=== PATIENT | female | born 1950 | race Hispanic/Latino ===

== ENCOUNTER 2018-01-22 12:58 | Observation (INO) | payer OTHER ==
--- OUTSIDE RECORDS SUMMARY | 2018-01-22 13:00 | XMS REPORT | Clinical Summary ---
:1950 Author Organization [facility] Address [address] [place] [address] Phone Care Team Providers Name Role Phone Unavailable Primary Care Provider Unavailable Allergies Active Allergy Reactions Severity Noted Date Comments Aspirin (Tartrazine Other (See Comments) 02/10/2017 Coldness- "feels like Only) an ice[place]" Hydrocodone-Acetaminop 02/10/2017 Coldness- "feels like hen an ice[place]" Acetaminophen-Codeine Other (See Comments) 02/10/2017 Coldness- "feels like an ice[place]" Current Medications Prescription Sig. Disp. Refills Start Date End Date Status allopurinol Take 300 mg by Active (ZYLOPRIM) 300 MG mouth daily. tablet ALPRAZolam (XANAX) Take 0.5 mg by Active 0.5 MG tablet mouth daily. gabapentin Take 600 mg by Active (NEURONTIN) 600 MG mouth 2 (two) tablet times daily. losartan (COZAAR) 50 Take 50 mg by Active MG tablet mouth daily. MECOBAL/LEVOMEFOLAT Take 1 capsule Active CA/B6 PHOS (METANX by mouth 2 ORAL) (two) times daily. metFORMIN Take 1,000 mg Active (GLUCOPHAGE) 500 MG by mouth 2 tablet (two) times daily with breakfast and dinner. clopidogrel (PLAVIX) Take 75 mg by Active 75 mg tablet mouth daily. budesonide-formotero Inhale 2 puffs Active l (SYMBICORT) by mouth via 160-4.5 inhaler 2 (two) mcg/actuation times daily. inhaler tiZANidine Take 4 mg by Active (ZANAFLEX) 4 MG mouth daily. tablet traMADol (ULTRAM) 50 Take 50 mg by Active mg tablet mouth 2 (two) times daily. topiramate (TROKENDI Take 1 tablet Active XR) 100 mg Cp24 by mouth daily. atorvastatin Take 1 tablet 30 tablet 1 02/12/2017 Active (LIPITOR) 80 MG (80 mg total) 8 tablet by mouth nightly. venlafaxine 150 mg Take 1 tablet 0 02/12/2017 Active TR24 by mouth daily. sulfamethoxazole-tri Take 1 tablet Discontinued methoprim (BACTRIM by mouth 2 7 DS) 800-160 mg per (two) times tabletIndications: daily. Urinary tract infection atorvastatin Take 20 mg by Discontinued (LIPITOR) 20 MG mouth daily. 7 tablet nitrofurantoin Take 100 mg by Discontinued (MACRODANTIN) 100 MG mouth daily. 7 capsule venlafaxine 150 mg Take 1 tablet Discontinued TR24 by mouth 2 7 (two) times daily. 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 ([facility]) 02/10/2017 Encounters Date Type Specialty Care Team Description 02/10/2017 - Hospital General Internal [facility], Transient cerebral 02/12/2017 Encounter Medicine MD Ricardo ischemia, unspecified Natalee, [place] type;Essential MD Nikkie hypertension;Type II Rissa Thornton diabetes mellitus, MD Morelia well controlled ([facility]);Pure hypercholesterolemia;H yperlipidemia, unspecified hyperlipidemia type after 01/21/2017 Social History Tobacco Use Types Packs/Day Years Used Date Never Smoker Sex Assigned at Date Recorded Not on file Last Filed Vital Signs Vital Sign Reading Time Taken Blood Pressure 148/65 02/12/2017 11:17 AM CDT Pulse 69 02/12/2017 11:17 AM CDT Temperature 37.2 C (98.9 F) 02/12/2017 11:17 AM CDT Respiratory Rate 18 02/12/2017 11:17 AM CDT Oxygen Saturation 97% 02/12/2017 11:17 AM CDT Inhaled Oxygen Concentration - - Weight 81 kg (178 lb 9.2 oz) 02/10/2017 5:00 PM CDT Height 165.1 cm (5' 5") 02/10/2017 5:00 PM CDT Body Mass Index 29.72 02/10/2017 5:00 PM CDT Plan of Treatment Not on file Results POC-Glucose meter (02/12/2017 7:45 AM)Only the most recent of7 resultswithin the time period is included. Component Value Ref Range POC-Glucose Meter 149 (H)Comment: TESTED AT [address] 70 - 110 mg/[place] [address] Specimen Performing Laboratory Blood [address] [address] CBC with platelet count + automated diff (02/12/2017 3:53 AM)Only the most recent of3 resultswithin the time period is included. Component Value Ref Range WBC 9.9 4.0 - 10.0 K/L RBC 3.93 (L) 4.00 - 5.00 M/L Hemoglobin 12.3 12.0 - 15.0 GM/DL Hematocrit 39.1 36.0 - 45.0 % MCV 99.6 (H) 82.0 - 99.0 fL MCH 31.3 27.0 - 33.0 pg MCHC 31.4 (L) 32.0 - 36.0 GM/DL RDW 13.4 10.3 - 14.2 % Platelets 238 150 - 430 K/CU MM MPV 8.7 6.5 - 10.5 fL nRBC 0 0 - 0 /100 WBC % Neutros 46 % % Lymphs 41 % % Monos 5 % % Eos 7 % % Baso 1 % # Neutros 4.56 1.80 - 8.00 K/L # Lymphs 4.05 1.48 - 4.50 K/L # Monos 0.48 0.00 - 1.30 K/L # Eos 0.72 (H) 0.00 - 0.50 K/L # Baso 0.08 0.00 - 0.20 K/L Specimen Performing Laboratory Blood [address] [address] Narrative 0.00 CBC with platelet count + automated diff (02/12/2017 3:53 AM)Only the most recent of3 resultswithin the time period is included. Specimen Performing Laboratory Blood Narrative The following orders were created for panel order CBC with platelet count + automated diff. Procedure Abnormality Status --------- ------ CBC with platelet count ...[[id number]]AbnormalFinal result Please view results for these tests on the individual orders. Basic Metabolic Panel (02/12/2017 3:53 AM)Only the most recent of3 resultswithin the time period is included. Component Value Ref Range Sodium 140 136 - 145 meq/L Potassium 4.6Comment: Specimen slightly hemolyzed 3.5 - 5.1 meq/L Chloride 114 (H) 98 - 107 meq/L CO2 17 (L) 22 - 29 meq/L BUN 16 7 - 21 mg/dL Creatinine 0.94Comment: Specimen slightly hemolyzed 0.57 - 1.25 mg/dL Glucose 98 70 - 105 mg/dL Calcium 9.4 8.4 - 10.2 mg/dL EGFR 59Comment: ESTIMATED GFR IS NOT ACCURATE mL/min/1.73 sq m CREATININE CLEARANCE IN PREDICTING GLOMERULAR FILTRATION RATE. ESTIMATED GFR IS NOT APPLICABLE FOR DIALYSIS PATIENTS. Specimen Performing Laboratory [place] [address] MR brain without IV contrast (02/11/2017 11:25 PM) Specimen Performing Laboratory [id number] RIS Narrative FINAL REPORT MR, BRAIN, WITHOUT CONTRAST, MR, MRA, NECK, WITHOUT IV CONTRAST, MR, MRA, BRAIN, WITHOUT CONTRAST INDICATION: Ischemic Stroke Evaluation TECHNIQUE: Multiplanar, multisequence MR images of the brain.3-D time of flight MRA of the cranial and cervical circulation. 2-D time of flight MRA of the neck. 3D MIP angiographic post-processing was performed. Stenosis evaluation utilized NASCET criteria. COMPARISON: Noncontrast brain CT of the same date FINDINGS: MRI BRAIN: No acute ischemic changes are present. Scattered foci of increased T2 signal are noted in the cerebral white matter, suggesting sequela of chronic, microvascular disease. Moderate parenchymal loss is evident. There is no intra-axial or extra parenchymal hemorrhage. Ventricular configuration is within normal limits.Incidental note of empty sella. No abnormal signal is noted in the skull base or calvarium. The included paranasal sinuses and mastoid air cells are normally aerated. Orbital contents are unremarkable. MRA NECK: There is normal, antegrade flow-related signal in the cervical portions of the vertebral and carotid systems. There is no hemodynamically significant stenosis. The vertebral arteries are codominant extracranially. MRA HEAD: Preserved flow signal is present in the major intracranial arteries. No major branch artery occlusion, flow-limiting stenosis, or saccular aneurysm is identified. No vascular malformation is evident. IMPRESSION: No acute or early subacute ischemia. Scattered chronic microvascular ischemic changes. Unremarkable noncontrast MRA of the head and neck. Signed: JR Britt Robert MD Report Verified Date/Time:02/12/2017 00:04:14 Reading Location: [facility] C013 Transitional Reading Room Procedure Note Interface, External Ris In - 02/12/2017 12:06 AM CDT FINAL REPORT MR, BRAIN, WITHOUT CONTRAST, MR, MRA, NECK, WITHOUT IV CONTRAST, MR, MRA, BRAIN, WITHOUT CONTRAST INDICATION: Ischemic Stroke Evaluation TECHNIQUE: Multiplanar, multisequence MR images of the brain. 3-D time of flight MRA of the cranial and cervical circulation. 2-D time of flight MRA of the neck. 3D MIP angiographic post-processing was performed. Stenosis evaluation utilized NASCET criteria. COMPARISON: Noncontrast brain CT of the same date FINDINGS: MRI BRAIN: No acute ischemic changes are present. Scattered foci of increased T2 signal are noted in the cerebral white matter, suggesting sequela of chronic, microvascular disease. Moderate parenchymal loss is evident. There is no intra-axial or extra parenchymal hemorrhage. Ventricular configuration is within normal limits. Incidental note of empty sella. No abnormal signal is noted in the skull base or calvarium. The included paranasal sinuses and mastoid air cells are normally aerated. Orbital contents are unremarkable. MRA NECK: There is normal, antegrade flow-related signal in the cervical portions of the vertebral and carotid systems. There is no hemodynamically significant stenosis. The vertebral arteries are codominant extracranially. MRA HEAD: Preserved flow signal is present in the major intracranial arteries. No major branch artery occlusion, flow-limiting stenosis, or saccular aneurysm is identified. No vascular malformation is evident. IMPRESSION: No acute or early subacute ischemia. Scattered chronic microvascular ischemic changes. Unremarkable noncontrast MRA of the head and neck. Signed: JR Britt Robert MD Report Verified Date/Time: 02/12/2017 00:04:14 Reading Location: [facility] Transitional Reading Room neck without IV contrast (02/11/2017 11:25 PM) Specimen Performing Laboratory RIS Narrative FINAL REPORT MR, BRAIN, WITHOUT CONTRAST, MR, MRA, NECK, WITHOUT IV CONTRAST, MR, MRA, BRAIN, WITHOUT CONTRAST INDICATION: Ischemic Stroke Evaluation TECHNIQUE: Multiplanar, multisequence MR images of the brain.3-D time of flight MRA of the cranial and cervical circulation. 2-D time of flight MRA of the neck. 3D MIP angiographic post-processing was performed. Stenosis evaluation utilized NASCET criteria. COMPARISON: Noncontrast brain CT of the same date FINDINGS: MRI BRAIN: No acute ischemic changes are present. Scattered foci of increased T2 signal are noted in the cerebral white matter, suggesting sequela of chronic, microvascular disease. Moderate parenchymal loss is evident. There is no intra-axial or extra parenchymal hemorrhage. Ventricular configuration is within normal limits.Incidental note of empty sella. No abnormal signal is noted in the skull base or calvarium. The included paranasal sinuses and mastoid air cells are normally aerated. Orbital contents are unremarkable. MRA NECK: There is normal, antegrade flow-related signal in the cervical portions of the vertebral and carotid systems. There is no hemodynamically significant stenosis. The vertebral arteries are codominant extracranially. MRA HEAD: Preserved flow signal is present in the major intracranial arteries. No major branch artery occlusion, flow-limiting stenosis, or saccular aneurysm is identified. No vascular malformation is evident. IMPRESSION: No acute or early subacute ischemia. Scattered chronic microvascular ischemic changes. Unremarkable noncontrast MRA of the head and neck. Signed: JR Britt Robert MD Report Verified Date/Time:02/12/2017 00:04:14 Reading Location: [address] Transitional Reading Room Procedure Note Interface, External Ris In - 02/12/2017 12:06 AM CDT FINAL REPORT MR, BRAIN, WITHOUT CONTRAST, MR, MRA, NECK, WITHOUT IV CONTRAST, MR, MRA, BRAIN, WITHOUT CONTRAST INDICATION: Ischemic Stroke Evaluation TECHNIQUE: Multiplanar, multisequence MR images of the brain. 3-D time of flight MRA of the cranial and cervical circulation. 2-D time of flight MRA of the neck. 3D MIP angiographic post-processing was performed. Stenosis evaluation utilized NASCET criteria. COMPARISON: Noncontrast brain CT of the same date FINDINGS: MRI BRAIN: No acute ischemic changes are present. Scattered foci of increased T2 signal are noted in the cerebral white matter, suggesting sequela of chronic, microvascular disease. Moderate parenchymal loss is evident. There is no intra-axial or extra parenchymal hemorrhage. Ventricular configuration is within normal limits. Incidental note of empty sella. No abnormal signal is noted in the skull base or calvarium. The included paranasal sinuses and mastoid air cells are normally aerated. Orbital contents are unremarkable. MRA NECK: There is normal, antegrade flow-related signal in the cervical portions of the vertebral and carotid systems. There is no hemodynamically significant stenosis. The vertebral arteries are codominant extracranially. MRA HEAD: Preserved flow signal is present in the major intracranial arteries. No major branch artery occlusion, flow-limiting stenosis, or saccular aneurysm is identified. No vascular malformation is evident. IMPRESSION: No acute or early subacute ischemia. Scattered chronic microvascular ischemic changes. Unremarkable noncontrast MRA of the head and neck. Signed: JR Balwinder, Kalie JONES Report Verified Date/Time: 02/12/2017 00:04:14 Reading Location: [address] Transitional Reading Room head without IV contrast (02/11/2017 11:25 PM) Specimen Performing Laboratory [employer] Narrative FINAL REPORT MR, BRAIN, WITHOUT CONTRAST, MR, MRA, NECK, WITHOUT IV CONTRAST, MR, MRA, BRAIN, WITHOUT CONTRAST INDICATION: Ischemic Stroke Evaluation TECHNIQUE: Multiplanar, multisequence MR images of the brain.3-D time of flight MRA of the cranial and cervical circulation. 2-D time of flight MRA of the neck. 3D MIP angiographic post-processing was performed. Stenosis evaluation utilized NASCET criteria. COMPARISON: Noncontrast brain CT of the same date FINDINGS: MRI BRAIN: No acute ischemic changes are present. Scattered foci of increased T2 signal are noted in the cerebral white matter, suggesting sequela of chronic, microvascular disease. Moderate parenchymal loss is evident. There is no intra-axial or extra parenchymal hemorrhage. Ventricular configuration is within normal limits.Incidental note of empty sella. No abnormal signal is noted in the skull base or calvarium. The included paranasal sinuses and mastoid air cells are normally aerated. Orbital contents are unremarkable. MRA NECK: There is normal, antegrade flow-related signal in the cervical portions of the vertebral and carotid systems. There is no hemodynamically significant stenosis. The vertebral arteries are codominant extracranially. MRA HEAD: Preserved flow signal is present in the major intracranial arteries. No major branch artery occlusion, flow-limiting stenosis, or saccular aneurysm is identified. No vascular malformation is evident. IMPRESSION: No acute or early subacute ischemia. Scattered chronic microvascular ischemic changes. Unremarkable noncontrast MRA of the head and neck. Signed: JR Britt Robert MD Report Verified Date/Time:02/12/2017 00:04:14 Reading Location: [address] Transitional Reading Room Procedure Note Interface, External Ris In - 02/25/2017 11:24 AM CDT FINAL REPORT MR, BRAIN, WITHOUT CONTRAST, MR, MRA, NECK, WITHOUT IV CONTRAST, MR, MRA, BRAIN, WITHOUT CONTRAST INDICATION: Ischemic Stroke Evaluation TECHNIQUE: Multiplanar, multisequence MR images of the brain. 3-D time of flight MRA of the cranial and cervical circulation. 2-D time of flight MRA of the neck. 3D MIP angiographic post-processing was performed. Stenosis evaluation utilized NASCET criteria. COMPARISON: Noncontrast brain CT of the same date FINDINGS: MRI BRAIN: No acute ischemic changes are present. Scattered foci of increased T2 signal are noted in the cerebral white matter, suggesting sequela of chronic, microvascular disease. Moderate parenchymal loss is evident. There is no intra-axial or extra parenchymal hemorrhage. Ventricular configuration is within normal limits. Incidental note of empty sella. No abnormal signal is noted in the skull base or calvarium. The included paranasal sinuses and mastoid air cells are normally aerated. Orbital contents are unremarkable. MRA NECK: There is normal, antegrade flow-related signal in the cervical portions of the vertebral and carotid systems. There is no hemodynamically significant stenosis. The vertebral arteries are codominant extracranially. MRA HEAD: Preserved flow signal is present in the major intracranial arteries. No major branch artery occlusion, flow-limiting stenosis, or saccular aneurysm is identified. No vascular malformation is evident. IMPRESSION: No acute or early subacute ischemia. Scattered chronic microvascular ischemic changes. Unremarkable noncontrast MRA of the head and neck. Signed: JR Britt Robert MD Report Verified Date/Time: 02/12/2017 00:04:14 Reading Location: [facility] C0[facility] Transitional Reading Room brain without IV contrast portable (02/11/2017 7:05 PM) Specimen Performing Laboratory [facility] Narrative FINAL REPORT CT Head without contrast CLINICAL HISTORY: 24h post-tPA TECHNIQUE: Contiguous axial images through the head without contrast on the portable CT unit. This exam was performed according to the departmental dose optimization program which includes automated exposure control, adjustment of the mA and/or kV according to the patient size, and/or use of an iterative reconstruction technique. COMPARISON: None FINDINGS: The portable head CT technique does not reveal definitive evidence of acute infarct or intracranial hemorrhage. There is no hydrocephalus, midline shift, or apparent mass effect. There are no extra-axial fluid collections. The skull is intact. The visualized paranasal sinuses are well-aerated. IMPRESSION: No definitive portable CT evidence of acute infarct or hemorrhage. Signed: Stephenie Arias MD Report Verified Date/Time:02/11/2017 19:16:08 Reading Location: [facility] Radiology Reading Room Procedure Note Interface, External Ris In - 02/11/2017 7:18 PM CDT FINAL REPORT CT Head without contrast CLINICAL HISTORY: 24h post-tPA TECHNIQUE: Contiguous axial images through the head without contrast on the portable CT unit. This exam was performed according to the departmental dose optimization program which includes automated exposure control, adjustment of the mA and/or kV according to the patient size, and/or use of an iterative reconstruction technique. COMPARISON: None FINDINGS: The portable head CT technique does not reveal definitive evidence of acute infarct or intracranial hemorrhage. There is no hydrocephalus, midline shift, or apparent mass effect. There are no extra-axial fluid collections. The skull is intact. The visualized paranasal sinuses are well-aerated. IMPRESSION: No definitive portable CT evidence of acute infarct or hemorrhage. Signed: Stephenie Arias MD Report Verified Date/Time: 02/11/2017 19:16:08 Reading Location: [facility] Radiology Reading Room 2D Echo W/Doppler(CW/PW/Color) (02/11/2017 8:18 AM) Component Value Ref Range Ejection Fraction LV EF 55.3 % (55-75) Index 29.4 %/m2 Specimen Performing [facility] [address] [place] [address] Voice:[phone] Transthoracic Echocardiogram Pat.Name:Filippo MARQUEZ.ID:[id number] .Date: 02/11/2017 Refer.MD:RICARDO HENRY Exam Time: 8:18:00 AMStudy Type:Echo Complete Height:65inWeight: 178lb BSA: 1.88 m2 DOBAge:1950,67Y Sex: FEMALEBP:111/58 HR:78 bpmSonogrphr: Porsche Pollard [facility] Pat. Stat.:Inpatient Room:[facility] Reason for Study:Suspected Cardiac Source of Emboli History / Clinical:Stroke/TIA, Diabetes, Hyperlipidemia, Hypertension Procedures:2D ECHO W/ DOPPLER (CW/PW/COLOR), Agitated saline done SUMMARY: All of the LV segments contract normally. LVEF by quantitative assessment is normal (55-60%). Grade 1 diastolic dysfunction (impaired relaxation and low-normal LA pressure). Global RV systolic function is normal. Estimated Peak systolic PA pressure is 30-35 mm Hg. The estimated RA pressure by IVC dynamics 0-5 mmHg. FINDINGS: Rhythm/BP: Sinus bradycardia during the exam. LV: All of the LV segments contract normally. Global LV systolic functionis normal. Left ventricular chamber size (by vol index)is normal (female - LVED vol -29-61 ml/m2). No evidenceof LV hypertrophy. LVEF by quantitative assessment isnormal (55-60%). The LV endocardium is adequately visualized.Grade 1 diastolic dysfunction (impaired relaxationand low-normal LA pressure). The LVEF was measuredusing Meehan's single plane method (apical 4 chamber). LA: LA size is normal (16-34 ml/m2). LA is adequately visualized. RV: RV is well visualized. RV chamber size is normal. Global RV systolicfunction is normal. RA: The RA is well visualized. RA cavity size is normal. AV: Mild aortic regurgitation. Mild AoV cusp thickening. MV: A trace of mitral regurgitation. Mild mitral annular calcification. TV: Normal TV structure and function. Mild tricuspid regurgitation.Estimated Peak systolic PA pressure is 30 -35 mmHg. PV: PV is not well visualized; function appears normal by Dopplervisualized. AO: Aortic root size (Sinus of Valsalva diameter) is normal. Pericard: No pericardial effusion is visualized. Systemic Veins: The inferior vena cava is not well visualized. The inferiorvena cava size appears normal. The estimated RA pressureby IVC dynamics 0-5 mmHg. Comparison: No prior exam available for comparison. Quality:Technically adequate exam. MEASUREMENTS: 2D LV EF SinglePlane LV Ad 28.3 cm2(9.5-22.3)* LV CO 3.01 l/min LV As 17 cm2(4-11.6)* LV CI 1.6 l/min/m2 LVEDV 92.3 ml (59-136) Index49.1 ml/m2 LV SV 51 ml LVESV 41.3 mlHR59 bpm Left Ventricle LV A% 39.9 %(36-64) LA Sng Plane LA Vol55.1 mlIndex 29.3 ml/m2 LA Area 19.2 cm2(8.8-23.4) Parasternal Long Happy Ao An 1.84 cm (1.4-2.6) LV%fs 34.4 %(25-46) Ao Rtd 3 cmLVPWd0.978 cm IVSd 0.922 cm LA Ds 4.15 cm (2.3-3.8)* LVIDd 5.07 cm (4.3-5.1) LV Wmn0.95 cm LVIDs 3.32 cm (2-4) DOPPLER AV LVOT For Flow [id number] cm/s (70-110)* LVOT CO 4.48 l/min LVOT VTI29.1 cmLVOT CI 2.38 l/min/m2 LVOTpkPG5.38 mmHgLVOT Area 2.66 cm2 LVOTmnPG2.81 imXeWO28 bpm LVOT SV 77.3 ml Aortic Valve AV DI0.858 SVi (LVOT)41.1 AV AV For Flow/ARVIND AV pkVel 140 cm/s (100-170) AV AC/ET 0.222 AV mnVel93.8 cm/sAVpkAcRt 3568 cm/s2 AV pkPG 7.85 mmHgAV DeRt 388 cm/s2 AV mnPG 4.11 mmHgArea (VTI) 2.28 cm2(3-5)* AV VTI33.9 cmArea (Farshad) 2.2 cm2(3-5)* AV ET361 msec AV AC 80 msec (83-118)* MV E/A Ratio MV pkE91.8 cm/s (60-130) MV E/A1.11 MV pkA83.1 cm/s TV PA Sys Press TI farshad 255 cm/Blue Press 5 mmHg RV-RA PG25.9 mmHgSysP TV 30.9 mmHg Signed 02/11/2017 05:24 PM Lashell Salas M.D. Procedure Note Interface, External Ris In - 02/11/2017 5:24 PM CDT Echocardiography Laboratory [address] [place] [address] Voice: [phone] Transthoracic Echocardiogram Pat.Name: BRIDGETTE MARQUEZ Pat.ID: [id number] .Date: 02/11/2017 Refer.MD: RICARDO HENRY Exam Time: 8:18:00 AM Study Type:Echo Complete Height: 65in Weight: 178lb BSA: 1.88 m2 Age: 6 1950,67Y Sex: FEMALE BP: 111/58 HR: 78 bpm Sonogrphr: Porsche Pollard [facility] Pat. Stat.:Inpatient Room: [facility] Reason for Study:Suspected Cardiac Source of Emboli History / Clinical:Stroke/TIA, Diabetes, Hyperlipidemia, Hypertension Procedures:2D ECHO W/ DOPPLER (CW/PW/COLOR), Agitated saline done SUMMARY: All of the LV segments contract normally. LVEF by quantitative assessment is normal (55-60%). Grade 1 diastolic dysfunction (impaired relaxation and low-normal LA pressure). Global RV systolic function is normal. Estimated Peak systolic PA pressure is 30-35 mm Hg. The estimated RA pressure by IVC dynamics 0-5 mmHg. FINDINGS: Rhythm/BP: Sinus bradycardia during the exam. LV: All of the LV segments contract normally. Global LV systolic function is normal. Left ventricular chamber size (by vol index) is normal (female - LVED vol - 29-61 ml/m2). No evidence of LV hypertrophy. LVEF by quantitative assessment is normal (55-60%). The LV endocardium is adequately visualized. Grade 1 diastolic dysfunction (impaired relaxation and low-normal LA pressure). The LVEF was measured using Meehan's single plane method (apical 4 chamber). LA: LA size is normal (16-34 ml/m2). LA is adequately visualized. RV: RV is well visualized. RV chamber size is normal. Global RV systolic function is normal. RA: The RA is well visualized. RA cavity size is normal. AV: Mild aortic regurgitation. Mild AoV cusp thickening. MV: A trace of mitral regurgitation. Mild mitral annular calcification. TV: Normal TV structure and function. Mild tricuspid regurgitation. Estimated Peak systolic PA pressure is 30-35 mm Hg. PV: PV is not well visualized; function appears normal by Doppler visualized. AO: Aortic root size (Sinus of Valsalva diameter) is normal. Pericard: No pericardial effusion is visualized. Systemic Veins: The inferior vena cava is not well visualized. The inferior vena cava size appears normal. The estimated RA pressure by IVC dynamics 0-5 mmHg. Comparison: No prior exam available for comparison. Quality: Technically adequate exam. MEASUREMENTS: 2D LV EF SinglePlane LV Ad 28.3 cm2 (9.5-22.3)* LV CO 3.01 l/min LV As 17 cm2 (4-11.6)* LV CI 1.6 l/min/m2 LVEDV 92.3 ml (59-136) Index 49.1 ml/m2 LV SV 51 ml LVESV 41.3 ml HR 59 bpm Left Ventricle LV A% 39.9 % (36-64) LA Sng Plane LA Vol 55.1 ml Index 29.3 ml/m2 LA Area 19.2 cm2 (8.8-23.4) Parasternal Long Happy Ao An 1.84 cm (1.4-2.6) LV%fs 34.4 % (25-46) Ao Rtd 3 cm LVPWd 0.978 cm IVSd 0.922 cm LA Ds 4.15 cm (2.3-3.8)* LVIDd 5.07 cm (4.3-5.1) LV Wmn 0.95 cm LVIDs 3.32 cm (2-4) DOPPLER AV LVOT For Flow LVOTpkVel 116 cm/s (70-110)* LVOT CO 4.48 l/min LVOT VTI 29.1 cm LVOT CI 2.38 l/min/m2 LVOTpkPG 5.38 mmHg LVOT Area 2.66 cm2 LVOTmnPG 2.81 mmHg HR 58 bpm LVOT SV 77.3 ml Aortic Valve AV DI 0.858 SVi (LVOT) 41.1 AV AV For Flow/ARVIND AV pkVel 140 cm/s (100-170) AV AC/ET 0.222 AV mnVel 93.8 cm/s AVpkAcRt 3568 cm/s2 AV pkPG 7.85 mmHg AV DeRt 388 cm/s2 AV mnPG 4.11 mmHg Area (VTI) 2.28 cm2 (3-5)* AV VTI 33.9 cm Area (Farshad) 2.2 cm2 (3-5)* AV ET 361 msec AV AC 80 msec (83-118)* MV E/A Ratio MV pkE 91.8 cm/s (60-130) MV E/A 1.11 MV pkA 83.1 cm/s TV PA Sys Press TI farshad 255 cm/s RA Press 5 mmHg RV-RA PG 25.9 mmHg SysP TV 30.9 mmHg Signed 02/11/2017 05:24 PM Lashell Salas M.D. TSH/Free T4 If Indicated (02/11/2017 3:45 AM) Component Value Ref Range TSH 2.71 0.35 - 4.94 uIU/mL Specimen Performing Laboratory Blood - Arm, [address] [address] Hemoglobin A1c (02/11/2017 3:45 AM) Component Value Ref Range Hemoglobin A1C 6.8 (H) 4.3 - 6.1 % Specimen Performing Laboratory Blood - Arm, [address] [address] Fasting lipid panel (02/11/2017 3:45 AM) Component Value Ref Range Triglycerides 113 mg/dL Cholesterol 207 mg/dL HDL 61 mg/dL LDL Calculated 123 mg/dL Specimen Performing Laboratory Blood - Arm, [address] [address] Narrative Triglyceride Reference Range: Low Risk <150 Adixklkihb767-738 High Risk 200-499 Very High Risk>=500 Cholesterol Reference Range: Low Risk <200 Qyfitypuvq419-703 High Risk>240 HDL Cholesterol Reference Range: Low Risk >=60 High Risk <40 LDL Cholesterol Reference Range: Optimal<100 Near Yqjwrbt041-258 Zwqeyanamt526-859 Nbfd873-231 Very High >=190 Fasting Urinalysis w/Microscopic (02/11/2017 12:12 AM) Component Value Ref Range Color, UA Light Yellow Clarity, UA Clear Specific [place], UA 1.004 1.001 - 1.035 pH, UA 6.5 5.0 - 8.0 Protein, UA Negative Negative Glucose, UA Negative Negative Ketones, UA Negative Negative Bilirubin, UA Negative Negative Blood, UA Negative Negative Nitrite, UA Negative Negative Leukocytes, UA Trace (A) Negative Urobilinogen, UA 0.2 0.2 - 1.0 mg/dL RBC, UA 1 /HPF WBC, UA 3 /HPF Bacteria, UA Rare Squam Epithel, UA 4 /HPF Specimen Source Urine, Voided Specimen Performing Laboratory Urine - Urine, Voided [address] [address] Urine culture (02/11/2017 12:12 AM) Component Value Ref Range Result >100,000 col/mL skin clay Specimen Performing Laboratory Urine - Urine, Voided [address] [address] Sedimentation rate (02/10/2017 7:41 PM) Component Value Ref Range Sed Rate 16 0 - 40 mm/HR Specimen Performing Laboratory Blood - Arm, Right [address] [address] RPR (02/10/2017 6:38 PM) Component Value Ref Range RPR Nonreactive Nonreactive Specimen Performing Laboratory Blood [address] [address] Vitamin B12 (02/10/2017 6:36 PM) Component Value Ref Range Vitamin B12 >2000 (H) 213 - 816 pg/mL Specimen Performing Laboratory Blood [address] [address] Hepatic function panel (02/10/2017 6:36 PM) Component Value Ref Range Protein, Total 5.7 (L)Comment: Specimen slightly hemolyzed 6.0 - 8.3 gm/dL Albumin 3.4 (L)Comment: Specimen slightly hemolyzed 3.5 - 5.0 g/dL Total Bilirubin 0.2Comment: Specimen slightly hemolyzed 0.2 - 1.2 mg/dL Bilirubin, Direct 0.1Comment: Specimen slightly hemolyzed 0.1 - 0.5 mg/dL Alkaline Phosphatase 73 40 - 150 U/L AST 22Comment: Specimen slightly hemolyzed 5 - 34 U/L ALT 12Comment: Specimen slightly hemolyzed 6 - 55 U/L Specimen Performing Laboratory Blood [facility] [address] [place] [address] after 01/21/2017
--- OUTSIDE RECORDS SUMMARY | 2018-01-22 13:00 | XMS REPORT ---
:1950 [facility] Address [address] [place] [address] [address] [place] [address] Care Team Providers Name Role Phone RICARDO HENRY Unavailable Unavailable Problems This patient has no known problems. Allergies, Adverse Reactions, Alerts This patient has no known allergies or adverse reactions. Medications This patient has no known medications. Results Test Description Test Time Test Comments Text Results Atomic Results Result Comments URINE CULTURE 2017-02-12 15:54:00 Test Item Value Reference Range Comments CULTURE (BEAKER) (test zjom=0837) >100,000 col/mL skin clay POCT-GLUCOSE [id number] 07:48:00 Test Item Value Reference Range Comments POC-GLUCOSE METER (BEAKER) 149 mg/dL 70-110 TESTED AT [facility] [address] [facility] (test ejmq=3027) [facility] [address] BASIC METABOLIC [id number] 04:52:00 Test Item Value Reference Range Comments SODIUM (BEAKER) (test 140 meq/L 136-145 rusj=400) POTASSIUM (BEAKER) (test 4.6 meq/L 3.5-5.1 Specimen slightly bpeh=832) hemolyzed CHLORIDE (BEAKER) (test 114 meq/L 98-107 qojp=100) CO2 (BEAKER) (test 17 meq/L 22-29 wvmp=457) BLOOD UREA NITROGEN 16 mg/dL 7-21 (BEAKER) (test swen=836) CREATININE (BEAKER) (test 0.94 mg/dL 0.57-1.25 Specimen slightly czip=998) hemolyzed GLUCOSE RANDOM (BEAKER) 98 mg/dL 70-105 (test lmbq=207) CALCIUM (BEAKER) (test 9.4 mg/dL 8.4-10.2 drtn=254) EGFR (BEAKER) (test 59 mL/min/1.73 sq m ESTIMATED GFR IS NOT xvuc=8240) ACCURATE CREATININE CLEARANCE IN PREDICTING GLOMERULAR FILTRATION RATE. ESTIMATED GFR IS NOT APPLICABLE FOR DIALYSIS PATIENTS. CBC W/PLT COUNT & AUTO [id number] 04:52:00 Test Item Value Reference Range Comments WHITE BLOOD CELL COUNT (BEAKER) (test wzkm=270) 9.9 K/ L 4.0-10.0 RED BLOOD CELL COUNT (BEAKER) (test duag=491) 3.93 M/ L 4.00-5.00 HEMOGLOBIN (BEAKER) (test eyua=090) 12.3 GM/DL 12.0-15.0 HEMATOCRIT (BEAKER) (test ldgh=147) 39.1 % 36.0-45.0 MEAN CORPUSCULAR VOLUME (BEAKER) (test peiv=240) 99.6 fL 82.0-99.0 MEAN CORPUSCULAR HEMOGLOBIN (BEAKER) (test 31.3 pg 27.0-33.0 avla=185) MEAN CORPUSCULAR HEMOGLOBIN CONC (BEAKER) (test 31.4 GM/DL 32.0-36.0 akmy=753) RED CELL DISTRIBUTION WIDTH (BEAKER) (test 13.4 % 10.3-14.2 ruea=066) PLATELET COUNT (BEAKER) (test pzfn=784) 238 K/CU MM 150-430 MEAN PLATELET VOLUME (BEAKER) (test lmax=112) 8.7 fL 6.5-10.5 NUCLEATED RED BLOOD CELLS (BEAKER) (test 0 /100 WBC 0-0 zyuy=254) NEUTROPHILS RELATIVE PERCENT (BEAKER) (test 46 % keht=211) LYMPHOCYTES RELATIVE PERCENT (BEAKER) (test 41 % fach=384) MONOCYTES RELATIVE PERCENT (BEAKER) (test 5 % ssby=242) EOSINOPHILS RELATIVE PERCENT (BEAKER) (test 7 % icic=052) BASOPHILS RELATIVE PERCENT (BEAKER) (test 1 % tvql=738) NEUTROPHILS ABSOLUTE COUNT (BEAKER) (test 4.56 K/ L 1.80-8.00 aitx=789) LYMPHOCYTES ABSOLUTE COUNT (BEAKER) (test 4.05 K/ L 1.48-4.50 ehjq=994) MONOCYTES ABSOLUTE COUNT (BEAKER) (test 0.48 K/ L 0.00-1.30 sxeg=452) EOSINOPHILS ABSOLUTE COUNT (BEAKER) (test 0.72 K/ L 0.00-0.50 fxxf=156) BASOPHILS ABSOLUTE COUNT (BEAKER) (test 0.08 K/ L 0.00-0.20 svsr=851) 0.00POCT-GLUCOSE [id number] 21:56:00 Test Item Value Reference Range Comments POC-GLUCOSE METER (BEAKER) 114 mg/dL 70-110 TESTED AT [address] (test aicd=2905) [place] [id number] POCT-GLUCOSE [id number] 18:04:00 Test Item Value Reference Range Comments POC-GLUCOSE METER (BEAKER) 82 mg/dL 70-110 TESTED AT [address] (test mzvm=9790) [place] [id number] TSH/FREE T4 IF [id number] 15:29:00 Test Item Value Reference Range Comments THYROID STIMULATING HORMONE (BEAKER) (test 2.71 uIU/mL 0.35-4.94 fzrg=413) POCT-GLUCOSE [id number] 12:39:00 Test Item Value Reference Range Comments POC-GLUCOSE METER (BEAKER) 112 mg/dL 70-110 TESTED AT [address] (test mgyf=7248) [place] [address] [id number] 12:03:00 Test Item Value Reference Range Comments RPR SCREEN (BEAKER) (test cgfm=893) Nonreactive Nonreactive HEMOGLOBIN [id number] 08:06:00 Test Item Value Reference Range Comments HEMOGLOBIN A1C (BEAKER) (test zoqm=212) 6.8 % 4.3-6.1 POCT-GLUCOSE [id number] 07:58:00 Test Item Value Reference Range Comments POC-GLUCOSE METER (BEAKER) 98 mg/dL 70-110 TESTED AT [address] (test ndyj=3690) [place] [id number] CBC W/PLT COUNT & AUTO [id number] 04:28:00 Test Item Value Reference Range Comments WHITE BLOOD CELL COUNT (BEAKER) (test kzun=487) 8.1 K/ L 4.0-10.0 RED BLOOD CELL COUNT (BEAKER) (test dlai=998) 3.63 M/ L 4.00-5.00 HEMOGLOBIN (BEAKER) (test tqmy=087) 12.0 GM/DL 12.0-15.0 HEMATOCRIT (BEAKER) (test qnpn=034) 36.0 % 36.0-45.0 MEAN CORPUSCULAR VOLUME (BEAKER) (test rokg=642) 99.1 fL 82.0-99.0 MEAN CORPUSCULAR HEMOGLOBIN (BEAKER) (test 33.0 pg 27.0-33.0 yilk=724) MEAN CORPUSCULAR HEMOGLOBIN CONC (BEAKER) (test 33.3 GM/DL 32.0-36.0 rgbg=107) RED CELL DISTRIBUTION WIDTH (BEAKER) (test 15.2 % 10.3-14.2 lxcc=311) PLATELET COUNT (BEAKER) (test fouw=010) 232 K/CU MM 150-430 MEAN PLATELET VOLUME (BEAKER) (test ipoo=213) 8.7 fL 6.5-10.5 NUCLEATED RED BLOOD CELLS (BEAKER) (test 0 /100 WBC 0-0 npsn=008) NEUTROPHILS RELATIVE PERCENT (BEAKER) (test 53 % uhvs=422) LYMPHOCYTES RELATIVE PERCENT (BEAKER) (test 32 % xqot=894) MONOCYTES RELATIVE PERCENT (BEAKER) (test 5 % zrou=505) EOSINOPHILS RELATIVE PERCENT (BEAKER) (test 8 % rtur=693) BASOPHILS RELATIVE PERCENT (BEAKER) (test 1 % ddcu=561) NEUTROPHILS ABSOLUTE COUNT (BEAKER) (test 4.27 K/ L 1.80-8.00 jsjj=854) LYMPHOCYTES ABSOLUTE COUNT (BEAKER) (test 2.62 K/ L 1.48-4.50 gjul=630) MONOCYTES ABSOLUTE COUNT (BEAKER) (test 0.42 K/ L 0.00-1.30 iwlh=250) EOSINOPHILS ABSOLUTE COUNT (BEAKER) (test 0.67 K/ L 0.00-0.50 gelz=277) BASOPHILS ABSOLUTE COUNT (BEAKER) (test 0.09 K/ L 0.00-0.20 lnew=882) 0.00BASI METABOLIC [id number] 04:15:00 Test Item Value Reference Range Comments SODIUM (BEAKER) (test 141 meq/L 136-145 wums=428) POTASSIUM (BEAKER) (test 4.8 meq/L 3.5-5.1 vpet=217) CHLORIDE (BEAKER) (test 116 meq/L 98-107 fedn=386) CO2 (BEAKER) (test 17 meq/L 22-29 zccd=894) BLOOD UREA NITROGEN 17 mg/dL 7-21 (BEAKER) (test lmlk=691) CREATININE (BEAKER) (test 1.12 mg/dL 0.57-1.25 pshr=030) GLUCOSE RANDOM (BEAKER) 88 mg/dL 70-105 (test xaxm=048) CALCIUM (BEAKER) (test 9.2 mg/dL 8.4-10.2 mwbf=056) EGFR (BEAKER) (test mL/min/1.73 sq m INSUFFICIENT CLINICAL DATA bbqf=5828) TO CALCULATE ESTIMATED GFR. FastingLIPID [id number] 04:11:00 Test Item Value Reference Range Comments TRIGLYCERIDES (BEAKER) (test euor=370) 113 mg/dL CHOLESTEROL (BEAKER) (test yvjf=071) 207 mg/dL HDL CHOLESTEROL (BEAKER) (test dvju=571) 61 mg/dL LDL CHOLESTEROL CALCULATED (BEAKER) (test 123 mg/dL cayc=534) Triglyceride Reference Range: Low Risk <150 Borderline 150- 199 High Risk 200-499 Very High Risk >=500Cholesterol Reference Range: Low Risk <200 Borderline 200-239 High Risk > 240HDL Cholesterol Reference Range: Low Risk >=60 High Risk <40LDL Cholesterol Reference Range: Optimal <100 Near Optimal 100-129 Borderline 130-159 High 160-189 Very High >=190 FastingURINALYSIS W/ [id number] 00:43:00 Test Item Value Reference Range Comments COLOR (BEAKER) (test mzlk=609) Light Yellow CLARITY (BEAKER) (test rxhw=684) Clear SPECIFIC GRAVITY UA (BEAKER) (test xfiy=192) 1.004 1.001-1.035 PH UA (BEAKER) (test qfbm=460) 6.5 5.0-8.0 PROTEIN UA (BEAKER) (test yzpv=029) Negative Negative GLUCOSE UA (BEAKER) (test tfej=535) Negative Negative KETONES UA (BEAKER) (test axmz=269) Negative Negative BILIRUBIN UA (BEAKER) (test iiet=424) Negative Negative BLOOD UA (BEAKER) (test ffkv=455) Negative Negative NITRITE UA (BEAKER) (test ulba=595) Negative Negative LEUKOCYTE ESTERASE UA (BEAKER) (test hjqg=490) Trace Negative UROBILINOGEN UA (BEAKER) (test sbbj=840) 0.2 mg/dL 0.2-1.0 RBC UA (BEAKER) (test yyxn=296) 1 /HPF WBC UA (BEAKER) (test duyu=001) 3 /HPF BACTERIA (BEAKER) (test mgyk=190) Rare SQUAMOUS EPITHELIAL (BEAKER) (test aefg=381) 4 /HPF SOURCE(BEAKER) (test agtg=3070) Urine, Voided POCT-GLUCOSE [id number] 21:06:00 Test Item Value Reference Range Comments POC-GLUCOSE METER (BEAKER) 217 mg/dL 70-110 TESTED AT [address] (test ejpp=9109) [place] [address] SEDIMENTATION [id number] 20:24:00 Test Item Value Reference Range Comments SEDIMENTATION RATE, ERYTHROCYTE (BEAKER) (test 16 mm/HR 0-40 gnzd=206) VITAMIN [id number] 19:36:00 Test Item Value Reference Range Comments VITAMIN B12 (BEAKER) (test fgya=049) > pg/mL 213-816 POCT-GLUCOSE [id number] 19:08:00 Test Item Value Reference Range Comments POC-GLUCOSE METER (BEAKER) 105 mg/dL 70-110 TESTED AT [address] (test fhys=9613) [place] [address] BASIC METABOLIC [id number] 19:03:00 Test Item Value Reference Range Comments SODIUM (BEAKER) (test 138 meq/L 136-145 alcj=277) POTASSIUM (BEAKER) (test 4.6 meq/L 3.5-5.1 Specimen slightly owdf=475) hemolyzed CHLORIDE (BEAKER) (test 116 meq/L 98-107 myds=179) CO2 (BEAKER) (test 15 meq/L 22-29 fmdc=861) BLOOD UREA NITROGEN 17 mg/dL 7-21 (BEAKER) (test vmsq=660) CREATININE (BEAKER) (test 0.93 mg/dL 0.57-1.25 Specimen slightly mbjn=782) hemolyzed GLUCOSE RANDOM (BEAKER) 109 mg/dL 70-105 (test zdgm=747) CALCIUM (BEAKER) (test 8.1 mg/dL 8.4-10.2 sahk=760) EGFR (BEAKER) (test mL/min/1.73 sq m INSUFFICIENT CLINICAL DATA texf=8979) TO CALCULATE ESTIMATED GFR. HEPATIC FUNCTION [id number] 19:01:00 Test Item Value Reference Range Comments TOTAL PROTEIN (BEAKER) (test 5.7 gm/dL 6.0-8.3 Specimen slightly hemolyzed vcap=768) ALBUMIN (BEAKER) (test 3.4 g/dL 3.5-5.0 Specimen slightly hemolyzed vfde=3269) BILIRUBIN TOTAL (BEAKER) (test 0.2 mg/dL 0.2-1.2 Specimen slightly hemolyzed dprv=736) BILIRUBIN DIRECT (BEAKER) (test 0.1 mg/dL 0.1-0.5 Specimen slightly hemolyzed ojcn=134) ALKALINE PHOSPHATASE (BEAKER) 73 U/L 40-150 (test movt=086) AST (SGOT) (BEAKER) (test 22 U/L 5-34 Specimen slightly hemolyzed bwnj=941) ALT (SGPT) (BEAKER) (test 12 U/L 6-55 Specimen slightly hemolyzed tzpx=463) CBC W/PLT COUNT & AUTO [id number] 18:54:00 Test Item Value Reference Range Comments WHITE BLOOD CELL COUNT (BEAKER) (test twfj=375) 8.2 K/ L 4.0-10.0 RED BLOOD CELL COUNT (BEAKER) (test zjxt=237) 3.18 M/ L 4.00-5.00 HEMOGLOBIN (BEAKER) (test zcsx=788) 10.3 GM/DL 12.0-15.0 HEMATOCRIT (BEAKER) (test ndwh=022) 33.1 % 36.0-45.0 MEAN CORPUSCULAR VOLUME (BEAKER) (test ytqn=003) 104.0 fL 82.0-99.0 MEAN CORPUSCULAR HEMOGLOBIN (BEAKER) (test 32.5 pg 27.0-33.0 cuoh=348) MEAN CORPUSCULAR HEMOGLOBIN CONC (BEAKER) (test 31.2 GM/DL 32.0-36.0 emsj=357) RED CELL DISTRIBUTION WIDTH (BEAKER) (test 13.4 % 10.3-14.2 yqkr=586) PLATELET COUNT (BEAKER) (test uzbp=073) 203 K/CU MM 150-430 MEAN PLATELET VOLUME (BEAKER) (test ggai=346) 8.4 fL 6.5-10.5 NUCLEATED RED BLOOD CELLS (BEAKER) (test 0 /100 WBC 0-0 ywtb=660) NEUTROPHILS RELATIVE PERCENT (BEAKER) (test 56 % pqzq=599) LYMPHOCYTES RELATIVE PERCENT (BEAKER) (test 31 % kiwf=266) MONOCYTES RELATIVE PERCENT (BEAKER) (test 5 % xknc=148) EOSINOPHILS RELATIVE PERCENT (BEAKER) (test 8 % iwwq=396) BASOPHILS RELATIVE PERCENT (BEAKER) (test 1 % hujd=940) NEUTROPHILS ABSOLUTE COUNT (BEAKER) (test 4.55 K/ L 1.80-8.00 wktg=726) LYMPHOCYTES ABSOLUTE COUNT (BEAKER) (test 2.50 K/ L 1.48-4.50 endj=639) MONOCYTES ABSOLUTE COUNT (BEAKER) (test 0.40 K/ L 0.00-1.30 hhtg=189) EOSINOPHILS ABSOLUTE COUNT (BEAKER) (test 0.63 K/ L 0.00-0.50 tdot=437) BASOPHILS ABSOLUTE COUNT (BEAKER) (test 0.09 K/ L 0.00-0.20 droo=792) 0.00
[2018-01-22 14:14] LABS: Absolute Lymphocytes (CBC) 1.4 K/uL (0.7-4.9); Absolute Monocytes 0.3 K/uL (0.1-1.3); Absolute Neutrophil 4.9 K/uL (1.8-8.0); Eosinophils % 6.4 % (0-4.4); Hematocrit 35.1 % (36.0-45.0); Lymphocytes % 19.3 % (15.3-44.8); MCH 30.9 pg (27.0-35.0); MCV 96.5 fL (80-100); MPV 9.5 fL (7.6-11.3); Monocytes % 4.7 % (3.3-12.3); RBC Red Blood Cell Count 3.63 M/uL (3.86-4.86)
[2018-01-22 14:18] LABS: Protime INR 1.03
[2018-01-22 14:25] LABS: Urine Blood NEGATIVE (NEG); Urine Glucose NEGATIVE (NEG); Urine Protein NEGATIVE (NEG); Urine pH 5.5 (5.0-7.0)
--- NOTE | 2018-01-22 14:26 | RAD REPORT ---
EXAM DESCRIPTION: RAD - Chest Single View - 01/22/2018 2:13 pm CLINICAL HISTORY: Chest pain, dyspnea COMPARISON: January 2017 TECHNIQUE: AP portable chest image was obtained 1409 hours . FINDINGS: Lung volumes are relatively low. Interstitial markings are prominent but not clearly diffe rent. Small nodular focus left midlung field seen on the prior study has not changed over this nearly 1 year interval. Trachea is midline. Heart size is increased slightly from prior imaging. Vasculatur e is slightly more prominent as well. No measurable pleural effusion and no pneumothorax. No gross carl [place] abnormality seen. No acute aortic findings suspected. IMPRESSION: No acute lung parenchymal process. Vasculature and heart have increased slightly in size. Correlation is needed with any very early fail ure or volume overload findings.
[2018-01-22 14:30] LABS: Albumin 3.9 g/dL (3.2-5.5); Bilirubin Direct 0.1 mg/dL (0-0.2); Bilirubin Total 0.3 mg/dL (0.3-1.2); Magnesium 1.8 mg/dL (1.8-2.5); Protein, Total 6.9 g/dL (6.0-8.3)
[2018-01-22 14:34] LABS: CKMB Creatine Kinase MB 1.2 ng/ml (0.3-4.0)
[2018-01-22] MEDS ORDERED: ASPIRIN 81 MG CHEWABLE TABLET ONE (14:57)
--- NOTE | 2018-01-22 15:33 | RAD REPORT ---
EXAM DESCRIPTION: CT - Chest For Pe Angio - 01/22/2018 3:12 pm CLINICAL HISTORY: Chest pain, shortness of breath, difficulty breathing, left-sided back pain COMPARISON: AP chest same date TECHNIQUE: Dynamically enhanced 3 mm thick images of the chest were obtained during administration o f approximately 150mL Isovue 370 IV contrast. Coronal and oblique reconstruction images were generate d and reviewed. Exam utilizes a protocol to evaluate the pulmonary arterial tree. All CT scans are performed using dose optimization technique as appropriate and may include automated exposure control or mA/KV adjustment according to patient size. FINDINGS: No pulmonary emboli are identified. The aorta as imaged shows no acute or suspicious finding. No pericardial thickening or effusion. No consolidated parenchyma or mass. Interstitial markings are prominent and are scattered hazy ground -glass opacities throughout the lung deleon. No pleural effusion or pleural thickening. No mediastinal or hilar suspicious masses. No chest wall masses or abnormal axillary lymphadenopathy. No endobronchial lesions. IMPRESSION: No pulmonary emboli identified. Interstitial and alveolar ground-glass opacities favored to be edema pattern from failure or volume o verload.
[2018-01-22] MEDS ORDERED: FUROSEMIDE 40 MG TABLET ONE (15:57)
--- NOTE | 2018-01-22 16:16 | ER ---
Nurse's Notes [facility] Name: Bridgette Browne Age: 67 yrs Sex: Female : 1950 Arrival Date: 01/22/2018 Time: 13:00 Bed 15 Private MD: Ildefonso Mei C Diagnosis: Acute systolic (congestive) heart failure;Chest pain, unspecified Presentation: 01/22 13:24 Presenting complaint: Patient states: " I started having pain and a hard time breathing ph at around 8:30." Pt reports pain in L mid back that "radiates up and down" back, also reports painful respirations, SpO2 100% RA, pt tachypneic at 30 bpm, but able to speak in full sentences. Denies recent illness. Transition of care: patient was not received from another setting of care. Onset of symptoms was January 22, 2018. Risk Assessment: Do you want to hurt yourself or someone else? Patient reports no desire to harm self or others. Initial Sepsis Screen: Does the patient meet any 2 criteria? No. Patient's initial sepsis screen is negative. Does the patient have a suspected source of infection? No. Patient's initial sepsis screen is negative. Care prior to arrival: None. 13:24 Method Of Arrival: Wheelchair ph 13:24 Acuity: ISMAEL 3 ph Historical: - Allergies: 13:28 Aspirin; ph 13:28 Hydrocodone-Ibuprofen; ph 13:28 Tylenol-Codeine; ph - Home Meds: 13:35 allopurinol 300 mg Oral tab 1 tab once daily [Active]; alprazolam 0.5 mg Oral Tb24 1 aj tab once daily [Active]; atorvastatin 20 mg Oral tab 1 tab once daily [Active]; gabapentin 600 mg Oral tab 1 tab twice a day [Active]; losartan 50 mg Oral tab 1 tab once daily [Active]; Metanx (algal oil) 3 mg-35 mg-2 mg -90.314 mg Oral cap twice a day [Active]; metformin 500 mg Oral tab 2 tabs 2 times per day [Active]; nitrofurantoin macrocrystal 25 mg Oral cap 1 caps daily [Active]; Plavix 75 mg Oral tab 1 tab once daily [Active]; Symbicort 160-4.5 mcg/actuation inhalation HFAA 2 puffs 2 times per day [Active]; tizanidine 4 mg Oral cap 1 cap 3 times per day [Active]; Trokendi XR 100 mg Oral cp24 1 cap once daily [Active]; venlafaxine 150 mg Oral cp24 1 cap once daily [Active]; Tramadol Oral [Active]; - PMHx: 13:28 Diabetes - NIDDM; ph - PSHx: 13:28 Gastric Bypass; lap band; lumbar spinal surgery; cervical spinal surgery; ph - Immunization history:: Adult Immunizations unknown. - Social history:: Smoking status: Patient/guardian denies using tobacco. - Ebola Screening: : No symptoms or risks identified at this time. Screenin:07 Abuse screen: Denies threats or abuse. Denies injuries from another. Nutritional aj screening: No deficits noted. Tuberculosis screening: No symptoms or risk factors identified. Fall Risk None identified. Assessment: 14:20 General: Appears in no apparent distress. comfortable, Behavior is calm, cooperative, aj appropriate for age. Pain: Complains of pain in chest. Cardiovascular: Reports chest pain, Capillary refill < 3 seconds in bilateral fingers Rhythm is regular. Respiratory: Airway is patent Respiratory effort is even, unlabored, Respiratory pattern is regular, symmetrical, Breath sounds are clear. Respiratory: Reports shortness of breath. Derm: Skin is intact, is healthy with good turgor, Skin is pink, warm \\T\\ dry. normal. Vital Signs: 13:28 BP 131 / 66; Pulse 70; Resp 30; Temp 97.5; Pulse Ox 100% on R/A; Weight 74.84 kg; ph Height 5 ft. 4 in. (162.56 cm); Pain 10/10; 14:00 BP 115 / 58; Pulse 59; Resp 31; Pulse Ox 99% on R/A; dh3 14:23 BP 123 / 60; Pulse 60; Resp 17; Pulse Ox 100% on R/A; dh3 15:20 BP 135 / 58; Pulse 58; Resp 16; Pulse Ox 100% on R/A; dh3 16:30 BP 136 / 61; Pulse 58; Resp 24; Pulse Ox 99% on R/A; dh3 13:28 Body Mass Index 28.32 (74.84 kg, 162.56 cm) ph ED Course: 13:00 Patient arrived in ED. mr 13:01 Ildefonso Mei MD is Private Physician. mr 13:27 Triage completed. ph 13:29 Arm band placed on. ph 13:30 Dulce Pulido, RN is Primary Nurse. aj 13:56 Ben Catalan PA is PHCP. jr8 13:56 Rolando Olguin MD is Attending Physician. 8 14:00 Inserted saline lock: 20 gauge in right antecubital area, using aseptic technique. aj Blood collected. 14:02 Initial lab(s) drawn, by ED staff, sent to lab. [facility] 14:06 EKG done, by solar thermal technician. reviewed by Ben BARKSDALE. [facility] 14:10 X-ray completed. Portable x-ray completed in exam room. Patient tolerated procedure jb2 well. 14:11 XRAY Chest (1 view) In Process Unspecified. EDMS 15:[address] 15:12 CT Chest For PE Angio In Process Unspecified. EDMS 15:13 Patient moved back from CT. 16:16 Ildefonso Mei MD is Hospitalizing Provider. [facility] 18:38 Repeat lab(s) drawn. by me, sent to lab. [facility] 19:07 Patient has correct armband on for positive identification. 19:07 No provider procedures requiring assistance completed. Patient admitted, IV remains in aj place. intact, bleeding controlled, No redness/swelling at site. Pressure dressing applied. Administered Medications: 15:55 Drug: LaSIX 40 mg Route: PO; 16:49 Not Given (ROUTE CHANGED): Lasix 40 mg IVP once aj Outcome: 16:16 Decision to Hospitalize by Provider. [facility] 19:07 Admitted to 19:07 Condition: good 19:07 Instructed on the need for admit, Demonstrated understanding of instructions. 19:10 Patient left the ED. Signatures: Dispatcher [employer] EDMS Dulce Pulido, RN Maria Eugenia Alcocer Dequan Jaimes jb2 Ben Catalan PA PA 8 Jennifer Parson RN RN Tawny Boo Deanna [facility] Valarie Fuller [facility] Corrections: (The following items were deleted from the chart) 14:23 14:00 BP 115 / 58; Pulse 59bpm; Resp 22bpm; Pulse Ox 99% RA; [place] [id number]
--- NOTE | 2018-01-22 16:17 | EDPHYS ---
Physician Documentation [facility] Name: Bridgette Browne Age: 67 yrs Sex: Female : 1950 Arrival Date: 01/22/2018 Time: 13:00 Bed 15 Private MD: Ildefonso Mei C ED Physician Rolando Olguin HPI: 01/22 15:58 This 67 yrs old Female presents to ER via Wheelchair with complaints of jr8 Breathing Difficulty. 15:58 The patient has shortness of breath at rest. Onset: The symptoms/episode began/occurred jr8 acutely, today. Duration: The symptoms are continuous. The patient's shortness of breath has no apparent modifying factors. Associated signs and symptoms: Pertinent positives: chest pain. Severity of symptoms: At their worst the symptoms were moderate in the emergency department the symptoms are unchanged. The patient has not experienced similar symptoms in the past. The patient has not recently seen a physician. Historical: - Allergies: 13:28 Aspirin; ph 13:28 Hydrocodone-Ibuprofen; ph 13:28 Tylenol-Codeine; ph - Home Meds: 13:35 allopurinol 300 mg Oral tab 1 tab once daily [Active]; alprazolam 0.5 mg Oral Tb24 1 aj tab once daily [Active]; atorvastatin 20 mg Oral tab 1 tab once daily [Active]; gabapentin 600 mg Oral tab 1 tab twice a day [Active]; losartan 50 mg Oral tab 1 tab once daily [Active]; Metanx (algal oil) 3 mg-35 mg-2 mg -90.314 mg Oral cap twice a day [Active]; metformin 500 mg Oral tab 2 tabs 2 times per day [Active]; nitrofurantoin macrocrystal 25 mg Oral cap 1 caps daily [Active]; Plavix 75 mg Oral tab 1 tab once daily [Active]; Symbicort 160-4.5 mcg/actuation inhalation HFAA 2 puffs 2 times per day [Active]; tizanidine 4 mg Oral cap 1 cap 3 times per day [Active]; Trokendi XR 100 mg Oral cp24 1 cap once daily [Active]; venlafaxine 150 mg Oral cp24 1 cap once daily [Active]; Tramadol Oral [Active]; - PMHx: 13:28 Diabetes - NIDDM; ph - PSHx: 13:28 Gastric Bypass; lap band; lumbar spinal surgery; cervical spinal surgery; ph - Immunization history:: Adult Immunizations unknown. - Social history:: Smoking status: Patient/guardian denies using tobacco. - Ebola Screening: : No symptoms or risks identified at this time. ROS: 15:58 Eyes: Negative for injury, pain, redness, and discharge, ENT: Negative for injury, jr8 pain, and discharge, Neck: Negative for injury, pain, and swelling, Abdomen/GI: Negative for abdominal pain, nausea, vomiting, diarrhea, and constipation, Back: Negative for injury and pain, MS/Extremity: Negative for injury and deformity, Skin: Negative for injury, rash, and discoloration, Neuro: Negative for headache, weakness, numbness, tingling, and seizure. 15:58 Cardiovascular: Positive for chest pain, Negative for edema, orthopnea, palpitations, paroxysmal nocturnal dyspnea. 15:58 Respiratory: Positive for dyspnea on exertion, shortness of breath. Exam: 15:58 Eyes: Pupils equal round and reactive to light, extra-ocular motions intact. Lids and jr8 lashes normal. Conjunctiva and sclera are non-icteric and not injected. Cornea within normal limits. Periorbital areas with no swelling, redness, or edema. ENT: Nares patent. No nasal discharge, no septal abnormalities noted. Tympanic membranes are normal and external auditory canals are clear. Oropharynx with no redness, swelling, or masses, exudates, or evidence of obstruction, uvula midline. Mucous membranes moist. Neck: Trachea midline, no thyromegaly or masses palpated, and no cervical lymphadenopathy. Supple, full range of motion without nuchal rigidity, or vertebral point tenderness. No Meningismus. Cardiovascular: Regular rate and rhythm with a normal S1 and S2. No gallops, murmurs, or rubs. Normal PMI, no JVD. No pulse deficits. Abdomen/GI: Soft, non-tender, with normal bowel sounds. No distension or tympany. No guarding or rebound. No evidence of tenderness throughout. Back: No spinal tenderness. No costovertebral tenderness. Full range of motion. Skin: Warm, dry with normal turgor. Normal color with no rashes, no lesions, and no evidence of cellulitis. MS/ Extremity: Pulses equal, no cyanosis. Neurovascular intact. Full, normal range of motion. Neuro: Awake and alert, GCS 15, oriented to person, place, time, and situation. Cranial nerves II-XII grossly intact. Motor strength 5/5 in all extremities. Sensory grossly intact. Cerebellar exam normal. Normal gait. 15:58 Respiratory: the patient does not display signs of respiratory distress, Respirations: normal, symetrical, no use of accessory muscles, no grunting, no evidence of nasal flaring, no appreciated paradoxical movements, no prolonged exhalations, no pursed lip breathing, no retractions, no shallow respirations, no splinting, no tachypnea, Breath sounds: rales, that are mild, are located in both bases. Vital Signs: 13:28 BP 131 / 66; Pulse 70; Resp 30; Temp 97.5; Pulse Ox 100% on R/A; Weight 74.84 kg; ph Height 5 ft. 4 in. (162.56 cm); Pain 10/10; 14:00 BP 115 / 58; Pulse 59; Resp 31; Pulse Ox 99% on R/A; dh3 14:23 BP 123 / 60; Pulse 60; Resp 17; Pulse Ox 100% on R/A; dh3 15:20 BP 135 / 58; Pulse 58; Resp 16; Pulse Ox 100% on R/A; dh3 16:30 BP 136 / 61; Pulse 58; Resp 24; Pulse Ox 99% on R/A; dh3 13:28 Body Mass Index 28.32 (74.84 kg, 162.56 cm) ph MDM: 13:56 Patient medically screened. [facility] 16:13 Data reviewed: vital signs, nurses notes, lab test result(s), EKG, radiologic studies, [facility] CT scan, plain films, and as a result, I will admit patient. Data interpreted: Pulse oximetry: on room air is 100 %. Interpretation: normal. Counseling: I had a detailed discussion with the patient and/or guardian regarding: the historical points, exam findings, and any diagnostic results supporting the discharge/admit diagnosis, lab results, radiology results, the need for further work-up and treatment in the hospital. 01/22 13:52 Order name: Urine Dipstick--Ancillary (enter results); Complete Time: 14:33 bd 01/22 13:56 Order name: Basic Metabolic Panel; Complete Time: 15:03 aj 01/22 13:56 Order name: BNP; Complete Time: 14:33 01/22 13:56 Order name: CBC with Diff; Complete Time: 14:33 01/22 13:56 Order name: Ckmb; Complete Time: 15:03 01/22 13:56 Order name: CPK; Complete Time: 15:03 01/22 13:56 Order name: LFT's; Complete Time: 15:03 01/22 13:56 Order name: Magnesium; Complete Time: 15:03 01/22 13:56 Order name: PT-INR; Complete Time: 14:33 01/22 13:56 Order name: Ptt, Activated; Complete Time: 14:33 01/22 13:56 Order name: Troponin (emerg Dept Use Only); Complete Time: 14:33 01/22 13:56 Order name: XRAY Chest (1 view); Complete Time: 14:33 01/22 14:57 Order name: CT Chest For PE Angio; Complete Time: 15:36 01/22 17:37 Order name: Troponin (emerg Dept Use Only) 01/22 13:56 Order name: EKG; Complete Time: 13:57 01/22 13:56 Order name: Cardiac monitoring; Complete Time: 14:03 01/22 13:56 Order name: EKG - Nurse/Tech; Complete Time: 14:03 01/22 13:56 Order name: IV Saline Lock; Complete Time: 14:03 01/22 13:56 Order name: Labs collected and sent; Complete Time: 14:03 01/22 13:56 Order name: O2 Per Protocol; Complete Time: 14:03 01/22 13:56 Order name: O2 Sat Monitoring; Complete Time: 14:03 01/22 15:50 Order name: Echo w/ Doppler jr8 01/22 16:20 Order name: Diet Heart Healthy; Complete Time: 16:20 Administered Medications: 15:55 Drug: LaSIX 40 mg Route: PO; aj 16:49 Not Given (ROUTE CHANGED): Lasix 40 mg IVP once aj Disposition: 01/22/18 16:16 Hospitalization ordered by Ildefonso Mei for Inpatient Admission. Preliminary diagnosis are Acute systolic (congestive) heart failure, Chest pain, unspecified. - Bed requested for Telemetry/MedSurg (Inpatient). - Status is Inpatient Admission. aj - Condition is Stable. - Problem is new. - Symptoms have improved. UTI on Admission? No Addendum: 01/27/2018 15:24 Co-signature as Attending Physician, Rolando Olguin MD I agree with the assessment and k plan of care. Signatures: Dispatcher [employer] EDMS Elizabeth White Dulce Lucas RN RN aj Rolando Olguin MD MD [facility] Ben Catalan PA PA jr8 Jennifer Parson RN RN ph Corrections: (The following items were deleted from the chart) 01/22 18:22 16:16 Hospitalization Ordered by A Sigifredo JONES for Inpatient Admission. Preliminary bd diagnosis is Acute systolic (congestive) heart failure; Chest pain, unspecified. Bed requested for Telemetry/MedSurg (Inpatient). Status is Inpatient Admission. Condition is Stable. Problem is new. Symptoms have improved. UTI on Admission? No. jr8 19:10 18:22 01/22/2018 16:16 Hospitalization Ordered by A Sigifredo JONES for Inpatient Admission. aj Preliminary diagnosis is Acute systolic (congestive) heart failure; Chest pain, unspecified. Bed requested for Telemetry/MedSurg (Inpatient). Status is Inpatient Admission. Condition is Stable. Problem is new. Symptoms have improved. UTI on Admission? No. bd
[2018-01-22] MEDS ORDERED: ALBUTEROL 2.5 MG/3 ML NEB SOL NEB PRN (17:44)
[2018-01-22] MEDS ORDERED: GLUCAGON 1 MG/VIAL IM PRN (17:44)
[2018-01-22] MEDS ORDERED: ACETAMINOPHEN 500 MG TAB PO PRN (17:44)
[2018-01-22] MEDS ORDERED: IPRATROPIUM BROM 0.5MG/2.5ML NEB PRN (17:44)
[2018-01-22] MEDS ORDERED: ONDANSETRON 4 MG/2 ML VIAL IV PRN (17:44)
[2018-01-22] MEDS ORDERED: D50W 25 GM/50 ML SYRINGE IV PRN (17:44)
[2018-01-22] MEDS: INSULIN -REGULAR HUMAN 50 UNIT/0.5 ML ML SQ SCH (20:26)
[2018-01-22] MEDS ORDERED: CYCLOBENZAPRINE 10 MG TAB PO PRN (20:36)
[2018-01-22] MEDS ORDERED: TRAZODONE 50 MG TABLET PO PRN (20:36)
[2018-01-22] MEDS ORDERED: CLOPIDOGREL 75 MG TABLET PO SCH (21:00)
[2018-01-22] MEDS ORDERED: LOSARTAN POTASSIUM 50 MG TABLET PO SCH (21:00)
[2018-01-22] MEDS ORDERED: TIZANIDINE 4 MG TABLET PO SCH (21:00)
[2018-01-22] MEDS ORDERED: ATORVASTATIN 80 MG TAB PO SCH (21:00)
[2018-01-22] MEDS: PREDNISOLONE 1% OPTH SOLN 5ML OPTH SCH (21:00)
[2018-01-22] MEDS: DICLOFENAC NA OPTH SCH (21:00)
[2018-01-22] MEDS ORDERED: VENLAFAXINE HCL XR 75 MG CAP PO SCH (21:00)
[2018-01-22] MEDS: OPTH OPTH SCH (21:00)
[2018-01-22] MEDS ORDERED: clonazePAM 0.5 MG TAB PO SCH (21:00)
[2018-01-22] MEDS: TRAMADOL HCL 50 MG TAB PO PRN (21:11)
[2018-01-22] MEDS: IBUPROFEN 400 MG TAB PO PRN (22:33)
[2018-01-23 06:09] LABS: Absolute Lymphocytes (CBC) 2.4 K/uL (0.7-4.9); Absolute Monocytes 0.5 K/uL (0.1-1.3); Absolute Neutrophil 3.9 K/uL (1.8-8.0); Basophils % 0.9 % (0-1.3); Eosinophils % 7.9 % (0-4.4); Hematocrit 33.4 % (36.0-45.0); Lymphocytes % 32.3 % (15.3-44.8); MCH 31.8 pg (27.0-35.0); MCV 95.4 fL (80-100); MPV 9.5 fL (7.6-11.3); Monocytes % 6.7 % (3.3-12.3)
[2018-01-23 06:20] LABS: Potassium 3.5 mEq/L (3.6-5.0)
[2018-01-23] MEDS: INSULIN -REGULAR HUMAN 50 UNIT/0.5 ML ML SQ SCH (07:30)
--- NOTE | 2018-01-23 07:56 | EKG ---
Test Date: 2018-01-22 Test Time: 14:01:29 Director Of State: [place] MEASUREMENT RESULTS: Intervals: Rate: 58 MI: 162 QRSD: 90 QT: 418 QTc: 410 [place]: P: 38 MI: 162 QRS: -4 T: 16 INTERPRETIVE STATEMENTS: Sinus bradycardia Otherwise normal ECG Compared to ECG 02/10/2017 14:53:14 Sinus rhythm no longer present Electronically Signed On 01-23-18 07:55:02 CDT by Ariel Valentino
[2018-01-23] MEDS ORDERED: POTASSIUM CL SA 10 MEQ TAB PO ONE (08:51)
[2018-01-23] MEDS ORDERED: TOPIRAMATE 200 MG PO SCH (09:00)
[2018-01-23] MEDS ORDERED: FUROSEMIDE 20 MG/ 2ML VIAL IV SCH (09:00)
[2018-01-23] MEDS ORDERED: ALLOPURINOL 300 MG TAB PO SCH (09:00)
[2018-01-23] MEDS: DICLOFENAC NA OPTH SCH (09:00)
[2018-01-23] MEDS: OPTH OPTH SCH (09:00)
[2018-01-23] MEDS: TRAMADOL HCL 50 MG TAB PO PRN (10:01)
[2018-01-23] MEDS: PREDNISOLONE 1% OPTH SOLN 5ML OPTH SCH (10:02)
[2018-01-23] MEDS: IBUPROFEN 400 MG TAB PO PRN (10:04)
--- NOTE | 2018-01-23 13:08 | CON ---
Date of Consultation: 01/23/2018 The patient was admitted to Dr. Mei's service on 01/22/2018 for shortness of breath. I saw the jesusita ent on 01/23/2018. History Of Present Illness: Ms. Browne is a 67-year-old [place] woman. She has an extensive past medical history including gout, COPD, and status post gastric bypass. She has a history of anx iety, depression. She also has a history of diabetes, gastroesophageal reflux disease, hypertension, and dyslipidemia. She according to her, has never had a history of coronary artery disease. She carty s never had stents, angioplasty or bypass. She sees Dr. Ballard on a yearly basis. She came in with shortness of breath. No chest pain. Denied nausea, vomiting, diaphoresis, PND, orthopnea, pedal ed lary, palpitation, or syncope. Chest x-ray is negative. EKG is negative. CT angiogram is negative. Her hemoglobin was 11.2. CPKs, MBs, and troponin were negative. Past Medical History: As stated above. Allergies: SHE IS ALLERGIC TO ASPIRIN, CODEINE, AND TYLENOL. Review of Systems: Negative. Social History: Negative. Family History: Noncontributory. Medications: At home include allopurinol, inhalers, Xanax, Lipitor, losartan, metformin, and Plavix. Physical Examination: General: She appeared older than her stated age. Vital Signs: Stable. She was in a sinus rhythm. HEENT: Exam is negative. Neck: Supple with no bruit, lymphadenopathy, JVD, or thyromegaly. CHEST: Reveals some wheezing on expiration, but no rales. CARDIAC: Revealed a regular rhythm and rate without any murmurs, gallops, or rubs. Abdomen: Benign. Extremities: Revealed no clubbing, cyanosis, or edema. Diagnostic Data: Within normal limits. Impression And Plan: 1.Shortness of breath, most likely secondary to chronic obstructive pulmonary disease exacerbation. 2.Dyslipidemia, stable on Lipitor. 3.Hypertension on losartan, well controlled. 4.Diabetes on metformin. 5.History of gastroesophageal reflux disease. 6.Anxiety and depression history. 7.History of gout. 8.Status post gastric bypass surgery. Ms. Browne is feeling back to normal. All her workup from a cardiovascular standpoint has been nega tive. I do not recommend any changes in her medical therapy. I am very comfortable with her going h ome and seeing Dr. Ballard in the near future. The case was discussed with Dr. Mei. AGUS/ESTEE Voice ID: [id number] Report ID: [id number]
--- NOTE | 2018-01-23 19:47 | SS ---
Date of Discharge: 01/23/2018 Chief Complaint: Back pain. History Of Present Illness: Ms. Browne is a pleasant, 67-year-old female patient, who came into emergency room with acute onset of pain in the left posterior lower rib cage area. The patient says that the pain started yesterday and pain has been continuous. This pain required her to take shallow breaths, and even with the shallow breath, she continued to have the pain, but every time she tried to take a deep breath pain intensified. She denies any fall or injury. No rash. No fever, chills. No cough, congestion. No sore throat. No expectoration. No hemoptysis. She came into the emergency room. After she was evaluated in the ER, she was admitted to the hospital. Overnight , her condition has remained stable. Pain has improved to some extent this morning. Cardiology consultation has been obtained. IN has been ruled out. Allergies: SHE IS ALLERGIC TO HYDROCODONE. Medications: List reviewed. Review of Systems: Respiratory: As mentioned above. Cardiovascular: As mentioned above. All other systems reviewed and negative. Past Medical History: Significant for hypertension, mixed hyperlipidemia, type 2 diabetes mellitus, anemia, sleep apnea. Past medical history also significant for diabetic neuropathy, osteoarthritis at multiple sites, depression. Past Surgical History: Lap band surgery for morbid obesity, 2010. Surgery for herniated C-spine disk, cataract surgery, back surgery, dental surgery, and carpal tunnel releases, hernia repair, hysterectomy. Family History: Significant for diabetes, COPD, rheumatoid arthritis, congestive heart failure. Social History: Negative for smoking and alcohol use. Physical Examination: Vital Signs: When I saw her this morning, temperature 97, pulse rate 55, respiratory rate 16, blood pressure 103/58, oxygen saturation 100% on room air, height 5 feet 5 inches, weight 171 pounds. General: Awake, alert, oriented, not in distress. HEENT: Head atraumatic, normocephalic. Conjunctivae nonerythematous. Sclerae white. Mouth, no thrush or edema noted. Ears/Nose, no mass, lesion, discharge noted. Neck: Supple. No JVD, lymph nodes, bruit, thyromegaly noted. Lungs: Bilateral good equal air entry. Clear to auscultation. No rhonchi. No rales. Heart: Normal heart sounds, no murmur or gallop. Abdomen: Soft, bowel sounds normal. No guarding, rigidity, tenderness, mass, hepatosplenomegaly, distention, or bruit noted. Extremities: No leg edema. No calf tenderness. Skin: No rash, ulcer, cellulitis. Lymphatics: No lymph node enlargement in neck, supraclavicular, infraclavicular region. Neuro: No focal neurological deficit. Chest: Unremarkable. External Genitalia: Deferred. Rectal: Deferred. Laboratory Data: Chest x-ray, no acute cardiopulmonary changes noted. CAT scan of the chest per PE protocol was negative for pulmonary embolism. EKG showed sinus bradycardia. No acute ST-T changes. White count 7.2, hemoglobin 11.2, platelets 263. This morning, white count 7.4 , hemoglobin 11.1, platelets 224. PT/PTT normal. This morning, sodium 138, potassium 3.5, chloride 110, bicarb 20, BUN 23, creatinine 1.08, glucose 179, troponin 0.03. BNP 48. Liver function tests yesterday unremarkable. Yesterday , BUN 21, creatinine 0.95. Urinalysis; 1+ esterase, otherwise negative. Hospital Course: After I saw the patient, it was determined that the patient was medically stable for discharge. Cardiology consultation was requested. IN was ruled out. The patient appears to have this pain in the left lower posterior rib cage due to pleurisy, and I have instructed her to take ibuprofen as prescribed. She was advised to continue all her prior home medications and follow up at my office a week after next. The patient to take ibuprofen 800 mg 2 times a day with food. Final Diagnoses: 1. Pleurisy. 2. Hypokalemia. 3. Hypertension. 4. Mixed hyperlipidemia. 5. Osteoarthritis, multiple sites. 6. Diabetes mellitus. 7. Iron deficiency anemia. 8. Sleep apnea. 9. Depression. DIAMOND/MODL Voice ID: [id number] Report ID: [id number] MTDD
[2018-01-23] MEDS ORDERED: HOME MED 1 EA UNK (Gabapentin [Gabapentin] 800 MG) PO SCH (21:00)
--- NOTE | 2018-01-25 07:18 | ECHO ---
HEIGHT: 5 ft 5 in WEIGHT: 171 lb 11.2 oz DATE OF STUDY: 01/22/[address]: Savage Catalan 2-DIMENSIONAL: YES M.MODE: YES DOPPLER: YES COLOR FLOW: YES TDS: PORTABLE: DEFINITY: BUBBLE STUDY: DIAGNOSIS: NEW ONSET HF CARDIAC HISTORY: CATHERIZATION: NO SURGERY: NO PROSTHETIC VALVE: NO PACEMAKER: NO MEASUREMENTS (cm) DIASTOLIC (NORMALS) SYSTOLIC (NORMALS) IVSd 1.0 (0.6-1.2) LA Diam 4.0 (1.9-4.0) LVEF 58% LVIDd 4.8 (3.5-5.7) LVIDs 3.4 (2.0-3.5) %FS 30% LVPWd 1.0 (0.6-1.2) Ao Diam 3.1 (2.0-3.7) 2 DIMENSIONAL ASSESSMENT: RIGHT ATRIUM: NORMAL LEFT ATRIUM: NORMAL RIGHT VENTRICLE: NORMAL LEFT VENTRICLE: NORMAL TRICUSPID VALVE: NORMAL MITRAL VALVE: NORMAL PULMONIC VALVE: NORMAL AORTIC VALVE: SCLEROSIS PERICARDIAL EFFUSION: NONE AORTIC ROOT: NORMAL LEFT VENTRICULAR WALL MOTION: NORMAL DOPPLER/COLOR FLOW: MILD TRICUSPID REGURGITATION. COMMENTS: MILD TRICUSPID REGURGITATION. NORMAL RIGHT VENTRICULAR SYSTOLIC PRESSURE. NORMAL LEFT VENTRICULAR SIZE AND FUNCTION. AORTIC SCLEROSIS. NO STENOSIS. TECHNOLOGIST: DARIN RITTER
[2018-01-29] MEDS ORDERED: DULAGLUTIDE SQ SCH (09:00)
== END 2018-01-23 12:00 | disposition home or self-care (01) ==
LOC: ER 12:58 → ERHOLD 16:16 → INTOOBSV 16:16 → 4TH 18:54
PROVIDERS: ADMIT Physician Assistant; ATTEND Internal Medicine
DX: R09.1 Pleurisy (principal); E87.6 Hypokalemia; I10 Essential (primary) hypertension; E78.2 Mixed hyperlipidemia; E11.9 Type 2 diabetes mellitus without complications; M19.90 Unspecified osteoarthritis, unspecified site; Z98.84 Bariatric surgery status; D50.8 Other iron deficiency anemias; G47.30 Sleep apnea, unspecified; F32.9 Major depressive disorder, single episode, unspecified; Z88.6 Allergy status to analgesic agent
CPT/HCPCS: 36415; 71045; 71275; 80048 ×2; 80076; 81003; 82550; 82553; 82962 ×2; 83735; 83880 ×2; 84484 ×3; 85025 ×2; 85610; 85730; 93005; 93306; 99285; G0378 ×2; J1940; Q9967

== ENCOUNTER 2018-03-31 12:00 | Observation (INO) | payer OTHER ==
--- OUTSIDE RECORDS SUMMARY | 2018-03-31 12:02 | XMS REPORT ---
:1950 Author Organization [facility] Address [address] [place] [address] Care Team Providers Name Role Phone RICARDO HENRY Unavailable Unavailable Problems This patient has no known problems. Allergies, Adverse Reactions, Alerts This patient has no known allergies or adverse reactions. Medications This patient has no known medications. Results Test Description Test Time Test Comments Text Results Atomic Results Result Comments URINE CULTURE 2017-02-12 15:54:00 Test Item Value Reference Range Comments CULTURE (BEAKER) (test byqq=1247) >100,000 col/mL skin clay POCT-GLUCOSE [id number] 07:48:00 Test Item Value Reference Range Comments POC-GLUCOSE METER (BEAKER) 149 mg/dL 70-[address] [facility] [address] (test gerh=7257) [facility] [address] BASIC METABOLIC [id number] 04:52:00 Test Item Value Reference Range Comments SODIUM (BEAKER) (test 140 meq/L 136-145 soqw=700) POTASSIUM (BEAKER) (test 4.6 meq/L 3.5-5.1 Specimen slightly uokx=909) hemolyzed CHLORIDE (BEAKER) (test 114 meq/L 98-107 hyjh=993) CO2 (BEAKER) (test 17 meq/L 22-29 lerp=911) BLOOD UREA NITROGEN 16 mg/dL 7-21 (BEAKER) (test cnzm=419) CREATININE (BEAKER) (test 0.94 mg/dL 0.57-1.25 Specimen slightly dtnt=159) hemolyzed GLUCOSE RANDOM (BEAKER) 98 mg/dL 70-105 (test zfyk=760) CALCIUM (BEAKER) (test 9.4 mg/dL 8.4-10.2 vzga=543) EGFR (BEAKER) (test 59 mL/min/1.73 sq m ESTIMATED GFR IS NOT tsof=2308) ACCURATE CREATININE CLEARANCE IN PREDICTING GLOMERULAR FILTRATION RATE. ESTIMATED GFR IS NOT APPLICABLE FOR DIALYSIS PATIENTS. CBC W/PLT COUNT & AUTO [id number] 04:52:00 Test Item Value Reference Range Comments WHITE BLOOD CELL COUNT (BEAKER) (test avqk=055) 9.9 K/ L 4.0-10.0 RED BLOOD CELL COUNT (BEAKER) (test mkoz=360) 3.93 M/ L 4.00-5.00 HEMOGLOBIN (BEAKER) (test shzm=843) 12.3 GM/DL 12.0-15.0 HEMATOCRIT (BEAKER) (test hemd=765) 39.1 % 36.0-45.0 MEAN CORPUSCULAR VOLUME (BEAKER) (test lcuk=935) 99.6 fL 82.0-99.0 MEAN CORPUSCULAR HEMOGLOBIN (BEAKER) (test 31.3 pg 27.0-33.0 wmnr=281) MEAN CORPUSCULAR HEMOGLOBIN CONC (BEAKER) (test 31.4 GM/DL 32.0-36.0 yqyl=694) RED CELL DISTRIBUTION WIDTH (BEAKER) (test 13.4 % 10.3-14.2 zugk=529) PLATELET COUNT (BEAKER) (test gihc=629) 238 K/CU MM 150-430 MEAN PLATELET VOLUME (BEAKER) (test pjul=783) 8.7 fL 6.5-10.5 NUCLEATED RED BLOOD CELLS (BEAKER) (test 0 /100 WBC 0-0 uyek=760) NEUTROPHILS RELATIVE PERCENT (BEAKER) (test 46 % lxgi=620) LYMPHOCYTES RELATIVE PERCENT (BEAKER) (test 41 % fewf=461) MONOCYTES RELATIVE PERCENT (BEAKER) (test 5 % vrxm=573) EOSINOPHILS RELATIVE PERCENT (BEAKER) (test 7 % uruc=859) BASOPHILS RELATIVE PERCENT (BEAKER) (test 1 % pomp=323) NEUTROPHILS ABSOLUTE COUNT (BEAKER) (test 4.56 K/ L 1.80-8.00 ghnk=519) LYMPHOCYTES ABSOLUTE COUNT (BEAKER) (test 4.05 K/ L 1.48-4.50 aggq=330) MONOCYTES ABSOLUTE COUNT (BEAKER) (test 0.48 K/ L 0.00-1.30 tlje=973) EOSINOPHILS ABSOLUTE COUNT (BEAKER) (test 0.72 K/ L 0.00-0.50 lsec=851) BASOPHILS ABSOLUTE COUNT (BEAKER) (test 0.08 K/ L 0.00-0.20 uyic=324) 0.00POCT-GLUCOSE [id number] 21:56:00 Test Item Value Reference Range Comments POC-GLUCOSE METER (BEAKER) 114 mg/dL 70-110 TESTED AT [address] (test hljo=4824) [place] [id number] POCT-GLUCOSE [id number] 18:04:00 Test Item Value Reference Range Comments POC-GLUCOSE METER (BEAKER) 82 mg/dL 70-110 TESTED AT [address] (test xwcu=2678) [place] [id number] TSH/FREE T4 IF [id number] 15:29:00 Test Item Value Reference Range Comments THYROID STIMULATING HORMONE (BEAKER) (test 2.71 uIU/mL 0.35-4.94 fwej=645) POCT-GLUCOSE [id number] 12:39:00 Test Item Value Reference Range Comments POC-GLUCOSE METER (BEAKER) 112 mg/dL 70-110 TESTED AT [address] (test zqxt=0194) [place] [address] [id number] 12:03:00 Test Item Value Reference Range Comments RPR SCREEN (BEAKER) (test ikec=656) Nonreactive Nonreactive HEMOGLOBIN [id number] 08:06:00 Test Item Value Reference Range Comments HEMOGLOBIN A1C (BEAKER) (test srpc=336) 6.8 % 4.3-6.1 POCT-GLUCOSE [id number] 07:58:00 Test Item Value Reference Range Comments POC-GLUCOSE METER (BEAKER) 98 mg/dL 70-110 TESTED AT [address] (test xefk=4752) [place] [id number] CBC W/PLT COUNT & AUTO [id number] 04:28:00 Test Item Value Reference Range Comments WHITE BLOOD CELL COUNT (BEAKER) (test guhn=509) 8.1 K/ L 4.0-10.0 RED BLOOD CELL COUNT (BEAKER) (test aiiw=843) 3.63 M/ L 4.00-5.00 HEMOGLOBIN (BEAKER) (test htvp=059) 12.0 GM/DL 12.0-15.0 HEMATOCRIT (BEAKER) (test onwn=532) 36.0 % 36.0-45.0 MEAN CORPUSCULAR VOLUME (BEAKER) (test rqwz=734) 99.1 fL 82.0-99.0 MEAN CORPUSCULAR HEMOGLOBIN (BEAKER) (test 33.0 pg 27.0-33.0 jhoj=863) MEAN CORPUSCULAR HEMOGLOBIN CONC (BEAKER) (test 33.3 GM/DL 32.0-36.0 zmct=708) RED CELL DISTRIBUTION WIDTH (BEAKER) (test 15.2 % 10.3-14.2 spjo=675) PLATELET COUNT (BEAKER) (test ndgj=588) 232 K/CU MM 150-430 MEAN PLATELET VOLUME (BEAKER) (test fxbv=015) 8.7 fL 6.5-10.5 NUCLEATED RED BLOOD CELLS (BEAKER) (test 0 /100 WBC 0-0 puhl=053) NEUTROPHILS RELATIVE PERCENT (BEAKER) (test 53 % foaa=156) LYMPHOCYTES RELATIVE PERCENT (BEAKER) (test 32 % evqk=028) MONOCYTES RELATIVE PERCENT (BEAKER) (test 5 % cmyj=005) EOSINOPHILS RELATIVE PERCENT (BEAKER) (test 8 % pjwp=702) BASOPHILS RELATIVE PERCENT (BEAKER) (test 1 % jqsv=909) NEUTROPHILS ABSOLUTE COUNT (BEAKER) (test 4.27 K/ L 1.80-8.00 fyuc=556) LYMPHOCYTES ABSOLUTE COUNT (BEAKER) (test 2.62 K/ L 1.48-4.50 cbud=341) MONOCYTES ABSOLUTE COUNT (BEAKER) (test 0.42 K/ L 0.00-1.30 uifl=783) EOSINOPHILS ABSOLUTE COUNT (BEAKER) (test 0.67 K/ L 0.00-0.50 tjod=734) BASOPHILS ABSOLUTE COUNT (BEAKER) (test 0.09 K/ L 0.00-0.20 glty=931) 0.00BASI METABOLIC [id number] 04:15:00 Test Item Value Reference Range Comments SODIUM (BEAKER) (test 141 meq/L 136-145 mqlu=073) POTASSIUM (BEAKER) (test 4.8 meq/L 3.5-5.1 mikt=295) CHLORIDE (BEAKER) (test 116 meq/L 98-107 tixl=186) CO2 (BEAKER) (test 17 meq/L 22-29 cpxg=579) BLOOD UREA NITROGEN 17 mg/dL 7-21 (BEAKER) (test dkkz=733) CREATININE (BEAKER) (test 1.12 mg/dL 0.57-1.25 hapd=301) GLUCOSE RANDOM (BEAKER) 88 mg/dL 70-105 (test glnh=254) CALCIUM (BEAKER) (test 9.2 mg/dL 8.4-10.2 zlav=850) EGFR (BEAKER) (test mL/min/1.73 sq m INSUFFICIENT CLINICAL DATA yack=7123) TO CALCULATE ESTIMATED GFR. FastingLIPID [id number] 04:11:00 Test Item Value Reference Range Comments TRIGLYCERIDES (BEAKER) (test ehtu=539) 113 mg/dL CHOLESTEROL (BEAKER) (test xafs=215) 207 mg/dL HDL CHOLESTEROL (BEAKER) (test xzdq=596) 61 mg/dL LDL CHOLESTEROL CALCULATED (BEAKER) (test 123 mg/dL ngjz=087) Triglyceride Reference Range: Low Risk <150 Borderline 150- 199 High Risk 200-499 Very High Risk >=500Cholesterol Reference Range: Low Risk <200 Borderline 200-239 High Risk > 240HDL Cholesterol Reference Range: Low Risk >=60 High Risk <40LDL Cholesterol Reference Range: Optimal <100 Near Optimal 100-129 Borderline 130-159 High 160-189 Very High >=190 FastingURINALYSIS W/ [id number] 00:43:00 Test Item Value Reference Range Comments COLOR (BEAKER) (test okck=630) Light Yellow CLARITY (BEAKER) (test mxlx=529) Clear SPECIFIC GRAVITY UA (BEAKER) (test uoxs=510) 1.004 1.001-1.035 PH UA (BEAKER) (test lnhv=394) 6.5 5.0-8.0 PROTEIN UA (BEAKER) (test xuro=512) Negative Negative GLUCOSE UA (BEAKER) (test toek=651) Negative Negative KETONES UA (BEAKER) (test tzuq=547) Negative Negative BILIRUBIN UA (BEAKER) (test afcy=361) Negative Negative BLOOD UA (BEAKER) (test uqkj=296) Negative Negative NITRITE UA (BEAKER) (test pwcs=922) Negative Negative LEUKOCYTE ESTERASE UA (BEAKER) (test fqpf=233) Trace Negative UROBILINOGEN UA (BEAKER) (test slxd=524) 0.2 mg/dL 0.2-1.0 RBC UA (BEAKER) (test pdfq=982) 1 /HPF WBC UA (BEAKER) (test kzjg=634) 3 /HPF BACTERIA (BEAKER) (test ivop=394) Rare SQUAMOUS EPITHELIAL (BEAKER) (test htwv=869) 4 /HPF SOURCE(BEAKER) (test zfjl=8626) Urine, Voided POCT-GLUCOSE [id number] 21:06:00 Test Item Value Reference Range Comments POC-GLUCOSE METER (BEAKER) 217 mg/dL 70-110 TESTED AT [address] (test nayh=7501) [place] [address] SEDIMENTATION [id number] 20:24:00 Test Item Value Reference Range Comments SEDIMENTATION RATE, ERYTHROCYTE (BEAKER) (test 16 mm/HR 0-40 bzbz=196) VITAMIN [id number] 19:36:00 Test Item Value Reference Range Comments VITAMIN B12 (BEAKER) (test ddte=723) > pg/mL 213-816 POCT-GLUCOSE [id number] 19:08:00 Test Item Value Reference Range Comments POC-GLUCOSE METER (BEAKER) 105 mg/dL 70-110 TESTED AT [address] (test rzlh=7092) [place] [address] BASIC METABOLIC [id number] 19:03:00 Test Item Value Reference Range Comments SODIUM (BEAKER) (test 138 meq/L 136-145 bmkq=959) POTASSIUM (BEAKER) (test 4.6 meq/L 3.5-5.1 Specimen slightly qtre=423) hemolyzed CHLORIDE (BEAKER) (test 116 meq/L 98-107 fmbw=885) CO2 (BEAKER) (test 15 meq/L 22-29 mtyz=748) BLOOD UREA NITROGEN 17 mg/dL 7-21 (BEAKER) (test ywmc=728) CREATININE (BEAKER) (test 0.93 mg/dL 0.57-1.25 Specimen slightly ghun=692) hemolyzed GLUCOSE RANDOM (BEAKER) 109 mg/dL 70-105 (test lvsl=188) CALCIUM (BEAKER) (test 8.1 mg/dL 8.4-10.2 oqjh=209) EGFR (BEAKER) (test mL/min/1.73 sq m INSUFFICIENT CLINICAL DATA hjjc=5558) TO CALCULATE ESTIMATED GFR. HEPATIC FUNCTION [id number] 19:01:00 Test Item Value Reference Range Comments TOTAL PROTEIN (BEAKER) (test 5.7 gm/dL 6.0-8.3 Specimen slightly hemolyzed lcgy=948) ALBUMIN (BEAKER) (test 3.4 g/dL 3.5-5.0 Specimen slightly hemolyzed klyo=0134) BILIRUBIN TOTAL (BEAKER) (test 0.2 mg/dL 0.2-1.2 Specimen slightly hemolyzed jkoi=486) BILIRUBIN DIRECT (BEAKER) (test 0.1 mg/dL 0.1-0.5 Specimen slightly hemolyzed qnnf=300) ALKALINE PHOSPHATASE (BEAKER) 73 U/L 40-150 (test pogz=071) AST (SGOT) (BEAKER) (test 22 U/L 5-34 Specimen slightly hemolyzed yvcg=121) ALT (SGPT) (BEAKER) (test 12 U/L 6-55 Specimen slightly hemolyzed jbsd=400) CBC W/PLT COUNT & AUTO [id number] 18:54:00 Test Item Value Reference Range Comments WHITE BLOOD CELL COUNT (BEAKER) (test mawn=638) 8.2 K/ L 4.0-10.0 RED BLOOD CELL COUNT (BEAKER) (test wvsk=057) 3.18 M/ L 4.00-5.00 HEMOGLOBIN (BEAKER) (test rmyl=452) 10.3 GM/DL 12.0-15.0 HEMATOCRIT (BEAKER) (test avwx=735) 33.1 % 36.0-45.0 MEAN CORPUSCULAR VOLUME (BEAKER) (test oqtd=466) 104.0 fL 82.0-99.0 MEAN CORPUSCULAR HEMOGLOBIN (BEAKER) (test 32.5 pg 27.0-33.0 xxfc=749) MEAN CORPUSCULAR HEMOGLOBIN CONC (BEAKER) (test 31.2 GM/DL 32.0-36.0 ohhk=954) RED CELL DISTRIBUTION WIDTH (BEAKER) (test 13.4 % 10.3-14.2 vdix=722) PLATELET COUNT (BEAKER) (test sevt=974) 203 K/CU MM 150-430 MEAN PLATELET VOLUME (BEAKER) (test jlnf=838) 8.4 fL 6.5-10.5 NUCLEATED RED BLOOD CELLS (BEAKER) (test 0 /100 WBC 0-0 pred=478) NEUTROPHILS RELATIVE PERCENT (BEAKER) (test 56 % muwp=128) LYMPHOCYTES RELATIVE PERCENT (BEAKER) (test 31 % ptcp=485) MONOCYTES RELATIVE PERCENT (BEAKER) (test 5 % kjkd=067) EOSINOPHILS RELATIVE PERCENT (BEAKER) (test 8 % qazh=188) BASOPHILS RELATIVE PERCENT (BEAKER) (test 1 % bttb=039) NEUTROPHILS ABSOLUTE COUNT (BEAKER) (test 4.55 K/ L 1.80-8.00 muom=587) LYMPHOCYTES ABSOLUTE COUNT (BEAKER) (test 2.50 K/ L 1.48-4.50 lncx=415) MONOCYTES ABSOLUTE COUNT (BEAKER) (test 0.40 K/ L 0.00-1.30 jumv=993) EOSINOPHILS ABSOLUTE COUNT (BEAKER) (test 0.63 K/ L 0.00-0.50 inwf=816) BASOPHILS ABSOLUTE COUNT (BEAKER) (test 0.09 K/ L 0.00-0.20 lkmw=546) 0.00
--- OUTSIDE RECORDS SUMMARY | 2018-03-31 12:02 | XMS REPORT | Clinical Summary ---
:1950 Author Organization [facility] Address [address] [place] [address] Phone Care Team Providers Name Role Phone [...] tablet mouth daily. MECOBAL/LEVOMEFOLAT Take 1 capsule by Active CA/B6 PHOS (METANX mouth 2 (two) ORAL) times daily. metFORMIN Take 1,000 mg by Active (GLUCOPHAGE) 500 MG mouth 2 (two) tablet times daily with breakfast and dinner. clopidogrel (PLAVIX) Take 75 mg by Active 75 mg tablet mouth daily. budesonide-formotero Inhale 2 puffs by Active l (SYMBICORT) mouth via inhaler 160-4.5 2 (two) times mcg/actuation daily. inhaler tiZANidine Take 4 mg by Active (ZANAFLEX) 4 MG mouth daily. tablet traMADol (ULTRAM) 50 Take 50 mg by Active mg tablet mouth 2 (two) times daily. topiramate (TROKENDI Take 1 tablet by Active XR) 100 mg Cp24 mouth daily. venlafaxine 150 mg Take 1 tablet by 0 02/12/2017 Active TR24 mouth daily. atorvastatin Take 1 tablet (80 30 tablet 1 02/12/2017 02/12/2018 (LIPITOR) 80 MG mg total) by tablet mouth nightly. 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
--- NOTE | 2018-03-31 13:28 | RAD REPORT ---
EXAM DESCRIPTION: RAD - Chest Single View - 03/31/2018 1:09 pm CLINICAL HISTORY: CHEST PAIN Chest pain. COMPARISON: Chest Single View dated 01/22/2018; Chest Single View dated 02/10/2017; CHEST PA AND LAT 2 VIEW dated 12/12/2009; CHEST SINGLE VIEW dated 04/22/2006; Chest For Pe Angio dated 01/22/2018 FINDINGS: Portable technique limits examination quality. The lungs are grossly clear. The heart is normal in size. No displaced fractures. IMPRESSION: No acute intrathoracic process suspected.
[2018-03-31] MEDS ORDERED: ONDANSETRON 4 MG/2 ML VIAL ONE (13:42)
[2018-03-31] MEDS ORDERED: MORPHINE 4 MG/ML SYR ONE (13:42)
[2018-03-31] MEDS ORDERED: FAMOTIDINE 20 MG/2 ML VIAL IV ONE (13:42)
[2018-03-31 13:55] LABS: Urine Blood NEGATIVE (NEG); Urine Glucose NEGATIVE (NEG); Urine Protein NEGATIVE (NEG)
[2018-03-31 14:01] LABS: Absolute Lymphocytes (CBC) 1.7 K/uL (0.7-4.9); Absolute Monocytes 0.4 K/uL (0.1-1.3); Basophils % 1.1 % (0-1.3); Eosinophils % 5.4 % (0-4.4); Hematocrit 34.3 % (36.0-45.0); Lymphocytes % 26.1 % (15.3-44.8); MCH 30.9 pg (27.0-35.0); MCV 95.3 fL (80-100); MPV 9.5 fL (7.6-11.3); Monocytes % 5.8 % (3.3-12.3)
[2018-03-31 14:03] LABS: Protime INR 1.01
[2018-03-31 14:04] LABS: Albumin 3.9 g/dL (3.4-5.0); Bilirubin Direct 0.1 mg/dL (0-0.2); Bilirubin Total 0.3 mg/dL (0.2-1.0); CKMB Creatine Kinase MB 2.9 ng/mL (0.3-3.6); Magnesium 1.9 mg/dL (1.8-2.4); Potassium 3.7 mmol/L (3.5-5.1); Protein, Total 7.4 g/dL (6.4-8.2)
[2018-03-31] MEDS ORDERED: MORPHINE 4 MG/ML SYR IV PRN (14:12)
[2018-03-31] MEDS ORDERED: ONDANSETRON 4 MG/2 ML VIAL IV PRN (14:12)
--- NOTE | 2018-03-31 14:27 | EKG ---
Test Date: 2018-03-31 Test Time: 12:13:42 [employer] Supervisor: MAYA MEASUREMENT RESULTS: Intervals: Rate: 83 MS: 158 QRSD: 96 QT: 426 QTc: 500 [place]: P: 38 MS: 158 QRS: 3 T: 13 INTERPRETIVE STATEMENTS: Sinus rhythm with frequent premature ventricular complexes Prolonged QT Abnormal ECG Compared to ECG 01/22/2018 14:01:29 Ventricular premature complex(es) now present Prolonged QT interval now present Sinus bradycardia no longer present Electronically Signed On 03-31-18 14:26:03 CDT by Chadd Ibanez
[2018-03-31] MEDS ORDERED: CLOPIDOGREL 75 MG TABLET ONE (14:31)
[2018-03-31] MEDS ORDERED: NITROGLYCERIN 1 GM PKT TD ONE (14:31)
[2018-03-31] MEDS ORDERED: METOPROLOL TAR 25 MG TAB ONE (14:31)
[2018-03-31] MEDS ORDERED: ENOXAPARIN 80 MG/0.8 ML SQ ONE ×2 (14:32→16:26)
--- NOTE | 2018-03-31 14:39 | EDPHYS ---
Physician Documentation [facility] Name: Bridgette Browne Age: 68 yrs Sex: Female : 1950 Arrival Date: 03/31/2018 Time: 12:02 Bed 16 Private MD: Ildefonso Mei C ED Physician Rolando Olguin HPI: 03/31 18:35 This 68 yrs old Female presents to ER via Ambulatory with complaints of Chest kdr Pain > 30 y/o. 18:35 The patient or guardian reports chest pain that is located primarily in the substernal kdr area, anterior chest wall, left, chest diffusely. Onset: gradually, 3 week(s) ago. The pain radiates to the right shoulder, Associated signs and symptoms: Pertinent positives: None. Pertinent negatives: None. The chest pain is described as aching, dull, a pressure, squeezing. Duration: The patient or guardian reports multiple episodes, that are intermittent, that wax and wane, with no pattern. Modifying factors: The symptoms are alleviated by nothing. the symptoms are aggravated by activity, breathing, deep breath. Severity of pain: At its worst the pain was mild in the emergency department the pain has resolved. Historical: - Allergies: 12:05 Aspirin; sg 12:05 Hydrocodone-Ibuprofen; sg 12:05 Tylenol-Codeine; sg - PMHx: 12:05 Diabetes - NIDDM; sg - PSHx: 12:05 Gastric Bypass; lap band; lumbar spinal surgery; cervical spinal surgery; sg - Immunization history:: Adult Immunizations up to date. - Social history:: Smoking status: Patient/guardian denies using tobacco. - Ebola Screening: : Patient negative for fever greater than or equal to 101.5 degrees Fahrenheit, and additional compatible Ebola Virus Disease symptoms Patient denies exposure to infectious person Patient denies travel to an Ebola-affected area in the 21 days before illness onset No symptoms or risks identified at this time. ROS: 18:35 Constitutional: Negative for fever, chills, and weight loss, Eyes: Negative for injury, kdr pain, redness, and discharge, Neck: Negative for injury, pain, and swelling, Cardiovascular: Negative for chest pain, palpitations, and edema, Respiratory: Negative for shortness of breath, cough, wheezing, and pleuritic chest pain, Abdomen/GI: Negative for abdominal pain, nausea, vomiting, diarrhea, and constipation, Back: Negative for injury and pain, MS/Extremity: Negative for injury and deformity, Skin: Negative for injury, rash, and discoloration, Neuro: Negative for headache, weakness, numbness, tingling, and seizure activity. Psych: Negative for depression, anxiety, suicide ideation, homicidal ideation, and hallucinations, Allergy/Immunology: Negative for hives, rash, and allergies, Endocrine: Negative for neck swelling, polydipsia, polyuria, polyphagia, and marked weight changes, Hematologic/Lymphatic: Negative for swollen nodes, abnormal bleeding, and unusual bruising. Exam: 18:35 Constitutional: This is a well developed, well nourished patient who is awake, alert, kdr and in no acute distress. Head/Face: Normocephalic, atraumatic. Eyes: Pupils equal round and reactive to light, extra-ocular motions intact. Lids and lashes normal. Conjunctiva and sclera are non-icteric and not injected. Cornea within normal limits. Periorbital areas with no swelling, redness, or edema. Neck: Trachea midline, no thyromegaly or masses palpated, and no cervical lymphadenopathy. Supple, full range of motion without nuchal rigidity, or vertebral point tenderness. No Meningismus. Chest/axilla: Normal chest wall appearance and motion. Nontender with no deformity. No lesions are appreciated. Cardiovascular: Regular rate and rhythm with a normal S1 and S2. No gallops, murmurs, or rubs. Normal PMI, no JVD. No pulse deficits. Respiratory: Lungs have equal breath sounds bilaterally, clear to auscultation and percussion. No rales, rhonchi or wheezes noted. No increased work of breathing, no retractions or nasal flaring. Abdomen/GI: Soft, non-tender, with normal bowel sounds. No distension or tympany. No guarding or rebound. No evidence of tenderness throughout. Back: No spinal tenderness. No costovertebral tenderness. Full range of motion. Skin: Warm, dry with normal turgor. Normal color with no rashes, no lesions, and no evidence of cellulitis. MS/ Extremity: Pulses equal, no cyanosis. Neurovascular intact. Full, normal range of motion. Neuro: Awake and alert, GCS 15, oriented to person, place, time, and situation. Cranial nerves II-XII grossly intact. Motor strength 5/5 in all extremities. Sensory grossly intact. Cerebellar exam normal. Normal gait. Psych: Awake, alert, with orientation to person, place and time. Behavior, mood, and affect are within normal limits. 18:35 ECG was reviewed by the Attending Physician. kdr Vital Signs: 12:04 BP 158 / 68; Pulse 63; Resp 17 S; Pulse Ox 100% on R/A; Weight 79.83 kg (R); Pain 10/10;sg 13:00 BP 153 / 82; Pulse 65; Resp 16; Pulse Ox 99% on R/A; ph 14:00 BP 161 / 64; Pulse 61; Resp 16; Pulse Ox 98% on R/A; ph 14:47 BP 162 / 64; Pulse 62; Resp 18; Temp 97.9; Pulse Ox 100% on R/A; ph MDM: 14:38 Patient medically screened. kdr 18:35 Data reviewed: vital signs, nurses notes, lab test result(s), EKG, radiologic studies. kdr Counseling: I had a detailed discussion with the patient and/or guardian regarding: the historical points, exam findings, and any diagnostic results supporting the discharge/admit diagnosis, lab results, radiology results, the need for further work-up and treatment in the hospital. 03/31 12:36 Order name: Basic Metabolic Panel; Complete Time: 14: [facility] 03/31 12:36 Order name: CBC with Diff; Complete Time: 14: [facility] 03/31 12:36 Order name: Ckmb; Complete Time: 14: [facility] 03/31 12:36 Order name: CPK; Complete Time: 14: [facility] 03/31 12:36 Order name: LFT's; Complete Time: 14: [facility] 03/31 12:36 Order name: Magnesium; Complete Time: 14: [facility] 03/31 12:36 Order name: NT PRO-BNP; Complete Time: 14: [facility] 03/31 12:36 Order name: PT-INR; Complete Time: 14: [facility] 03/31 12:36 Order name: Ptt, Activated; Complete Time: 14: [facility] 03/31 12:36 Order name: Troponin (emerg Dept Use Only); Complete Time: 14: [facility] 03/31 12:36 Order name: XRAY Chest (1 view); Complete Time: 14:08 kdr 03/31 13:50 Order name: Urine Dipstick--Ancillary (enter results); Complete Time: 14:08 mb4 03/31 12:36 Order name: EKG; Complete Time: 12:36 kdr 03/31 12:36 Order name: Cardiac monitoring; Complete Time: 13:17 kdr 03/31 12:36 Order name: EKG - Nurse/Tech; Complete Time: 14:02 kdr 03/31 12:36 Order name: IV Saline Lock; Complete Time: 14:02 kdr 03/31 12:36 Order name: Labs collected and sent; Complete Time: 14:02 kdr 03/31 12:36 Order name: O2 Per Protocol; Complete Time: 14:03 kdr 03/31 12:36 Order name: O2 Sat Monitoring; Complete Time: 14:03 kdr 03/31 12:36 Order name: Urine Dipstick-Ancillary (obtain specimen); Complete Time: 14:03 kdr EC:35 Rhythm is regular. QRS [place] is Normal. VA interval is normal. QRS interval is normal. kdr QT interval is normal. No Q waves. T waves are Normal. Clinical impression: NSR w/ Non-specific ST/T Changes. Administered Medications: 13:45 Drug: morphine 4 mg Route: IVP; Site: left antecubital; ph 14:43 Follow up: Response: No adverse reaction; Pain is decreased ph 13:45 Drug: Zofran 4 mg Route: IVP; Site: left antecubital; ph 14:44 Follow up: Response: No adverse reaction ph 13:45 Drug: Pepcid 20 mg Route: IVP; Site: left antecubital; ph 14:44 Follow up: Response: No adverse reaction ph 14:24 CANCELLED (Other Intervention Used): Lopressor 50 mg PO once ph 14:42 Drug: Lovenox 1 mg/kg {Note: 80 mg given.} Route: Sub-Q; Site: left lower abdomen; ph 15:00 Follow up: Response: No adverse reaction ph 14:42 Drug: Lopressor 25 mg Route: PO; ph 15:00 Follow up: Response: No adverse reaction ph 14:43 Drug: PlaVIX 300 mg Route: PO; ph 15:00 Follow up: Response: No adverse reaction ph 14:43 Drug: Nitro-Bid Ointment 2 % 0.5 inches Route: Transdermal; Site: anterior chest wall; ph 15:00 Follow up: Response: No adverse reaction ph Disposition: 03/31/18 14:38 Hospitalization ordered by Ildefonso Mei for Inpatient Admission. Preliminary diagnosis is Non-ST elevation (NSTEMI) myocardial infarction. - Bed requested for Telemetry/MedSurg (Inpatient). - Status is Inpatient Admission. ss - Condition is Fair. - Problem is new. - Symptoms have improved. UTI on Admission? No Signatures: Dispatcher [employer] EDMS Tesha Franklin RN RN dw Bladimir Boggs, RN RN sg Rolando Olguin MD MD kdr Margot Lagos RN RN ss Jennifer Parson RN RN ph Corrections: (The following items were deleted from the chart) 14:24 14:10 Lopressor 50 mg PO once ordered. kdr ph 14:40 14:38 Hospitalization Ordered by A Sigifredo JONES for Inpatient Admission. Preliminary dw diagnosis is Non-ST elevation (NSTEMI) myocardial infarction. Bed requested for Telemetry/MedSurg (Inpatient). Status is Inpatient Admission. Condition is Fair. Problem is new. Symptoms have improved. UTI on Admission? No. kdr 15:33 14:40 03/31/2018 14:38 Hospitalization Ordered by A Sigifredo JONES for Inpatient Admission. ss Preliminary diagnosis is Non-ST elevation (NSTEMI) myocardial infarction. Bed requested for Telemetry/MedSurg (Inpatient). Status is Inpatient Admission. Condition is Fair. Problem is new. Symptoms have improved. UTI on Admission? No. dw
--- NOTE | 2018-03-31 14:39 | ER ---
Nurse's Notes [facility] Name: Bridgette Browne Age: 68 yrs Sex: Female : 1950 Arrival Date: 03/31/2018 Time: 12:02 Bed 16 Private MD: Ildefonso Mei C Diagnosis: Non-ST elevation (NSTEMI) myocardial infarction Presentation: 03/31 12:03 Presenting complaint: Patient states: Has had Left sided arm pain for several weeks sg now, worsened last night, reports woke her up from sleeping, now radiates into her chest and right shoulder. Denies N/V/D, denies shortness of breath or difficulty breathing at this time. Transition of care: patient was not received from another setting of care. Onset of symptoms was March 31, 2018. Risk Assessment: Do you want to hurt yourself or someone else? Patient reports no desire to harm self or others. Initial Sepsis Screen: Does the patient meet any 2 criteria? No. Patient's initial sepsis screen is negative. Does the patient have a suspected source of infection? No. Patient's initial sepsis screen is negative. Care prior to arrival: None. 12:03 Method Of Arrival: Ambulatory sg 12:03 Acuity: ISMAEL 3 sg Historical: - Allergies: 12:05 Aspirin; sg 12:05 Hydrocodone-Ibuprofen; sg 12:05 Tylenol-Codeine; sg - PMHx: 12:05 Diabetes - NIDDM; sg - PSHx: 12:05 Gastric Bypass; lap band; lumbar spinal surgery; cervical spinal surgery; sg - Immunization history:: Adult Immunizations up to date. - Social history:: Smoking status: Patient/guardian denies using tobacco. - Ebola Screening: : Patient negative for fever greater than or equal to 101.5 degrees Fahrenheit, and additional compatible Ebola Virus Disease symptoms Patient denies exposure to infectious person Patient denies travel to an Ebola-affected area in the 21 days before illness onset No symptoms or risks identified at this time. Screenin:03 Abuse screen: Denies threats or abuse. Denies injuries from another. Nutritional ph screening: No deficits noted. Tuberculosis screening: No symptoms or risk factors identified. Fall Risk None identified. Assessment: 12:06 Reassessment:. General: Appears in no apparent distress. uncomfortable, Behavior is sg calm, cooperative. Cardiovascular: Reports chest pain, nausea, Capillary refill is brisk in bilateral fingers Patient's skin is warm and dry. Respiratory: Airway is patent Respiratory effort is even, unlabored, Respiratory pattern is regular, symmetrical. 12:30 General: Appears in no apparent distress. uncomfortable, well groomed, Behavior is ph calm, cooperative, appropriate for age, Denies fever, feeling ill. Pain: Complains of pain in anterior aspect of left upper chest and mid-sternal area Pain radiates to right posterior aspect of neck and left posterior aspect of neck Pain began 3 hours ago. Neuro: Level of Consciousness is awake, alert, obeys commands, Oriented to person, place, time, situation, Reports dizziness, Denies weakness blurred vision headache. Cardiovascular: Reports chest pain, diaphoresis, lightheadedness, shortness of breath, Denies nausea, vomiting, Capillary refill < 3 seconds Patient's skin is warm and dry. Respiratory: Airway is patent Respiratory effort is even, unlabored, Respiratory pattern is regular, symmetrical, Breath sounds are clear bilaterally. Derm: Skin is intact, is healthy with good turgor, Skin is pink, warm \T\ dry. Musculoskeletal: Circulation, motion, and sensation intact. Range of motion: intact in all extremities. 14:05 Reassessment: Patient appears in no apparent distress at this time. Patient and/or ph family updated on plan of care and expected duration. Pain level reassessed. Patient is alert, oriented x 3, equal unlabored respirations, skin warm/dry/pink. Pt reports that pain has decreased to 4/10 after IV pain medication. 14:20 Reassessment: Dr Olguin at bedside to speak w/ pt about being admitted. ph 15:00 Reassessment: Patient appears in no apparent distress at this time. Patient and/or ph family updated on plan of care and expected duration. Pain level reassessed. Patient is alert, oriented x 3, equal unlabored respirations, skin warm/dry/pink. Report called to Dwayne ATKINSON, pt waiting to be taken to inpatient room Patient states symptoms have improved. Vital Signs: 12:04 BP 158 / 68; Pulse 63; Resp 17 S; Pulse Ox 100% on R/A; Weight 79.83 kg (R); Pain 10/10;sg 13:00 BP 153 / 82; Pulse 65; Resp 16; Pulse Ox 99% on R/A; ph 14:00 BP 161 / 64; Pulse 61; Resp 16; Pulse Ox 98% on R/A; ph 14:47 BP 162 / 64; Pulse 62; Resp 18; Temp 97.9; Pulse Ox 100% on R/A; ph ED Course: 12:02 Patient arrived in ED. sb2 12:02 Ildefonso Mie MD is Private Physician. sb2 12:04 Triage completed. sg 12:05 Arm band placed on. sg 12:21 Rolando Olguin MD is Attending Physician. kdr 12:24 EKG done, by geospatial technologist. reviewed by Rolando Olguin MD. at1 13:01 Jennifer Parson RN is Primary Nurse. ph 13:09 XRAY Chest (1 view) In Process Unspecified. EDMS 13:09 X-ray completed. Portable x-ray completed in exam room. Patient tolerated procedure jb2 well. 13:35 Inserted saline lock: 20 gauge in left antecubital area, using aseptic technique. Blood ph collected. 14:04 Patient has correct armband on for positive identification. Placed in gown. Bed in low ph position. Call light in reach. Side rails up X 1. court recording monitor on. Pulse ox on. NIBP on. Door closed. Lights dimmed. Warm blanket given. 14:04 No provider procedures requiring assistance completed. Patient maintains SpO2 ph saturation greater than 95% on room air. 14:38 Ildefonso Mei MD is Hospitalizing Provider. kdr 15:30 Patient admitted, IV remains in place. ph Administered Medications: 13:45 Drug: morphine 4 mg Route: IVP; Site: left antecubital; ph 14:43 Follow up: Response: No adverse reaction; Pain is decreased ph 13:45 Drug: Zofran 4 mg Route: IVP; Site: left antecubital; ph 14:44 Follow up: Response: No adverse reaction ph 13:45 Drug: Pepcid 20 mg Route: IVP; Site: left antecubital; ph 14:44 Follow up: Response: No adverse reaction ph 14:24 CANCELLED (Other Intervention Used): Lopressor 50 mg PO once ph 14:42 Drug: Lovenox 1 mg/kg {Note: 80 mg given.} Route: Sub-Q; Site: left lower abdomen; ph 15:00 Follow up: Response: No adverse reaction ph 14:42 Drug: Lopressor 25 mg Route: PO; ph 15:00 Follow up: Response: No adverse reaction ph 14:43 Drug: PlaVIX 300 mg Route: PO; ph 15:00 Follow up: Response: No adverse reaction ph 14:43 Drug: Nitro-Bid Ointment 2 % 0.5 inches Route: Transdermal; Site: anterior chest wall; ph 15:00 Follow up: Response: No adverse reaction ph Outcome: 14:38 Decision to Hospitalize by Provider. kdr 15:33 Patient left the ED. ss 15:33 Admitted to Tele accompanied by tech, via wheelchair, room 224, with chart, Report ph called to DEMETRIO Rice 15:33 Condition: stable 15:33 Instructed on the need for admit. ph Signatures: Dispatcher [employer] Bladimir Aguirre, RN Rolando Douglas MD MD kdr Buechter, Jesse jb2 Margot Lagos RN RN Dulce sanchez, valve maker EKG Tat1 Jennifer Parson RN RN Jeni Álvarez sb2
[2018-03-31] MEDS ORDERED: PRASUGREL (EFFIENT) 10 MG TAB PO ONE (16:26)
[2018-03-31] MEDS ORDERED: NITROGLYCERIN 1 GM PKT TD SCH (18:00)
--- NOTE | 2018-03-31 22:11 | CON ---
Chief Complaint: Chest pain. History Of Present Illness: Mrs. Browne presented to our hospital today with onset of chest pain ab out 2 p.m. today. It is resolved with morphine and nitrates. The patient is allergic to aspirin. S he has no history of coronary heart disease, but she has had noninvasive testing that was normal. Sh rosita is allergic to codeine, acetaminophen, and aspirin. She has a history of hypertension, dyslipidemi a. She does not have diabetes. She has never had myocardial infarction or stroke before. We do not have an accurate list of her home medications. She does not take many medications. Physical Examination: Vital Signs: 5 feet 5 inches, 176 pounds. HEENT: Normal. Carotids, no bruit. Lungs: Clear. Heart: Normal. Extremities: Within normal limits. Laboratory Data: Her troponin is 0.05, creatinine 1.00, blood sugar 84, hemoglobin 11, hematocrit 34 .3. Plan: I have recommended that she undergo a cardiac cath. Tonight, we will give her Effient and Audrey enox and be ready to do a cardiac cath tomorrow. We will approach from the radial approach first and use the femoral approach for doing a cardiac cath as a backup. The patient seems to understand the procedure, potential benefits, indications, risks, and agrees to proceed. JAMAL Voice ID: [id number] Report ID: [id number]
[2018-03-31] MEDS ORDERED: clonazePAM 0.5 MG TAB PO PRN (23:09)
[2018-03-31] MEDS ORDERED: GLUCAGON 1 MG/VIAL IM PRN (23:11)
[2018-03-31] MEDS ORDERED: D50W 25 GM/50 ML SYRINGE IV PRN (23:11)
--- NOTE | 2018-04-01 05:14 | HP ---
Date of Admission: 03/31/2018 Chief Complaint: Chest pain. History Of Present Illness: This is a 68-year-old female patient with multiple comorbidities, came i [facility] emergency room with complaints of chest pain that started this afternoon. The patient describes her chest pain as sharp pain that started in the center of the chest and then it radiated to her left shoulder, left side of the neck, and then all around her neck on the backside and moved to right latasha ulder. The patient's chest pain also radiated to her left arm and left hand. She felt like little s hort of breath and little cold, clammy with this. After she came into emergency room, she was chantelle feng, admitted to the hospital under my service. When I saw her this evening, she was feeling much be tter. Allergies: TO HYDROCODONE, FEELING VERY COLD AND HAVING BAD CHILLS. Medications: Allopurinol 300 mg daily, atorvastatin 80 mg daily, clonazepam 0.5 mg at bedtime, clopi dogrel 75 mg at bedtime, ferrous sulfate 325 mg p.o. everyday, gabapentin 800 mg 2 times a day, losar borrero 50 mg daily, metformin 1000 mg 2 times a day, Symbicort 160 mcg 2 puffs 2 times a day, Tizanidine 4 mg at bedtime, tramadol 50 mg 2 times a day, Trokendi XR 100 mg 1 capsule daily, Trulicity 1.5 mg every week, venlafaxine 150 mg 2 times a day, vitamin B12 500 mcg p.o. daily. Review of Systems: Cardiovascular: As mentioned above. All other systems reviewed and negative. Past Medical History: Significant for anemia, hypertension, mixed hyperlipidemia, sleep apnea, osteo arthritis, multiple sites; diabetes mellitus, diabetic neuropathy, depression, gout, iron deficiency anemia, morbid obesity. Past Surgical History: Gastric bypass surgery, March 09, 2014. Prior to that, in 2010, she had lap b and surgery; cataract surgery, back surgery, teeth extraction, which is wisdom tooth extraction, and carpal tunnel release. Hernia repair and hysterectomy. Family History: Significant for diabetes, COPD, congestive heart failure, heart disease. Social History: Negative for smoking and alcohol use. Physical Examination: Vital Signs: Temperature 97.9, pulse 63, respiratory rate 17, blood pressure 158/68, oxygen saturati on 100%, height 5 feet 5 inches, weight 176 pounds. General: Awake, alert, oriented, not in distress. HEENT: Head atraumatic, normocephalic. Conjunctivae nonerythematous. Sclerae white. Mouth, no thr ush or edema noted. Ears/Nose, no mass, lesion, discharge noted. Neck: Supple. No JVD, lymph nodes, bruit, thyromegaly noted. Lungs: Bilateral good equal air entry. Clear to auscultation. No rhonchi. No rales. Heart: Normal heart sounds, no murmur or gallop. Abdomen: Soft, bowel sounds normal. No guarding, rigidity, tenderness, mass, hepatosplenomegaly, dis tention, or bruit noted. Extremities: No leg edema. No calf tenderness. Skin: No rash, ulcer, cellulitis. Lymphatics: No lymph node enlargement in neck, supraclavicular, infraclavicular region. Neuro: No focal neurological deficit. Chest: Unremarkable. External Genitalia: Deferred. Rectal: Deferred. Laboratory Data: White count 6.5, hemoglobin 11.1, platelets 287. Sodium 142, potassium 3.7, chlori de 111, bicarb 23, BUN 22, creatinine 1.0, glucose 84. Liver function tests unremarkable. Troponin 0.05. Second troponin 0.05. Third troponin 0.06. Urinalysis: Trace esterase, otherwise negative. Chest x-ray: No acute cardiopulmonary changes noted. Electrocardiogram: Normal sinus rhythm, norm al EKG except frequent premature ventricular complex. Impression: 1.Chest pain. 2.Hypertension. 3.Diabetes mellitus with diabetic neuropathy. 4.Mixed hyperlipidemia. 5.Depression. 6.Osteoarthritis, multiple sites. 7.Iron deficiency anemia. Plan: Admit the patient to hospital for further evaluation and management of this problem. The jesusita ent is appropriate for inpatient and is expected to spend 2 midnights in hospital. Her cardiac enzym es are slightly abnormal. She has multiple comorbidities and risk factor for coronary artery disease and Cardiology consultation has been obtained from Dr. Ibanez, who has recommended cardiac cath to b e done tomorrow. We will continue her home medications per order and I will see her tomorrow for fol lowup. Details and plan of treatment discussed with the patient. DIAMOND/MODL Voice ID: [id number]
[2018-04-01 05:20] LABS: Absolute Lymphocytes (CBC) 2.1 K/uL (0.7-4.9); Absolute Monocytes 0.5 K/uL (0.1-1.3); Absolute Neutrophil 3.6 K/uL (1.8-8.0); Eosinophils % 7.5 % (0-4.4); Lymphocytes % 30.9 % (15.3-44.8); MCH 32.1 pg (27.0-35.0); MCV 95.7 fL (80-100); MPV 9.3 fL (7.6-11.3); Monocytes % 7.1 % (3.3-12.3); RBC Red Blood Cell Count 3.34 M/uL (3.86-4.86)
[2018-04-01 06:03] LABS: Potassium 4.1 mmol/L (3.5-5.1); Thyroid Stimulating Hormone 2.93 uIU/mL (0.36-3.74)
[2018-04-01] MEDS ORDERED: HEPARIN 5000 UNIT/ML 1 ML VIAL ONE (07:09)
[2018-04-01] MEDS ORDERED: HEPA 1000U/500MLS 1,000 UNIT/500 ML BAG IV ONE (07:09)
[2018-04-01] MEDS ORDERED: NA CHLORIDE 0.9% 0 ML ONE (07:10)
[2018-04-01] MEDS ORDERED: NICARDIPINE HCL 25 MG/10 ML IV ONE (07:10)
[2018-04-01] MEDS ORDERED: ATROPINE SULF 1 MG/10 ML SYR IV ONE (07:10)
[2018-04-01] MEDS ORDERED: LIDOCAINE 1% MPF 2 ML AMPULE ONE (07:10)
[2018-04-01] MEDS: INSULIN -REGULAR HUMAN 50 UNIT/0.5 ML ML SQ SCH ×3 (07:30→16:51)
[2018-04-01] MEDS ORDERED: MIDAZOLAM HCL 2 MG/2 ML INJ ONE ×3 (07:46→08:33)
[2018-04-01] MEDS ORDERED: FENTANYL CITR 100 MCG/2 ML ONE ×2 (07:46→08:34)
[2018-04-01] MEDS ORDERED: NA CHLORIDE 0.9% 500 ML ONE (07:51)
[2018-04-01] MEDS: TRAMADOL HCL 50 MG TAB PO SCH ×2 (09:00→14:53)
[2018-04-01] MEDS ORDERED: TIZANIDINE 4 MG TABLET PO SCH (09:00)
[2018-04-01] MEDS ORDERED: PREDNISOLONE 1% OPTH SOLN 5ML OPTH SCH (09:00)
[2018-04-01] MEDS ORDERED: KETOROLAC OPTHALMIC 5 ML BOT EACH EYE SCH (09:00)
[2018-04-01] MEDS ORDERED: GABAPENTIN 400 MG CAP PO SCH (09:00)
--- NOTE | 2018-04-01 09:58 | ECHO ---
HEIGHT: 5 ft 5 in WEIGHT: 176 lb 0 oz DATE OF STUDY: 04/01/[address]: Chadd Ibanez MD 2-DIMENSIONAL: YES M.MODE: YES DOPPLER: YES COLOR FLOW: YES TDS: PORTABLE: DEFINITY: BUBBLE STUDY: DIAGNOSIS: RULE OUT APICAL BALLONING CARDIAC HISTORY: CATHERIZATION: SURGERY: PROSTHETIC VALVE: PACEMAKER: MEASUREMENTS (cm) DIASTOLIC (NORMALS) SYSTOLIC (NORMALS) IVSd 0.9 (0.6-1.2) LA Diam 4.0 (1.9-4.0) LVEF 65% LVIDd 5.1 (3.5-5.7) LVIDs 3.3 (2.0-3.5) %FS 36% LVPWd 0.9 (0.6-1.2) Ao Diam 2.8 (2.0-3.7) 2 DIMENSIONAL ASSESSMENT: RIGHT ATRIUM: NORMAL LEFT ATRIUM: NORMAL RIGHT VENTRICLE: NORMAL LEFT VENTRICLE: NORMAL TRICUSPID VALVE: NORMAL MITRAL VALVE: NORMAL PULMONIC VALVE: NORMAL AORTIC VALVE: MILD SCLEROSIS PERICARDIAL EFFUSION: NONE AORTIC ROOT: NORMAL LEFT VENTRICULAR WALL MOTION: NORMAL DOPPLER/COLOR FLOW: MILD AORTIC, MITRAL AND TRICUSPID REGURGITATION. NO AORTIC STENOSIS. NORMAL RIGHT VENTRICULAR SYSTOLIC PRESSURE. COMMENTS: NORMAL LEFT VENTRICULAR EJECTION FRACTION. MILD AORTIC SCLEROSIS WITH NO AORTIC STENOSIS. MILD AORTIC, MITRAL AND TRICUSPID REGURGITATION. TECHNOLOGIST: YOVANNY CARY
[2018-04-01] MEDS ORDERED: MORPHINE 4 MG/ML SYR ONE (10:11)
--- NOTE | 2018-04-01 20:15 | OP ---
Surgeon: Chadd Ibanez MD Procedures: Left heart catheterization with coronary angiography. Left ventricular angiogram was no t done because of pain at the catheterization site. Findings: The patient's coronary arteries are completely normal. No plaque or stenosis. Procedure In Detail: The patient gave informed consent, brought to the cardiac geophysical laboratory chief in a fasting state, sedated with Versed and fentanyl, a total of 100 mcg of fentanyl, 4 mg of Versed was used. R ight radial approach was used, 1 cc of 1% lidocaine was used to anesthetize the skin over the right r adial artery. It was entered using a 21-gauge needle. A 0.021 inch diameter guidewire was used to c annulate the artery. Modified Seldinger technique allowed us to put a 6-[place]izen [place] Terumo radial sheath in place, it was flushed. We gave a radial cocktail containing nicardipine, heparin, nitroglycerin. A TIG catheter was guided to the ascending aorta using a Terumo Glidewire with a short radius J-tip. The TIG catheter gave successful angiograms of the left coronary, the right coronary. It would not work, so a 4-[place] 3DRC was tried and a 6-[place] Amplatz right 1 modified was used. This was succe ssful. We were able to angiogram all the arteries. Because every catheter manipulation was causing pain, we decided to not do any further catheter manipulations and measure her LV function with ultras ound. The catheter was removed over a wire. TR band was flushed. The sheath was removed and the ar teriotomy closed with a TR band. Complications from the procedure were none. Estimated Blood Loss: 5 cc. Materials Management Clerk: Radhika Mayen. ALEE/ESTEE Voice ID: [id number] Report ID: [id number]
[2018-04-01] MEDS ORDERED: TOPIRAMATE PO SCH (21:00)
[2018-04-01] MEDS ORDERED: ALLOPURINOL 300 MG TAB PO SCH (21:00)
[2018-04-01] MEDS ORDERED: VENLAFAXINE HCL XR 75 MG CAP PO SCH (21:00)
[2018-04-01] MEDS ORDERED: ATORVASTATIN 80 MG TAB PO SCH (21:00)
[2018-04-01] MEDS ORDERED: TORADOL OPTH SCH (21:00)
[2018-04-01] MEDS ORDERED: LOSARTAN POTASSIUM 50 MG TABLET PO SCH (21:00)
--- NOTE | 2018-04-02 18:22 | DS ---
Date of Discharge: 04/01/2018 Disposition: Discharged to go home. Physical Examination: HEENT: Unremarkable. Lungs: Clear to auscultation. Heart: Sounds normal. Abdomen: Soft bowel sounds normal. No guarding, rigidity, tenderness, or distention. Extremities: No leg edema. Laboratory Data: Test done during this hospitalization includes echocardiogram shows normal ejection fraction, unremarkable echocardiogram. Cardiac cath done today showing normal coronary arteries. L ast white count today 6.7, hemoglobin 10.7, platelets 246. This morning, BUN 19, creatinine 0.90, gl ucose 85, triglyceride 87, cholesterol 136, HDL 58, LDL 61, TSH 2.93. Troponin 0.05 on first and sec ond set and 0.06 on third set. Hospital Course: This is a 68-year-old female patient admitted to the hospital with complaints of ch est pain. Please see dictated H and P for more information. The patient was evaluated in the ER. S he was admitted to the hospital. Serial cardiac enzymes obtained, and Cardiology consultation was ob tained from Dr. Ibanez, who recommended cardiac cath, and he did perform cardiac cath today showing n ormal coronary arteries. The patient was seen this evening. She was asymptomatic, feeling fine, was made aware of her cardiac cath and echocardiogram results, and was discharged to go home in stable c ondition. Discharge Medications And Instructions: 1.Continue all prior home medications except do not take any metformin and come to my office on Thud ay, which is 04/05/2018 for blood test and after that result is reviewed office will notify the patie nt regarding when to restart metformin. 2.Follow up at my office in 2 weeks. Final Diagnoses: 1.Chest pain. 2.Hypertension. 3.Diabetes mellitus with diabetic neuropathy. 4.Mixed hyperlipidemia. 5.Depression. 6.Osteoarthritis, multiple sites. 7.Iron deficiency anemia. DIAMOND/MODL Voice ID: [id number] Report ID: [id number]
== END 2018-04-01 20:22 | disposition home or self-care (01) ==
LOC: ER 12:00 → ERHOLD 14:11 → INTOOBSV 14:11 → 2ND 15:11
PROVIDERS: ADMIT Internal Medicine; ATTEND Internal Medicine
DX: R07.9 Chest pain, unspecified (principal); I10 Essential (primary) hypertension; E11.40 Type 2 diabetes mellitus with diabetic neuropathy, unspecified; E78.2 Mixed hyperlipidemia; F32.9 Major depressive disorder, single episode, unspecified; M19.90 Unspecified osteoarthritis, unspecified site; D50.9 Iron deficiency anemia, unspecified; G47.30 Sleep apnea, unspecified; Z98.84 Bariatric surgery status; Z88.6 Allergy status to analgesic agent
CPT/HCPCS: 36415; 71045; 80048 ×2; 80061; 80076; 81003; 82550; 82553; 82962 ×3; 83735; 83880; 84443; 84484 ×3; 85025 ×2; 85610; 85730; 93005; 93306; 93454; 96372; 96374; 96375; 99285; C1893; G0378 ×2; J1644; J1650; J2001; J2250 ×2; J2405; J3010; J0583

== ENCOUNTER 2018-04-23 15:59 | Emergency (ER) | payer OTHER ==
--- OUTSIDE RECORDS SUMMARY | 2018-04-23 16:02 | XMS REPORT ---
:1950 Author Organization [facility] Address [address] [place] [address] Care Team Providers Name Role Phone RICARDO HENRY Unavailable Unavailable Problems This patient has no known problems. Allergies, Adverse Reactions, Alerts This patient has no known allergies or adverse reactions. Medications This patient has no known medications. Results Test Description Test Time Test Comments Text Results Atomic Results Result Comments URINE CULTURE 2017-02-12 15:54:00 Test Item Value Reference Range Comments CULTURE (BEAKER) (test uppg=1238) >100,000 col/mL skin clay POCT-GLUCOSE [id number] 07:48:00 Test Item Value Reference Range Comments POC-GLUCOSE METER (BEAKER) 149 mg/dL 70-110 TESTED AT [facility] [address] [facility] (test tsin=9745) [facility] [address] BASIC METABOLIC [id number] 04:52:00 Test Item Value Reference Range Comments SODIUM (BEAKER) (test 140 meq/L 136-145 blnt=760) POTASSIUM (BEAKER) (test 4.6 meq/L 3.5-5.1 Specimen slightly fbps=243) hemolyzed CHLORIDE (BEAKER) (test 114 meq/L 98-107 cyae=240) CO2 (BEAKER) (test 17 meq/L 22-29 cfdy=909) BLOOD UREA NITROGEN 16 mg/dL 7-21 (BEAKER) (test rxoz=908) CREATININE (BEAKER) (test 0.94 mg/dL 0.57-1.25 Specimen slightly bsuy=379) hemolyzed GLUCOSE RANDOM (BEAKER) 98 mg/dL 70-105 (test fluv=013) CALCIUM (BEAKER) (test 9.4 mg/dL 8.4-10.2 bguz=496) EGFR (BEAKER) (test 59 mL/min/1.73 sq m ESTIMATED GFR IS NOT vbsf=3620) ACCURATE CREATININE CLEARANCE IN PREDICTING GLOMERULAR FILTRATION RATE. ESTIMATED GFR IS NOT APPLICABLE FOR DIALYSIS PATIENTS. CBC W/PLT COUNT & AUTO [id number] 04:52:00 Test Item Value Reference Range Comments WHITE BLOOD CELL COUNT (BEAKER) (test nlho=604) 9.9 K/ L 4.0-10.0 RED BLOOD CELL COUNT (BEAKER) (test xdok=888) 3.93 M/ L 4.00-5.00 HEMOGLOBIN (BEAKER) (test idwc=585) 12.3 GM/DL 12.0-15.0 HEMATOCRIT (BEAKER) (test kksa=397) 39.1 % 36.0-45.0 MEAN CORPUSCULAR VOLUME (BEAKER) (test gpgl=241) 99.6 fL 82.0-99.0 MEAN CORPUSCULAR HEMOGLOBIN (BEAKER) (test 31.3 pg 27.0-33.0 oebg=271) MEAN CORPUSCULAR HEMOGLOBIN CONC (BEAKER) (test 31.4 GM/DL 32.0-36.0 gsmr=807) RED CELL DISTRIBUTION WIDTH (BEAKER) (test 13.4 % 10.3-14.2 udfp=421) PLATELET COUNT (BEAKER) (test psoi=360) 238 K/CU MM 150-430 MEAN PLATELET VOLUME (BEAKER) (test yjfq=303) 8.7 fL 6.5-10.5 NUCLEATED RED BLOOD CELLS (BEAKER) (test 0 /100 WBC 0-0 zstm=348) NEUTROPHILS RELATIVE PERCENT (BEAKER) (test 46 % pjup=645) LYMPHOCYTES RELATIVE PERCENT (BEAKER) (test 41 % uqly=329) MONOCYTES RELATIVE PERCENT (BEAKER) (test 5 % mdar=551) EOSINOPHILS RELATIVE PERCENT (BEAKER) (test 7 % yiza=647) BASOPHILS RELATIVE PERCENT (BEAKER) (test 1 % ydpo=310) NEUTROPHILS ABSOLUTE COUNT (BEAKER) (test 4.56 K/ L 1.80-8.00 gsty=698) LYMPHOCYTES ABSOLUTE COUNT (BEAKER) (test 4.05 K/ L 1.48-4.50 lzgw=470) MONOCYTES ABSOLUTE COUNT (BEAKER) (test 0.48 K/ L 0.00-1.30 rnyk=184) EOSINOPHILS ABSOLUTE COUNT (BEAKER) (test 0.72 K/ L 0.00-0.50 dlgx=783) BASOPHILS ABSOLUTE COUNT (BEAKER) (test 0.08 K/ L 0.00-0.20 iwzl=134) 0.00POCT-GLUCOSE [id number] 21:56:00 Test Item Value Reference Range Comments POC-GLUCOSE METER (BEAKER) 114 mg/dL 70-110 TESTED AT [address] (test ebme=9327) [place] [id number] POCT-GLUCOSE [id number] 18:04:00 Test Item Value Reference Range Comments POC-GLUCOSE METER (BEAKER) 82 mg/dL 70-110 TESTED AT [address] (test tukd=0239) [place] [id number] TSH/FREE T4 IF [id number] 15:29:00 Test Item Value Reference Range Comments THYROID STIMULATING HORMONE (BEAKER) (test 2.71 uIU/mL 0.35-4.94 bprh=496) POCT-GLUCOSE [id number] 12:39:00 Test Item Value Reference Range Comments POC-GLUCOSE METER (BEAKER) 112 mg/dL 70-110 TESTED AT [address] (test orld=4574) [place] [address] [id number] 12:03:00 Test Item Value Reference Range Comments RPR SCREEN (BEAKER) (test cnsn=437) Nonreactive Nonreactive HEMOGLOBIN [id number] 08:06:00 Test Item Value Reference Range Comments HEMOGLOBIN A1C (BEAKER) (test ggpo=556) 6.8 % 4.3-6.1 POCT-GLUCOSE [id number] 07:58:00 Test Item Value Reference Range Comments POC-GLUCOSE METER (BEAKER) 98 mg/dL 70-110 TESTED AT [address] (test tcja=4927) [place] [id number] CBC W/PLT COUNT & AUTO [id number] 04:28:00 Test Item Value Reference Range Comments WHITE BLOOD CELL COUNT (BEAKER) (test tcmy=531) 8.1 K/ L 4.0-10.0 RED BLOOD CELL COUNT (BEAKER) (test daha=816) 3.63 M/ L 4.00-5.00 HEMOGLOBIN (BEAKER) (test imrc=602) 12.0 GM/DL 12.0-15.0 HEMATOCRIT (BEAKER) (test cual=228) 36.0 % 36.0-45.0 MEAN CORPUSCULAR VOLUME (BEAKER) (test dtsy=110) 99.1 fL 82.0-99.0 MEAN CORPUSCULAR HEMOGLOBIN (BEAKER) (test 33.0 pg 27.0-33.0 qgfr=939) MEAN CORPUSCULAR HEMOGLOBIN CONC (BEAKER) (test 33.3 GM/DL 32.0-36.0 igxc=143) RED CELL DISTRIBUTION WIDTH (BEAKER) (test 15.2 % 10.3-14.2 wgnh=878) PLATELET COUNT (BEAKER) (test hlbx=519) 232 K/CU MM 150-430 MEAN PLATELET VOLUME (BEAKER) (test uzbs=737) 8.7 fL 6.5-10.5 NUCLEATED RED BLOOD CELLS (BEAKER) (test 0 /100 WBC 0-0 vveh=268) NEUTROPHILS RELATIVE PERCENT (BEAKER) (test 53 % pjms=799) LYMPHOCYTES RELATIVE PERCENT (BEAKER) (test 32 % bjqb=732) MONOCYTES RELATIVE PERCENT (BEAKER) (test 5 % tjmq=969) EOSINOPHILS RELATIVE PERCENT (BEAKER) (test 8 % liyj=003) BASOPHILS RELATIVE PERCENT (BEAKER) (test 1 % hdvl=861) NEUTROPHILS ABSOLUTE COUNT (BEAKER) (test 4.27 K/ L 1.80-8.00 cwuy=813) LYMPHOCYTES ABSOLUTE COUNT (BEAKER) (test 2.62 K/ L 1.48-4.50 adbe=620) MONOCYTES ABSOLUTE COUNT (BEAKER) (test 0.42 K/ L 0.00-1.30 mzmo=881) EOSINOPHILS ABSOLUTE COUNT (BEAKER) (test 0.67 K/ L 0.00-0.50 dwve=292) BASOPHILS ABSOLUTE COUNT (BEAKER) (test 0.09 K/ L 0.00-0.20 atww=932) 0.00BASI METABOLIC [id number] 04:15:00 Test Item Value Reference Range Comments SODIUM (BEAKER) (test 141 meq/L 136-145 wpsp=791) POTASSIUM (BEAKER) (test 4.8 meq/L 3.5-5.1 hhja=013) CHLORIDE (BEAKER) (test 116 meq/L 98-107 aphe=949) CO2 (BEAKER) (test 17 meq/L 22-29 jlqp=179) BLOOD UREA NITROGEN 17 mg/dL 7-21 (BEAKER) (test oqcx=853) CREATININE (BEAKER) (test 1.12 mg/dL 0.57-1.25 nuzv=206) GLUCOSE RANDOM (BEAKER) 88 mg/dL 70-105 (test xcxn=076) CALCIUM (BEAKER) (test 9.2 mg/dL 8.4-10.2 smvh=704) EGFR (BEAKER) (test mL/min/1.73 sq m INSUFFICIENT CLINICAL DATA klnf=5128) TO CALCULATE ESTIMATED GFR. FastingLIPID [id number] 04:11:00 Test Item Value Reference Range Comments TRIGLYCERIDES (BEAKER) (test cipq=224) 113 mg/dL CHOLESTEROL (BEAKER) (test mllw=453) 207 mg/dL HDL CHOLESTEROL (BEAKER) (test dmpl=524) 61 mg/dL LDL CHOLESTEROL CALCULATED (BEAKER) (test 123 mg/dL lbrn=134) Triglyceride Reference Range: Low Risk <150 Borderline 150- 199 High Risk 200-499 Very High Risk >=500Cholesterol Reference Range: Low Risk <200 Borderline 200-239 High Risk > 240HDL Cholesterol Reference Range: Low Risk >=60 High Risk <40LDL Cholesterol Reference Range: Optimal <100 Near Optimal 100-129 Borderline 130-159 High 160-189 Very High >=190 FastingURINALYSIS W/ [id number] 00:43:00 Test Item Value Reference Range Comments COLOR (BEAKER) (test bsxa=219) Light Yellow CLARITY (BEAKER) (test gqnh=990) Clear SPECIFIC GRAVITY UA (BEAKER) (test neaw=845) 1.004 1.001-1.035 PH UA (BEAKER) (test jzdv=292) 6.5 5.0-8.0 PROTEIN UA (BEAKER) (test crct=689) Negative Negative GLUCOSE UA (BEAKER) (test mdza=595) Negative Negative KETONES UA (BEAKER) (test toui=960) Negative Negative BILIRUBIN UA (BEAKER) (test rftv=700) Negative Negative BLOOD UA (BEAKER) (test jlmu=507) Negative Negative NITRITE UA (BEAKER) (test zjik=800) Negative Negative LEUKOCYTE ESTERASE UA (BEAKER) (test hjua=380) Trace Negative UROBILINOGEN UA (BEAKER) (test kroz=920) 0.2 mg/dL 0.2-1.0 RBC UA (BEAKER) (test iflp=477) 1 /HPF WBC UA (BEAKER) (test rlhh=902) 3 /HPF BACTERIA (BEAKER) (test juys=314) Rare SQUAMOUS EPITHELIAL (BEAKER) (test qqaa=100) 4 /HPF SOURCE(BEAKER) (test lqrs=5269) Urine, Voided POCT-GLUCOSE [id number] 21:06:00 Test Item Value Reference Range Comments POC-GLUCOSE METER (BEAKER) 217 mg/dL 70-110 TESTED AT [address] (test grwc=8173) [place] [address] SEDIMENTATION [id number] 20:24:00 Test Item Value Reference Range Comments SEDIMENTATION RATE, ERYTHROCYTE (BEAKER) (test 16 mm/HR 0-40 qjmi=532) VITAMIN [id number] 19:36:00 Test Item Value Reference Range Comments VITAMIN B12 (BEAKER) (test jypf=322) > pg/mL 213-816 POCT-GLUCOSE [id number] 19:08:00 Test Item Value Reference Range Comments POC-GLUCOSE METER (BEAKER) 105 mg/dL 70-110 TESTED AT [address] (test vxhg=0634) [place] [address] BASIC METABOLIC [id number] 19:03:00 Test Item Value Reference Range Comments SODIUM (BEAKER) (test 138 meq/L 136-145 nubu=143) POTASSIUM (BEAKER) (test 4.6 meq/L 3.5-5.1 Specimen slightly jszy=507) hemolyzed CHLORIDE (BEAKER) (test 116 meq/L 98-107 uuys=669) CO2 (BEAKER) (test 15 meq/L 22-29 bnot=809) BLOOD UREA NITROGEN 17 mg/dL 7-21 (BEAKER) (test yuty=866) CREATININE (BEAKER) (test 0.93 mg/dL 0.57-1.25 Specimen slightly yovp=205) hemolyzed GLUCOSE RANDOM (BEAKER) 109 mg/dL 70-105 (test hlje=307) CALCIUM (BEAKER) (test 8.1 mg/dL 8.4-10.2 ryrm=649) EGFR (BEAKER) (test mL/min/1.73 sq m INSUFFICIENT CLINICAL DATA dkpm=6934) TO CALCULATE ESTIMATED GFR. HEPATIC FUNCTION [id number] 19:01:00 Test Item Value Reference Range Comments TOTAL PROTEIN (BEAKER) (test 5.7 gm/dL 6.0-8.3 Specimen slightly hemolyzed peyz=462) ALBUMIN (BEAKER) (test 3.4 g/dL 3.5-5.0 Specimen slightly hemolyzed eing=3494) BILIRUBIN TOTAL (BEAKER) (test 0.2 mg/dL 0.2-1.2 Specimen slightly hemolyzed lrcs=200) BILIRUBIN DIRECT (BEAKER) (test 0.1 mg/dL 0.1-0.5 Specimen slightly hemolyzed iddp=012) ALKALINE PHOSPHATASE (BEAKER) 73 U/L 40-150 (test fohv=860) AST (SGOT) (BEAKER) (test 22 U/L 5-34 Specimen slightly hemolyzed mver=452) ALT (SGPT) (BEAKER) (test 12 U/L 6-55 Specimen slightly hemolyzed orxq=928) CBC W/PLT COUNT & AUTO [id number] 18:54:00 Test Item Value Reference Range Comments WHITE BLOOD CELL COUNT (BEAKER) (test mchg=452) 8.2 K/ L 4.0-10.0 RED BLOOD CELL COUNT (BEAKER) (test prhx=056) 3.18 M/ L 4.00-5.00 HEMOGLOBIN (BEAKER) (test hptk=077) 10.3 GM/DL 12.0-15.0 HEMATOCRIT (BEAKER) (test iilv=332) 33.1 % 36.0-45.0 MEAN CORPUSCULAR VOLUME (BEAKER) (test vzlm=038) 104.0 fL 82.0-99.0 MEAN CORPUSCULAR HEMOGLOBIN (BEAKER) (test 32.5 pg 27.0-33.0 rorm=728) MEAN CORPUSCULAR HEMOGLOBIN CONC (BEAKER) (test 31.2 GM/DL 32.0-36.0 sknc=184) RED CELL DISTRIBUTION WIDTH (BEAKER) (test 13.4 % 10.3-14.2 cvnz=332) PLATELET COUNT (BEAKER) (test zjnv=757) 203 K/CU MM 150-430 MEAN PLATELET VOLUME (BEAKER) (test qqqd=237) 8.4 fL 6.5-10.5 NUCLEATED RED BLOOD CELLS (BEAKER) (test 0 /100 WBC 0-0 logp=213) NEUTROPHILS RELATIVE PERCENT (BEAKER) (test 56 % fhtl=116) LYMPHOCYTES RELATIVE PERCENT (BEAKER) (test 31 % okrg=006) MONOCYTES RELATIVE PERCENT (BEAKER) (test 5 % igsq=758) EOSINOPHILS RELATIVE PERCENT (BEAKER) (test 8 % jheh=851) BASOPHILS RELATIVE PERCENT (BEAKER) (test 1 % csxb=957) NEUTROPHILS ABSOLUTE COUNT (BEAKER) (test 4.55 K/ L 1.80-8.00 haef=777) LYMPHOCYTES ABSOLUTE COUNT (BEAKER) (test 2.50 K/ L 1.48-4.50 cewy=155) MONOCYTES ABSOLUTE COUNT (BEAKER) (test 0.40 K/ L 0.00-1.30 ootq=882) EOSINOPHILS ABSOLUTE COUNT (BEAKER) (test 0.63 K/ L 0.00-0.50 yzho=582) BASOPHILS ABSOLUTE COUNT (BEAKER) (test 0.09 K/ L 0.00-0.20 cfba=663) 0.00
[2018-04-23] MEDS ORDERED: KETOROLAC 30 MG/ML INJ ONE (17:51)
--- NOTE | 2018-04-23 18:02 | ER ---
Nurse's Notes [facility] Name: Bridgette Browne Age: 68 yrs Sex: Female : 1950 Arrival Date: 04/23/2018 Time: 16:03 Bed 26 Private MD: Ildefonso Mei C Diagnosis: Sprain of ankle Presentation: 04/23 16:14 Presenting complaint: Patient states: Reports slip and fall twist injury to right ankle aj this AM at 1100. Patient reports she is unable to bear weight on right foot. Care prior to arrival: None. Mechanism of Injury: Fall from standing position. Trauma event details: Injury occurred in the [facility], Injury occurred: at home. Injury occurred: April 23, 2018 Injury occurred at: 11:00. 16:14 Acuity: ISMAEL 4 aj 16:14 Method Of Arrival: Wheelchair aj 16:23 Transition of care: patient was not received from another setting of care. Onset of mg2 symptoms was April 23, 2018. Risk Assessment: Do you want to hurt yourself or someone else? Patient reports no desire to harm self or others. 16:31 Initial Sepsis Screen: Does the patient meet any 2 criteria? No. Patient's initial mg2 sepsis screen is negative. Does the patient have a suspected source of infection? No. Patient's initial sepsis screen is negative. Trauma Activation: Not Applicable Physician: ED Physician; Name: ; Notified At: ; Arrived At: Physician: General Surgeon; Name: ; Notified At: ; Arrived At: Physician: Radiology; Name: ; Notified At: ; Arrived At: Physician: Respiratory; Name: ; Notified At: ; Arrived At: Physician: Lab; Name: ; Notified At: ; Arrived At: Historical: - Allergies: 16:21 Aspirin; aj 16:21 Hydrocodone-Ibuprofen; aj 16:21 Tylenol-Codeine; aj - Home Meds: 16:21 allopurinol 300 mg Oral tab 1 tab once daily [Active]; alprazolam 0.5 mg Oral Tb24 1 aj tab once daily [Active]; gabapentin 600 mg Oral tab 1 tab twice a day [Active]; atorvastatin 20 mg Oral tab 1 tab once daily [Active]; losartan 50 mg Oral tab 1 tab once daily [Active]; Metanx (algal oil) 3 mg-35 mg-2 mg -90.314 mg Oral cap twice a day [Active]; metformin 500 mg Oral tab 2 tabs 2 times per day [Active]; nitrofurantoin macrocrystal 25 mg Oral cap 1 caps daily [Active]; Plavix 75 mg Oral tab 1 tab once daily [Active]; Symbicort 160-4.5 mcg/actuation inhalation HFAA 2 puffs 2 times per day [Active]; Tramadol Oral [Active]; tizanidine 4 mg Oral cap 1 cap 3 times per day [Active]; Trokendi XR 100 mg Oral cp24 1 cap once daily [Active]; venlafaxine 150 mg Oral cp24 1 cap once daily [Active]; - PMHx: 16:21 Diabetes - NIDDM; Hypertension; Chronic pain; aj - PSHx: 16:21 Gastric Bypass; lap band; cervical spinal surgery; lumbar spinal surgery; aj - Immunization history: Last tetanus immunization: - up to date. - Social history:: Smoking status: Patient/guardian denies using tobacco. - Ebola Screening: : Patient negative for fever greater than or equal to 101.5 degrees Fahrenheit, and additional compatible Ebola Virus Disease symptoms Patient denies exposure to infectious person Patient denies travel to an Ebola-affected area in the 21 days before illness onset No symptoms or risks identified at this time. Screenin:19 Abuse screen: Denies threats or abuse. Denies injuries from another. Nutritional mg2 screening: No deficits noted. Tuberculosis screening: No symptoms or risk factors identified. Fall risk At risk due to injury, prior history of falls. 16:31 Fall Risk Fall in past 12 months (25 points). Gait- Weak (10 pts.). mg2 Primary Survey: 16:14 A: Airway: patent. Breathing/Chest: Respiratory pattern: regular, Respiratory effort: aj spontaneous, unlabored. Circulation: Skin color: pink, Skin temperature: warm, dry. Disability Alert. 16:22 Reassessment Airway Airway Patent Breathing/Chest Respiratory pattern Regular mg2 Respiratory effort Spontaneous Unlabored Circulation Pulses Palpable Disability Alert. Secondary Survey: 16:20 HEENT: No deficits noted. Gastrointestinal: No deficits noted. : No deficits noted. mg2 Musculoskeletal: Capillary refill < 3 seconds, Swelling present in right ankle and anterior aspect of right ankle. Injury Description: swelling. Assessment: 16:14 General: Appears in no apparent distress. comfortable, Behavior is calm, cooperative, aj appropriate for age. Pain: Complains of pain in anterior aspect of right ankle. Neuro: Level of Consciousness is awake, alert, obeys commands, Oriented to person, place, time, situation, Appropriate for age. Respiratory: Airway is patent Respiratory effort is even, unlabored, Respiratory pattern is regular, symmetrical. Derm: Skin is intact, is healthy with good turgor, Skin is pink, warm \T\ dry. normal. Musculoskeletal: Circulation, motion, and sensation intact. Swelling present in right ankle and anterior aspect of right ankle Reports pain in right ankle and anterior aspect of right ankle. Vital Signs: 16:14 BP 133 / 63; Pulse 69; Resp 17; Temp 97.2; Pulse Ox 100% on R/A; Weight 77.11 kg; aj Height 5 ft. 5 in. (165.10 cm); 17:09 BP 126 / 58; Pulse 60; Resp 18; Pulse Ox 100% on R/A; Pain 4/10; mg2 17:50 BP 117 / 57 LA Supine (auto/lg); Pulse 59; Resp 19 S; Pulse Ox 100% on R/A; jp3 16:14 Body Mass Index 28.29 (77.11 kg, 165.10 cm) aj Ashley Coma Score: 16:14 Eye Response: spontaneous(4). Verbal Response: oriented(5). Motor Response: obeys aj commands(6). Total: 15. Trauma Score (Adult): 16:14 Eye Response: spontaneous(1); Verbal Response: oriented(1); Motor Response: obeys aj commands(2); Systolic BP: > 89 mm Hg(4); Respiratory Rate: 10 to 29 per min(4); Ashley Score: 15; Trauma Score: 12 ED Course: 16:03 Patient arrived in ED. sb2 16:03 Ildefonso Mei MD is Private Physician. sb2 16:09 [facility]C [facility] kb 16:09 Rolando Olguin MD is Attending Physician. kb 16:12 Chuck Osorio, DEMETRIO is Primary Nurse. mg2 16:16 Triage completed. aj 16:19 Patient maintains SpO2 saturation greater than 95% on room air. mg2 16:21 Patient has correct armband on for positive identification. Bed in low position. Call mg2 light in reach. Side rails up X 1. Pulse ox on. NIBP on. 16:21 Arm band placed on left wrist. Patient placed in an exam room, on a stretcher. aj 16:21 Door closed. Warm blanket given. Ice pack to injury. mg2 16:31 Thermoregulation: warm blanket given to patient. mg2 16:38 X-ray completed. Portable x-ray completed in exam room. Patient tolerated procedure az well. 16:39 Ankle Right 3 View XRAY In Process Unspecified. EDMS 17:35 Assisted to bedside commode. jp3 18:08 No provider procedures requiring assistance completed. Patient did not have IV access mg2 during this emergency room visit. Thony wrap to right ankle. Administered Medications: 17:52 Drug: TORadol 60 mg Route: IM; Site: right gluteus; mg2 18:03 Follow up: Response: No adverse reaction; Marked relief of symptoms mg2 Intake: 17:09 PO: 0ml; Total: 0ml. mg2 Outcome: 18:01 Discharge ordered by MD. kb 18:17 Discharged to home via wheelchair. mg2 18:17 Condition: stable 18:17 Discharge instructions given to patient, family, Instructed on discharge instructions, follow up and referral plans. medication usage, Demonstrated understanding of instructions, follow-up care, medications, Prescriptions given X 1. 18:17 Patient's length of stay was not longer than 2 hours. 18:18 Patient left the ED. mg2 Signatures: Dispatcher [employer] EDMS Ann Anderson, COLLEGE ATHLETE-C COLLEGE ATHLETE-CkDulce Fontanez RN RN aj Jeni Álvarez sb2 Chuck Osorio RN RN mg2 Matt Cardoza jp3 Claritza Cerna az
--- NOTE | 2018-04-23 18:02 | EDPHYS ---
Physician Documentation [facility] Name: Bridgette Browne Age: 68 yrs Sex: Female : 1950 Arrival Date: 04/23/2018 Time: 16:03 Bed 26 Private MD: Ildefonso Mei C ED Physician Rolando Olguin HPI: 04/23 16:21 This 68 yrs old Female presents to ER via Wheelchair with complaints of Fall kb Injury - ANKLE. 16:21 Details of fall: The patient fell from an upright position. Onset: The symptoms/episode kb began/occurred this morning. Associated injuries: The patient sustained right ankle, painful injury, swelling. Severity of symptoms: At their worst the symptoms were moderate, in the emergency department the symptoms are unchanged. The patient has not experienced similar symptoms in the past. The patient has not recently seen a physician. Historical: - Allergies: 16:21 Aspirin; aj 16:21 Hydrocodone-Ibuprofen; aj 16:21 Tylenol-Codeine; aj - Home Meds: 16:21 allopurinol 300 mg Oral tab 1 tab once daily [Active]; alprazolam 0.5 mg Oral Tb24 1 aj tab once daily [Active]; gabapentin 600 mg Oral tab 1 tab twice a day [Active]; atorvastatin 20 mg Oral tab 1 tab once daily [Active]; losartan 50 mg Oral tab 1 tab once daily [Active]; Metanx (algal oil) 3 mg-35 mg-2 mg -90.314 mg Oral cap twice a day [Active]; metformin 500 mg Oral tab 2 tabs 2 times per day [Active]; nitrofurantoin macrocrystal 25 mg Oral cap 1 caps daily [Active]; Plavix 75 mg Oral tab 1 tab once daily [Active]; Symbicort 160-4.5 mcg/actuation inhalation HFAA 2 puffs 2 times per day [Active]; Tramadol Oral [Active]; tizanidine 4 mg Oral cap 1 cap 3 times per day [Active]; Trokendi XR 100 mg Oral cp24 1 cap once daily [Active]; venlafaxine 150 mg Oral cp24 1 cap once daily [Active]; - PMHx: 16:21 Diabetes - NIDDM; Hypertension; Chronic pain; aj - PSHx: 16:21 Gastric Bypass; lap band; cervical spinal surgery; lumbar spinal surgery; aj - Immunization history: Last tetanus immunization: - up to date. - Social history:: Smoking status: Patient/guardian denies using tobacco. - Ebola Screening: : Patient negative for fever greater than or equal to 101.5 degrees Fahrenheit, and additional compatible Ebola Virus Disease symptoms Patient denies exposure to infectious person Patient denies travel to an Ebola-affected area in the 21 days before illness onset No symptoms or risks identified at this time. ROS: 16:21 Constitutional: Negative for fever, chills, and weight loss, Cardiovascular: Negative kb for chest pain, palpitations, and edema, Respiratory: Negative for shortness of breath, cough, wheezing, and pleuritic chest pain, Abdomen/GI: Negative for abdominal pain, nausea, vomiting, diarrhea, and constipation, Skin: Negative for injury, rash, and discoloration, Neuro: Negative for headache, weakness, numbness, tingling, and seizure. 16:21 MS/extremity: Positive for injury or acute deformity, pain, swelling, tenderness, of the right ankle. Exam: 16:21 Constitutional: This is a well developed, well nourished patient who is awake, alert, kb and in no acute distress. Head/Face: Normocephalic, atraumatic. Chest/axilla: Normal chest wall appearance and motion. Nontender with no deformity. No lesions are appreciated. Cardiovascular: Regular rate and rhythm with a normal S1 and S2. No gallops, murmurs, or rubs. Normal PMI, no JVD. No pulse deficits. Respiratory: Lungs have equal breath sounds bilaterally, clear to auscultation and percussion. No rales, rhonchi or wheezes noted. No increased work of breathing, no retractions or nasal flaring. Abdomen/GI: Soft, non-tender, with normal bowel sounds. No distension or tympany. No guarding or rebound. No evidence of tenderness throughout. Skin: Warm, dry with normal turgor. Normal color with no rashes, no lesions, and no evidence of cellulitis. Neuro: Awake and alert, GCS 15, oriented to person, place, time, and situation. Cranial nerves II-XII grossly intact. Motor strength 5/5 in all extremities. Sensory grossly intact. Cerebellar exam normal. Normal gait. 16:21 Musculoskeletal/extremity: Extremities: grossly normal except: noted in the right ankle: pain, tenderness, ROM: limited active range of motion due to pain, in the right ankle, Circulation is intact in all extremities. Sensation intact. Weight bearing: able to fully bear weight. Vital Signs: 16:14 BP 133 / 63; Pulse 69; Resp 17; Temp 97.2; Pulse Ox 100% on R/A; Weight 77.11 kg; aj Height 5 ft. 5 in. (165.10 cm); 17:09 BP 126 / 58; Pulse 60; Resp 18; Pulse Ox 100% on R/A; Pain 4/10; mg2 17:50 BP 117 / 57 LA Supine (auto/lg); Pulse 59; Resp 19 S; Pulse Ox 100% on R/A; jp3 16:14 Body Mass Index 28.29 (77.11 kg, 165.10 cm) aj Ashley Coma Score: 16:14 Eye Response: spontaneous(4). Verbal Response: oriented(5). Motor Response: obeys aj commands(6). Total: 15. Trauma Score (Adult): 16:14 Eye Response: spontaneous(1); Verbal Response: oriented(1); Motor Response: obeys aj commands(2); Systolic BP: > 89 mm Hg(4); Respiratory Rate: 10 to 29 per min(4); Ashley Score: 15; Trauma Score: 12 MDM: 16:10 Patient medically screened. kb 16:23 Data reviewed: vital signs, nurses notes. Data interpreted: Pulse oximetry: on room air kb is 100 %. Interpretation: normal. 18:00 Counseling: I had a detailed discussion with the patient and/or guardian regarding: the kb historical points, exam findings, and any diagnostic results supporting the discharge/admit diagnosis, radiology results, the need for outpatient follow up, a orthopedic surgeon, to return to the emergency department if symptoms worsen or persist or if there are any questions or concerns that arise at home. 04/23 16:15 Order name: Ankle Right 3 View XRAY kb 04/23 18:01 Order name: Thony Wrap; Complete Time: 18:08 kb Administered Medications: 17:52 Drug: TORadol 60 mg Route: IM; Site: right gluteus; mg2 18:03 Follow up: Response: No adverse reaction; Marked relief of symptoms mg2 Disposition: 18:19 Co-signature as Attending Physician, Rolando Olguin MD I agree with the assessment and kdr plan of care. Disposition: 04/23/18 18:01 Discharged to Home. Impression: Sprain of ankle. - Condition is Stable. - Discharge Instructions: Ankle Sprain, Uauw-cb-Uthj. - Prescriptions for Diclofenac Sodium 75 mg Oral Tablet, Delayed Release (E.C.) - take 1 tablet by ORAL route 2 times per day As needed; 30 tablet. - Medication Reconciliation Form, Thank You Letter, Antibiotic Education, Prescription Opioid Use form. - Follow up: Emergency Department; When: As needed; Reason: Worsening of condition. Follow up: Private Physician; When: 2 - 3 days; Reason: Recheck today's complaints, Continuance of care, Re-evaluation by your physician. Signatures: Dispatcher [employer] EDMS Ann Anderson, ROCHELLE-C DITCH TENDER-Dulce Cano, RN RN Rolando Diaz MD MD kdr Chuck Osorio RN RN mg2 Corrections: (The following items were deleted from the chart) 18:18 18:01 04/23/2018 18:01 Discharged to Home. Impression: Sprain of ankle. Condition is mg2 Stable. Forms are Medication Reconciliation Form, Thank You Letter, Antibiotic Education, Prescription Opioid Use. Follow up: Emergency Department; When: As needed; Reason: Worsening of condition. Follow up: Private Physician; When: 2 - 3 days; Reason: Recheck today's complaints, Continuance of care, Re-evaluation by your physician. kb
--- NOTE | 2018-04-23 18:44 | RAD REPORT ---
EXAM DESCRIPTION: RAD - Ankle Right 3 View - 04/23/2018 4:41 pm CLINICAL HISTORY: Slip and fall, twisting injury, ankle pain COMPARISON: October 2013 FINDINGS: No gross fracture deformity seen. On the lateral view there is a small bony density along the dorsal margin of the anterior talus. This was not present in 2014. This could be a small bone avu lsion given the mechanism of injury. No dislocation or periosteal reaction. No joint effusion seen. S light narrowing of the tibiotalar joint space noted. Mild degenerative spurring changes are seen at t he tip of the medial malleolus and tip of the fibula. IMPRESSION: Suspected small bony avulsion from the dorsal margin anterior talus. No other fracture or acute bone findings seen.
== END 2018-04-23 18:18 | disposition home or self-care (01) ==
LOC: ER 15:59
DX: S93.401A Sprain of unspecified ligament of right ankle, initial encounter (principal); W19.XXXA Unspecified fall, initial encounter; Y93.9 Activity, unspecified; Y92.9 Unspecified place or not applicable; Z79.01 Long term (current) use of anticoagulants; Z88.5 Allergy status to narcotic agent; Z88.6 Allergy status to analgesic agent; I10 Essential (primary) hypertension; E11.9 Type 2 diabetes mellitus without complications
CPT/HCPCS: 96372; 99284

== ENCOUNTER 2018-11-12 15:14 | Emergency (ER) | payer OTHER ==
--- OUTSIDE RECORDS SUMMARY | 2018-11-12 15:17 | XMS REPORT ---
:1950 Author Organization [facility] Address [address] [place] [address] Care Team Providers Name Role Phone RICARDO HENRY Unavailable Unavailable Problems This patient has no known problems. Allergies, Adverse Reactions, Alerts This patient has no known allergies or adverse reactions. Medications This patient has no known medications. Results Test Description Test Time Test Comments Text Results Atomic Results Result Comments URINE CULTURE 2017-02-12 15:54:00 Test Item Value Reference Range Comments CULTURE (BEAKER) (test bwcz=9953) >100,000 col/mL skin clay POCT-GLUCOSE [id number] 07:48:00 Test Item Value Reference Range Comments POC-GLUCOSE METER (BEAKER) 149 mg/dL 70-110 TESTED AT [facility] [address] [facility] (test lcay=4710) [employer] [address] BASIC METABOLIC [id number] 04:52:00 Test Item Value Reference Range Comments SODIUM (BEAKER) (test 140 meq/L 136-145 lswe=489) POTASSIUM (BEAKER) (test 4.6 meq/L 3.5-5.1 Specimen slightly zlmz=345) hemolyzed CHLORIDE (BEAKER) (test 114 meq/L 98-107 xbck=307) CO2 (BEAKER) (test 17 meq/L 22-29 zhhn=485) BLOOD UREA NITROGEN 16 mg/dL 7-21 (BEAKER) (test hcxk=974) CREATININE (BEAKER) (test 0.94 mg/dL 0.57-1.25 Specimen slightly alcg=744) hemolyzed GLUCOSE RANDOM (BEAKER) 98 mg/dL 70-105 (test ytdk=252) CALCIUM (BEAKER) (test 9.4 mg/dL 8.4-10.2 qfie=090) EGFR (BEAKER) (test 59 mL/min/1.73 sq m ESTIMATED GFR IS NOT ndsz=6776) ACCURATE CREATININE CLEARANCE IN PREDICTING GLOMERULAR FILTRATION RATE. ESTIMATED GFR IS NOT APPLICABLE FOR DIALYSIS PATIENTS. CBC W/PLT COUNT & AUTO [id number] 04:52:00 Test Item Value Reference Range Comments WHITE BLOOD CELL COUNT (BEAKER) (test ysgf=111) 9.9 K/ L 4.0-10.0 RED BLOOD CELL COUNT (BEAKER) (test wrvh=162) 3.93 M/ L 4.00-5.00 HEMOGLOBIN (BEAKER) (test rzcp=084) 12.3 GM/DL 12.0-15.0 HEMATOCRIT (BEAKER) (test vpzt=404) 39.1 % 36.0-45.0 MEAN CORPUSCULAR VOLUME (BEAKER) (test zoan=141) 99.6 fL 82.0-99.0 MEAN CORPUSCULAR HEMOGLOBIN (BEAKER) (test 31.3 pg 27.0-33.0 tdon=422) MEAN CORPUSCULAR HEMOGLOBIN CONC (BEAKER) (test 31.4 GM/DL 32.0-36.0 hlgf=323) RED CELL DISTRIBUTION WIDTH (BEAKER) (test 13.4 % 10.3-14.2 vlqz=822) PLATELET COUNT (BEAKER) (test ucaq=227) 238 K/CU MM 150-430 MEAN PLATELET VOLUME (BEAKER) (test puip=649) 8.7 fL 6.5-10.5 NUCLEATED RED BLOOD CELLS (BEAKER) (test 0 /100 WBC 0-0 bwne=816) NEUTROPHILS RELATIVE PERCENT (BEAKER) (test 46 % utar=511) LYMPHOCYTES RELATIVE PERCENT (BEAKER) (test 41 % oulg=591) MONOCYTES RELATIVE PERCENT (BEAKER) (test 5 % fykj=831) EOSINOPHILS RELATIVE PERCENT (BEAKER) (test 7 % armw=820) BASOPHILS RELATIVE PERCENT (BEAKER) (test 1 % wacr=524) NEUTROPHILS ABSOLUTE COUNT (BEAKER) (test 4.56 K/ L 1.80-8.00 mrrm=702) LYMPHOCYTES ABSOLUTE COUNT (BEAKER) (test 4.05 K/ L 1.48-4.50 cpmx=769) MONOCYTES ABSOLUTE COUNT (BEAKER) (test 0.48 K/ L 0.00-1.30 xeew=752) EOSINOPHILS ABSOLUTE COUNT (BEAKER) (test 0.72 K/ L 0.00-0.50 fbwi=594) BASOPHILS ABSOLUTE COUNT (BEAKER) (test 0.08 K/ L 0.00-0.20 rwjl=883) 0.00POCT-GLUCOSE [id number] 21:56:00 Test Item Value Reference Range Comments POC-GLUCOSE METER (BEAKER) 114 mg/dL 70-110 TESTED AT [address] (test xkjc=6643) [place] [id number] POCT-GLUCOSE [id number] 18:04:00 Test Item Value Reference Range Comments POC-GLUCOSE METER (BEAKER) 82 mg/dL 70-110 TESTED AT [address] (test xlci=1308) [place] [id number] TSH/FREE T4 IF [id number] 15:29:00 Test Item Value Reference Range Comments THYROID STIMULATING HORMONE (BEAKER) (test 2.71 uIU/mL 0.35-4.94 myey=286) POCT-GLUCOSE [id number] 12:39:00 Test Item Value Reference Range Comments POC-GLUCOSE METER (BEAKER) 112 mg/dL 70-110 TESTED AT [address] (test fypx=7207) [place] [address] [id number] 12:03:00 Test Item Value Reference Range Comments RPR SCREEN (BEAKER) (test roni=175) Nonreactive Nonreactive HEMOGLOBIN [id number] 08:06:00 Test Item Value Reference Range Comments HEMOGLOBIN A1C (BEAKER) (test diqz=107) 6.8 % 4.3-6.1 POCT-GLUCOSE [id number] 07:58:00 Test Item Value Reference Range Comments POC-GLUCOSE METER (BEAKER) 98 mg/dL 70-110 TESTED AT [address] (test qubr=7536) [place] [id number] CBC W/PLT COUNT & AUTO [id number] 04:28:00 Test Item Value Reference Range Comments WHITE BLOOD CELL COUNT (BEAKER) (test lbjt=821) 8.1 K/ L 4.0-10.0 RED BLOOD CELL COUNT (BEAKER) (test awco=294) 3.63 M/ L 4.00-5.00 HEMOGLOBIN (BEAKER) (test ffqi=720) 12.0 GM/DL 12.0-15.0 HEMATOCRIT (BEAKER) (test utuz=418) 36.0 % 36.0-45.0 MEAN CORPUSCULAR VOLUME (BEAKER) (test llin=019) 99.1 fL 82.0-99.0 MEAN CORPUSCULAR HEMOGLOBIN (BEAKER) (test 33.0 pg 27.0-33.0 xsti=977) MEAN CORPUSCULAR HEMOGLOBIN CONC (BEAKER) (test 33.3 GM/DL 32.0-36.0 qxez=867) RED CELL DISTRIBUTION WIDTH (BEAKER) (test 15.2 % 10.3-14.2 nwyf=104) PLATELET COUNT (BEAKER) (test ufqz=875) 232 K/CU MM 150-430 MEAN PLATELET VOLUME (BEAKER) (test qrhg=160) 8.7 fL 6.5-10.5 NUCLEATED RED BLOOD CELLS (BEAKER) (test 0 /100 WBC 0-0 kvsy=573) NEUTROPHILS RELATIVE PERCENT (BEAKER) (test 53 % lnta=028) LYMPHOCYTES RELATIVE PERCENT (BEAKER) (test 32 % uhap=111) MONOCYTES RELATIVE PERCENT (BEAKER) (test 5 % lhow=369) EOSINOPHILS RELATIVE PERCENT (BEAKER) (test 8 % ndpg=883) BASOPHILS RELATIVE PERCENT (BEAKER) (test 1 % otdv=631) NEUTROPHILS ABSOLUTE COUNT (BEAKER) (test 4.27 K/ L 1.80-8.00 nugq=794) LYMPHOCYTES ABSOLUTE COUNT (BEAKER) (test 2.62 K/ L 1.48-4.50 ftgh=350) MONOCYTES ABSOLUTE COUNT (BEAKER) (test 0.42 K/ L 0.00-1.30 ltcw=865) EOSINOPHILS ABSOLUTE COUNT (BEAKER) (test 0.67 K/ L 0.00-0.50 vvsm=875) BASOPHILS ABSOLUTE COUNT (BEAKER) (test 0.09 K/ L 0.00-0.20 iisg=112) 0.00BASI METABOLIC [id number] 04:15:00 Test Item Value Reference Range Comments SODIUM (BEAKER) (test 141 meq/L 136-145 kvrf=779) POTASSIUM (BEAKER) (test 4.8 meq/L 3.5-5.1 rnky=113) CHLORIDE (BEAKER) (test 116 meq/L 98-107 bdfn=326) CO2 (BEAKER) (test 17 meq/L 22-29 uuyd=342) BLOOD UREA NITROGEN 17 mg/dL 7-21 (BEAKER) (test kfsh=316) CREATININE (BEAKER) (test 1.12 mg/dL 0.57-1.25 rakk=491) GLUCOSE RANDOM (BEAKER) 88 mg/dL 70-105 (test szml=660) CALCIUM (BEAKER) (test 9.2 mg/dL 8.4-10.2 xbrx=693) EGFR (BEAKER) (test mL/min/1.73 sq m INSUFFICIENT CLINICAL DATA rgeq=6273) TO CALCULATE ESTIMATED GFR. FastingLIPID [id number] 04:11:00 Test Item Value Reference Range Comments TRIGLYCERIDES (BEAKER) (test ystp=262) 113 mg/dL CHOLESTEROL (BEAKER) (test kiji=388) 207 mg/dL HDL CHOLESTEROL (BEAKER) (test uihm=150) 61 mg/dL LDL CHOLESTEROL CALCULATED (BEAKER) (test 123 mg/dL tjww=858) Triglyceride Reference Range: Low Risk <150 Borderline 150- 199 High Risk 200-499 Very High Risk >=500Cholesterol Reference Range: Low Risk <200 Borderline 200-239 High Risk > 240HDL Cholesterol Reference Range: Low Risk >=60 High Risk <40LDL Cholesterol Reference Range: Optimal <100 Near Optimal 100-129 Borderline 130-159 High 160-189 Very High >=190 FastingURINALYSIS W/ [id number] 00:43:00 Test Item Value Reference Range Comments COLOR (BEAKER) (test shgg=825) Light Yellow CLARITY (BEAKER) (test zgkb=130) Clear SPECIFIC GRAVITY UA (BEAKER) (test vcpf=198) 1.004 1.001-1.035 PH UA (BEAKER) (test edtb=049) 6.5 5.0-8.0 PROTEIN UA (BEAKER) (test ywps=993) Negative Negative GLUCOSE UA (BEAKER) (test fglw=332) Negative Negative KETONES UA (BEAKER) (test vfoe=328) Negative Negative BILIRUBIN UA (BEAKER) (test kxva=223) Negative Negative BLOOD UA (BEAKER) (test yfsc=672) Negative Negative NITRITE UA (BEAKER) (test blov=598) Negative Negative LEUKOCYTE ESTERASE UA (BEAKER) (test zhkw=757) Trace Negative UROBILINOGEN UA (BEAKER) (test zmsu=174) 0.2 mg/dL 0.2-1.0 RBC UA (BEAKER) (test aqkw=040) 1 /HPF WBC UA (BEAKER) (test ipxg=299) 3 /HPF BACTERIA (BEAKER) (test delh=312) Rare SQUAMOUS EPITHELIAL (BEAKER) (test bjcg=599) 4 /HPF SOURCE(BEAKER) (test zsng=5035) Urine, Voided POCT-GLUCOSE [id number] 21:06:00 Test Item Value Reference Range Comments POC-GLUCOSE METER (BEAKER) 217 mg/dL 70-110 TESTED AT [address] (test mmiv=0113) [place] [address] SEDIMENTATION [id number] 20:24:00 Test Item Value Reference Range Comments SEDIMENTATION RATE, ERYTHROCYTE (BEAKER) (test 16 mm/HR 0-40 gptm=790) VITAMIN [id number] 19:36:00 Test Item Value Reference Range Comments VITAMIN B12 (BEAKER) (test sjly=517) > pg/mL 213-816 POCT-GLUCOSE [id number] 19:08:00 Test Item Value Reference Range Comments POC-GLUCOSE METER (BEAKER) 105 mg/dL 70-110 TESTED AT [address] (test gewn=0715) [place] [address] BASIC METABOLIC [id number] 19:03:00 Test Item Value Reference Range Comments SODIUM (BEAKER) (test 138 meq/L 136-145 xlcl=885) POTASSIUM (BEAKER) (test 4.6 meq/L 3.5-5.1 Specimen slightly yyek=243) hemolyzed CHLORIDE (BEAKER) (test 116 meq/L 98-107 rzgm=295) CO2 (BEAKER) (test 15 meq/L 22-29 ggkp=496) BLOOD UREA NITROGEN 17 mg/dL 7-21 (BEAKER) (test ibiy=466) CREATININE (BEAKER) (test 0.93 mg/dL 0.57-1.25 Specimen slightly rcdc=885) hemolyzed GLUCOSE RANDOM (BEAKER) 109 mg/dL 70-105 (test ignd=820) CALCIUM (BEAKER) (test 8.1 mg/dL 8.4-10.2 zpje=279) EGFR (BEAKER) (test mL/min/1.73 sq m INSUFFICIENT CLINICAL DATA vlwp=6463) TO CALCULATE ESTIMATED GFR. HEPATIC FUNCTION [id number] 19:01:00 Test Item Value Reference Range Comments TOTAL PROTEIN (BEAKER) (test 5.7 gm/dL 6.0-8.3 Specimen slightly hemolyzed rimp=451) ALBUMIN (BEAKER) (test 3.4 g/dL 3.5-5.0 Specimen slightly hemolyzed iwge=4087) BILIRUBIN TOTAL (BEAKER) (test 0.2 mg/dL 0.2-1.2 Specimen slightly hemolyzed kvbx=831) BILIRUBIN DIRECT (BEAKER) (test 0.1 mg/dL 0.1-0.5 Specimen slightly hemolyzed mmsf=544) ALKALINE PHOSPHATASE (BEAKER) 73 U/L 40-150 (test zsnb=168) AST (SGOT) (BEAKER) (test 22 U/L 5-34 Specimen slightly hemolyzed eqwn=531) ALT (SGPT) (BEAKER) (test 12 U/L 6-55 Specimen slightly hemolyzed nuho=670) CBC W/PLT COUNT & AUTO [id number] 18:54:00 Test Item Value Reference Range Comments WHITE BLOOD CELL COUNT (BEAKER) (test cpbi=360) 8.2 K/ L 4.0-10.0 RED BLOOD CELL COUNT (BEAKER) (test wksa=111) 3.18 M/ L 4.00-5.00 HEMOGLOBIN (BEAKER) (test bbqr=608) 10.3 GM/DL 12.0-15.0 HEMATOCRIT (BEAKER) (test pmpi=780) 33.1 % 36.0-45.0 MEAN CORPUSCULAR VOLUME (BEAKER) (test xnnk=405) 104.0 fL 82.0-99.0 MEAN CORPUSCULAR HEMOGLOBIN (BEAKER) (test 32.5 pg 27.0-33.0 viqc=487) MEAN CORPUSCULAR HEMOGLOBIN CONC (BEAKER) (test 31.2 GM/DL 32.0-36.0 chbt=351) RED CELL DISTRIBUTION WIDTH (BEAKER) (test 13.4 % 10.3-14.2 rapv=879) PLATELET COUNT (BEAKER) (test jafz=336) 203 K/CU MM 150-430 MEAN PLATELET VOLUME (BEAKER) (test tfbw=006) 8.4 fL 6.5-10.5 NUCLEATED RED BLOOD CELLS (BEAKER) (test 0 /100 WBC 0-0 yzzd=377) NEUTROPHILS RELATIVE PERCENT (BEAKER) (test 56 % fczz=151) LYMPHOCYTES RELATIVE PERCENT (BEAKER) (test 31 % ihbd=412) MONOCYTES RELATIVE PERCENT (BEAKER) (test 5 % fstu=766) EOSINOPHILS RELATIVE PERCENT (BEAKER) (test 8 % mxxp=874) BASOPHILS RELATIVE PERCENT (BEAKER) (test 1 % grgr=629) NEUTROPHILS ABSOLUTE COUNT (BEAKER) (test 4.55 K/ L 1.80-8.00 lhnd=527) LYMPHOCYTES ABSOLUTE COUNT (BEAKER) (test 2.50 K/ L 1.48-4.50 ifrk=421) MONOCYTES ABSOLUTE COUNT (BEAKER) (test 0.40 K/ L 0.00-1.30 fmlf=213) EOSINOPHILS ABSOLUTE COUNT (BEAKER) (test 0.63 K/ L 0.00-0.50 fgim=551) BASOPHILS ABSOLUTE COUNT (BEAKER) (test 0.09 K/ L 0.00-0.20 vckm=176) 0.00
--- OUTSIDE RECORDS SUMMARY | 2018-11-12 15:17 | XMS REPORT | Clinical Summary ---
:1950 [address] [facility] Address [address] [place] [address] Care Team Providers Name Role Phone Francois Mei MD Primary Care Provider Allergies Active Allergy Reactions Severity Noted Date Comments Aspirin (Tartrazine Other (See Comments) 02/10/2017 Coldness- "feels like Only) an iceburg" Hydrocodone-Acetaminop 02/10/2017 Coldness- "feels like hen an ice[place]" Acetaminophen-Codeine Other (See Comments) 02/10/2017 Coldness- "feels like an ice[place]" Medications Medication Sig Dispensed Refills Start Date End Date Status allopurinol Take 300 mg by 0 Active (ZYLOPRIM) 300 MG mouth daily. tablet ALPRAZolam (XANAX) Take 0.5 mg by 0 Active 0.5 MG tablet mouth daily. gabapentin Take 600 mg by 0 Active (NEURONTIN) 600 MG mouth 2 (two) tablet times daily. losartan (COZAAR) 50 Take 50 mg by 0 Active MG tablet mouth daily. MECOBAL/LEVOMEFOLAT Take 1 capsule by 0 Active CA/B6 PHOS (METANX mouth 2 (two) ORAL) times daily. metFORMIN Take 1,000 mg by 0 Active (GLUCOPHAGE) 500 MG mouth 2 (two) tablet times daily with breakfast and dinner. clopidogrel (PLAVIX) Take 75 mg by 0 Active 75 mg tablet mouth daily. budesonide-formotero Inhale 2 puffs by 0 Active l (SYMBICORT) mouth via inhaler 160-4.5 2 (two) times mcg/actuation daily. inhaler tiZANidine Take 4 mg by 0 Active (ZANAFLEX) 4 MG mouth daily. tablet traMADol (ULTRAM) 50 Take 50 mg by 0 Active mg tablet mouth 2 (two) times daily. topiramate (TROKENDI Take 1 tablet by 0 Active XR) 100 mg Cp24 mouth daily. venlafaxine 150 mg Take 1 tablet by 0 02/12/2017 Active TR24 mouth daily. atorvastatin Take 1 tablet (80 30 tablet 1 02/12/2017 02/12/2018 (LIPITOR) 80 MG mg total) by tablet mouth nightly. 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 Last Filed Vital Signs Not on file Plan of Treatment Not on file Results Not on fileafter 11/11/2017 Insurance Payer Benefit Plan / Group Subscriber ID Type Phone Address MEDICARE MEDICARE A B xxxxxxxxxx Medicare MCR SUPPLEMENT/INDIVIDUAL MUTUAL OF GUS xxxxxx-xx [facility] Advance Directives For more information, please contact:[address] [phone] Code Status Date Activated Date Inactivated Comments Full Code 02/10/2017 5:31 PM 02/12/2017 4:14 PM This code status was determined by: Patient
--- NOTE | 2018-11-12 16:54 | RAD REPORT ---
EXAM DESCRIPTION: CT - CTHCSPWOC - 11/12/2018 4:42 pm CLINICAL HISTORY: Headache, neck pain, blunt force trauma to the head and neck COMPARISON: None. TECHNIQUE: Axial 5 mm thick images of the head were obtained. Axial 2 mm thick images of the cervic al spine were obtained with sagittal and coronal reconstruction images generated and reviewed. All CT scans are performed using dose optimization technique as appropriate and may include automated exposure control or mA/KV adjustment according to patient size. FINDINGS: No intracranial hemorrhage, mass, edema or acute intracranial finding. No suspicion for ac standing rock infarction. No extra-axial fluid collections. Mastoid air cells and paranasal sinuses are clear. No globe or orbit abnormality seen. Physiologic and arterial calcifications are present. Cervical body height and alignment are normal. Slight narrowing of the C7-T1 disc space. Well-healed C6-7 fusion changes. Large anterior spurs project from the C5-6 level. Moderate anterior spurring C4- 5. No fracture or acute bony abnormality. Central canal detail is inherently limited. No paraspinal mass or hematoma. IMPRESSION: Negative CT head examination for acute or significant finding. Degenerative and postsurgical cervical spine changes without acute finding.
[2018-11-12] MEDS ORDERED: FENTANYL CITR 100 MCG/2 ML ONE (17:03)
--- NOTE | 2018-11-12 17:31 | EDPHYS ---
Physician Documentation [facility] Name: Bridgette Browne Age: 68 yrs Sex: Female : 1950 Arrival Date: 11/12/2018 Time: 15:18 Bed 25 Private MD: Ildefonso Mei C ED Physician Arnie Sheffield HPI: 11/12 17:43 This 68 yrs old Female presents to ER via Ambulatory with complaints of Head kb Pain. 17:43 The patient or guardian reports pain, swelling, tenderness. The complaints affect the kb left side of the back of head. Context of injury: The problem was sustained at home, resulted from a direct blow, vase fell off of shelf and hit pt in the head. Onset: The symptoms/episode began/occurred 2 day(s) ago. Associated signs and symptoms: Loss of consciousness: This patient did not experience any loss of consciousness. Pertinent positives: neck pain. Severity of symptoms: At their worst the symptoms were moderate, in the emergency department the symptoms are unchanged. The patient has not experienced similar symptoms in the past. The patient has not recently seen a physician. Historical: - Allergies: 15:35 Aspirin; sg 15:35 Hydrocodone-Ibuprofen; sg 15:35 Tylenol-Codeine; sg - Home Meds: 16:22 venlafaxine 150 mg Oral cp24 1 cap once daily [Active]; Metanx (algal oil) 3 mg-35 mg-2 tw2 mg -90.314 mg Oral cap twice a day [Active]; nitrofurantoin macrocrystal 25 mg Oral cap 1 caps daily [Active]; losartan 50 mg Oral tab 1 tab once daily [Active]; tizanidine 4 mg Oral cap 1 cap 3 times per day [Active]; alprazolam 0.5 mg Oral Tb24 1 tab once daily [Active]; gabapentin 600 mg Oral tab 1 tab twice a day [Active]; allopurinol 300 mg Oral tab 1 tab once daily [Active]; atorvastatin 20 mg Oral tab 1 tab once daily [Active]; metformin 500 mg Oral tab 2 tabs 2 times per day [Active]; Plavix 75 mg Oral tab 1 tab once daily [Active]; Symbicort 160-4.5 mcg/actuation inhalation HFAA 2 puffs 2 times per day [Active]; Tramadol Oral [Active]; Trokendi XR 100 mg Oral cp24 1 cap once daily [Active]; - PMHx: 15:35 Chronic pain; Diabetes - NIDDM; Hypertension; sg - PSHx: 15:35 Gastric Bypass; lap band; cervical spinal surgery; lumbar spinal surgery; sg - Immunization history:: Adult Immunizations up to date. - Social history:: Smoking status: Patient/guardian denies using tobacco. - Ebola Screening: : Patient negative for fever greater than or equal to 101.5 degrees Fahrenheit, and additional compatible Ebola Virus Disease symptoms Patient denies exposure to infectious person Patient denies travel to an Ebola-affected area in the 21 days before illness onset No symptoms or risks identified at this time. ROS: 17:42 Constitutional: Negative for fever, chills, and weight loss, ENT: Negative for injury, kb pain, and discharge, Cardiovascular: Negative for chest pain, palpitations, and edema, Respiratory: Negative for shortness of breath, cough, wheezing, and pleuritic chest pain, Abdomen/GI: Negative for abdominal pain, nausea, vomiting, diarrhea, and constipation, MS/Extremity: Negative for injury and deformity, Skin: Negative for injury, rash, and discoloration. 17:42 Neck: Positive for pain with movement, pain at rest. 17:42 Neuro: Positive for headache. Exam: 17:42 Constitutional: This is a well developed, well nourished patient who is awake, alert, kb and in no acute distress. ENT: Nares patent. No nasal discharge, no septal abnormalities noted. Tympanic membranes are normal and external auditory canals are clear. Oropharynx with no redness, swelling, or masses, exudates, or evidence of obstruction, uvula midline. Mucous membranes moist. Neck: Trachea midline, no thyromegaly or masses palpated, and no cervical lymphadenopathy. Supple, full range of motion without nuchal rigidity, or vertebral point tenderness. No Meningismus. Chest/axilla: Normal chest wall appearance and motion. Nontender with no deformity. No lesions are appreciated. Cardiovascular: Regular rate and rhythm with a normal S1 and S2. No gallops, murmurs, or rubs. Normal PMI, no JVD. No pulse deficits. Respiratory: Lungs have equal breath sounds bilaterally, clear to auscultation and percussion. No rales, rhonchi or wheezes noted. No increased work of breathing, no retractions or nasal flaring. Abdomen/GI: Soft, non-tender, with normal bowel sounds. No distension or tympany. No guarding or rebound. No evidence of tenderness throughout. Skin: Warm, dry with normal turgor. Normal color with no rashes, no lesions, and no evidence of cellulitis. MS/ Extremity: Pulses equal, no cyanosis. Neurovascular intact. Full, normal range of motion. Neuro: Awake and alert, GCS 15, oriented to person, place, time, and situation. Cranial nerves II-XII grossly intact. Motor strength 5/5 in all extremities. Sensory grossly intact. Cerebellar exam normal. Normal gait. 17:42 Head/face: Noted is no obvious of injury or deformity except hematoma, that is mild, of the left side of the back of head. Vital Signs: 15:47 BP 132 / 62; Pulse 64; Resp 17; Temp 97.6; Pulse Ox 96% on R/A; Pain 10/10; sg 17:31 BP 145 / 64; Pulse 77; Resp 17; Pulse Ox 100% on R/A; tw2 Grimes Coma Score: 17:43 Eye Response: spontaneous(4). Verbal Response: oriented(5). Motor Response: obeys kb commands(6). Total: 15. MDM: 16:21 Patient medically screened. kb 17:42 Data reviewed: vital signs, nurses notes. Data interpreted: Pulse oximetry: on room air kb is 100 %. Interpretation: normal. Counseling: I had a detailed discussion with the patient and/or guardian regarding: the historical points, exam findings, and any diagnostic results supporting the discharge/admit diagnosis, radiology results, the need for outpatient follow up, a family practitioner, to return to the emergency department if symptoms worsen or persist or if there are any questions or concerns that arise at home. 11/12 16:27 Order name: CT Head C Spine; Complete Time: 16:56 kb Administered Medications: 16:56 Drug: fentaNYL (PF) 50 mcg Route: IM; Site: left gluteus; tw2 17:32 Follow up: Response: No adverse reaction; Pain is decreased tw2 Disposition: 18:00 Co-signature as Attending Physician, Arnie Sheffield MD. rn Disposition: 11/12/18 17:30 Discharged to Home. Impression: Superficial injury of head, Muscle spasm. - Condition is Stable. - Discharge Instructions: Muscle Cramps and Spasms, Head Injury, Adult, [id number]. - Medication Reconciliation Form, Thank You Letter, Antibiotic Education, Prescription Opioid Use form. - Follow up: Emergency Department; When: As needed; Reason: Worsening of condition. Follow up: Private Physician; When: 2 - 3 days; Reason: Recheck today's complaints, Continuance of care, Re-evaluation by your physician. Signatures: Dispatcher [employer] EDMS Ann Anderson, SWATCHER-C SWATCHER-Bladimir Mabry, RN RN sg Arnie Sheffield MD MD rn Cook, DEMETRIO Chung RN tw2 Corrections: (The following items were deleted from the chart) 17:30 17:30 11/12/2018 17:30 Discharged to Home. Impression: Superficial injury of head. kb Condition is Stable. Forms are Medication Reconciliation Form, Thank You Letter, Antibiotic Education, Prescription Opioid Use. Follow up: Emergency Department; When: As needed; Reason: Worsening of condition. Follow up: Private Physician; When: 2 - 3 days; Reason: Recheck today's complaints, Continuance of care, Re-evaluation by your physician. kb 17:35 17:30 11/12/2018 17:30 Discharged to Home. Impression: Superficial injury of head; tw2 Muscle spasm. Condition is Stable. Forms are Medication Reconciliation Form, Thank You Letter, Antibiotic Education, Prescription Opioid Use. Follow up: Emergency Department; When: As needed; Reason: Worsening of condition. Follow up: Private Physician; When: 2 - 3 days; Reason: Recheck today's complaints, Continuance of care, Re-evaluation by your physician. kb
--- NOTE | 2018-11-12 17:31 | ER ---
Nurse's Notes [facility] Name: Bridgette Browne Age: 68 yrs Sex: Female : 1950 Arrival Date: 11/12/2018 Time: 15:18 Bed 25 Private MD: Ildefonso Mei C Diagnosis: Superficial injury of head;Muscle spasm Presentation: 11/12 15:35 Presenting complaint: Patient states: two days ago, i was moving things around the house, a vase that was full of marbles fell and hit me in the head, well today the pain in my upper back and neck is terrible. I have taken my pain medications that are normally prescribed to me including tramadol but none of the medications are providing any relief. Transition of care: patient was not received from another setting of care. Onset of symptoms was November 12, 2018. Risk Assessment: Do you want to hurt yourself or someone else? Patient reports no desire to harm self or others. Initial Sepsis Screen: Does the patient meet any 2 criteria? No. Patient's initial sepsis screen is negative. Does the patient have a suspected source of infection? No. Patient's initial sepsis screen is negative. Care prior to arrival: None. 15:35 Method Of Arrival: Ambulatory sg 15:35 Acuity: ISMAEL 4 sg 15:49 Note pt applied a neck brace that was from a surgery to the neck from years ago. sg Historical: - Allergies: 15:35 Aspirin; sg 15:35 Hydrocodone-Ibuprofen; sg 15:35 Tylenol-Codeine; sg - Home Meds: 16:22 venlafaxine 150 mg Oral cp24 1 cap once daily [Active]; Metanx (algal oil) 3 mg-35 mg-2 tw2 mg -90.314 mg Oral cap twice a day [Active]; nitrofurantoin macrocrystal 25 mg Oral cap 1 caps daily [Active]; losartan 50 mg Oral tab 1 tab once daily [Active]; tizanidine 4 mg Oral cap 1 cap 3 times per day [Active]; alprazolam 0.5 mg Oral Tb24 1 tab once daily [Active]; gabapentin 600 mg Oral tab 1 tab twice a day [Active]; allopurinol 300 mg Oral tab 1 tab once daily [Active]; atorvastatin 20 mg Oral tab 1 tab once daily [Active]; metformin 500 mg Oral tab 2 tabs 2 times per day [Active]; Plavix 75 mg Oral tab 1 tab once daily [Active]; Symbicort 160-4.5 mcg/actuation inhalation HFAA 2 puffs 2 times per day [Active]; Tramadol Oral [Active]; Trokendi XR 100 mg Oral cp24 1 cap once daily [Active]; - PMHx: 15:35 Chronic pain; Diabetes - NIDDM; Hypertension; sg - PSHx: 15:35 Gastric Bypass; lap band; cervical spinal surgery; lumbar spinal surgery; sg - Immunization history:: Adult Immunizations up to date. - Social history:: Smoking status: Patient/guardian denies using tobacco. - Ebola Screening: : Patient negative for fever greater than or equal to 101.5 degrees Fahrenheit, and additional compatible Ebola Virus Disease symptoms Patient denies exposure to infectious person Patient denies travel to an Ebola-affected area in the 21 days before illness onset No symptoms or risks identified at this time. Screenin:20 Abuse screen: Denies threats or abuse. Nutritional screening: No deficits noted. tw2 Tuberculosis screening: No symptoms or risk factors identified. Fall Risk Secondary diagnosis (15 points) impaired mobility. Assessment: 16:26 General: Appears in no apparent distress. Behavior is calm, cooperative, appropriate tw2 for age. Pain: Complains of pain in head and neck. Neuro: Level of Consciousness is awake, alert, obeys commands, Oriented to person, place, time, situation. Cardiovascular: Patient's skin is warm and dry. Respiratory: Airway is patent Respiratory effort is even, unlabored, Respiratory pattern is regular, symmetrical. GI: No signs and/or symptoms were reported involving the gastrointestinal system. : No signs and/or symptoms were reported regarding the genitourinary system. EENT: No signs and/or symptoms were reported regarding the EENT system. Musculoskeletal: Reports pain in neck. 17:32 Reassessment: Patient appears in no apparent distress at this time. No changes from tw2 previously documented assessment. Patient and/or family updated on plan of care and expected duration. Pain level reassessed. Patient is alert, oriented x 3, equal unlabored respirations, skin warm/dry/pink. Vital Signs: 15:47 BP 132 / 62; Pulse 64; Resp 17; Temp 97.6; Pulse Ox 96% on R/A; Pain 10/10; sg 17:31 BP 145 / 64; Pulse 77; Resp 17; Pulse Ox 100% on R/A; tw2 Tibbie Coma Score: 17:43 Eye Response: spontaneous(4). Verbal Response: oriented(5). Motor Response: obeys kb commands(6). Total: 15. ED Course: 15:18 Patient arrived in ED. rg4 15:18 Ildefonso Mei MD is Private Physician. rg4 15:35 Arm band placed on. sg 15:49 Triage completed. sg 16:15 Ann Anderson FNP-C is [facility]. kb 16:15 Arnie Sheffield MD is Attending Physician. kb 16:20 Juliet Cook, RN is Primary Nurse. tw2 16:21 Bed in low position. Call light in reach. Pulse ox on. NIBP on. tw2 16:[address] vr 16:42 CT Head C Spine In Process Unspecified. EDMS 16:44 CT completed. Patient tolerated procedure well. Patient moved back from CT. vm2 17:35 No provider procedures requiring assistance completed. Patient did not have IV access tw2 during this emergency room visit. Administered Medications: 16:56 Drug: fentaNYL (PF) 50 mcg Route: IM; Site: left gluteus; tw2 17:32 Follow up: Response: No adverse reaction; Pain is decreased tw2 Outcome: 17:30 Discharge ordered by MD. kb 17:35 Discharged to home via wheelchair, with significant other. tw2 17:35 Condition: stable 17:35 Discharge instructions given to patient, significant other, Instructed on discharge instructions, follow up and referral plans. Demonstrated understanding of instructions, follow-up care. 17:35 Patient left the ED. tw2 Signatures: Dispatcher [employer] EDMS Ann Anderson FNP-C FNP-Ckb Gay, Steven RN Laney Madrigal Juliet Cook RN RN 2 Corrine Richter Laney Del Cid [facility]
== END 2018-11-12 17:35 | disposition home or self-care (01) ==
LOC: ER 15:14
DX: S00.90XA Unspecified superficial injury of unspecified part of head, initial encounter (principal); M62.838 Other muscle spasm; W22.8XXA Striking against or struck by other objects, initial encounter; Y93.9 Activity, unspecified; Y92.009 Unspecified place in unspecified non-institutional (private) residence as the place of occurrence of the external cause; Z79.01 Long term (current) use of anticoagulants; Z88.5 Allergy status to narcotic agent; Z88.6 Allergy status to analgesic agent; I10 Essential (primary) hypertension; E11.9 Type 2 diabetes mellitus without complications
CPT/HCPCS: 70450; 72125; 96372; 99284; J3010

== ENCOUNTER 2020-09-22 10:10 | Emergency (ER) | payer OTHER ==
--- OUTSIDE RECORDS SUMMARY | 2020-09-22 10:13 | XMS REPORT | Clinical Summary ---
:1950 [facility] Address [address] [place] [address] Care Team Providers Name Role Phone Francois Mei MD Primary Care Provider Allergies Active Allergy Reactions Severity Noted Date Comments Aspirin (Tartrazine Other (See Comments) 02/10/2017 Coldness- "feels like Only) an iceburg" Hydrocodone-Acetaminop 02/10/2017 Coldn ess- "feels like hen an ice[place]" Acetaminophen-Codeine Other (See Comments) 02/10/2017 Coldness- "feels like an ice[place]" Medications Medication Sig Dispensed Refills Start Date End Date Status allopurinol Take 300 mg by 0 Act luba (ZYLOPRIM) 300 MG mouth daily. tablet ALPRAZolam (XANAX) Take 0.5 mg by 0 Active 0.5 MG tablet mouth daily. gabapentin Take 600 mg by 0 Acti ve (NEURONTIN) 600 MG mouth 2 (two) times tablet daily. losartan (COZAAR) 50 Take 50 mg by mouth 0 Active MG tablet daily. MECOBAL/LEVOMEFOLAT Take 1 capsule by 0 Active CA/B6 PHOS (METANX mouth 2 (two) times ORAL) daily. metFORMIN Take 1,000 mg by 0 Act luba (GLUCOPHAGE) 500 MG mouth 2 (two) times tablet daily with breakfast and dinner. clopidogrel (PLAVIX) Take 75 mg by mouth 0 Active 75 mg tablet daily. budesonide-formoterol Inhale 2 puffs by 0 Active (SYMBICORT) 160-4.5 mouth via inhaler 2 mcg/actuation inhaler (two) times daily. tiZANidine (ZANAFLEX) Take 4 mg by mouth 0 Active 4 MG tablet daily. traMADol (ULTRAM) 50 Take 50 mg by mouth 0 Active mg tablet 2 (two) times daily. topiramate (TROKENDI Take 1 tablet by 0 Active XR) 100 mg Cp24 mouth daily. venlafaxine 150 mg Take 1 tablet by 0 02/12/2017 Active TR24 mouth daily. Active Problems Problem Noted Date TIA [...] Not on file Results Not on fileafter 09/22/2019 Insurance Payer Benefit Plan / Subscriber ID Effective Dates Phone Addre ss Type Group MEDICARE MEDICARE A B [id number] 2015-Present Medicare [facility] [employer] [id number] 2017-Presen [employer] SUPPLEMENT/INDIV t IDUAL Advance Directives For more information, please contact: [phone] Code Status Date Activated Date Inactivated Comments Full Code 02/10/2017 5:31 PM 02/12/2017 4:14 PM This code status was determined by: Patient
--- OUTSIDE RECORDS SUMMARY | 2020-09-22 10:14 | XMS REPORT | Summary of Care ---
:1950 Author Organization [facility] Address [address] [place] [id number] Care Team Providers Name Role Phone Sigifredo Francois Garcia Primary Care Provider Reason for Visit Reason Comments Follow-up Obstructive Sleep Apnea Fatigue Encounter Details Date Type Department Care Team Description 06/28/2020 Office Visit [facility] Mark Anthony Nichole DO DANYEL (obstructive sleep [facility] apnea) (Primary Dx) [address] [place] [address] [phone] Allergies Active Allergy Reactions Severity Noted Date Comments Amoxicillin Rash 09/10/2018 Aspirin Other - See comments Medium 07/04/2015 Chills Hydrocodone Other - See comments Medium 07/04/2015 Chills Acetaminophen Other - See comments Medium 07/04/2015 Chills documented as of this encounter (statuses as of 06/28/2020) Medications Medication Sig Dispensed Refills Start Date End Date Status metFORMIN (GLUCOPHAGE) 500 Take 1,000 mg 0 Active mg tablet by mouth 2 (two) times daily. venlafaxine XR (EFFEXOR XR) Take 150 mg 0 Active 150 mg 24 hr capsule by mouth 2 (two) times daily. topiramate (TOPIRAGEN) 25 Take 50 mg by 0 Active mg tablet mouth 2 (two) times daily. gabapentin 300 mg capsule Take 300 mg 0 Active by mouth 2 (two) times daily. ALPRAZolam (XANAX) 0.5 mg Take 0.5 mg 0 Active tablet by mouth 3 (three) times daily as needed. allopurinol (ZYLOPRIM) 300 Take 300 mg 0 Active mg tablet by mouth daily. losartan (COZAAR) 50 mg Take 50 mg by 0 Active tablet mouth daily. atorvastatin (LIPITOR) 20 Take 20 mg by 0 Active mg tablet mouth at bedtime. clopidogrel (PLAVIX) 75 mg Take 75 mg by 0 Active tablet mouth daily. budesonide-formoterol Inhale 2 0 Active (SYMBICORT) 160-4.5 Puffs 2 (two) mcg/actuation inhaler times daily. tiZANidine 4 mg capsule Take 4 mg by 0 Active mouth daily. TRAMADOL HCL (TRAMADOL Take 50 mg by 0 Active HYDROCHLORIDE, BULK, MISC) mouth 2 (two) times daily. ferrous sulfate 325 mg (65 Take 325 mg 0 Active mg iron) tablet by mouth daily. ciclesonide (ALVESCO) 160 Inhale 2 0 Active mcg/actuation inhaler Puffs as needed for Other (sob). CLONAZEPAM ORAL Take by 0 Acti ve mouth. hydroCHLOROthiazide 12.5 mg Take 12.5 mg 0 Active capsule by mouth daily. JANUVIA 100 mg tablet TAKE 1 TABLET 0 03/03/2020 Active BY MOUTH ONCE DAILY FOR 30 DAYS documented as of this encounter (statuses as of 06/28/2020) Active Problems No known active problemsdocumented as of this encounter (statuses as of 06/28/2020) Social History Tobacco Use Types Packs/Day Years Used Date Never Smoker Smokeless Tobacco: Never Used Alcohol Use Drinks/Week oz/Week Comments No 0 Standard drinks or equivalent 0.0 Sex Assigned at Date Recorded Not on file COVID-19 Exposure Response Date Recorded In the last month, have you been in contact with No / Unsure 06/28/2020 2:38 PM OUTCOMES SPECIALIST someone who was confirmed or suspected to have Coronavirus / COVID-19? documented as of this encounter Last Filed Vital Signs Vital Sign Reading Time Taken Comments Blood Pressure 139/75 06/28/2020 3:05 PM OUTCOMES SPECIALIST Pulse 77 06/28/2020 3:05 PM OUTCOMES SPECIALIST Temperature - - Respiratory Rate 19 06/28/2020 3:05 PM OUTCOMES SPECIALIST Oxygen Saturation 100% 06/28/2020 3:05 PM OUTCOMES SPECIALIST Inhaled Oxygen Concentration - - Weight 83.9 kg (185 lb) 06/28/2020 3:05 PM OUTCOMES SPECIALIST Height 165.1 cm (5' 5") 06/28/2020 3:05 PM OUTCOMES SPECIALIST Body Mass Index 30.79 06/28/2020 3:05 PM OUTCOMES SPECIALIST documented in this encounter Progress Notes Mark Anthony Nichole, - 06/28/2020 2:40 PM CST [facility] Chief Complaint: Follow up for sleep apnea History of Present Illness: Bridgette Browne is a 70 year old female is here for follow up of sleep apnea. Patient reports: Frequency of CPAP use: daily Deriving Benefit: yes Concerns with CPAP: none, patient is tolerating nasal pillows much better Compliance Data: pending fax here Past Medical History: has a past medical history of Arthritis, Asthma, Cataract, Chronic neck and back pain, Degenerative disc disease, cervical, Degenerative disc disease, lumbar, DM (diabetes mellitus), History of blood clot in brain, Hyperlipidemia, Hypertension, and Wears dentures. Past Surgical History: has a past surgical history that includes anterior cervical fusion; back surgery; laparoscopic tubal ligation; hysterectomy; hernia repair; lumbar epidural steroid injection (N/A, 07/09/2015); lumbar epidural steroid injection (N/A, 07/23/2015); lumbar epidural steroid injection(N/A, 08/06/2015); phacoemulsification of cataract with intraocular lens implant (Right, 10/28/2017);phacoemulsification of cataract with intraocular lens implant (Left, 11/11/2017); and esophagogastroduodenoscopy (N/A, 03/15/2020). Family History: family history includes CHF (congestive heart failure) in her mother; Hypertension in her mother; Kidney Cancer in her father; Kidney failure in her father. Social History: reports that she has never smoked. She has never used smokeless tobacco. She reports that she does not drink alcohol or use drugs. Review of Systems: Review of Systems Constitutional: Negative. HENT: Negative. Eyes: Negative. Respiratory: Positive for apnea. Cardiovascular: Negative. Gastrointestinal: Negative. Genitourinary: Negative. Musculoskeletal: Negative. Skin: Negative. Neurological: Negative. Psychiatric/Behavioral: Negative. Endocrine: Endocrine negative Objective: BP 139/75 (BP Location: Left arm, Patient Position: Sitting, BP CUFF SIZE: Adult Large) | Pulse 77| Resp 19 | Ht 5' 5" (1.651 m) | Wt 185 lb (83.9 kg) | SpO2 100% | BMI 30.79 kg/m Physical Exam Constitutional: She is oriented to person, place, and time. She appears well- developed and well-nourished. HENT: Head: Normocephalic and atraumatic. Eyes: Conjunctivae and EOM are normal. Neck: Normal range of motion. Neck supple. Cardiovascular: Normal rate and regular rhythm. Pulmonary/Chest: Effort normal and breath sounds normal. Abdominal: Soft. Bowel sounds are normal. Musculoskeletal: Normal range of motion. Neurological: She is alert and oriented to person, place, and time. Skin: Skin is warm and dry. Psychiatric: She has a normal mood and affect. Her behavior is normal. Judgment and thought content normal. Labs/Studies: Assessment: ICD-10-CM ICD-9-CM 1. DANYEL (obstructive sleep apnea) G47.33 327.23 Plan: 1/ Continue with CPAP therapy, patient is compliant per history and is deriving benefit with regardsto improved sleep and decreased fatigue 2/ Follow up 3 months documented in this encounter Plan of Treatment Date Type Specialty Care Team Description 10/04/2020 Office Visit Pulmonary Disease Mark Anthony Nichole DO [address] [place] [phone] Health Maintenance Due Date Last Done Comments HEPATITIS C (HCV) SCREEN 1950 DTaP,Tdap,and Td Vaccines (1 - Tdap) 1969 COLON CANCER SCREENING ANNUAL FIT/FOBT 01/27/2000 COLON CANCER SCREENING FIT DNA EVERY 3 01/27/2000 YEARS COLON CANCER SCREENING SIGMOIDOSCOPY EVERY 01/27/2000 5 YEARS COLONOSCOPY 01/27/2000 Colorectal Cancer Screening 01/27/2000 Zoster Recombinant Vaccine (SHINGRIX) (1 01/27/2000 of 2) Medicare Wellness Visit 2015 Osteoporosis Screening 2015 PNEUMOCOCCAL VACCINES 65+ (1 of 1 - 2015 PPSV23) INFLUENZA VACCINE (#1) 2020 Breast Cancer Screening (MAMMOGRAM) 10/26/2020 10/27/2019, 06/25/2015 Depression Screening 03/15/2021 03/15/2020 documented as of this encounter Implants Implanted Type Area Mold Designer Device Shelf Model / Identifier Expiration Date Ser ial / Lot Acry Sof Iq Lens LENS Right: Tylor 07/16/2021 SN [id number] / Implanted: Qty: 1 on 10/28/2017 by Fracisco Jensen MD at [facility] Eye 1 [id number] / [id number] Iol LENS Left: Eye Tylor 05/16/2021 [id number] / Implanted: Qty: 1 on 11/11/2017 by Fracisco Jensen MD at [facility] 1 [id number] / [id number] documented as of this encounter Results Not on filedocumented in this encounter Visit Diagnoses Diagnosis DANYEL (obstructive sleep apnea) - Primary Obstructive sleep apnea (adult) (pediatr ic) documented in this encounter Insurance Payer Benefit Plan / Subscriber ID Effective Phone Address T e Group Dates [facility] [id number] 2019-Prese Medic are [facility] - HEALTHCARE nt PPO MANAGED MEDICARE GOLD MEDICARE documented as of this encounter
--- OUTSIDE RECORDS SUMMARY | 2020-09-22 10:14 | XMS REPORT | Continuity of Care Document ---
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 00:00: Practi c 00 e Anxiety Anxiety Problem Active 2018-08 [place] disorder Disorder 0-12 Family 00:00: Practic 00 e Neuropathy Neuropathy Problem Active [facility] 9-10 Family 00:00: Practic 00 e Cobalamin Cobalamin Problem Active 2016-08 [place] deficiency Deficiency 2-12 Fa sushila 00:00: Practic 00 e Hyperlipid Hyperlipid Problem Active 2016-08 [facility] emia emia 2-12 Family 00:00: Practic 00 e Gout Gout Problem Active 2016-08 [place] 2-12 Family 00:00: Practic 00 e Obesity Obesity Problem Active 2016-08 [place] 2-12 Family 00:00: Practic 00 e 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 Depressive 00:00: Pr actic disorder, Disorder, 00 e single Single episode Episode Essential Essential Problem Active 2016-08 [place] hypertensi Hypertensi 2-12 Fa sushila on on 00:00: Practic 00 e Cerebral Cerebral Problem Active 2016-08 Miguel Angel krishna infarction Infarction 2-12 Fa sushila 00:00: Practic 00 e Amnesia Amnesia Problem Active 2016-08 [place] 2-12 Family 00:00: Practic 00 e Multiple Multiple Problem Active 2016-08 Miguel Angel krishna complicati Complicati 2-12 Fa sushila ons due to ons Due to 00:00: Pr actic type 2 Type 2 00 e diabetes Diabetes mellitus Mellitus TIA TIA Disease Active [facility] (transient (transient 02-12 Kandice kes - ischemic ischemic 00:00: Medica l attack) attack) 00 Center Hypertensi Hypertensi Disease Active [facility] Type II Type II Disease Active [facility] diabetes diabetes 02-12 [facility] - mellitus, mellitus, 00:00: Medi beth well well 00 Center controlled controlled HLD HLD Disease Active [facility] (hyperlipi (hyperlipi 02-12 Kandice kes - demia) demia) 00:00: Medical 00 Center Stroke Stroke Disease Active [facility] aborted by aborted by 02-10 Kandice kes - administra administra 00:00: Me dical tion of tion of 00 Center thrombolyt thrombolyt ic agent ic agent Allergies, Adverse Reactions, Alerts Allergy Allergy Status Severity Reaction(s) Onset Inactive Treating Comm ents Source Name Type Date Date Clinician Aspirin Propensi Active Other (See Coldness[facility] (Tartraz ty to Comments) 02-10 "feels [facility] - ine adverse 00:00: like an Medical Only) reaction [facility] s Hydrocod Propensi Active [facility]- [facility] one-Acet ty to 02-10 "[facility]els [facility] - aminophe adverse 00:00: like an Medica l n reaction ice"[facility] s Acetamin Propensi Active Other (See Coldness- [facility] ophen-Co ty to Comments) 02-10 "feels [facility] - deine adverse 00:00: like an Medical reaction 00 " [place] s Acetamin Allergy Active [place] ophen to Family substanc Practic e e Aspirin Allergy Active [place] to Family substanc Practic e e Clopidog Allergy Active [place] rel to Family substanc Practic e e PANLOR Allergy Active [place] (HYDROCO to Family DONE-CORA substanc Practi c TAMIN) e e Social History Social Habit Start Date Stop Date Quantity Comments Source Sex Assigned [facility] Smoking Status Start Date Stop Date Source Never smoker [facility] Medications Ordered Filled Start Stop Current Ordering Indication Dosage Frequency Signature Comments Components Source Medication Medication Date Date Medication? Clinician (SIG) Name Name allopurinol Yes 300mg QD Take [address] (ZYLOPRIM) 6-29 mg by [facility] - 300 MG 14:14: mouth Medical tablet 14 daily. [place] ALPRAZolam Yes .5mg QD Take 0.[address] [facility] (XANAX) 0.5 6-29 mg by [facility] - MG tablet 14:14: mouth Medical 14 daily. [place] gabapentin Yes 600mg Q.5D Take [address] (NEURONTIN) 6-29 mg by [facility] - 600 MG 14:14: mouth 2 Medical tablet 14 (two) Center times daily. losartan Yes 50mg QD Take [address] (COZAAR) 50 6-29 by mouth Luke s - MG tablet 14:14: daily. Medica l 14 [place] MECOBAL/LEV Yes 1{capsu Q.5D Take [address] OMEFOLAT 6-29 le} capsule by [facility] - CA/B6 PHOS 14:14: mouth 2 Medi beth (METANX 14 (two) Center ORAL) times daily. metFORMIN Yes 1000mg Take 1,[address] [facility] (GLUCOPHAGE 6-29 mg by [facility] - ) 500 MG 14:14: mouth 2 Medica l tablet 14 (two) Center times daily with breakfast and dinner. clopidogrel Yes 75mg QD Take [address] [facility] (PLAVIX) 75 6-29 by mouth Luke s - mg tablet 14:14: daily. Medica l 14 [place] budesonide- Yes 2{puff} Q.5D Inhale [address] [facility] formoterol 6-29 puffs by [facility] - (SYMBICORT) 14:14: mouth via edical 160-4.5 14 inhaler 2 [place] mcg/actuati (two) on inhaler times daily. tiZANidine Yes 4mg QD Take [address] (ZANAFLEX) 6-29 by mouth [facility] - 4 MG tablet 14:14: daily. [facility] beth 14 [place] traMADol Yes 50mg Q.5D Take [address] [facility] (ULTRAM) 50 6-29 by mouth 2 Kandice kes - mg tablet 14:14: (two) Medical 14 times Center daily. topiramate Yes 1{tbl} QD Take [address] [facility] (TROKENDI 6-29 tablet by [facility] - XR) 100 mg 14:14: mouth Medica l Cp24 14 daily. [place] venlafaxine Yes 1{tbl} QD Take [address] 150 mg TR24 6-29 tablet by Hema es - 00:00: mouth Medical 00 daily. [place] allopurinol allopurinol No 1 Q1D allopurino [place] 300 mg 300 mg l 300 mg Family tablet Take tablet Take tablet Practic 1 tablet 1 tablet Take 1 e every day every day tablet by oral by oral every day route. route. by oral route. atorvastati atorvastati No 1 Q1D atorvastat [place] n 80 mg n 80 mg in 80 mg Famil y tablet Take tablet Take tablet Practic 1 tablet 1 tablet Take 1 e every day every day tablet by oral by oral every day route. route. by oral route. clonazepam clonazepam No 1 TID clonazepam Village 0.5 mg 0.5 mg 0.5 mg Family tablet Take tablet Take tablet Practic 1 tablet 3 1 tablet 3 Take 1 e times a day times a day tablet 3 by oral by oral times a route. route. day by oral route. Fluzone Fluzone No Fluzone Villag e High-Dose High-Dose High-Dose Family Quad Quad Quad Practic e (PF) 240 (PF) 240 (PF) 240 mcg/0.7 mL mcg/0.7 mL mcg/0.7 mL IM syringe IM syringe IM syringe gabapentin gabapentin No 1 TID gabapentin [facility] 800 mg 800 mg 800 mg Family tablet Take tablet Take tablet Practic 1 tablet 3 1 tablet 3 Take 1 e times a day times a day tablet 3 by oral by oral times a route. route. day by oral route. Januvia 100 Januvia 100 No Januvia Village mg tablet mg tablet 100 mg Fam hoa Take one Take one tablet Pract ic tablet once tablet once Take one e a day for a day for tablet 30 days 30 days once a day for 30 days losartan losartan No 1 Q1D losartan [place] 100 mg 100 mg 100 mg Family tablet Take tablet Take tablet Practic 1 tablet 1 tablet Take 1 e every day every day tablet by oral by oral every day route. route. by oral route. metformin metformin No 1 BID metformin [place] 500 mg 500 mg 500 mg Family tablet Take tablet Take tablet Practic 1 tablet 1 tablet Take 1 e twice a day twice a day tablet by oral by oral twice a route for route for day by 90 days. 90 days. oral route for 90 days. OneTouch OneTouch No 2each Q1D OneTouch Vi llage Delica Plus Delica Plus Delica Family Lancet 33 Lancet 33 Plus Pract ic gauge Take gauge Take Lancet 33 e 2 each 2 each gauge Take every day every day 2 each by miscell. by miscell. every day route as route as by directed directed miscell. for 90 for 90 route as days. days. directed for 90 days. OneTouch OneTouch No 2strip( Q1D OneTouch Village Verio test Verio test s) Verio test Family strips Take strips Take strips Practic 2 strips 2 strips Take 2 e every day every day strips by miscell. by miscell. every day route as route as by directed directed miscell. for 90 for 90 route as days. days. directed for 90 days. pantoprazol pantoprazol No 1 Q1D pantoprazo [place] e 40 mg e 40 mg le 40 mg Famil y tablet,bryan tablet,bryan tablet,del Practic yed release yed release ayed e Take 1 Take 1 release tablet tablet Take 1 every day every day tablet by oral by oral every day route as route as by oral directed directed route as for 90 for 90 directed days. days. for 90 days. Plavix 75 Plavix 75 No 1 Q1D Plavix 75 Village mg tablet mg tablet mg tablet Family Take 1 Take 1 Take 1 Practic tablet tablet tablet e every day every day every day by oral by oral by oral route as route as route as directed directed directed for 90 for 90 for 90 days. days. days. tizanidine tizanidine No 1 BID tizanidine [facility] 4 mg tablet 4 mg tablet 4 mg F amily Take 1 Take 1 tablet Practic tablet tablet Take 1 e twice a day twice a day tablet by oral by oral twice a route as route as day by directed directed oral route for 30 for 30 as days. days. directed for 30 days. topiramate topiramate No 1 Q1D topiramate [facility] 200 mg 200 mg 200 mg Family tablet Take tablet Take tablet Practic 1 tablet 1 tablet Take 1 e every day every day tablet by oral by oral every day route as route as by oral directed directed route as for 30 for 30 directed days. days. for 30 days. trazodone trazodone No 3 Q1D trazodone [facility] 50 mg 50 mg 50 mg Family tablet Take tablet Take tablet Practic 3 tablets 3 tablets Take 3 e every day every day tablets by oral by oral every day route as route as by oral needed for needed for route as 30 days. 30 days. needed for 30 days. triamterene triamterene No 1 Q1D triamteren [facility] 37.5 37.5 e 37.5 Family mg-hydrochl mg-hydrochl mg-hydroch Practic orothiazide orothiazide lorothiazi e 25 mg 25 mg de 25 mg tablet Take tablet Take tablet 1 tablet 1 tablet Take 1 every day every day tablet by oral by oral every day route as route as by oral directed directed route as for 90 for 90 directed days. days. for 90 days. Trulicity Trulicity No 1.5mg Q1W Trulicity [facility] 1.5 mg/0.5 1.5 mg/0.5 1.5 mg/0.5 Family mL mL mL Practic subcutaneou subcutaneou subcutaneo e s pen s pen us pen injector injector injector Inject 1.5 Inject 1.5 Inject 1.5 mg every mg every mg every week by week by week by subcutaneou subcutaneou subcutaneo s route as s route as us route directed directed as for 30 for 30 directed days. days. for 30 days. venlafaxine venlafaxine No 1capsul Q1D venlafaxin [facility] ER 150 mg ER 150 mg e(s) e ER 150 F amily capsule,ext capsule,ext mg P ractic ended ended capsule,ex e release 24 release 24 tended hr Take 1 hr Take 1 release 24 capsule capsule hr Take 1 every day every day capsule by oral by oral every day route as route as by oral directed directed route as for 30 for 30 directed days. days. for 30 days. Immunizations Ordered Immunization Filled Immunization Date Status Commen ts Source Name Name influenza, influenza, 2020-03-17 Completed [facility] injectable, injectable, 00:00:00 Practice quadrivalent quadrivalent Vital Signs Vital Name Observation Time Observation Value Comments Source Height 2020-06-11 00:00:00 65 [in_i] [facility] BMI (Body Mass 2020-06-11 00:00:00 30.1 kg/m2 [facility] Index) Practice Body Weight 2020-06-11 00:00:00 181 [lb_av] [facility] Procedures Procedure Date / Time Performing Clinician Source Performed Repair of Musculotendinous 2018-07-17 00:00:00 V purnima [facility] Cuff of Shoulder Practice Bilateral Extraction of 2017-12-15 00:00:00 [facility] lula [facility] Cataracts Practice Colonoscopy 2016-08-17 00:00[facility]00 [facility] Hernia Repair [facility] Plan of Care Planned Activity Planned Date Details Comments Source Diagnostic Test 2020-06-11 microalbumin/creat [facility] Pending 00:00:00 inine, mass ratio, Practice urine [code = microalbumin/creat inine, mass ratio, urine] Diagnostic Test 2020-06-11 lipid panel, serum [facility] Pending 00:00:00 [code = lipid Practice panel, serum] Diagnostic Test 2020-06-11 CMP, serum or [facility] Fam hoa Pending 00:00:00 plasma [code = Practice CMP, serum or plasma] Diagnostic Test 2020-06-11 CBC w/ auto diff [facility] Pending 00:00:00 [code = CBC w/ Practice auto diff] Diagnostic Test 2020-06-11 TSH, serum or [facility] Fam hoa Pending 00:00:00 plasma [code = Practice TSH, serum or plasma] Diagnostic Test 2020-06-11 T4, free, serum [facility] Pending 00:00:00 [code = T4, free, Practice serum] Encounters Start End Encounter Admission Attending Care Care Encounter Source Date/Time Date/Time Type Type Clinicians Facility Department ID 2020-06-28 2020-06-28 CALEB Mcpherson [id number] 14:42:07 15:23:34 Visit Mark Anthony Pittman [id number] Isabelle [id number] Ruth [id number] nal 085 [facility] 2020-06-28 2020-06-28 Orders Doctor TRACEY [id number] 00:00:00 00:00:00 Only Unassigned, TRE [id number] [facility] [id number] 2020-06-11 2020-06-11 Talha [facility] [place] - [id number] V illage 00:00:00 00:00:00 [facility] - Practi robert MD: [id number] VM_HOU_Sandeep e Shadow [facility], [facility] [address], [place] [address] , Ph. Results Test Description Test Time Test Comments Results Result Comments Source URINE CULTURE 2017-02-12 15:54:00 Test Item Value Reference Range Interpretation Comme nts CULTURE ([facility]) (test code = 1095) >100,000 col/mL skin clay POCT-GLUCOSE [id number] 07:48:00 Test Item Value Reference Range Interpretation Comments POC-GLUCOSE METER 149 mg/dL 70-110 H TESTED AT [facility] 67[facility] ([facility]) (test code = [place] 1538) [address] BASIC METABOLIC [id number] 04:52:00 Test Item Value Reference Range Interpretation Comments SODIUM (BEAKER) 140 meq/L 136-145 (test code = 381) POTASSIUM (BEAKER) 4.6 meq/L 3.5-5.1 Specimen slightly (test code = 379) hemolyzed CHLORIDE (BEAKER) 114 meq/L 98-107 H (test code = 382) CO2 (BEAKER) (test 17 meq/L 22-29 L code = 355) BLOOD UREA NITROGEN 16 mg/dL 7-21 (BEAKER) (test code = 354) CREATININE (BEAKER) 0.94 mg/dL 0.57-1.25 Specimen slightly (test code = 358) hemolyzed GLUCOSE RANDOM 98 mg/dL 70-105 (BEAKER) (test code = 652) CALCIUM (BEAKER) 9.4 mg/dL 8.4-10.2 (test code = 697) EGFR (BEAKER) (test 59 mL/min/1.73 ESTIMA BABAK GFR IS code = 1092) sq m NOT ACCURATE CREATININE CLEARANCE IN PREDICTING GLOMERULAR FILTRATION RATE . ESTIMATED GFR I S NOT APPLICABLE FOR DIALYSIS PATIEN TS. CBC W/PLT COUNT & AUTO [id number] 04:52:00 Test Item Value Reference Range Interpretation Comments WHITE BLOOD CELL COUNT (BEAKER) 9.9 K/ L 4.0-10.0 (test code = 775) RED BLOOD CELL COUNT (BEAKER) 3.93 M/ L 4.00-5.00 L (test code = 761) HEMOGLOBIN (BEAKER) (test code = 12.3 GM/DL 12.0-15.0 410) HEMATOCRIT (BEAKER) (test code = 39.1 % 36.0-45.0 411) MEAN CORPUSCULAR VOLUME (BEAKER) 99.6 fL 82.0-99.0 H (test code = 753) MEAN CORPUSCULAR HEMOGLOBIN 31.3 pg 27.0-33.0 (BEAKER) (test code = 751) MEAN CORPUSCULAR HEMOGLOBIN CONC 31.4 GM/DL 32.0-36.0 L (BEAKER) (test code = 752) RED CELL DISTRIBUTION WIDTH 13.4 % 10.3-14.2 (BEAKER) (test code = 412) PLATELET COUNT (BEAKER) (test 238 K/CU MM 150-430 code = 756) MEAN PLATELET VOLUME (BEAKER) 8.7 fL 6.5-10.5 (test code = 754) NUCLEATED RED BLOOD CELLS 0 /100 WBC 0-0 (BEAKER) (test code = 413) NEUTROPHILS RELATIVE PERCENT 46 % (BEAKER) (test code = 429) LYMPHOCYTES RELATIVE PERCENT 41 % (BEAKER) (test code = 430) MONOCYTES RELATIVE PERCENT 5 % (BEAKER) (test code = 431) EOSINOPHILS RELATIVE PERCENT 7 % (BEAKER) (test code = 432) BASOPHILS RELATIVE PERCENT 1 % (BEAKER) (test code = 437) NEUTROPHILS ABSOLUTE COUNT 4.56 K/ L 1.80-8.00 (BEAKER) (test code = 670) LYMPHOCYTES ABSOLUTE COUNT 4.05 K/ L 1.48-4.50 (BEAKER) (test code = 414) MONOCYTES ABSOLUTE COUNT (BEAKER) 0.48 K/ L 0.00-1.30 (test code = 415) EOSINOPHILS ABSOLUTE COUNT 0.72 K/ L 0.00-0.50 H ([facility]) (test code = 416) BASOPHILS ABSOLUTE COUNT ([facility]) 0.08 K/ L 0.00-0.20 (test code = 417) 0.00POCT-GLUCOSE [id number] 21:56:00 Test Item Value Reference Range Interpretation Comments POC-GLUCOSE METER 114 mg/dL 70-110 H TESTED AT [place] [address] ([facility]) (test code = [facility] 1538) [address] POCT-GLUCOSE [id number] 18:04:00 Test Item Value Reference Range Interpretation Comments POC-GLUCOSE METER 82 mg/dL 70-110 TESTED AT [place] [address] ([facility]) (test code = [facility] [address] 1538) TSH/FREE T4 IF [id number] 15:29:00 Test Item Value Reference Range Interpretation Comments THYROID STIMULATING HORMONE 2.71 uIU/mL 0.35-4.94 ([facility]) (test code = 772) POCT-GLUCOSE [id number] 12:39:00 Test Item Value Reference Range Interpretation Comments POC-GLUCOSE METER 112 mg/dL 70-110 H TESTED AT [place] [address] ([facility]) (test code = [facility] 1538) [address] [id number] 12:03:00 Test Item Value Reference Range Interpretation Comments RPR SCREEN ([facility]) (test code = Nonreactive Nonreactive 420) HEMOGLOBIN [id number] 08:06:00 Test Item Value Reference Range Interpretation Comments HEMOGLOBIN A1C ([facility]) (test code = 6.8 % 4.3-6.1 H 368) POCT-GLUCOSE [id number] 07:58:00 Test Item Value Reference Range Interpretation Comments POC-GLUCOSE METER 98 mg/dL 70-110 TESTED AT [place] [address] ([facility]) (test code = [facility] [address] 1538) CBC W/PLT COUNT & AUTO [id number] 04:28:00 Test Item Value Reference Range Interpretation Comments WHITE BLOOD CELL COUNT ([facility]) 8.1 K/ L 4.0-10.0 (test code = 775) RED BLOOD CELL COUNT ([facility]) 3.63 M/ L 4.00-5.00 L (test code = 761) HEMOGLOBIN (BEAKER) (test code = 12.0 GM/DL 12.0-15.0 410) HEMATOCRIT (BEAKER) (test code = 36.0 % 36.0-45.0 411) MEAN CORPUSCULAR VOLUME (BEAKER) 99.1 fL 82.0-99.0 H (test code = 753) MEAN CORPUSCULAR HEMOGLOBIN 33.0 pg 27.0-33.0 (BEAKER) (test code = 751) MEAN CORPUSCULAR HEMOGLOBIN CONC 33.3 GM/DL 32.0-36.0 (BEAKER) (test code = 752) RED CELL DISTRIBUTION WIDTH 15.2 % 10.3-14.2 H (BEAKER) (test code = 412) PLATELET COUNT (BEAKER) (test 232 K/CU MM 150-430 code = 756) MEAN PLATELET VOLUME (BEAKER) 8.7 fL 6.5-10.5 (test code = 754) NUCLEATED RED BLOOD CELLS 0 /100 WBC 0-0 (BEAKER) (test code = 413) NEUTROPHILS RELATIVE PERCENT 53 % (BEAKER) (test code = 429) LYMPHOCYTES RELATIVE PERCENT 32 % (BEAKER) (test code = 430) MONOCYTES RELATIVE PERCENT 5 % (BEAKER) (test code = 431) EOSINOPHILS RELATIVE PERCENT 8 % (BEAKER) (test code = 432) BASOPHILS RELATIVE PERCENT 1 % (BEAKER) (test code = 437) NEUTROPHILS ABSOLUTE COUNT 4.27 K/ L 1.80-8.00 (BEAKER) (test code = 670) LYMPHOCYTES ABSOLUTE COUNT 2.62 K/ L 1.48-4.50 (BEAKER) (test code = 414) MONOCYTES ABSOLUTE COUNT (BEAKER) 0.42 K/ L 0.00-1.30 (test code = 415) EOSINOPHILS ABSOLUTE COUNT 0.67 K/ L 0.00-0.50 H (BEAKER) (test code = 416) BASOPHILS ABSOLUTE COUNT (BEAKER) 0.09 K/ L 0.00-0.20 (test code = 417) 0.00BASIC METABOLIC [id number] 04:15:00 Test Item Value Reference Range Interpretation Comments SODIUM (BEAKER) 141 meq/L 136-145 (test code = 381) POTASSIUM (BEAKER) 4.8 meq/L 3.5-5.1 (test code = 379) CHLORIDE (BEAKER) 116 meq/L 98-107 H (test code = 382) CO2 (BEAKER) (test 17 meq/L 22-29 L code = 355) BLOOD UREA NITROGEN 17 mg/dL 7-21 (BEAKER) (test code = 354) CREATININE (BEAKER) 1.12 mg/dL 0.57-1.25 (test code = 358) GLUCOSE RANDOM 88 mg/dL 70-105 (BEAKER) (test code = 652) CALCIUM (BEAKER) 9.2 mg/dL 8.4-10.2 (test code = 697) EGFR (BEAKER) (test mL/min/1.73 INSUFFIC IENT CLINICAL code = 1092) sq m DATA TO CALCULA TE ESTIMATED GFR. FastingLIPID [id number] 04:11:00 Test Item Value Reference Range Interpretation Comments TRIGLYCERIDES (BEAKER) (test code = 113 mg/dL 540) CHOLESTEROL (BEAKER) (test code = 207 mg/dL 631) HDL CHOLESTEROL (BEAKER) (test code 61 mg/dL = 976) LDL CHOLESTEROL CALCULATED (BEAKER) 123 mg/dL (test code = 633) Triglyceride Reference Range: Low Risk <150 Borderline 150-199 High Risk 200-499 Very High Risk >=500Cholesterol Reference Range: Low Risk <200 Borderline 200-239 High Risk >240HDL Cholesterol Reference Range: Low Risk >=60 High Risk <40LDL Cholesterol Reference Range: Optimal <100 Near Optimal 100-129 Borderline 130-159 High 160-189 Very High >=190 FastingURINALYSIS W/ [id number] 00:43:00 Test Item Value Reference Range Interpretation Comments COLOR (BEAKER) (test code = Light Yellow 470) CLARITY (BEAKER) (test code = Clear 469) SPECIFIC GRAVITY UA (BEAKER) 1.004 1.001-1.035 (test code = 468) PH UA (BEAKER) (test code = 6.5 5.0-8.0 467) PROTEIN UA (BEAKER) (test code Negative Negative = 464) GLUCOSE UA (BEAKER) (test code Negative Negative = 365) KETONES UA (BEAKER) (test code Negative Negative = 371) BILIRUBIN UA (BEAKER) (test Negative Negative code = 462) BLOOD UA (BEAKER) (test code = Negative Negative 461) NITRITE UA (BEAKER) (test code Negative Negative = 465) LEUKOCYTE ESTERASE UA (BEAKER) Trace Negative A (test code = 466) UROBILINOGEN UA (BEAKER) (test 0.2 mg/dL 0.2-1.0 code = 463) RBC UA (BEAKER) (test code = 1 /HPF 519) WBC UA (BEAKER) (test code = 3 /HPF 520) BACTERIA (BEAKER) (test code = Rare 517) SQUAMOUS EPITHELIAL (BEAKER) 4 /HPF (test code = 516) SOURCE(BEAKER) (test code = Urine, Voided 4760) POCT-GLUCOSE [id number] 21:06:00 Test Item Value Reference Range Interpretation Comments POC-GLUCOSE METER 217 mg/dL 70-110 H TESTED AT [facility] 67 (BEAKER) (test code = [place] [facility] 1538) [address] SEDIMENTATION [id number] 20:24:00 Test Item Value Reference Range Interpretation Comments SEDIMENTATION RATE, ERYTHROCYTE 16 mm/HR 0-40 (BEAKER) (test code = 766) VITAMIN [id number] 19:36:00 Test Item Value Reference Range Interpretation Comments VITAMIN B12 (BEAKER) (test code = > pg/mL 213-816 H 774) POCT-GLUCOSE [id number] 19:08:00 Test Item Value Reference Range Interpretation Comments POC-GLUCOSE METER 105 mg/dL 70-110 TESTED AT [place] [address] (BEAKER) (test code = [facility] 1538) [address] BASIC METABOLIC [id number] 19:03:00 Test Item Value Reference Range Interpretation Comments SODIUM (BEAKER) 138 meq/L 136-145 (test code = 381) POTASSIUM (BEAKER) 4.6 meq/L 3.5-5.1 Specimen slightly (test code = 379) hemolyzed CHLORIDE (BEAKER) 116 meq/L 98-107 H (test code = 382) CO2 (BEAKER) (test 15 meq/L 22-29 L code = 355) BLOOD UREA NITROGEN 17 mg/dL 7-21 (BEAKER) (test code = 354) CREATININE (BEAKER) 0.93 mg/dL 0.57-1.25 Specimen slightly (test code = 358) hemolyzed GLUCOSE RANDOM 109 mg/dL 70-105 H (BEAKER) (test code = 652) CALCIUM (BEAKER) 8.1 mg/dL 8.4-10.2 L (test code = 697) EGFR (BEAKER) (test mL/min/1.73 INSUFFIC IENT CLINICAL code = 1092) sq m DATA TO CALCULA TE ESTIMATED GFR. HEPATIC FUNCTION [id number] 19:01:00 Test Item Value Reference Range Interpretation Comments TOTAL PROTEIN (BEAKER) 5.7 gm/dL 6.0-8.3 L Speci men slightly (test code = 770) hemolyzed ALBUMIN (BEAKER) (test 3.4 g/dL 3.5-5.0 L Speci men slightly code = 1145) hemolyzed BILIRUBIN TOTAL 0.2 mg/dL 0.2-1.2 Specimen sli ghtly (BEAKER) (test code = hemoly zed 377) BILIRUBIN DIRECT 0.1 mg/dL 0.1-0.5 Specimen sl ightly (BEAKER) (test code = hemoly zed 706) ALKALINE PHOSPHATASE 73 U/L 40-150 (BEAKER) (test code = 346) AST (SGOT) (BEAKER) 22 U/L 5-34 Specimen slightly (test code = 353) hemolyzed ALT (SGPT) (BEAKER) 12 U/L 6-55 Specimen slightly (test code = 347) hemolyzed CBC W/PLT COUNT & AUTO [id number] 18:54:00 Test Item Value Reference Range Interpretation Comments WHITE BLOOD CELL COUNT (BEAKER) 8.2 K/ L 4.0-10.0 (test code = 775) RED BLOOD CELL COUNT (BEAKER) 3.18 M/ L 4.00-5.00 L (test code = 761) HEMOGLOBIN (BEAKER) (test code = 10.3 GM/DL 12.0-15.0 L 410) HEMATOCRIT (BEAKER) (test code = 33.1 % 36.0-45.0 L 411) MEAN CORPUSCULAR VOLUME (BEAKER) 104.0 fL 82.0-99.0 H (test code = 753) MEAN CORPUSCULAR HEMOGLOBIN 32.5 pg 27.0-33.0 (BEAKER) (test code = 751) MEAN CORPUSCULAR HEMOGLOBIN CONC 31.2 GM/DL 32.0-36.0 L (BEAKER) (test code = 752) RED CELL DISTRIBUTION WIDTH 13.4 % 10.3-14.2 (BEAKER) (test code = 412) PLATELET COUNT (BEAKER) (test 203 K/CU MM 150-430 code = 756) MEAN PLATELET VOLUME (BEAKER) 8.4 fL 6.5-10.5 (test code = 754) NUCLEATED RED BLOOD CELLS 0 /100 WBC 0-0 (BEAKER) (test code = 413) NEUTROPHILS RELATIVE PERCENT 56 % (BEAKER) (test code = 429) LYMPHOCYTES RELATIVE PERCENT 31 % (BEAKER) (test code = 430) MONOCYTES RELATIVE PERCENT 5 % (BEAKER) (test code = 431) EOSINOPHILS RELATIVE PERCENT 8 % (BEAKER) (test code = 432) BASOPHILS RELATIVE PERCENT 1 % (BEAKER) (test code = 437) NEUTROPHILS ABSOLUTE COUNT 4.55 K/ L 1.80-8.00 (BEAKER) (test code = 670) LYMPHOCYTES ABSOLUTE COUNT 2.50 K/ L 1.48-4.50 (BEAKER) (test code = 414) MONOCYTES ABSOLUTE COUNT (BEAKER) 0.40 K/ L 0.00-1.30 (test code = 415) EOSINOPHILS ABSOLUTE COUNT 0.63 K/ L 0.00-0.50 H (BEAKER) (test code = 416) BASOPHILS ABSOLUTE COUNT (BEAKER) 0.09 K/ L 0.00-0.20 (test code = 417) 0.00
--- OUTSIDE RECORDS SUMMARY | 2020-09-22 10:14 | XMS REPORT | Summary of Care ---
:1950 Author Organization [facility] - Health Address [address] [place] [address] Care Team Providers Name Role Phone Mei Fracnois Garcia Primary Care Provider Encounter Details Date Type Department Care Team Description 06/28/2020 Orders Only [facility] Doctor Unassigned, No [address] [facility] [place] [address] [address] [place] [address] Allergies Active Allergy Reactions Severity Noted Date Comments Amoxicillin Rash 09/10/2018 Aspirin Other - See comments Medium 07/04/2015 Chills Hydrocodone Other - See comments Medium 07/04/2015 Chills Acetaminophen Other - See comments Medium 07/04/2015 Chills documented as of this encounter (statuses as of 07/16/2020) Medications Medication Sig Dispensed Refills Start Date [...] as of this encounter (statuses as of 07/16/2020) Active Problems No known active problemsdocumented as of this encounter (statuses as of 07/16/2020) Social History Tobacco Use Types Packs/Day Years Used Date Never Smoker Smokeless Tobacco: Never Used Alcohol Use Drinks/Week oz/Week Comments No 0 Standard drinks or equivalent 0.0 Sex Assigned at Date Recorded Not on file COVID-19 Exposure Response Date Recorded In the last month, have you been in contact with No / Unsure 06/28/2020 2:38 PM SUPERVISING LIBRARIAN someone who was confirmed or suspected to have Coronavirus / COVID-19? documented as of this encounter Last Filed Vital Signs Not on filedocumented in this encounter Plan of Treatment Date Type Specialty Care Team Description 10/04/2020 Office Visit Pulmonary Disease Mark Anthony Nichole DO [address] [place] [address] Health Maintenance Due Date Last Done [...] of this encounter Implants Implanted Type Area Salesperson Hearing Aids Device Shelf Model / Identifier Expiration Date Ser ial / Lot Acry Sof Iq Lens LENS Right: Tylor 07/16/2021 SN [id number] / Implanted: Qty: 1 on 10/28/2017 by Fracisco Jensen MD at [facility] 1 [id number] / [id number] Iol LENS Left: Eye Tylor 05/16/2021 [id number] / Implanted: Qty: 1 on 11/11/2017 by Fracisco Jensen MD at [facility] 1 [id number] / [id number] documented as of this encounter Procedures Procedure Name Priority Date/Time Associated Diagnosis Comme nts DME/SUPPLY JUSTIFICATION Routine 06/28/2020 12:01 AM SUPERVISING LIBRARIAN documented in this encounter Results Not on filedocumented in this encounter Insurance Payer Benefit Plan / Subscriber ID Effective Phone Address T e Group Dates [id number] 2019-Prese Medic are Adv [facility] - HEALTHCARE nt PPO MANAGED MEDICARE GOLD MEDICARE documented as of this encounter
--- OUTSIDE RECORDS SUMMARY | 2020-09-22 10:14 | XMS REPORT | Summary of Care ---
:1950 Author Organization [facility] Address [address] [place] [id number] Care Team Providers Name Role Phone Sigifredo Francois Garcia Primary Care Provider Reason for Visit Reason Comments Follow-up Obstructive Sleep Apnea Fatigue Encounter Details Date Type Department Care Team Description 06/28/2020 Office Visit [facility] Mark Anthony Nichole DO DANYEL (obstructive sleep [facility] apnea) (Primary Dx) [address] [place] [address] [phone] Allergies Active Allergy Reactions Severity Noted Date [...] with No / Unsure 06/28/2020 2:38 PM BRIM POUNCER someone who was confirmed or suspected to have Coronavirus / COVID-19? documented as of this encounter Last Filed Vital Signs Vital Sign Reading Time Taken Comments Blood Pressure 139/75 06/28/2020 3:05 PM BRIM POUNCER Pulse 77 06/28/2020 3:05 PM BRIM POUNCER Temperature - - Respiratory Rate 19 06/28/2020 3:05 PM BRIM POUNCER Oxygen Saturation 100% 06/28/2020 3:05 PM BRIM POUNCER Inhaled Oxygen Concentration - - Weight 83.9 kg (185 lb) 06/28/2020 3:05 PM BRIM POUNCER Height 165.1 cm (5' 5") 06/28/2020 3:05 PM BRIM POUNCER Body Mass Index 30.79 06/28/2020 3:05 PM BRIM POUNCER documented in this encounter Progress Notes Mark Anthony Nichole, - 06/28/2020 2:40 PM CST [facility] Chief Complaint: Follow [...] Visit Pulmonary Disease Mark Anthony Nichole DO [address] [place] [phone] Health Maintenance Due Date Last Done [...] of this encounter Implants Implanted Type Area Coffee Urn Attendant Device Shelf Model / Identifier Expiration Date Ser ial / Lot Acry Sof Iq Lens LENS Right: Tylor 07/16/2021 SN [id number] / Implanted: Qty: 1 on 10/28/2017 by Fracisco Jensen MD at [facility] 1 [id number] / [id number] Iol LENS Left: Eye Tylor 05/16/2021 [id number] / Implanted: Qty: 1 on 11/11/2017 by Fracisco Jensen MD at [facility] 1 [id number] / [id number] documented as of this encounter Results Not on filedocumented in this encounter Visit Diagnoses Diagnosis DANYEL (obstructive sleep apnea) - Primary Obstructive sleep apnea (adult) (pediatr ic) documented in this encounter Insurance Payer Benefit Plan / Subscriber ID Effective Phone Address T e Group Dates [facility] [id number] 2019-Prese Medic are [facility] HEALTHCARE - HEALTHCARE nt PPO MANAGED MEDICARE GOLD MEDICARE documented as of this encounter
[2020-09-22] MEDS ORDERED: DIPHENHYDRAMINE 25 MG TAB/CAP ONE (11:07)
[2020-09-22] MEDS ORDERED: IBUPROFEN 400 MG TAB ONE ×2 (11:07→11:10)
--- NOTE | 2020-09-22 12:20 | ER ---
Nurse's Notes [facility] Name: Bridgette Browne Age: 70 yrs Sex: Female : 1950 Arrival Date: 09/22/2020 Time: 10:11 Bed 6 Private MD: Ildefonso Mei C Diagnosis: Chills (without fever) Presentation: 09/22 10:16 Chief complaint: Patient states: started shaking and having chills about an hour ago , iw gets like this when if she takes Tylenol or aspirin or hydrocodone, like an allergic reaction, only took her BP medicine and antibiotic this morning, also had her first COVID immunization yesterday. Ebola Screen: Patient negative for fever greater than or equal to 101.5 degrees Fahrenheit, and additional compatible Ebola Virus Disease symptoms Patient denies exposure to infectious person. Patient denies travel to an Ebola-affected area in the 21 days before illness onset. No symptoms or risks identified at this time. Risk Assessment: Do you want to hurt yourself or someone else?. 10:16 Method Of Arrival: Wheelchair iw 10:16 Acuity: ISMAEL 3 iw 10:55 Coronavirus screen: Client denies travel out of the [place] in the last 14 days. liseth wood Pt received first done of Moderna vaccine yesterday. Onset: The symptoms/episode began/occurred 1 hour(s) ago. Anaphylaxis evaluation, no signs or symptoms of anaphylaxis were noted. Initial Sepsis Screen: Does the patient meet any 2 criteria? No. Patient's initial sepsis screen is negative. Does the patient have a suspected source of infection? No. Patient's initial sepsis screen is negative. Onset of symptoms was September 22, 2020 at 09:15. Care prior to arrival: None. Triage Assessment: 10:30 General: Appears distressed, uncomfortable, obese, Behavior is cooperative, appropriate bp for age, anxious. Pain: Denies pain. EENT: NO EDEMA OR INFLAMMATION NOTED. Neuro: Level of Consciousness is alert, obeys commands, lethargic, Oriented to Appropriate for age. Cardiovascular: Rhythm is sinus rhythm. Respiratory: Airway is patent Respiratory effort is even, unlabored, Respiratory pattern is regular, symmetrical. GI: No signs and/or symptoms were reported involving the gastrointestinal system. : No signs and/or symptoms were reported regarding the genitourinary system. Derm: No deficits noted. Musculoskeletal: No deficits noted. Historical: - Allergies: 10:18 Hydrocodone-Ibuprofen; iw 10:18 Tylenol-Codeine; iw 10:18 Aspirin; iw - PMHx: 10:18 Chronic pain; Diabetes - NIDDM; Hypertension; iw - Immunization history:: COVID-19 first dose 2--21. - Social history:: Smoking status: unknown. Screenin:30 Abuse screen: Denies threats or abuse. Denies injuries from another. Nutritional bp screening: No deficits noted. Tuberculosis screening: No symptoms or risk factors identified. Fall Risk None identified. Assessment: 10:30 General: SEE TRIAGE NOTE. bp 11:30 Reassessment: Patient appears in no apparent distress at this time. Patient and/or bp family updated on plan of care and expected duration. Pain level reassessed. Patient is alert, oriented x 3, equal unlabored respirations, skin warm/dry/pink. Respiratory: Airway is patent Respiratory effort is even, unlabored, Breath sounds are clear bilaterally. 12:00 Reassessment: Patient appears in no apparent distress at this time. Patient and/or jl7 family updated on plan of care and expected duration. Pain level reassessed. Patient is alert, oriented x 3, equal unlabored respirations, skin warm/dry/pink. Patient denies pain at this time. Patient states feeling better. Vital Signs: 10:18 BP 153 / 70; Pulse 91; Resp 16; Temp 98.7; Pulse Ox 100% on R/A; Weight 78.47 kg; iw Height 5 ft. 5 in. (165.10 cm); 11:30 BP 136 / 66; Pulse 82; Resp 16; Pulse Ox 98% ; bp 12:30 BP 145 / 72; Pulse 82; Resp 15; Pulse Ox 99% ; jl7 10:18 Body Mass Index 28.79 (78.47 kg, 165.10 cm) iw ED Course: 10:11 Patient arrived in ED. ag5 10:11 Ildefonso Mei MD is Private Physician. ag5 10:12 Carrillo Higgins PA is PHCP. jmm 10:12 Arnie Sheffield MD is Attending Physician. jmm 10:18 Triage completed. iw 10:25 [place]o RN is Primary Nurse. jl7 10:30 Arm band placed on. bp 10:30 Patient has correct armband on for positive identification. Bed in low position. Call bp light in reach. Side rails up X2. 12:33 No provider procedures requiring assistance completed. Patient did not have IV access jl7 during this emergency room visit. Administered Medications: 10:54 Drug: Ibuprofen 800 mg Route: PO; jl7 12:00 Follow up: Response: No adverse reaction; Marked relief of symptoms jl7 10:54 Drug: Benadryl 50 mg Route: PO; jl7 12:00 Follow up: Response: No adverse reaction jl7 Outcome: 12:19 Discharge ordered by . cristiano 12:33 Discharged to home ambulatory. 7 12:33 Condition: stable 12:33 Discharge instructions given to patient, Instructed on discharge instructions, follow up and referral plans. Demonstrated understanding of instructions, follow-up care. 12:35 Patient left the ED. jl7 Signatures: Carrillo Higgins PA PA jmm Williams, Irene, RN RN iw Leal, Jahala, RN RN [facility] Chivo Rizvi, DEMETRIO RN Cooper Alicia 5 Corrections: (The following items were deleted from the chart) 10:24 10:18 BP 153 / 70; Pulse 91bpm; Resp 16bpm; Pulse Ox 100% RA; 78.47 kg; Height 5 ft. 5 iw in.; BMI: 28.7; iw
--- NOTE | 2020-09-22 12:20 | EDPHYS ---
Physician Documentation [facility] Name: Bridgette Browne Age: 70 yrs Sex: Female : 1950 Arrival Date: 09/22/2020 Time: 10:11 Bed 6 Private MD: Ildefonso Mei C ED Physician Arnie Sheffield HPI: 09/22 10:48 This 70 yrs old Female presents to ER via Wheelchair with complaints of jmm Allergic Reaction. 10:48 Onset: The symptoms/episode began/occurred gradually, this morning. Associated signs jmm and symptoms: Pertinent positives: chills, Pertinent negatives: fever, hives, shortness of breath, swelling, vomiting. Possible causes: The patient has no known obvious cause for the symptoms. This is 70 year old female with a history of DM, HTN that presents to the ED with complaints of chills beginning this morning after taking her AM medications. Patient states she took the moderna covid 19 vaccine yesterday. . Historical: - Allergies: 10:18 Hydrocodone-Ibuprofen; iw 10:18 Tylenol-Codeine; iw 10:18 Aspirin; iw - PMHx: 10:18 Chronic pain; Diabetes - NIDDM; Hypertension; iw - Immunization history:: COVID-19 first dose 09-21-20. - Social history:: Smoking status: unknown. ROS: 10:48 Cardiovascular: Negative for chest pain, palpitations, and edema, Respiratory: Negative jmm for shortness of breath, cough, wheezing, and pleuritic chest pain, Abdomen/GI: Negative for abdominal pain, nausea, vomiting, diarrhea, and constipation. 10:48 Constitutional: Positive for chills. 10:48 All other systems are negative. Exam: 10:48 Constitutional: This is a well developed, well nourished patient who is awake, alert, jmm and in no acute distress. Head/Face: atraumatic. Eyes: EOMI, no conjunctival erythema appreciated ENT: Moist Mucus Membranes Neck: Trachea midline, Supple Chest/axilla: Normal chest wall appearance and motion. Cardiovascular: Regular rate and rhythm. No edema appreciated Respiratory: Normal respirations, no respiratory distress appreciated Abdomen/GI: Non distended, soft Back: Normal ROM Skin: General appearance color normal MS/ Extremity: Moves all extremities, no obvious deformities appreciated, no edema noted to the lower extremities Neuro: Awake and alert, normal gait Psych: Behavior is normal, Mood is normal, Patient is cooperative and pleasant Vital Signs: 10:18 BP 153 / 70; Pulse 91; Resp 16; Temp 98.7; Pulse Ox 100% on R/A; Weight 78.47 kg; iw Height 5 ft. 5 in. (165.10 cm); 11:30 BP 136 / 66; Pulse 82; Resp 16; Pulse Ox 98% ; bp 12:30 BP 145 / 72; Pulse 82; Resp 15; Pulse Ox 99% ; jl7 10:18 Body Mass Index 28.79 (78.47 kg, 165.10 cm) iw MDM: 10:39 Patient medically screened. [facility] 12:17 Data reviewed: vital signs, nurses notes. Counseling: I had a detailed discussion with cristiano the patient and/or guardian regarding: the historical points, exam findings, and any diagnostic results supporting the discharge/admit diagnosis, the need for outpatient follow up, to return to the emergency department if symptoms worsen or persist or if there are any questions or concerns that arise at home. ED course: Patient is alert and non toxic in appearance in the ED. No signs of resp distress. No pharyngeal edema. VS WNL. Patient is otherwise given strict return precautions. Patient understood and agrees with the plan of care. . Administered Medications: 10:54 Drug: Ibuprofen 800 mg Route: PO; jl7 12:00 Follow up: Response: No adverse reaction; Marked relief of symptoms jl7 10:54 Drug: Benadryl 50 mg Route: PO; jl7 12:00 Follow up: Response: No adverse reaction jl7 Disposition: 13:36 Co-signature as Attending Physician, Arnie Sheffield MD. rn Disposition: 09/22/20 12:19 Discharged to Home. Impression: Chills (without fever). - Condition is Stable. - Medication Reconciliation Form, Thank You Letter, Antibiotic Education, Prescription Opioid Use form. - Follow up: Private Physician; When: 2 - 3 days; Reason: Recheck today's complaints, Continuance of care, Re-evaluation by your physician. Signatures: Carrillo Higgins PA PA Meagan Salguero RN RN Arnie Sheffield MD MD rn Leal, Jahala, RN RN jl7 Corrections: (The following items were deleted from the chart) 12:35 12:19 09/22/2020 12:19 Discharged to Home. Impression: Chills (without fever). jl7 Condition is Stable. Forms are Medication Reconciliation Form, Thank You Letter, Antibiotic Education, Prescription Opioid Use. Follow up: Private Physician; When: 2 - 3 days; Reason: Recheck today's complaints, Continuance of care, Re-evaluation by your physician. cristiano
[2020-09-22 12:49] VITALS: TEMP 98.7
[2020-09-22 12:51] VITALS: BP 145/72; O2SAT 99
== END 2020-09-22 12:35 | disposition home or self-care (01) ==
LOC: ER 10:10
DX: R68.83 Chills (without fever) (principal); I10 Essential (primary) hypertension; Z88.5 Allergy status to narcotic agent; Z88.6 Allergy status to analgesic agent
CPT/HCPCS: 99284

== ENCOUNTER 2021-05-01 17:20 | Inpatient (IN) | payer OTHER ==
[2021-05-01 18:11] LABS: Urine Blood Negative (Negative); Urine Glucose Negative (Negative); Urine Protein Negative (Negative); Urine pH 6.5 (5.0-7.0)
[2021-05-01 18:29] LABS: Absolute Lymphocytes (CBC) 0.5 K/uL (0.7-4.9); Basophils % 0.3 % (0-1.3); Hematocrit 32.6 % (36.0-45.0); Lymphocytes % 5.2 % (15.3-44.8); MPV 8.7 fL (7.6-11.3); RBC Red Blood Cell Count 3.44 M/uL (3.86-4.86)
[2021-05-01 18:30] LABS: Protime INR 0.93
[2021-05-01] MEDS ORDERED: VANCOMYCIN 1 GM/VIAL ONE (18:37)
[2021-05-01] MEDS ORDERED: IBUPROFEN 400 MG TAB ONE (18:37)
[2021-05-01] MEDS ORDERED: CEFEPIME/SWI 1gm 10 ML ONE (18:38)
[2021-05-01] MEDS ORDERED: NA CHLORIDE 0.9% 1,000 ML ONE ×2 (18:38→20:14)
[2021-05-01 18:42] LABS: ALT/SGPT 20 U/L (12-78); AST/SGOT 28 U/L (15-37); Albumin 3.6 g/dL (3.4-5.0); Alkaline Phosphatase 129 U/L (45-117); BUN Blood Urea Nitrogen 31 mg/dL (7-18); Bicarbonate 18 mmol/L (21-32); Bilirubin Direct < 0.1 mg/dL (0-0.2); Bilirubin Total 0.3 mg/dL (0.2-1.0); Glucose Level 122 mg/dL (74-106); Magnesium 1.9 mg/dL (1.8-2.4); NT PRO-BNP 161 pg/mL (<125); Potassium 4.1 mmol/L (3.5-5.1); Protein, Total 7.4 g/dL (6.4-8.2); Sodium Level 136 mmol/L (136-145); Troponin (Emerg Dept Use Only) 0.08 ng/mL (0.0-0.045)
[2021-05-01 18:51] LABS: Urine Bacteria >50 /HPF (<20); Urine RBC <5 /HPF (NONE SEEN)
[2021-05-01] MEDS ORDERED: NA CHLORIDE 0.9% 250 ML ONE (19:19)
--- NOTE | 2021-05-01 19:38 | RAD REPORT ---
EXAM DESCRIPTION: RAD - Chest Single View - 05/01/2021 7:17 pm CLINICAL HISTORY: FEVER Chest pain. COMPARISON: Chest Single View dated 03/31/2018; Chest Single View dated 01/22/2018; Chest Single View d ated 02/10/2017; CHEST PA AND LAT 2 VIEW dated 12/12/2009 FINDINGS: Portable technique limits examination quality. Interstitial lung markings are mildly prominent. This may represent viral infection. The heart is mil dly enlarged in size. Cervical hardware plate is present.
[2021-05-01 19:57] LABS: SARS-COV-2 RT PCR POSITIVE (NEGATIVE)
--- NOTE | 2021-05-01 20:09 | EDPHYS ---
Physician Documentation [facility] Name: Bridgette Browne Age: 71 yrs Sex: Female : 1950 Arrival Date: 05/01/2021 Time: 17:23 Bed 20 Private MD: ED Physician Arnie Sheffield HPI: 05/01 17:50 This 71 yrs old Female presents to ER via Wheelchair with complaints of Cat cp Bite. 17:50 The patient was bitten on the lateral aspect of right lower leg, by a cat, stepped on cp animal in dark, at home. Onset: The symptoms/episode began/occurred 2 day(s) ago. 17:50 Secondary to the bite the patient reports erythema, multiple puncture wounds, that are cp superficial, swelling, warmth. Associated signs and symptoms: Pertinent positives: fever, pain at site. Historical: - Allergies: 17:31 Aspirin; jl7 17:31 Hydrocodone-Ibuprofen; jl7 17:31 Tylenol-Codeine; jl7 - Home Meds: 17:31 allopurinol 300 mg Oral tab 1 tab once daily [Active]; atorvastatin 20 mg Oral tab 1 jl7 tab once daily [Active]; alprazolam 0.5 mg Oral Tb24 1 tab once daily [Active]; gabapentin 600 mg Oral tab 1 tab twice a day [Active]; losartan 50 mg Oral tab 1 tab once daily [Active]; metformin 500 mg Oral tab 2 tabs 2 times per day [Active]; Plavix 75 mg Oral tab 1 tab once daily [Active]; Symbicort 160-4.5 mcg/actuation inhalation HFAA 2 puffs 2 times per day [Active]; tizanidine 4 mg Oral cap 1 cap 3 times per day [Active]; Tramadol Oral [Active]; Trokendi XR 100 mg Oral cp24 1 cap once daily [Active]; venlafaxine 150 mg Oral cp24 1 cap once daily [Active]; - PMHx: 17:31 Chronic pain; Diabetes - NIDDM; Hypertension; Gout; high cholesterol; Transient jl7 cerebral ischemia; Anxiety; - Immunization history:: Adult Immunizations up to date, Client reports receiving the 2nd dose of the Covid vaccine. - Social history:: Smoking status: Patient denies any tobacco usage or history of. ROS: 17:55 Constitutional: Positive for chills, fever, Negative for poor PO intake. cp 17:55 Respiratory: Negative for cough, shortness of breath, wheezing. cp 17:55 Eyes: Negative for injury, pain, redness, and discharge. cp 17:55 ENT: Positive for sore throat, Negative for drainage from ear(s), ear pain, difficulty swallowing, difficulty handling secretions. 17:55 Cardiovascular: Negative for chest pain, edema, palpitations. 17:55 Abdomen/GI: Negative for abdominal pain, vomiting, diarrhea, constipation. 17:55 Back: Negative for radiated pain. 17:55 : Negative for flank pain. cp 17:55 Skin: Positive for of the lateral aspect of right lower leg, cat bite. 17:55 Neuro: Negative for altered mental status, dizziness, headache. 17:55 All other systems are negative. Exam: 18:00 Constitutional: The patient appears in no acute distress, alert, awake, cp non-diaphoretic, non-toxic, well developed, well nourished. 18:00 Head/Face: Normocephalic, atraumatic. cp 18:00 Eyes: Periorbital structures: appear normal, Conjunctiva: normal, no exudate, no injection, Sclera: no appreciated abnormality, Lids and lashes: appear normal, bilaterally. 18:00 ENT: External ear(s): are unremarkable, Nose: is normal, Mouth: Lips: moist, Oral mucosa: pink and intact, moist, Posterior pharynx: Airway: no evidence of obstruction, patent, erythema, is not appreciated, exudate, is not appreciated. 18:00 Neck: ROM/movement: is normal, is supple, without pain, no range of motions limitations, no meningismus. 18:00 Chest/axilla: Inspection: normal, Palpation: is normal, no crepitus, no tenderness. 18:00 Cardiovascular: Rate: normal, Rhythm: regular, Edema: is not appreciated, JVD: is not appreciated. 18:00 Respiratory: the patient does not display signs of respiratory distress, Respirations: normal, no use of accessory muscles, no retractions, labored breathing, is not present, Breath sounds: bronchial sounds, that are mild, are heard diffusely, decreased breath sounds, are not appreciated, stridor, is not appreciated. 18:00 Abdomen/GI: Inspection: abdomen appears normal, Bowel sounds: active, all quadrants, Palpation: abdomen is soft and non-tender, in all quadrants. 18:00 Skin: injury, that can be described as erythema, swelling, puncture(s), that are superficial, of the lateral aspect of right lower leg. 18:00 Neuro: Orientation: to person, place \T\ time. Mentation: is normal, Motor: moves all fours, strength is normal. 18:27 ECG was reviewed by the Attending Physician. Vital Signs: 17:27 BP 105 / 49; Pulse 98; Resp 21; Temp 102.6; Pulse Ox 96% ; Weight 82.1 kg; Height 5 ft. jl7 5 in. (165.10 cm); Pain 4/10; 18:31 BP 92 / 31; Pulse 85; Resp 20; Pulse Ox 97% on R/A; kh1 19:05 Temp 101.3(O); kh1 19:59 BP 90 / 48; Pulse 78; Resp 17; Pulse Ox 100% on R/A; Pain 6/10; bc5 21:00 BP 102 / 52; Pulse 84; Resp 16; Temp 99(O); Pulse Ox 100% on R/A; Pain 4/10; bc5 21:21 Temp 99(O); Pain 4/10; bc5 22:52 BP 120 / 58; Pulse 78; Resp 16; Temp 99(O); Pulse Ox 100% on R/A; Pain 3/10; bc5 17:27 Body Mass Index 30.12 (82.10 kg, 165.10 cm) jl7 MDM: 17:41 Patient medically screened. cp 19:00 Differential diagnosis: cellulitis, sepsis, UTI. cp 20:00 Physician consultation: A Sigifredo JONES was called at 20:00, was contacted at 20:00, regarding admission, to the medical/surgical unit. patient's condition. 20:10 Data reviewed: vital signs, nurses notes, lab test result(s), EKG, radiologic studies, cp plain films, and as a result, I will admit patient. 20:10 Test interpretation: by ED physician or midlevel provider: ECG, plain radiologic cp studies. 05/01 17:43 Order name: Lactate cp 05/01 17:43 Order name: Urine Microscopic Only; Complete Time: 18:54 cp 05/01 18:54 Interpretation: Normal except: UBACT >50. 05/01 18:08 Order name: Strep; Complete Time: 20:04 cp 05/01 18:11 Order name: Urine Dipstick-Ancillary; Complete Time: 18:54 EDID 05/01 18:55 Interpretation: Normal except: U NIT Positive; UESTR Trace. 05/01 18:14 Order name: Urine Dipstick-Ancillary EDID 05/01 18:14 Order name: Basic Metabolic Panel; Complete Time: 18:54 EDID 05/01 18:55 Interpretation: Normal except: CL 110; CO2 18; GLUC 122; BUN 31; CRE 1.41; GFR 37; CA cp 8.0. 05/01 18:14 Order name: Liver (Hepatic) Function; Complete Time: 18:54 EDID 05/01 18:14 Order name: Troponin (Emerg Dept Use Only); Complete Time: 18:54 EDID 05/01 18:55 Interpretation: Abnormal: TROPED 0.08. 05/01 18:14 Order name: NT PRO-BNP; Complete Time: 18:54 EDID 05/01 18:14 Order name: Magnesium; Complete Time: 18:54 EDID 05/01 18:14 Order name: Procalcitonin; Complete Time: 19:00 EDID 05/01 19:00 Interpretation: Abnormal: Procalcitonin 0.17. 05/01 18:14 Order name: CBC with Automated Diff EDID 05/01 18:56 Interpretation: Normal except: RBC 3.44; HGB 10.7; HCT 32.6; RDW 15.7; KENNY% 88.1; LYM% cp 5.2; LYMA 0.5. 05/01 18:14 Order name: Protime (+INR); Complete Time: 18:54 EDID 05/01 18:14 Order name: Blood Culture EDID 05/01 18:14 Order name: Blood Culture EDID 05/01 18:52 Order name: Urine Culture EDID 05/01 19:23 Order name: Throat Culture EDID 05/01 19:58 Order name: COVID-19/FLU A+B; Complete Time: 20:04 [facility] 05/01 21:19 Order name: CBC Smear Scan EDID 05/01 17:43 Order name: XRAY Chest (1 view); Complete Time: 20:04 05/01 17:43 Order name: EKG; Complete Time: 18:22 cp 05/01 17:43 Order name: Cardiac monitoring; Complete Time: 18:12 cp 05/01 17:43 Order name: EKG - Nurse/Tech; Complete Time: 18:12 cp 05/01 17:43 Order name: IV Saline Lock; Complete Time: 18:05 cp 05/01 17:43 Order name: Labs collected and sent; Complete Time: 18:05 cp 05/01 17:43 Order name: O2 Per Protocol; Complete Time: 18:05 cp 05/01 17:43 Order name: O2 Sat Monitoring; Complete Time: 18:05 cp 05/01 17:43 Order name: Urine Dipstick-Ancillary (obtain specimen); Complete Time: 18:14 cp 05/01 22:06 Order name: Vancomycin Peak EDMS 05/01 22:06 Order name: CONS Physician Consult EDMS 05/01 22:06 Order name: Vancomycin Level Trough EDMS EC:27 Rate is 85 beats/min. Rhythm is regular. ID interval is normal. QRS interval is normal. cp QT interval is normal. T waves are Inverted in lead aVR. Interpreted by me. Reviewed by me. Administered Medications: 18:37 Drug: NS 0.9% 1000 ml Route: IV; Rate: 1000 ml/hr; Site: right forearm; [facility] 20:42 Follow up: IV Status: Completed infusion bc5 18:38 Drug: Ibuprofen 800 mg Route: PO; 1 21:21 Follow up: Temp 99 Oral; Pain 4/10 Adult 5 18:38 Drug: Cefepime 1 grams Route: IVPB; Rate: 200 ml/hr; Infused Over: 30 mins; Site: right 1 forearm; 20:42 Follow up: IV Status: Completed infusion bc5 19:00 Drug: vancoMYCIN 1 grams Route: IVPB; Infused Over: 2 hrs; Site: right forearm; bc5 20:42 Follow up: IV Status: Completed infusion bc5 19:50 Drug: NS 0.9% 1000 ml Route: IV; Rate: 1 bolus; Site: right forearm; bc5 20:43 Follow up: IV Status: Completed infusion bc5 20:07 CANCELLED (Physician Discretion): NS 0.9% (30 ml/kg) 30 ml/kg IV at bolus once; Sepsis cp Protocol 20:28 Drug: LevaQUIN (levofloxacin) 750 mg Volume: 150 ml; Route: IVPB; Infused Over: 90 bc5 mins; Site: right forearm; 22:51 Follow up: IV Status: Completed infusion bc5 20:42 Drug: NS 0.9% 400 ml Route: IV; Rate: bolus; Site: right forearm; bc5 22:57 Follow up: IV Status: Completed infusion bc5 Disposition Summary: 05/01/21 20:09 Hospitalization Ordered Hospitalization Status: Inpatient Admission cp Provider: Ildefonso Mei [facility] cp Condition: Stable cp Problem: new cp Symptoms: have improved cp Bed/Room Type: Standard cp Room Assignment: 423(05/01/21 22:15) tl1 Diagnosis - Sepsis, unspecified organism cp - UTI/ Urinary tract infection, site not specified cp - Bitten by cat cp - Cellulitis of right lower limb cp Forms: - Medication Reconciliation Form cp - SBAR form cp Addendum: 05/06/2021 08:27 Co-signature as Attending Physician, Arnie Sheffield MD I agree with the assessment and r n plan of care. Attestation: The patient's history, exam findings, diagnostics, and a summary of any interventions or procedures was reviewed in detail with Sebas BARKSDALE. Signatures: Dispatcher [employer] Arnie Reynoso MD MD rn Lasagna, Tonya RN RN tl1 Sebas Cuevas PA PA cp Leal, Jahala RN RN dago7 Josy Ibanez 1 Quynh Taylor, RN RN bc5 Corrections: (The following items were deleted from the chart) 05/01 18:27 18:22 CBC+H.LAB.BRZ ordered. EDMS EDMS 18:27 18:22 PROTIME (+INR)+COAG.LAB.BRZ ordered. EDMS EDMS 18:28 18:22 BASIC METABOLIC PANEL+C.LAB.BRZ ordered. EDMS EDMS 18:28 18:22 HEPATIC FUNCTION+C.LAB.BRZ ordered. EDMS EDMS 18:28 18:22 MAGNESIUM+C.LAB.BRZ ordered. EDMS EDMS 18:28 18:22 PROBNP+C.LAB.BRZ ordered. EDMS EDMS 18:28 18:22 TROPONIN (EMERG DEPT USE ONLY)+C.LAB.BRZ ordered. EDMS EDMS 18:28 18:22 PCT+C.LAB.BRZ ordered. EDMS EDMS 18:28 18:22 BLOOD CULTURE*+BA.LAB.BRZ ordered. EDMS EDMS 19: 18:23 CORONAVIRUS+MR.LAB.BRZ ordered. EDMS EDMS 19:07 18:23 Influenza Screen (A \T\ B)+BA.LAB.BRZ ordered. EDMS EDMS 20: 20:07 NS 0.9% (30 ml/kg) 30 ml/kg IV at bolus once; Sepsis Protocol ordered. cp cp 22:15 20:09 cp tl1
--- NOTE | 2021-05-01 20:09 | ER ---
Nurse's Notes [facility] Name: Bridgette Browne Age: 71 yrs Sex: Female : 1950 Arrival Date: 05/01/2021 Time: 17:23 Bed 20 Private MD: Diagnosis: Sepsis, unspecified organism;UTI/ Urinary tract infection, site not specified;Bitten by cat;Cellulitis of right lower limb Presentation: 05/01 17:27 Chief complaint: Patient states: Cat bite to right lateral lower extremity 2 days ago, jl7 area is painful, red and swollen; fever and chills started this morning. Coronavirus screen: Vaccine status: Patient reports receiving the 2nd dose of the covid vaccine. Date February 2021 Moderna booster. Ebola Screen: No symptoms or risks identified at this time. Initial Sepsis Screen: Does the patient meet any 2 criteria? RR > 20 per min. Temp <36.0*C (96.8*F)) or > 38.3*C (100.9*F). HR > 90 bpm. Does the patient have a suspected source of infection? Yes: Skin breakdown/wound. Risk Assessment: Do you want to hurt yourself or someone else? Patient reports no desire to harm self or others. Onset of symptoms was April 29, 2021. 17:27 Method Of Arrival: Wheelchair [facility] 17:27 Acuity: ISMAEL 2 jl7 Triage Assessment: 17:31 Bite description: bite sustained to lateral aspect of right calf is infected, from jl7 human, by a cat, animal information: vaccination(s) is current. General: Appears in no apparent distress. uncomfortable, Behavior is calm, cooperative, appropriate for age. Pain: Complains of pain in lateral aspect of right calf Pain currently is 4 out of 10 on a pain scale. Historical: - Allergies: 17:31 Aspirin; [facility] 17:31 Hydrocodone-Ibuprofen; [facility] 17:31 Tylenol-Codeine; jl7 - Home Meds: 17:31 allopurinol 300 mg Oral tab 1 tab once daily [Active]; atorvastatin 20 mg Oral tab 1 jl7 tab once daily [Active]; alprazolam 0.5 mg Oral Tb24 1 tab once daily [Active]; gabapentin 600 mg Oral tab 1 tab twice a day [Active]; losartan 50 mg Oral tab 1 tab once daily [Active]; metformin 500 mg Oral tab 2 tabs 2 times per day [Active]; Plavix 75 mg Oral tab 1 tab once daily [Active]; Symbicort 160-4.5 mcg/actuation inhalation HFAA 2 puffs 2 times per day [Active]; tizanidine 4 mg Oral cap 1 cap 3 times per day [Active]; Tramadol Oral [Active]; Trokendi XR 100 mg Oral cp24 1 cap once daily [Active]; venlafaxine 150 mg Oral cp24 1 cap once daily [Active]; - PMHx: 17:31 Chronic pain; Diabetes - NIDDM; Hypertension; Gout; high cholesterol; Transient jl7 cerebral ischemia; Anxiety; - Immunization history:: Adult Immunizations up to date, Client reports receiving the 2nd dose of the Covid vaccine. - Social history:: Smoking status: Patient denies any tobacco usage or history of. Screenin:35 Abuse screen: Denies threats or abuse. Nutritional screening: No deficits noted. kh1 Tuberculosis screening: No symptoms or risk factors identified. Fall Risk None identified. IV access (20 points). Assessment: 18:33 General: Appears in no apparent distress. comfortable, Behavior is calm, cooperative, kh1 appropriate for age, Reports chills for 12-24 hours, fever for 12-24 hours. Neuro: No deficits noted. Cardiovascular: No deficits noted. Reports. Respiratory: No deficits noted. Airway is patent. GI: No deficits noted. Derm: Reports increased pain that is 6 out of 10 on a pain scale. since yesterday from cat bite. 18:36 Derm: Skin is pink, warm \T\ dry. [facility] 18:36 Derm: Skin bite grimaldo scratches. 1 19:56 Reassessment: Pt sitting up in stretcher with eyes open, RR is even and unlabored, bc5 speaking in clear and complete sentences at this time. Pt c/o ARZOLA provider aware and at bedside informed pt BP was too low to treat ARZOLA with narcotic pain meds and Pt is allergic to Tylenol. WCTM. 23:09 Reassessment: Report called to Manuelito ATKINSON on 4th floor. pt to room 423. bc5 Vital Signs: 17:27 BP 105 / 49; Pulse 98; Resp 21; Temp 102.6; Pulse Ox 96% ; Weight 82.1 kg; Height 5 ft. jl7 5 in. (165.10 cm); Pain 4/10; 18:31 BP 92 / 31; Pulse 85; Resp 20; Pulse Ox 97% on R/A; kh1 19:05 Temp 101.3(O); kh1 19:59 BP 90 / 48; Pulse 78; Resp 17; Pulse Ox 100% on R/A; Pain 6/10; bc5 21:00 BP 102 / 52; Pulse 84; Resp 16; Temp 99(O); Pulse Ox 100% on R/A; Pain 4/10; bc5 21:21 Temp 99(O); Pain 4/10; bc5 22:52 BP 120 / 58; Pulse 78; Resp 16; Temp 99(O); Pulse Ox 100% on R/A; Pain 3/10; bc5 17:27 Body Mass Index 30.12 (82.10 kg, 165.10 cm) jl7 ED Course: 17:23 Patient arrived in ED. ds1 17:31 Triage completed. jl7 17:31 Arm band placed on right wrist. jl7 17:36 Sebas Cuevas PA is PHCP. cp 17:36 Arnie Sheffield MD is Attending Physician. cp 18:00 First set of blood cultures drawn by me. mt 18:04 Inserted saline lock: 20 gauge in right forearm, using aseptic technique. Blood mt collected. 18:09 Josy Ibanez is Primary Nurse. kh1 18:35 Patient has correct armband on for positive identification. Bed in low position. Call [facility] light in reach. Side rails up X 1. 18:35 No provider procedures requiring assistance completed. Patient maintains SpO2 1 saturation greater than 95% on room air. 18:37 Blood Culture Sent. kh1 18:37 Blood Culture Sent. kh1 18:37 Procalcitonin Sent. kh1 18:37 Basic Metabolic Panel Sent. kh1 18:37 Liver (Hepatic) Function Sent. kh1 18:37 Troponin (Emerg Dept Use Only) Sent. kh1 18:37 NT PRO-BNP Sent. kh1 18:37 Magnesium Sent. kh1 18:37 Strep Sent. kh1 18:37 Lactate Sent. kh1 19:17 XRAY Chest (1 view) In Process Unspecified. EDMS 20:08 Ildefonso Mei MD is Hospitalizing Provider. cp 20:59 Urine Dipstick-Ancillary Sent. bc5 Administered Medications: 18:37 Drug: NS 0.9% 1000 ml Route: IV; Rate: 1000 ml/hr; Site: right forearm; 1 20:42 Follow up: IV Status: Completed infusion bc5 18:38 Drug: Ibuprofen 800 mg Route: PO; kh1 21:21 Follow up: Temp 99 Oral; Pain 4/10 Adult bc5 18:38 Drug: Cefepime 1 grams Route: IVPB; Rate: 200 ml/hr; Infused Over: 30 mins; Site: right 1 forearm; 20:42 Follow up: IV Status: Completed infusion bc5 19:00 Drug: vancoMYCIN 1 grams Route: IVPB; Infused Over: 2 hrs; Site: right forearm; bc5 20:42 Follow up: IV Status: Completed infusion bc5 19:50 Drug: NS 0.9% 1000 ml Route: IV; Rate: 1 bolus; Site: right forearm; bc5 20:43 Follow up: IV Status: Completed infusion bc5 20:07 CANCELLED (Physician Discretion): NS 0.9% (30 ml/kg) 30 ml/kg IV at bolus once; Sepsis cp Protocol 20:28 Drug: LevaQUIN (levofloxacin) 750 mg Volume: 150 ml; Route: IVPB; Infused Over: 90 bc5 mins; Site: right forearm; 22:51 Follow up: IV Status: Completed infusion bc5 20:42 Drug: NS 0.9% 400 ml Route: IV; Rate: bolus; Site: right forearm; bc5 22:57 Follow up: IV Status: Completed infusion 5 Outcome: 20:09 Decision to Hospitalize by Provider. cp 23:41 Patient left the ED. bc5 Signatures: Dispatcher [employer] [facility] Center[facility], [facility] Sebas Cuevas PA PA cp Leal, Jahala, RN RN Estefany Vivar mt, [place] Quynh Taylor RN RN bc5 Corrections: (The following items were deleted from the chart) 19:06 18:37 CORONAVIRUS+MR.LAB.BRZ drawn and sent. [facility] EDMS 19:07 18:37 Influenza Screen (A \T\ B)+BA.LAB.BRZ drawn and sent. [facility] EDIA
[2021-05-01] MEDS ORDERED: Levofloxacin 750mg IV 750 MG/150 ML BAG IV ONE (20:44)
[2021-05-01 21:19] LABS: Blood Morphology Comment NOT SEEN (NOT SEEN); Platelet Estimate ADEQ; White Blood Cell Scan OK (OK)
[2021-05-01] MEDS ORDERED: NA CHLORIDE 0.9% 500 ML ONE (21:22)
[2021-05-01] MEDS ORDERED: ONDANSETRON 4 MG/2 ML VIAL IV PRN (21:58)
[2021-05-01] MEDS ORDERED: IBUPROFEN 600 MG TAB PO PRN (22:00)
[2021-05-01] MEDS ORDERED: NA CHLORIDE 0.9% 1,000 ML IV SCH (22:00)
[2021-05-01] MEDS ORDERED: Pharmacy Consult 1 EA XX PRN (22:01)
[2021-05-01] MEDS ORDERED: GLUCAGON 1 MG/VIAL IM PRN (22:04)
[2021-05-01] MEDS ORDERED: D50W 25 GM/50 ML SYRINGE IV PRN (22:04)
[2021-05-01] MEDS ORDERED: IBUPROFEN 200 MG TAB PO PRN (22:13)
[2021-05-01] MEDS ORDERED: VANCOMYCIN 500 MG in NA CHLORIDE 0.9% 100 ML IVPB ONE (22:45)
[2021-05-01] MEDS ORDERED: Levofloxacin500mg IV 500 MG/100 ML BAG IV SCH (23:00)
[2021-05-02 01:11] VITALS: BMI 4206.3
[2021-05-02] MEDS ORDERED: VENLAFAXINE HCL XR 75 MG CAP PO ONE (02:43)
[2021-05-02] MEDS ORDERED: NA CHLORIDE 0.9% 100 ML ONE (03:00)
[2021-05-02] MEDS ORDERED: VANCOMYCIN 500 MG/VIAL ONE (03:01)
[2021-05-02 05:17] LABS: Potassium 3.8 mmol/L (3.5-5.1)
[2021-05-02 05:37] LABS: Absolute Lymphocytes (CBC) 0.6 K/uL (0.7-4.9); Basophils % 0.5 % (0-1.3); Hematocrit 30.5 % (36.0-45.0); Lymphocytes % 8.6 % (15.3-44.8); MPV 9.7 fL (7.6-11.3); RBC Red Blood Cell Count 3.16 M/uL (3.86-4.86)
[2021-05-02] MEDS ORDERED: clonazePAM 0.5 MG TAB PO PRN (07:14)
[2021-05-02] MEDS: INSULIN -REGULAR HUMAN 50 UNIT/0.5 ML ML SQ SCH ×4 (07:30→20:49)
[2021-05-02] MEDS: METFORMIN HCL 500 MG TAB PO SCH ×2 (08:00→16:31)
[2021-05-02] MEDS: Levofloxacin500mg IV 500 MG/100 ML BAG IV SCH (08:19)
[2021-05-02] MEDS: TRAMADOL HCL 50 MG TAB PO SCH ×3 (08:20→20:44)
[2021-05-02] MEDS: GABAPENTIN 400 MG CAP PO SCH ×2 (08:20→20:46)
[2021-05-02] MEDS: TIZANIDINE 4 MG TABLET PO SCH ×2 (08:20→20:45)
[2021-05-02] MEDS: APIXABAN 2.5 MG TABLET PO SCH ×2 (08:20→20:45)
[2021-05-02] MEDS: NA CHLORIDE 0.9% 1,000 ML IV SCH (08:23)
[2021-05-02] MEDS: PREDNISOLONE 1% OPTH SOLN 5ML OPTH SCH ×2 (09:00→09:24)
[2021-05-02] MEDS: KETOROLAC OPTHALMIC 5 ML BOT EACH EYE SCH ×2 (09:00→09:28)
[2021-05-02] MEDS ORDERED: ENOXAPARIN 40 MG/0.4 ML SQ SCH (09:00)
--- NOTE | 2021-05-02 10:04 | RAD REPORT ---
EXAM DESCRIPTION: CT - Thorax Wo Con - 05/02/2021 8:48 am CLINICAL HISTORY: covid COMPARISON: Chest Single View dated 05/01/2021, more remote comparison studies were not available due to technical malfunction TECHNIQUE: Axial 5 mm thick images of the chest were obtained without IV contrast. All CT scans are performed using dose optimization technique as appropriate and may include automated exposure control or mA/KV adjustment according to patient size. FINDINGS: No airspace disease present. No CT findings for COVID-19 pneumonia. Minimal subpleural sca rring changes are present. Interstitial pattern on CT imaging is not outside of normal range. No pleu ral thickening or pleural effusion. No pneumothorax. No abnormal mediastinal or hilar masses or lymphadenopathy seen. No gross aortic or pulmonary artery finding suspected. Assessment is limited in the absence of IV contrast. No chest wall mass or abnormal axillary lymphadenopathy. IMPRESSION: No COVID-19 pneumonia findings and no other airspace process identified. On CT imaging the interstitial pattern is not outside of normal range. No significant interstitial ed lary or infiltrate findings.
[2021-05-02] MEDS ORDERED: Levofloxacin 250mg IV 250 MG/50 ML BAG IV SCH (20:00)
[2021-05-02] MEDS: allopurinoL 300 MG TAB PO SCH (20:44)
[2021-05-02] MEDS: VENLAFAXINE HCL XR 75 MG CAP PO SCH (20:45)
[2021-05-02] MEDS: ATORVASTATIN 80 MG TAB PO SCH (20:45)
[2021-05-02] MEDS: CLOPIDOGREL 75 MG TABLET PO SCH (20:45)
[2021-05-02] MEDS: LOSARTAN POTASSIUM 50 MG TABLET PO SCH (20:46)
[2021-05-02] MEDS: TOPIRAMATE 200 MG PO SCH (21:00)
[2021-05-03] MEDS: NA CHLORIDE 0.9% 1,000 ML IV SCH (04:04)
[2021-05-03 06:26] LABS: Absolute Lymphocytes (CBC) 0.8 K/uL (0.7-4.9); Basophils % 0.7 % (0-1.3); Hematocrit 27.6 % (36.0-45.0); Lymphocytes % 15.9 % (15.3-44.8); MPV 9.1 fL (7.6-11.3); RBC Red Blood Cell Count 2.86 M/uL (3.86-4.86)
[2021-05-03 06:43] LABS: Magnesium 1.7 mg/dL (1.8-2.4); Potassium 3.7 mmol/L (3.5-5.1)
--- NOTE | 2021-05-03 07:04 | RAD REPORT ---
EXAM DESCRIPTION: RAD - Chest Single View - 05/03/2021 4:51 am CLINICAL HISTORY: covidpneumonia COMPARISON: May 01 portable chest, May 02 CT chest TECHNIQUE: AP portable chest image was obtained 05/03/2021 4:51 am . FINDINGS: No new or progressive lung parenchymal findings. Interstitial pattern is stable. Heart and vasculature are normal. No measurable pleural effusion and no pneumothorax. No acute bony abnormalit y seen. No acute aortic findings suspected. IMPRESSION: No new or progressive cardiopulmonary findings.
[2021-05-03] MEDS: INSULIN -REGULAR HUMAN 50 UNIT/0.5 ML ML SQ SCH ×4 (07:30→21:00)
[2021-05-03] MEDS: METFORMIN HCL 500 MG TAB PO SCH ×2 (09:04→16:26)
[2021-05-03] MEDS: TIZANIDINE 4 MG TABLET PO SCH ×2 (09:04→21:43)
[2021-05-03] MEDS: GABAPENTIN 400 MG CAP PO SCH ×2 (09:04→21:42)
[2021-05-03] MEDS: APIXABAN 2.5 MG TABLET PO SCH ×2 (09:04→21:42)
[2021-05-03] MEDS: Levofloxacin500mg IV 500 MG/100 ML BAG IV SCH (09:05)
[2021-05-03] MEDS: TRAMADOL HCL 50 MG TAB PO SCH ×3 (09:05→21:43)
[2021-05-03] MEDS ORDERED: VANCOMYCIN 1.5 GM in NA CHLORIDE 0.9% 500 ML IVPB SCH (10:00)
--- NOTE | 2021-05-03 10:29 | RAD REPORT ---
EXAM DESCRIPTION: US - Urinary Bladder - 05/03/2021 10:04 am CLINICAL HISTORY: recurrent UTI COMPARISON: Renal Ultrasound-Complete dated 04/16/2021 TECHNIQUE: Pelvic sonography was performed to evaluate the urinary bladder. FINDINGS: Urinary bladder is only partially filled. No wall thickening or mass identified. No stone or other intraluminal filling defect identifiable. IMPRESSION: Unremarkable bladder ultrasound.
--- NOTE | 2021-05-03 10:29 | RAD REPORT ---
EXAM DESCRIPTION: US - Renal Ultrasound-Complete - 05/03/2021 10:04 am CLINICAL HISTORY: recurrent UTI COMPARISON: Renal Ultrasound-Complete dated 04/16/2021enal ultrasound April 16 FINDINGS: The right kidney measures grossly 9.2 x 4.2 cm. The left kidney measures grossly 9.6 x 4. 1 cm. When adjusting for image selection and measuring technique, kidneys are unchanged in size from the short interval April 16 study. Renal cortical thickness and echogenicity are normal. No hydronephrosis or suspicious renal mass. Urinary bladder is detailed in separately requested report. IMPRESSION: No hydronephrosis or suspicious renal mass. No new finding from April 16 imaging.
[2021-05-03] MEDS ORDERED: MAGNESIUM SULFATE 1 gm IVPB 1 GM/100 ML BAG IV ONE (11:05)
--- NOTE | 2021-05-03 12:49 | PN ---
Date of Progress Note: 05/03/2021 Subjective: Patient was seen this morning for followup. No new problems reported by the patient. S he was lying in bed, not in distress, not using any oxygen supplemental, right lower leg is better th an yesterday. Objective: Vital Signs: Reviewed. HEENT: Unremarkable. Lungs: Clear to auscultation. Cardiac: Heart sounds normal. Abdomen: Soft. Bowel sounds normal. No guarding, rigidity, tenderness or distention. Extremities: No leg edema. Right lower extremity area of slight warmness and tenderness from right lower lateral extremity is unchanged from yesterday. There is no great discoloration of the skin and skin appears normal color like surrounding skin. Laboratory Data: White count 5.3, hemoglobin 9.1, platelets 206. CRP 102. Sodium 141, potassium 3. 7, chloride 116, bicarb 20, BUN 24, creatinine 1.11, glucose 103, magnesium 1.7. Impression: 1.Cellulitis, right leg. 2.COVID-19 infection. 3.Urinary tract infection. 4.Hypomagnesemia. 5.Iron-deficiency anemia. Plan: We will go ahead and replace magnesium per protocol. Continue current empiric antibiotics. B lood culture and urine culture result are pending and for her cellulitis of right lower extremity, th e patient reports having less pain today compared to yesterday. Clinically, she is stable at this po int. We will continue current antibiotics. I will see her tomorrow for followup. Her CAT scan of the chest without contrast done yesterday did not show any sign of COVID pneumonia. DIAMOND/MODL Voice ID: [id number] Report ID: [id number]
[2021-05-03] MEDS: TOPIRAMATE 200 MG PO SCH (21:00)
[2021-05-03] MEDS: VENLAFAXINE HCL XR 75 MG CAP PO SCH (21:41)
[2021-05-03] MEDS: LOSARTAN POTASSIUM 50 MG TABLET PO SCH (21:42)
[2021-05-03] MEDS: CLOPIDOGREL 75 MG TABLET PO SCH (21:42)
[2021-05-03] MEDS: allopurinoL 300 MG TAB PO SCH (21:43)
[2021-05-03] MEDS: ATORVASTATIN 80 MG TAB PO SCH (21:43)
[2021-05-04] MEDS: NA CHLORIDE 0.9% 1,000 ML IV SCH (01:21)
[2021-05-04 06:03] LABS: Potassium 4.4 mmol/L (3.5-5.1)
[2021-05-04] MEDS: INSULIN -REGULAR HUMAN 50 UNIT/0.5 ML ML SQ SCH ×2 (07:30→11:30)
[2021-05-04 08:03] LABS: Magnesium 1.8 mg/dL (1.8-2.4)
[2021-05-04] MEDS: TIZANIDINE 4 MG TABLET PO SCH (08:52)
[2021-05-04] MEDS: APIXABAN 2.5 MG TABLET PO SCH (08:52)
[2021-05-04] MEDS: TRAMADOL HCL 50 MG TAB PO SCH (08:52)
[2021-05-04] MEDS: GABAPENTIN 400 MG CAP PO SCH (08:52)
[2021-05-04] MEDS: Levofloxacin500mg IV 500 MG/100 ML BAG IV SCH (08:53)
[2021-05-04 09:42] VITALS: O2SAT 91
--- NOTE | 2021-05-04 10:06 | HP ---
Date of Admission: 05/02/2021 Chief Complaint: Fever, chills, and right leg pain. History Of Present Illness: This is a 71-year-old pleasant female patient with multiple comorbidities, had cat bite right lower extremity and this was her own cat and it happened about 2 to 3 days prior to this admission. The patient noted that she had slight swelling in the lower part of the right leg and redness of the skin around the bite area, but also had some pain in this region. Today, she came into emergency room with fever, chills, and pain in her right leg. After she was evaluated in the ER, initially when she first came in, her blood pressure was low in emergency room, which was 90/48 in emergency room, and she was given IV fluid for sepsis protocol. Also was noted to have urinary tract infection and some cellulitis of right lower extremity and her COVID-19 test was positive. She does not have any symptoms related to COVID, and she has received her vaccination for COVID-19. The patient was admitted to the hospital after her evaluation in the emergency room. Allergies: TO HYDROCODONE CAUSING CHILLS. SHE IS ALLERGIC TO HYDROCODONE AND TYLENOL BOTH CAUSING CHILLS. Medications: List reviewed. Review of Systems: Constitutional: As mentioned above. Dermatology: As mentioned above. All other systems reviewed and negative. 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 Past Surgical History: Cataract surgery, hernia repair, gastric band placement for weight loss surgery in 2010, hysterectomy, cervical spine surgery, lumbar spine surgery, shoulder surgery, and carpal tunnel release. Family History: Father , had kidney failure. Mother because of congestive heart failure. Brother has diabetes. Sister with diabetes, heart disease, congestive heart failure and daughter has diabetes, rheumatoid arthritis, and COPD. Family history negative for smoking and alcohol use. Social History: Negative for smoking and alcohol use. Immunization History: Her first dose of COVID-19 vaccine was on September 21, 2020. Second dose was on October 19, 2020. Physical Examination: Vital Signs: Last vital signs temperature 97.9, pulse 81, respiratory rate 18, blood pressure 135/62, oxygen saturation 100% on room air. General: Awake, alert, oriented, not in distress. HEENT: Head atraumatic, normocephalic. Conjunctivae nonerythematous. Sclerae white. Mouth, no thrush or edema noted. Ears/Nose, no mass, lesion, discharge noted. Neck: Supple. No JVD, lymph nodes, bruit, thyromegaly noted. Lungs: Bilateral good equal air entry. Clear to auscultation. No rhonchi. No rales. Heart: Normal heart sounds, no murmur or gallop. Abdomen: Soft, bowel sounds normal. No guarding, rigidity, tenderness, mass, hepatosplenomegaly, distention, or bruit noted. Extremities: Right lower extremity has 3 different superficial area of bite mary. No open wound and each area is about 2 mm in size approximately. There is no discharge, no bleeding. The patient has very minimal soft tissue swelling surrounding this involving lower 1/4 of the right lower lateral extremity and has some soft tissue tenderness in this region and skin is slightly warm to touch, but appears normal color. Skin: No rash, ulcer, cellulitis. Lymphatics: No lymph node enlargement in neck, supraclavicular, infraclavicular region. Neuro: No focal neurological deficit. Chest: Unremarkable. External Genitalia: Deferred. Rectal: Deferred. Labs: Yesterday, white count 9, hemoglobin 10.7, platelets 257. Today, white count 6.7, hemoglobin 10, platelets 215. Yesterday, sodium 136, potassium 4.1, chloride 110, bicarb 18. Liver function tests unremarkable. Procalcitonin 0.17. Today, sodium 142, potassium 3.8, chloride 116, bicarb 19, BUN 29, creatinine 1.30, glucose 87. Urinalysis positive for nitrite and esterase more than 50 bacteria. Influenza A and B test negative. COVID-19 test positive. Chest x-ray shows interstitial lung markings, mildly prominent. Impression: 1. COVID-19 infection. 2. Rule out COVID-19 pneumonia. 3. Cellulitis, right leg. 4. Urinary tract infection. 5. Rule out sepsis. 6. Volume depletion. 7. Hypertension. 8. Mixed hyperlipidemia. 9. Type 2 diabetes mellitus. 10. Obstructive sleep apnea. 11. Diabetes mellitus with neuropathy. 12. Osteoarthritis, multiple sites. 13. Iron deficiency anemia. Plan: We will admit the patient to hospital for further evaluation and management of this problem. The patient is appropriate for inpatient and is expected to spend 2 midnights in hospital. We will go ahead and continue home medications per order. I have ordered CAT scan of the chest, and we will follow up on that. Consult Dr. Thapa from Pulmonary Service. Anticoagulation therapy will be given per order using Eliquis. We will continue empiric antibiotic Levaquin and vancomycin which was started in emergency room. I will go ahead and discontinue that. Followup on culture results and then make decision regarding any culture specific antibiotic if we need to change it. Details and plan of treatment discussed with the patient. Continue IV fluid, but reduce rate. I will see her tomorrow for followup. DIAMOND/MODL Voice ID: [id number] PENG
[2021-05-04] MEDS ORDERED: AMOX/K CLAV 875 MG TAB PO ONE (11:34)
[2021-05-04 12:41] VITALS: BP 106/54; TEMP 98.4
--- NOTE | 2021-05-04 13:29 | DS ---
Date of Discharge: 05/04/2021 Disposition: Discharged to go home. Physical Examination: HEENT: Unremarkable. Lungs: Clear to auscultation. Heart: Sounds normal. Abdomen: Soft. Bowel sounds normal. No guarding, rigidity, tenderness, distention. Extremities: No leg edema. Right lower lateral leg has 3 bite grimaldo that have healed well. No open wound, has slight tenderness in the surrounding skin. Overall that is better. There is no redness of the skin. No discharge. No bleeding. Laboratory Data: Upon admission, white count 9, hemoglobin 10.7, platelets 257, and yesterday white count 5.3, hemoglobin 9.1, platelets 206. Upon admission; sodium 136, potassium 4.1, chloride 110, bicarb 18, BUN 31, creatinine 1.41, glucose 122. Liver function tests, unremarkable. Procalcitonin 0.17. Her troponin was 0.18. Last chemistr y today; sodium 140, potassium 4.4, chloride 116, bicarb 21, BUN 24, creatinine 1, glucose 105, magne sium 1.8. Discharge Medications And Instructions: 1.Continue all prior home medications. 2.Take Augmentin 875 mg 1 tablet by mouth 2 times a day with food for 10 days. 3.Follow up at my office next week on or Thursday via tele visit and call office to schedule appointment. 4.Stay home in isolation for COVID for 1 more week. Hospital Course: This is a 71-year-old female patient admitted to the hospital after she came into e mergency room with complaints of fever, chills, and right leg pain. The patient had a cat bite on right lower leg about 2 days prior to her admission and this was her own cat. She did not seek any medical attention for that, but came into ER now since she started having fever, chills, and she was noted to have urinary tract infection and she was admitted to the hospital. The patient was treated with empiric antibiotic, Levaquin. Blood culture and urine culture were done. Blood culture remain ed negative. Urine culture, final results came back today growing E. coli and it is resistant to Lev aquin but sensitive to Augmentin, Bactrim etc. The patient's overall condition has improved. Her CO VID-19 test was positive, but she has no symptoms related to COVID. The patient has received her imm unization against COVID-19. Chest x-ray did not show any evidence of COVID pneumonia and she has not had any hypoxia or any other symptoms related to COVID. The patient was discharged to go home in st able condition with above-mentioned medications and instructions. Final Diagnoses: 1.COVID-19 infection. 2.Cellulitis, right leg. 3.Urinary tract infection. 4.Volume depletion. 5.Acute kidney injury. 6.Hypertension. 7.Mixed hyperlipidemia. 8.Type 2 diabetes mellitus. 9.Obstructive sleep apnea. 10.Diabetes mellitus with neuropathy. 11.Osteoarthritis, multiple sites. 12.Iron deficiency anemia. DIAMOND/MODL Voice ID: [id number] Report ID: [id number]
== END 2021-05-04 14:35 | disposition home or self-care (01) | DRG 602 ==
LOC: ER 17:20 → ERHOLD 21:57 → 4TH 23:09
PROVIDERS: ADMIT Internal Medicine; ATTEND Internal Medicine
DX: L03.115 Cellulitis of right lower limb (principal); U07.1 COVID-19; N39.0 Urinary tract infection, site not specified; N17.9 Acute kidney failure, unspecified; B96.20 Unspecified Escherichia coli [E. coli] as the cause of diseases classified elsewhere; E11.42 Type 2 diabetes mellitus with diabetic polyneuropathy; E78.2 Mixed hyperlipidemia; E86.9 Volume depletion, unspecified; G47.33 Obstructive sleep apnea (adult) (pediatric); D50.9 Iron deficiency anemia, unspecified; E83.42 Hypomagnesemia; M19.90 Unspecified osteoarthritis, unspecified site; I10 Essential (primary) hypertension; S81.851A Open bite, right lower leg, initial encounter; W55.01XA Bitten by cat, initial encounter; Y92.009 Unspecified place in unspecified non-institutional (private) residence as the place of occurrence of the external cause
CPT/HCPCS: 0240U; 36415; 71045; 71250; 76770; 76857; 80048; 80076; 81003; 81015; 82947; 83605; 83735; 83880; 84145; 84484; 85025; 85610; 86140; 87040; 87070; 87077; 87081; 87086; 87088; 87186; 93005; 96365; 96366; 96367; 99284; J0692; J3370; J3475; J7030; J7040; J7050

== ENCOUNTER 2022-12-15 15:48 | Emergency (ER) | payer OTHER ==
--- OUTSIDE RECORDS SUMMARY | 2022-12-15 16:01 | XMS REPORT | Continuity of Care Document ---
:1950 Author Organization [facility] t Address [address] [place] [address] Care Team Providers Name Role Phone Francois Mei MD Primary Care Physician СЕРГЕЙ MENENDEZ Attending Clinician Unavailable KALIE JAMES Attending Clinician Unavailable Kalie James MD Attending Clinician Sam Crandall Attending Clinician Chandana Attending Clinician Unavailable LORENA VAZQUEZ Attending Clinician Unavailable Sander LÓPEZ Attending Clinician Unavailable Sander Mooney Attending Clinician TOM TOURE Attending Clinician Unavailable Tom Toure DO Attending Clinician Doctor Unassigned, [place] Attending Clinician Unavailable Annemarie Dowell DO Attending Clinician ANNEMARIE DOWELL Attending Clinician Unavailable ANNEMARIE DOWELL Attending Clinician Unavailable Hanny Santos Attending Clinician Lab, Adc Fam Pob I Attending Clinician Unavailable Сергей Menendez MD Attending Clinician Dolores Herrera LMSW Attending Clinician Unavailable Only, Adc Test Attending Clinician Unavailable RADIOLOGY Attending Clinician Unavailable Radiology Attending Clinician Unavailable RICARDO HENRY Attending Clinician Unavailable СЕРГЕЙ MENENDEZ Admitting Clinician Unavailable Chandana Admitting Clinician Unavailable Sander LÓPEZ Admitting Clinician Unavailable TOM TOURE Admitting Clinician Unavailable Сергей Menendez MD Admitting Clinician HARRIET MOORE Admitting Clinician Unavailable RICARDO HENRY Admitting Clinician Unavailable Payers Payer Name Policy Type Policy Number Effective Date Expiration Date S aayush [facility] [id number] 2019 MEDICARE GOLD 00:00:00 [employer] MEDICARE OUT [id number] 2021 OF NETWORK 00:00:00 [employer] (MEDICARE [id number] 2021 REPLACEMENT PPO) 00:00:00 [facility] HEALTH [facility] 2022 MEDICARE ADVANTAGE 00:00:00 PLAN [facility] [email or web address] 2021 (MEDICARE 00:00:00 REPLACEMENT HMO) [facility] [id number] (MEDICARE REPLACEMENT/ADVANTA GE - PPO) [facility] [id number] Problems Condition Condition Condition Status Onset Resolution Last Treating Co mments Source Name Details Category Date Date Treatment Clinician Date History of History of Problem Active 2020-08 [facility] cerebrovas Cerebrovas 1-16 Fa sushila bergeron 00:00: Practic accident Accident 00 e Chronic Chronic Problem Active 2020-08 [facility] kidney Kidney 1-13 Family disease Disease 00:00: Practic stage 3 Stage 3 00 e Type 2 Type 2 Problem Active 2020-08 [facility] diabetes Diabetes 1-10 Family mellitus Mellitus 00:00: Practi c 00 e Bilateral Bilateral Problem Active 2020-08 [facility] cataracts Cataracts 1-10 Fami ly 00:00: Practic 00 e Gastroesop Gastroesop Problem Active 2020-08 [facility] hageal hageal 1-10 Family reflux Reflux 00:00: Practic disease Disease 00 e without without esophagiti Esophagiti s s Foot Foot Problem Active 2020-08 [facility] callus Callus 1-10 Family 00:00: Practic 00 e Disorder Disorder Problem Active Michelle ge due to Due to 8-25 Family type 2 Type 2 00:00: Practic diabetes Diabetes 00 e mellitus Mellitus Hypertensi Hypertensi Problem Active [facility] ve ve 8-25 Family disorder Disorder 00:00: Practi c 00 e 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 7-15 Family syndrome Syndrome 00:00: Practi c 00 e Overweight Overweight Problem Active [facility] 1-10 Family 00:00: Practic 00 e Depressive Depressive Problem Active [facility] disorder Disorder 1-10 Family 00:00: Practic 00 e Kidney Kidney Problem Active 2018-08 [facility] disease Disease 1-03 Family 00:00: Practic e Finding of Finding of Problem Active 2018-08 [facility] urine Urine 1-03 Family substance Substance 00:00: Prac tic level Level 00 e Anemia Anemia Problem Active 2018-08 [place] 1-03 Family 00:00: Practic 00 e Anxiety Anxiety Problem Active 2018-08 [facility] disorder Disorder 0-12 Family 00:00: Practic [address] SN[address] CT Problem Active 2018-08 [facility] Concept Concept 0-12 Family 00:00: Practic 00 e Traumatic Traumatic Problem Active 2018-08 [facility] or or 0-11 Family nontraumat Nontraumat 00:00: Pr actic ic brain ic Brain 00 e injury Injury Neuropathy Neuropathy Problem Active [facility] 9-10 Family 00:00: Practic 00 e Cobalamin Cobalamin Problem Active 2016-08 [facility] deficiency Deficiency 2-12 Fa sushila 00:00: Practic 00 e Hyperlipid Hyperlipid Problem Active 2016-08 [place] [facility] emia emia 2-12 Family 00:00: Practic 00 e Gout Gout Problem Active 2016-08 [place] 2-12 Family 00:00: Practic 00 e Obesity Obesity Problem Active 2016-08 [place] 2-12 Family 00:00: Practic 00 e 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 Major 2-12 Family depressive Depressive 00:00: Pr actic disorder, Disorder, 00 e single Single episode Episode Essential Essential Problem Active 2016-08 [facility] hypertensi Hypertensi 2-12 Fa sushila on on 00:00: Practic 00 e Multiple Multiple Problem Active 2016-08 Michelle ge complicati Complicati 2-12 Fa sushila ons due to ons Due to 00:00: Pr actic type 2 Type 2 00 e diabetes Diabetes mellitus Mellitus Obese Obese Problem Active 2016-08 [facility] class I Class I 2-12 Family 00:00: Practic 00 e Bleeding Bleeding Problem Active 2022-11-30 Memoria from nose from nose 02-18 11:50:58 l (finding) (finding) 00:00: Herm jatin Active 00 02/18/2017 Problem 11/30/2022 [facility] Hypertensi Hypertensi Disease Active [facility] HLD HLD Disease Active [facility] (hyperlipi (hyperlipi 02-12 Kandice kes demia) demia) 00:00: Medical 00 Center Type II Type II Disease Recurre [facility] diabetes diabetes nce 02-12 [facility] mellitus, mellitus, 00:00: Medi beth well well 00 Center controlled controlled TIA TIA Disease Active [facility] (transient (transient 02-12 Kandice kes ischemic ischemic 00:00: Medica l attack) attack) 00 Center Stroke Stroke Disease Recurre [facility] aborted by aborted by nce 02-10 Kandice kes administra administra 00:00: Me dical tion of tion of 00 Center thrombolyt thrombolyt ic agent ic agent Ataxia Ataxia Problem Active 2022-11-30 Elmer emilie (finding) (finding) 05-14 11:50:58 l Active 00:00: Meng 05/14/2016 00 Problem 11/30/2022 [facility] Essential Essential Problem Active 2022-11-30 Memoria hypertensi hypertensi 2-17 11:50:58 l on on 00:00: Meng (disorder) (disorder) 00 Active 10/03/2015 Problem 11/30/2022 [facility] Hyperlipid Hyperlipi Problem Active 2022-11-30 Memoria emia demia 2-17 11:50:58 l (disorder) (disorder) 00:00: Jamie velez Active 00 10/03/2015 Problem 11/30/2022 [facility] No known No known Disease Unive rs active active ity of problems problems [facility] Amnesia Amnesia Problem Active 2022-11-30 Me moria (finding) (finding) 11:50:58 l Active Meng Problem 11/30/2022 [facility] Headache Headache Problem Active 2022-11-30 Memoria (finding) (finding) 11:50:58 l Active White Problem 11/30/2022 [facility] Migraine Migraine Problem Active 2022-11-30 Memoria with aura with aura 11:50:58 l (disorder) (disorder) He rmann Active Problem 11/30/2022 [facility] Neck pain Neck pain Problem Active 2022-11-30 Memoria (finding) (finding) 11:50:58 l Active Meng Problem 11/30/2022 [facility] Tinnitus Tinnitus Problem Active 2022-11-30 Memoria (finding) (finding) 11:50:58 l Active White Problem 11/30/2022 [facility] Tremor Tremor Problem Active 2022-11-30 Mem oria (finding) (finding) 11:50:58 l Active Meng Problem 11/30/2022 [facility] Walking Walking Problem Active 2022-11-30 Me moria difficulty difficulty 11:50:58 l due to due to White lower leg lower leg (finding) (finding) Active Problem 11/30/2022 [facility] Peripheral Periphera Problem Active 2022-11-30 Memoria nerve l nerve 11:50:58 l disease disease White (disorder) (disorder) Active Problem 11/30/2022 [facility] Polyp of Polyp of Problem Active 2022-11-30 Memoria colon colon 11:50:58 l (disorder) (disorder) He rmann Active Problem 11/30/2022 [facility] Abnormal Abnormal Problem Active Michelle ge involuntar Involuntar Fa sushila y movement y Movement Pr actic e Family Family Problem Active Village history of History of sushila diabetes Diabetes Practi c mellitus Mellitus e Vitamin Vitamin Problem Active [place] deficiency Deficiency Fa sushila Practic e Clinical Clinical Problem Active Michelle ge finding Finding Family Practic e Memory Memory Problem Active [place] finding Finding Family Practic e Family Family Problem Active [place] history of History of cardiac Cardiac Practic disorder Disorder e Megaloblas Megaloblas Problem Active [facility] tic anemia tic Anemia Fa sushila due to Due to Practic vitamin Vitamin e B>12< B>12< deficiency Deficiency Allergies, Adverse Reactions, Alerts Allergy Allergy Status Severity Reaction(s) Onset Inactive Treating Comm ents Source Name Type Date Date Clinician Amoxicil Propensi Active Rash Univer s bethany ty to 09-10 ity of adverse 00:00: [place] reaction 00 Medical s Branch AMOXICIL DRUG Active Rash Univers BETHANY INGREDI 09-10 ity of 00:00: [place] 00 Medical Branch Aspirin Propensi Active Other (See Coldness[facility] (Tartraz ty to Comments) 02-10 "[facility]els [facility] ine adverse 00:00: like an Medical Only) reaction 00 [place]" [place] s Hydrocod Propensi Active Coldness- [facility] one-Acet ty to 02-10 "[facility]els [facility] aminophe adverse 00:00: like an Medica l n reaction 00 [place]" [facility] Acetamin Propensi Active Other (See Coldness- [facility] ophen-Co ty to Comments) 02-10 [facility] deine adverse [facility] Propensi Active Other - See 2014-08 Chills Un susi ty to comments -18 ity of adverse 00:00: [place] reaction 00 Medical s to Branch drug Hydrocod Propensi Active Other - See 2014-08 Chills U nivers one ty to comments 1-18 ity of adverse 00:00: [place] reaction 00 Medical s to Branch drug ASPIRIN DRUG Active Med Other-Cmnt 2014-08 Unive rs INGREDI 09-03 ity of 00:00: [place] 00 Medical Branch HYDROCOD DRUG Active Med Other-Cmnt 2014-08 Univ ers ONE INGREDI 09-03 ity of 00:00: [place] 00 Medical Branch ACETAMIN DRUG Active Med Other-Cmnt 2014-08 Univ ers OPHEN INGREDI 09-03 ity of 00:00: [place] 00 Medical Branch Acetamin Propensi Active Other - See 2014-08 Chills U nivers ophen ty to comments 1-18 ity of adverse 00:00: [place] reaction 00 Medical s to Branch drug acetamin acetamin Active Memori a ophen ophen l Meng aspirin aspirin Active Memoria l [place] codeine codeine Active Memoria sulfate sulfate l Meng Clopidog Allergy Active Village rel to Family substanc Practic e e PANLOR Allergy Active [place] (HYDROCO to Family DONE-CORA substanc Practi c TAMIN) e e CLOPIDOG Allergy Active [place] REL to Family BISULFAT substanc Practi c E e e HYDROCOD Allergy Active [place] ONE-ACET to Family AMINOPHE substanc Practi c N e e Social History Social Habit Start Date Stop Date Quantity Comments Source Exposure to 2022-11-28 2022-12-08 Not sure [facility] SARS-CoV-2 00:00:00 13:43:00 [facility] (event) [place] Alcohol intake 2022-12-08 2022-12-08 0 /d University 00:00:00 00:00:00 [facility] Tobacco use and 2015-07-04 2015-07-04 Smokeless tobacco Un iversity of exposure 00:00:00 00:00:00 non-user [facility] Sex Ass[birth year] [facility] [address] [place] kes 00:00:00 00:00:00 [facility] Smoking Status Start Date Stop Date Source Tobacco smoking status Allyson Fan Medications Ordered Filled Start Stop Current Ordering Indication Dosage Frequency Signature Comments Components Source Medication Medication Date Date Medication? Clinician (SIG) Name Name Cymbalta 30 Yes 30 mg = 1 M emoria mg oral 4-13 cap, PO, l delayed 15:26: Daily, # Dipak n release 00 30 cap, 3 capsule Refill(s), Pharmacy: [facility] #[id number], 160.02, cm, 11/27/22 9:59:00 CDT, Height, 75.227, kg, 11/27/22 9:59:00 CDT, Weight Cymbalta 30 Yes 30 mg = 1 M emoria mg oral 4-13 cap, PO, l delayed 15:26: Daily, # Dipak n release 00 30 cap, 3 capsule Refill(s), Pharmacy: [facility][id number], 160.02, cm, 11/27/22 9:59:00 CDT, Height, 75.227, kg, 11/27/22 9:59:00 CDT, Weight Cymbalta Yes 30 mg = 1 M emoria mg oral 4-13 cap, PO, l delayed 15:26: Daily, # Dipak n release 00 30 cap, 3 capsule Refill(s), Pharmacy: [facility] efren #[id number], 160.02, cm, 11/27/22 9:59:00 CDT, Height, 75.227, kg, 11/27/22 9:59:00 CDT, Weight Lyrica 100 2023-0 Yes 100 mg = 1 M emoria mg oral 4-13 cap, PO, l capsule 15:17: BID, # 60 Natalia nn 00 cap, 1 Refill(s) Lyrica 100 2023-0 Yes 100 mg = 1 M emoria mg oral 4-13 cap, PO, l capsule 15:17: BID, # 60 Natalia nn 00 cap, 1 Refill(s) Lyrica 100 2023-0 Yes 100 mg = 1 M emoria mg oral 4-13 cap, PO, l capsule 15:17: BID, # 60 Natalia nn 00 cap, 1 Refill(s) triamcinolo 2023-0 Yes APPLY Memor ia ne topical 4-13 TWICE l 0.1% cream 15:05: DAILY TO Her mora 00 ECZEMA UP TO 2 WEEKS/HELENA H NEEDED. triamcinolo 2023-0 Yes APPLY Memor ia ne topical 4-13 TWICE l 0.1% cream 15:05: DAILY TO Her mora 00 ECZEMA UP TO 2 WEEKS/HELENA H NEEDED. triamcinolo 2023-0 Yes APPLY Memor ia ne topical 4-13 TWICE l 0.1% cream 15:05: DAILY TO Her mora 00 ECZEMA UP TO 2 WEEKS/HELENA H NEEDED. topiramate 2023-0 Yes 100 mg = 1 M emoria 100 mg oral 4-06 tab, PO, l tablet 18:26: Bedtime, # Natalia nn 00 90 tab, 2 Refill(s), Pharmacy: [facility] efren #[id number], 160.02, cm, 04/18/22 14:38:00 CDT, Height, 73.295, kg, 04/18/22 14:38:00 CDT, Weight topiramate 2023-0 Yes 100 mg = 1 M emoria 100 mg oral 4-06 tab, PO, l tablet 18:26: Bedtime, # Natalia nn 00 90 tab, 2 Refill(s), Pharmacy: [facility] #[id number], 160.02, cm, 04/18/22 14:38:00 CDT, Height, 73.295, kg, 04/18/22 14:38:00 CDT, Weight topiramate Yes 100 mg = 1 M emoria 100 mg oral 4-06 tab, PO, l tablet 18:26: Bedtime, # Natalia nn 00 90 tab, 2 Refill(s), Pharmacy: [facility] #[id number], 160.02, cm, 04/18/22 14:38:00 CDT, Height, 73.295, kg, 04/18/22 14:38:00 CDT, Weight triamterene triamterene No triamteren Village 37.5 37.5 2-22 e 37.5 Family mg-hydrochl mg-hydrochl 00:00: mg-hydroch Practic orothiazide orothiazide 00 lorothiazi e 25 mg 25 mg de 25 mg tablet tablet tablet Plavix 75 Yes 75 mg = 1 Mem oria mg oral 04-18 tab, PO, l tablet 19:49: Daily, 0 White 00 Refill(s) Plavix 75 0 Yes 75 mg = 1 Mem oria mg oral - tab, PO, l tablet 19:49: Daily, 0 Meng 00 Refill(s) Plavix 75 0 Yes 75 mg = 1 Mem oria mg oral -02 tab, PO, l tablet 19:49: Daily, 0 White 00 Refill(s) naproxen 2021- No 500mg 500 mg, Univ ers (NAPROSYN) 02-07 Oral, ity of tablet 500 23:30: 22:34 ONCE, 1 Khris as mg 00 :00 dose, On Medical Fri Branch 02/07/22 at 1830, Routine clindamycin 2021- No 300mg 300 mg, U nivers (CLEOCIN 02-07 Oral, ity of HCL) 23:30: 22:34 ONCE, 1 [place] capsule 300 00 :00 dose, On Medi beth mg Fri Branch 02/07/22 at 1830, PANDA
Re ason for Anti-Infec tive: Documented Infection< br>Remberto feng Infection Site: HEENT
D uration of Therapy: 10 days<br&gt ;Restricte d use approved by: ED PROVIDER naproxen 2021-0 Yes [id number] 500mg Take 1 Un susi (NAPROSYN) 6-24 tablet by ity of 500 mg 00:00: mouth 2 [place] tablet 00 (two) Medical times Branch daily with meals. triamcinolo 2021-0 Yes [id number] Apply to [facility] 6-24 area(s) 2 ity of acetonide 00:00: (two) [place] 0.1 % cream 00 times Medical daily. Branch naproxen 0 Yes [id number] 500mg Take 1 Un susi (NAPROSYN) 6-24 tablet by ity of 500 mg 00:00: mouth 2 [place] tablet 00 (two) Medical times Branch daily with meals. triamcinolo 2021-0 Yes [id number] Apply to [facility] 6-24 area(s) 2 ity of acetonide 00:00: (two) [place] 0.1 % cream 00 times Medical daily. Branch clindamycin 2021- No [id number] 300mg Take 1 Univers 300 mg 6-24 07-05 capsule by ity of capsule 00:00: 04:59 mouth 4 [place] 00 :00 (four) Medical times Branch daily for 10 days. naproxen 2021- No 500mg 500 mg, Univ ers (NAPROSYN) 5-28 05-28 Oral, ity of tablet 500 17:30: 16:48 ONCE, 1 Khris as mg 00 :00 dose, On Medical Sat Branch 01/11/22 at 1230, Routine naproxen 2021-0 Yes [id number] 500mg Take 1 U nivers (NAPROSYN) 5-28 tablet by ity of 500 mg 00:00: mouth 2 [place] tablet 00 (two) Medical times Branch daily with meals. naproxen 2021-0 Yes [id number] 500mg Take 1 U nivers (NAPROSYN) 5-28 tablet by ity of 500 mg 00:00: mouth 2 [place] tablet 00 (two) Medical times Branch daily with meals. naproxen 2021-0 Yes [id number] 500mg Take 1 U nivers (NAPROSYN) 5-28 tablet by ity of 500 mg 00:00: mouth 2 [place] tablet 00 (two) Medical times Branch daily with meals. topiramate Yes 100 mg = 1 M emoria 100 mg oral 5-18 tab, PO, l tablet 17:16: Bedtime, # Natalia nn 00 90 tab, 2 Refill(s), Pharmacy: [facility], 160.02, cm, 01/01/22 12:05:00 CDT, Height, 71.818, kg, 01/01/22 12:05:00 CDT, Weight topiramate Yes 100 mg = 1 M emoria 100 mg oral 5-18 tab, PO, l tablet 17:16: Bedtime, # Natalia nn 00 90 tab, 2 Refill(s), Pharmacy: [facility], 160.02, cm, 01/01/22 12:05:00 CDT, Height, 71.818, kg, 01/01/22 12:05:00 CDT, Weight topiramate Yes 100 mg = 1 M emoria 100 mg oral 5-18 tab, PO, l tablet 17:16: Bedtime, # Natalia nn 00 90 tab, 2 Refill(s), Pharmacy: [facility], 160.02, cm, 01/01/22 12:05:00 CDT, Height, 71.818, kg, 01/01/22 12:05:00 CDT, Weight traMADoL 0 2021- No 100mg 100 mg, Univ ers (ULTRAM) 2-10 02-10 Oral, ity of tablet 100 23:30: 22:35 ONCE, 1 Khris as mg 00 :00 dose, On Medical Katerine Branch 09/26/21 at 1730, Routine topiramate 2020-08 Yes = 1 tab, Mem oria 200 mg oral 2-14 PO, l tablet 20:49: Bedtime, # Natalia nn 00 90 tab, 2 Refill(s), Pharmacy: [facility], 157.48, cm, 07/30/21 14:33:00 CLINICAL APPLICATION MANAGER, Height, 80.455, kg, 07/30/21 14:33:00 CLINICAL APPLICATION MANAGER, Weight topiramate 2020-08 Yes = 1 tab, Mem oria 200 mg oral 2-14 PO, l tablet 20:49: Bedtime, # Natalia nn 00 90 tab, 2 Refill(s), Pharmacy: [facility], 157.48, cm, 07/30/21 14:33:00 CLINICAL APPLICATION MANAGER, Height, 80.455, kg, 07/30/21 14:33:00 CLINICAL APPLICATION MANAGER, Weight topiramate 2020-08 Yes = 1 tab, Mem oria 200 mg oral 2-14 PO, l tablet 20:49: Bedtime, # Natalia nn 00 90 tab, 2 Refill(s), Pharmacy: [facility], 157.48, cm, 07/30/21 14:33:00 CLINICAL APPLICATION MANAGER, Height, 80.455, kg, 07/30/21 14:33:00 CLINICAL APPLICATION MANAGER, Weight gabapentin 2020-08 Yes 300 mg = 1 M emoria 300 MG Oral 2-14 cap, PO, l Capsule 20:48: TID, # 270 Herm jatin 00 cap, 2 Refill(s), Pharmacy: [facility], 157.48, cm, 07/30/21 14:33:00 CLINICAL APPLICATION MANAGER, Height, 80.455, kg, 07/30/21 14:33:00 CLINICAL APPLICATION MANAGER, Weight gabapentin 2020-08 Yes 300 mg = 1 M emoria 300 mg oral 2-14 cap, PO, l capsule 20:48: TID, # 270 Herm jatin 00 cap, 2 Refill(s), Pharmacy: [facility], 157.48, cm, 07/30/21 14:33:00 CLINICAL APPLICATION MANAGER, Height, 80.455, kg, 07/30/21 14:33:00 CLINICAL APPLICATION MANAGER, Weight gabapentin 2020-08 Yes 300 mg = 1 M emoria 300 MG Oral 2-14 cap, PO, l Capsule 20:48: TID, # 270 Herm jatin 00 cap, 2 Refill(s), Pharmacy: [facility], 157.48, cm, 07/30/21 14:33:00 CLINICAL APPLICATION MANAGER, Height, 80.455, kg, 07/30/21 14:33:00 CLINICAL APPLICATION MANAGER, Weight gabapentin 2020-08 Yes 300 mg = 1 M emoria 300 mg oral 2-14 cap, PO, l capsule 20:48: TID, # 270 Herm jatin 00 cap, 2 Refill(s), Pharmacy: [facility], 157.48, cm, 07/30/21 14:33:00 CLINICAL APPLICATION MANAGER, Height, 80.455, kg, 07/30/21 14:33:00 CLINICAL APPLICATION MANAGER, Weight gabapentin 2020- Yes 300 mg = 1 M emoria 300 MG Oral 2-14 cap, PO, l Capsule 20:48: TID, # 270 Herm jatin 00 cap, 2 Refill(s), Pharmacy: [facility], 157.48, cm, 07/30/21 14:33:00 CLINICAL APPLICATION MANAGER, Height, 80.455, kg, 07/30/21 14:33:00 CLINICAL APPLICATION MANAGER, Weight gabapentin 2020-08 Yes 300 mg = 1 M emoria 300 mg oral 2-14 cap, PO, l capsule 20:48: TID, # 270 Herm jatin 00 cap, 2 Refill(s), Pharmacy: [facility], 157.48, cm, 07/30/21 14:33:00 CLINICAL APPLICATION MANAGER, Height, 80.455, kg, 07/30/21 14:33:00 CLINICAL APPLICATION MANAGER, Weight clopidogrel 2020-0 Yes 75 mg = 1 M emoria 75 MG Oral 6-11 tab, PO, l Tablet 20:12: Daily, X Meng [Plavix] 90 day, # 90 tab, 2 Refill(s), [place], Pharmacy: [facility], 162.56, cm, 01/25/21 14:43:00 CDT, Height, 83.239, kg, 01/25/21 14:43:00 CDT, Weight topiramate 2020-0 Yes = 1 tab, Mem oria 200 mg oral 6-11 PO, l tablet 20:12: Bedtime, # Natalia nn 00 90 tab, 2 Refill(s), Pharmacy: [facility], 162.56, cm, 01/25/21 14:43:00 CDT, Height, 83.239, kg, 01/25/21 14:43:00 CDT, Weight clopidogrel 2020-0 Yes 75 mg = 1 M emoria 75 MG Oral 6-11 tab, PO, l Tablet 20:12: Daily, X Meng [Plavix] 90 day, # 90 tab, 2 Refill(s), [facility], Pharmacy: [facility], 162.56, cm, 01/25/21 14:43:00 CDT, Height, 83.239, kg, 01/25/21 14:43:00 CDT, Weight topiramate Yes = 1 tab, Mem oria 200 mg oral 6-11 PO, l tablet 20:12: Bedtime, # Natalia nn 00 90 tab, 2 Refill(s), Pharmacy: [facility], 162.56, cm, 01/25/21 14:43:00 CDT, Height, 83.239, kg, 01/25/21 14:43:00 CDT, Weight clopidogrel Yes 75 mg = 1 M emoria 75 MG Oral 6-11 tab, PO, l Tablet 20:12: Daily, X Meng [Plavix] 00 90 day, # 90 tab, 2 Refill(s), [facility], Pharmacy: [facility], 162.56, cm, 01/25/21 14:43:00 CDT, Height, 83.239, kg, 01/25/21 14:43:00 CDT, Weight topiramate Yes = 1 tab, Mem oria 200 mg oral 6-11 PO, l tablet 20:12: Bedtime, # Natalia nn 00 90 tab, 2 Refill(s), Pharmacy: [facility], 162.56, cm, 01/25/21 14:43:00 CDT, Height, 83.239, kg, 01/25/21 14:43:00 CDT, Weight 0.5 ML Yes INJECT Memoria dulaglutide 6-11 1.5MG l 3 MG/ML 19:58: UNDER THE Natalia nn Prefilled 00 SKIN EVERY Syringe WEEK [Trulicity] DIRECTED FOR 30 DAYS tramadol Yes TAKE 2 Memoria hydrochlori 6-11 TABLETS BY l de 50 MG 19:58: MOUTH Meng Oral Tablet 00 TWICE DAILY NEEDED FOR 28 DAYS Trulicity Yes INJECT Memori a Pen 1.5 6-11 1.5MG l mg/0.5 mL 19:58: UNDER THE [facility] mora subcutaneou 00 SKIN EVERY s solution WEEK DIRECTED FOR 30 DAYS tramadol 50 Yes TAKE 2 Elmer emilie mg oral 6-11 TABLETS BY l tablet 19:58: MOUTH White 00 TWICE DAILY NEEDED FOR 28 DAYS tizanidine Yes TAKE 1 Memor ia 4 mg oral 6-11 TABLET BY l tablet 19:58: MOUTH Meng 00 TWICE DAILY FOR 28 DAYS pantoprazol Yes TAKE 1 Elmer emilie e 40 mg 6-11 TABLET BY l oral 19:58: MOUTH ONCE Meng enteric 00 DAILY coated tablet 0.5 ML Yes INJECT Memoria dulaglutide 6-11 1.5MG l 3 MG/ML 19:58: UNDER THE Natalia nn Prefilled 00 SKIN EVERY Syringe WEEK [Trulicity] DIRECTED FOR 30 DAYS tramadol Yes TAKE 2 Memoria hydrochlori 6-11 TABLETS BY l de 50 MG 19:58: MOUTH Meng Oral Tablet 00 TWICE DAILY NEEDED FOR 28 DAYS Trulicity Yes INJECT Memori a Pen 1.5 6-11 1.5MG l mg/0.5 mL 19:58: UNDER THE Her mora subcutaneou 00 SKIN EVERY s solution WEEK DIRECTED FOR 30 DAYS tramadol 50 Yes TAKE 2 Elmer emilie mg oral 6-11 TABLETS BY l tablet 19:58: MOUTH Meng 00 TWICE DAILY NEEDED FOR 28 DAYS tizanidine Yes TAKE 1 Memor ia 4 mg oral 6-11 TABLET BY l tablet 19:58: MOUTH Meng 00 TWICE DAILY FOR 28 DAYS pantoprazol Yes TAKE 1 Elmer emilie e 40 mg 6-11 TABLET BY l oral 19:58: MOUTH ONCE White enteric 00 DAILY coated tablet 0.5 ML Yes INJECT [facility] dulaglutide 6-11 1.5MG l 3 MG/ML 19:58: UNDER THE Natalia nn Prefilled 00 SKIN EVERY Syringe WEEK [Trulicity] DIRECTED FOR 30 DAYS tramadol Yes TAKE 2 [facility] hydrochlori 6-11 TABLETS BY l de 50 MG 19:58: MOUTH Meng Oral Tablet 00 TWICE DAILY NEEDED FOR 28 DAYS Trulicity Yes INJECT [facility] a Pen 1.5 6-11 1.5MG l mg/0.5 mL 19:58: UNDER THE Her mora subcutaneou 00 SKIN EVERY s solution WEEK DIRECTED FOR 30 DAYS tramadol 50 2020-0 Yes TAKE 2 [place] emilie mg oral 6-11 TABLETS BY l tablet 19:58: MOUTH Meng 00 TWICE DAILY NEEDED FOR 28 DAYS tizanidine 0 Yes TAKE 1 Mem[facility] ia 4 mg oral 6-11 TABLET BY l tablet 19:58: MOUTH White 00 TWICE DAILY FOR 28 DAYS pantoprazol Yes TAKE 1 [place] emilie e 40 mg 6-11 TABLET BY l oral 19:58: MOUTH ONCE [facility] 00 DAILY coated tablet metFORMIN 2020-0 Yes 1000mg Take 1,000 [facility] (GLUCOPHAGE 7-30 mg by ity of ) 500 mg 15:18: mouth 2 [place] tablet 32 (two) Medical times Branch daily. venlafaxine 2020-0 Yes 150mg Take 150 U nivers XR (EFFEXOR 7-30 mg by ity of XR) 150 mg 15:18: mouth 2 [place] (two) Medical capsule times Branch daily. topiramate 2020-0 Yes 50mg Take 50 mg U nivers (TOPIRAGEN) 7-30 by mouth 2 it y of 25 mg 15:18: (two) [place] tablet 32 times Medical daily. Branch gabapentin 2020-0 Yes 300mg Take 300 Un susi 300 mg 7-30 mg by ity of capsule 15:18: mouth 2 [place] 32 (two) Medical times Branch daily. ALPRAZolam 2020-0 Yes .5mg Take 0.5 Uni vers (XANAX) 0.5 7-30 mg by ity of mg tablet 15:18: mouth 3 [place] 32 (three) Medical times Branch daily as needed. allopurinol 2020-0 Yes 300mg Take 300 U nivers (ZYLOPRIM) 7-30 mg by ity of 300 mg 15:18: mouth [place] tablet 32 daily. Medical Branch losartan 2020-0 Yes 50mg Take 50 mg Uni vers (COZAAR) 50 7-30 by mouth ity of mg tablet 15:18: daily. [place] [address] [facility] Branch atorvastati 2020-0 Yes 20mg Take 20 mg [facility] n (LIPITOR) 7-30 by mouth ity of 20 mg 15:18: at [place] tablet 32 bedtime. Medical Branch clopidogrel 2020-0 Yes 75mg Take 75 mg [facility] (PLAVIX) 75 7-30 by mouth ity of mg tablet 15:18: daily. [place] [address] Medical Branch budesonide- 2020-0 Yes 2{puff} Inhale 2 [facility] formoterol 7-30 Puffs 2 ity of (SYMBICORT) 15:18: (two) [place] 160-4.5 32 times Medical mcg/actuati daily. Branch on inhaler tiZANidine 2020-0 Yes 4mg Take 4 mg Un susi 4 mg 7-30 by mouth ity of capsule 15:18: daily. [place] [address] Medical Branch TRAMADOL 2020-0 Yes 50mg Take 50 mg Uni vers HCL 7-30 by mouth 2 ity of (TRAMADOL 15:18: (two) [place] HYDROCHLORI 32 times Medical DE, BULK, daily. Branch MISC) ferrous 2020-0 Yes 325mg Take 325 Unive rs sulfate 325 7-30 mg by ity of mg (65 mg 15:18: mouth [place] iron) 32 daily. Medical tablet Branch ciclesonide 2020-0 Yes 2{puff} Inhale 2 [facility] (ALVESCO) 7-30 Puffs as ity of 160 15:18: needed for [place] mcg/actuati 32 Other Medical on inhaler (sob). Branch CLONAZEPAM 2020-0 Yes Take by Univ ers ORAL 7-30 mouth. ity of 15:18: [place] [address] Medical Branch metFORMIN 2020-0 Yes 1000mg Take 1,000 [facility] (GLUCOPHAGE 7-30 mg by ity of ) 500 mg 15:18: mouth 2 [place] tablet 32 (two) Medical times Branch daily. venlafaxine 2020-0 Yes 150mg Take 150 U nivers XR (EFFEXOR 7-30 mg by ity of XR) 150 mg 15:18: mouth 2 [place] (two) Medical capsule times Branch daily. topiramate 2020-0 Yes 50mg Take 50 mg U nivers (TOPIRAGEN) 7-30 by mouth 2 it y of 25 mg 15:18: (two) [place] tablet 32 times Medical daily. Branch gabapentin 2020-0 Yes 300mg Take 300 Un susi 300 mg 7-30 mg by ity of capsule 15:18: mouth 2 [place] 32 (two) Medical times Branch daily. ALPRAZolam 2020-0 Yes .5mg Take 0.5 Uni vers (XANAX) 0.5 7-30 mg by ity of mg tablet 15:18: mouth 3 [place] 32 (three) Medical times Branch daily as needed. allopurinol 2020-0 Yes 300mg Take 300 U nivers (ZYLOPRIM) 7-30 mg by ity of 300 mg 15:18: mouth [place] tablet 32 daily. Medical Branch losartan 2020-0 Yes 50mg Take 50 mg Uni vers (COZAAR) 50 7-30 by mouth ity of mg tablet 15:18: daily. [place] [address] [facility] Branch atorvastati 2020-0 Yes 20mg Take 20 mg [facility] n (LIPITOR) 7-30 by mouth ity of 20 mg 15:18: at [place] tablet 32 bedtime. Medical Branch clopidogrel 2020-0 Yes 75mg Take 75 mg [facility] (PLAVIX) 75 7-30 by mouth ity of mg tablet 15:18: daily. [place] [address] Medical Branch budesonide- 2020-0 Yes 2{puff} Inhale 2 [facility] formoterol 7-30 Puffs 2 ity of (SYMBICORT) 15:18: (two) [place] 160-4.5 32 times Medical mcg/actuati daily. Branch on inhaler tiZANidine 2020-0 Yes 4mg Take 4 mg Un susi 4 mg 7-30 by mouth ity of capsule 15:18: daily. [place] [address] Medical Branch TRAMADOL 2020-0 Yes 50mg Take 50 mg Uni vers HCL 7-30 by mouth 2 ity of (TRAMADOL 15:18: (two) [place] HYDROCHLORI 32 times Medical DE, BULK, daily. Branch MISC) ferrous 2020-0 Yes 325mg Take 325 Unive rs sulfate 325 7-30 mg by ity of mg (65 mg 15:18: mouth [place] iron) 32 daily. Medical tablet Branch ciclesonide 2019-0 Yes 2{puff} Inhale 2 [facility] (ALVESCO) 7-30 Puffs as ity of 160 15:18: needed for [place] mcg/actuati 32 Other Medical on inhaler (sob). Branch CLONAZEPAM 2020-0 Yes Take by Univ ers ORAL 7-30 mouth. ity of 15:18: [place] [address] Medical Branch hydroCHLORO 2020-0 Yes 12.5mg Take 12.5 [facility] thiazide 7-30 mg by ity of 12.5 mg 15:18: mouth [place] capsule 32 daily. Medical Branch metFORMIN 2020-0 Yes 1000mg Take 1,000 [facility] (GLUCOPHAGE 7-30 mg by ity of ) 500 mg 15:18: mouth 2 [place] tablet 32 (two) Medical times Branch daily. venlafaxine 2020-0 Yes 150mg Take 150 U nivers XR (EFFEXOR 7-30 mg by ity of XR) 150 mg 15:18: mouth 2 [place] (two) Medical capsule times Branch daily. topiramate 2020-0 Yes 50mg Take 50 mg U nivers (TOPIRAGEN) 7-30 by mouth 2 it y of 25 mg 15:18: (two) [place] tablet 32 times Medical daily. Branch gabapentin 2020-0 Yes 300mg Take 300 Un susi 300 mg 7-30 mg by ity of capsule 15:18: mouth 2 [place] 32 (two) Medical times Branch daily. ALPRAZolam 2020-0 Yes .5mg Take 0.5 Uni vers (XANAX) 0.5 7-30 mg by ity of mg tablet 15:18: mouth 3 [place] 32 (three) Medical times Branch daily as needed. allopurinol 2020-0 Yes 300mg Take 300 U nivers (ZYLOPRIM) 7-30 mg by ity of 300 mg 15:18: mouth [place] tablet 32 daily. Medical Branch losartan 2020-0 Yes 50mg Take 50 mg [facility] vers (COZAAR) 50 7-30 by mouth ity of mg tablet 15:18: daily. [place] [address] [facility] Branch atorvastati 2020-0 Yes 20mg Take 20 mg [facility] n (LIPITOR) 7-30 by mouth ity of 20 mg 15:18: at [place] tablet 32 bedtime. Medical Branch clopidogrel 2020-0 Yes 75mg Take 75 mg [facility] (PLAVIX) 75 7-30 by mouth ity of mg tablet 15:18: daily. [place] [address] Medical Branch budesonide- 2020-0 Yes 2{puff} Inhale 2 [facility] formoterol 7-30 Puffs 2 ity of (SYMBICORT) 15:18: (two) [place] 160-4.5 32 times Medical mcg/actuati daily. Branch on inhaler tiZANidine 2020-0 Yes 4mg Take 4 mg Un susi 4 mg 7-30 by mouth ity of capsule 15:18: daily. [place] [address] Medical Branch TRAMADOL 2020-0 Yes 50mg Take 50 mg Uni vers HCL 7-30 by mouth 2 ity of (TRAMADOL 15:18: (two) [place] HYDROCHLORI 32 times Medical DE, BULK, daily. Branch MISC) ferrous 2020-0 Yes 325mg Take 325 Unive rs sulfate 325 7-30 mg by ity of mg (65 mg 15:18: mouth [place] iron) 32 daily. Medical tablet Branch ciclesonide 2020-0 Yes 2{puff} Inhale 2 [facility] (ALVESCO) 7-30 Puffs as ity of 160 15:18: needed for [place] mcg/actuati 32 Other Medical on inhaler (sob). Branch CLONAZEPAM 2020-0 Yes Take by Univ ers ORAL 7-30 mouth. ity of 15:18: [place] [address] Medical Branch hydroCHLORO 2020-0 Yes 12.5mg Take 12.5 [facility] thiazide 7-30 mg by ity of 12.5 mg 15:18: mouth [place] capsule 32 daily. Medical Branch metFORMIN 2020-0 Yes 1000mg Take 1,000 [facility] (GLUCOPHAGE 7-30 mg by ity of ) 500 mg 15:18: mouth 2 [place] tablet 32 (two) Medical times Branch daily. venlafaxine 2020-0 Yes 150mg Take 150 U nivers XR (EFFEXOR 7-30 mg by ity of XR) 150 mg 15:18: mouth 2 [place] (two) Medical capsule times Branch daily. topiramate 2020-0 Yes 50mg Take 50 mg U nivers (TOPIRAGEN) 7-30 by mouth 2 it y of 25 mg 15:18: (two) [place] tablet 32 times Medical daily. Branch gabapentin 2020-0 Yes 300mg Take 300 Un susi 300 mg 7-30 mg by ity of capsule 15:18: mouth 2 [place] 32 (two) Medical times Branch daily. ALPRAZolam 2020-0 Yes .5mg Take 0.5 Uni vers (XANAX) 0.5 7-30 mg by ity of mg tablet 15:18: mouth 3 [place] 32 (three) Medical times Branch daily as needed. allopurinol 2020-0 Yes 300mg Take 300 U nivers (ZYLOPRIM) 7-30 mg by ity of 300 mg 15:18: mouth [place] tablet 32 daily. Medical Branch losartan 2020-0 Yes 50mg Take 50 mg [facility] vers (COZAAR) 50 7-30 by mouth ity of mg tablet 15:18: daily. [place] [address] Medical Branch atorvastati 2020-0 Yes 20mg Take 20 mg [facility] n (LIPITOR) 7-30 by mouth ity of 20 mg 15:18: at [place] tablet 32 bedtime. Medical Branch clopidogrel 2020-0 Yes 75mg Take 75 mg [facility] (PLAVIX) 75 7-30 by mouth ity of mg tablet 15:18: daily. [place] [address] Medical Branch budesonide- 2020-0 Yes 2{puff} Inhale 2 [facility] formoterol 7-30 Puffs 2 ity of (SYMBICORT) 15:18: (two) [place] 160-4.5 32 times Medical mcg/actuati daily. Branch on inhaler tiZANidine 2020-0 Yes 4mg Take 4 mg Un susi 4 mg 7-30 by mouth ity of capsule 15:18: daily. [place] [address] Medical Branch TRAMADOL 2020-0 Yes 50mg Take 50 mg Uni vers HCL 7-30 by mouth 2 ity of (TRAMADOL 15:18: (two) [place] HYDROCHLORI 32 times Medical DE, BULK, daily. Branch MISC) ferrous 2020-0 Yes 325mg Take 325 Unive rs sulfate 325 7-30 mg by ity of mg (65 mg 15:18: mouth [place] iron) 32 daily. Medical tablet Branch ciclesonide 2019-0 Yes 2{puff} Inhale 2 [facility] (ALVESCO) 7-30 Puffs as ity of 160 15:18: needed for [place] mcg/actuati 32 Other Medical on inhaler (sob). Branch CLONAZEPAM 2019-0 Yes Take by Univ ers ORAL 7-30 mouth. ity of 15:18: [place] [address] Medical Branch hydroCHLORO 2020-0 Yes 12.5mg Take 12.5 [facility] thiazide 7-30 mg by ity of 12.5 mg 15:18: mouth [place] capsule 32 daily. Medical Branch metFORMIN 2020-0 Yes 1000mg Take 1,000 [facility] (GLUCOPHAGE 7-30 mg by ity of ) 500 mg 15:18: mouth 2 [place] tablet 32 (two) Medical times Branch daily. venlafaxine 2020-0 Yes 150mg Take 150 U nivers XR (EFFEXOR 7-30 mg by ity of XR) 150 mg 15:18: mouth 2 [place] 24 [place] (two) Medical capsule times Branch daily. topiramate 2020-0 Yes 50mg Take 50 mg U nivers (TOPIRAGEN) 7-30 by mouth 2 it y of 25 mg 15:18: (two) [place] tablet 32 times Medical daily. Branch gabapentin 2020-0 Yes 300mg Take 300 Un susi 300 mg 7-30 mg by ity of capsule 15:18: mouth 2 [place] 32 (two) Medical times Branch daily. ALPRAZolam 2020-0 Yes .5mg Take 0.5 Uni vers (XANAX) 0.5 7-30 mg by ity of mg tablet 15:18: mouth 3 [place] [address] (three) Medical times [place] daily as needed. allopurinol 2020-0 Yes 300mg Take 300 U nivers (ZYLOPRIM) 7-30 mg by ity of 300 mg 15:18: mouth [place] tablet 32 daily. Medical Branch losartan 2020-0 Yes 50mg Take 50 mg Uni vers (COZAAR) 50 7-30 by mouth ity of mg tablet 15:18: daily. [place] [address] Medical Branch atorvastati 2020-0 Yes 20mg Take 20 mg [facility] n (LIPITOR) 7-30 by mouth ity of 20 mg 15:18: at [place] tablet 32 bedtime. Medical Branch clopidogrel 2020-0 Yes 75mg Take 75 mg [facility] (PLAVIX) 75 7-30 by mouth ity of mg tablet 15:18: daily. [place] [address] Medical Branch budesonide- 2020-0 Yes 2{puff} Inhale 2 [facility] formoterol 7-30 Puffs 2 ity of (SYMBICORT) 15:18: (two) [place] 160-4.5 32 times Medical mcg/actuati daily. Branch on inhaler tiZANidine 2020-0 Yes 4mg Take 4 mg Un susi 4 mg 7-30 by mouth ity of capsule 15:18: daily. [place] [address] Medical Branch TRAMADOL 2020-0 Yes 50mg Take 50 mg Uni vers HCL 7-30 by mouth 2 ity of (TRAMADOL 15:18: (two) [place] HYDROCHLORI 32 times Medical DE, BULK, daily. Branch MISC) ferrous 2020-0 Yes 325mg Take 325 Unive rs sulfate 325 7-30 mg by ity of mg (65 mg 15:18: mouth [place] iron) 32 daily. Medical tablet Branch ciclesonide 2020-0 Yes 2{puff} Inhale 2 [facility] (ALVESCO) 7-30 Puffs as ity of 160 15:18: needed for [place] mcg/actuati 32 Other Medical on inhaler (sob). Branch CLONAZEPAM 2019-0 Yes Take by Univ ers ORAL 7-30 mouth. ity of 15:18: [place] [address] Medical Branch hydroCHLORO 2020-0 Yes 12.5mg Take 12.5 [facility] thiazide 7-30 mg by ity of 12.5 mg 15:18: mouth [place] capsule 32 daily. Medical Branch metFORMIN 2020-0 Yes 1000mg Take 1,000 [facility] (GLUCOPHAGE 7-30 mg by ity of ) 500 mg 15:18: mouth 2 [place] tablet 32 (two) Medical times Branch daily. venlafaxine 2020-0 Yes 150mg Take 150 U nivers XR (EFFEXOR 7-30 mg by ity of XR) 150 mg 15:18: mouth 2 [place] 24 [place] 32 (two) Medical capsule times Branch daily. topiramate 2020-0 Yes 50mg Take 50 mg U nivers (TOPIRAGEN) 7-30 by mouth 2 it y of 25 mg 15:18: (two) [place] tablet 32 times Medical daily. Branch gabapentin 2020-0 Yes 300mg Take 300 Un susi 300 mg 7-30 mg by ity of capsule 15:18: mouth 2 [place] 32 (two) Medical times Branch daily. ALPRAZolam 2020-0 Yes .5mg Take 0.5 Uni vers (XANAX) 0.5 7-30 mg by ity of mg tablet 15:18: mouth 3 [place] 32 (three) Medical times Branch daily as needed. allopurinol 2020-0 Yes 300mg Take 300 U nivers (ZYLOPRIM) 7-30 mg by ity of 300 mg 15:18: mouth [place] tablet 32 daily. Medical Branch losartan 2020-0 Yes 50mg Take 50 mg [facility] vers (COZAAR) 50 7-30 by mouth ity of mg tablet 15:18: daily. [place] [address] [facility] Branch atorvastati 2020-0 Yes 20mg Take 20 mg [facility] n (LIPITOR) 7-30 by mouth ity of 20 mg 15:18: at [place] tablet 32 bedtime. Medical Branch clopidogrel 2020-0 Yes 75mg Take 75 mg [facility] (PLAVIX) 75 7-30 by mouth ity of mg tablet 15:18: daily. [place] [address] Medical Branch budesonide- 2020-0 Yes 2{puff} Inhale 2 [facility] formoterol 7-30 Puffs 2 ity of (SYMBICORT) 15:18: (two) [place] 160-4.5 32 times Medical mcg/actuati daily. Branch on inhaler tiZANidine 2020-0 Yes 4mg Take 4 mg Un susi 4 mg 7-30 by mouth ity of capsule 15:18: daily. [place] [address] Medical Branch TRAMADOL 2020-0 Yes 50mg Take 50 mg Uni vers HCL 7-30 by mouth 2 ity of (TRAMADOL 15:18: (two) [place] HYDROCHLORI 32 times Medical DE, BULK, daily. Branch MISC) ferrous 2020-0 Yes 325mg Take 325 Unive rs sulfate 325 7-30 mg by ity of mg (65 mg 15:18: mouth [place] iron) 32 daily. Medical tablet Branch ciclesonide 2020-0 Yes 2{puff} Inhale 2 [facility] (ALVESCO) 7-30 Puffs as ity of 160 15:18: needed for [place] mcg/actuati 32 Other Medical on inhaler (sob). Branch CLONAZEPAM 2020-0 Yes Take by Univ ers ORAL 7-30 mouth. ity of 15:18: [place] [address] Medical Branch hydroCHLORO 2020-0 Yes 12.5mg Take 12.5 [facility] thiazide 7-30 mg by ity of 12.5 mg 15:18: mouth [place] capsule 32 daily. Medical Branch metFORMIN 2020-0 Yes 1000mg Take 1,000 [facility] (GLUCOPHAGE 7-30 mg by ity of ) 500 mg 15:18: mouth 2 [place] tablet 32 (two) Medical times Branch daily. venlafaxine 2020-0 Yes 150mg Take 150 U nivers XR (EFFEXOR 7-30 mg by ity of XR) 150 mg 15:18: mouth 2 [place] 24 [place] 32 (two) Medical capsule times Branch daily. topiramate 2020-0 Yes 50mg Take 50 mg U nivers (TOPIRAGEN) 7-30 by mouth 2 it y of 25 mg 15:18: (two) [place] tablet 32 times Medical daily. Branch gabapentin 2020-0 Yes 300mg Take 300 Un susi 300 mg 7-30 mg by ity of capsule 15:18: mouth 2 [place] 32 (two) Medical times Branch daily. ALPRAZolam 2020-0 Yes .5mg Take 0.5 Uni vers (XANAX) 0.5 7-30 mg by ity of mg tablet 15:18: mouth 3 [place] 32 (three) Medical times Branch daily as needed. allopurinol 2020-0 Yes 300mg Take 300 U nivers (ZYLOPRIM) 7-30 mg by ity of 300 mg 15:18: mouth [place] tablet 32 daily. Medical Branch losartan 2020-0 Yes 50mg Take 50 mg Uni vers (COZAAR) 50 7-30 by mouth ity of mg tablet 15:18: daily. [place] [address] Medical Branch atorvastati 2020-0 Yes 20mg Take 20 mg [facility] n (LIPITOR) 7-30 by mouth ity of 20 mg 15:18: at [place] tablet 32 bedtime. Medical Branch clopidogrel 2020-0 Yes 75mg Take 75 mg [facility] (PLAVIX) 75 7-30 by mouth ity of mg tablet 15:18: daily. [place] [address] Medical Branch budesonide- 2020-0 Yes 2{puff} Inhale 2 [facility] formoterol 7-30 Puffs 2 ity of (SYMBICORT) 15:18: (two) [place] 160-4.5 32 times Medical mcg/actuati daily. Branch on inhaler tiZANidine 2019-0 Yes 4mg Take 4 mg Un susi 4 mg 7-30 by mouth ity of capsule 15:18: daily. [place] [address] Medical Branch TRAMADOL 2020-0 Yes 50mg Take 50 mg Uni vers HCL 7-30 by mouth 2 ity of (TRAMADOL 15:18: (two) [place] HYDROCHLORI 32 times Medical DE, BULK, daily. Branch MISC) ferrous 2020-0 Yes 325mg Take 325 Unive rs sulfate 325 7-30 mg by ity of mg (65 mg 15:18: mouth [place] iron) 32 daily. Medical tablet Branch ciclesonide 2019-0 Yes 2{puff} Inhale 2 [facility] (ALVESCO) 7-30 Puffs as ity of 160 15:18: needed for [place] mcg/actuati 32 Other Medical on inhaler (sob). Branch CLONAZEPAM 2019-0 Yes Take by Univ ers ORAL 7-30 mouth. ity of 15:18: [place] [address] Medical Branch hydroCHLORO 2020-0 Yes 12.5mg Take 12.5 [facility] thiazide 7-30 mg by ity of 12.5 mg 15:18: mouth [place] capsule 32 daily. Medical Branch metFORMIN 2020-0 Yes 1000mg Take 1,000 [facility] (GLUCOPHAGE 7-30 mg by ity of ) 500 mg 15:18: mouth 2 [place] tablet 32 (two) Medical times Branch daily. venlafaxine 2020-0 Yes 150mg Take 150 U nivers XR (EFFEXOR 7-30 mg by ity of XR) 150 mg 15:18: mouth 2 [place] (two) Medical capsule times Branch daily. topiramate 2020-0 Yes 50mg Take 50 mg U nivers (TOPIRAGEN) 7-30 by mouth 2 it y of 25 mg 15:18: (two) [place] tablet 32 times Medical daily. Branch gabapentin 2020-0 Yes 300mg Take 300 Un susi 300 mg 7-30 mg by ity of capsule 15:18: mouth 2 [place] 32 (two) Medical times Branch daily. ALPRAZolam 2020-0 Yes .5mg Take 0.5 Uni vers (XANAX) 0.5 7-30 mg by ity of mg tablet 15:18: mouth 3 [place] 32 (three) Medical times Branch daily as needed. allopurinol 2020-0 Yes 300mg Take 300 U nivers (ZYLOPRIM) 7-30 mg by ity of 300 mg 15:18: mouth [place] tablet 32 daily. Medical Branch losartan 2020-0 Yes 50mg Take 50 mg Uni vers (COZAAR) 50 7-30 by mouth ity of mg tablet 15:18: daily. [address] Branch atorvastati 2020-0 Yes 20mg Take 20 mg [facility] n (LIPITOR) 7-30 by mouth ity of 20 mg 15:18: at [place] tablet 32 bedtime. Medical Branch clopidogrel 2020-0 Yes 75mg Take 75 mg [facility] (PLAVIX) 75 7-30 by mouth ity of mg tablet 15:18: daily. [place] [address] Medical Branch budesonide- 2020-0 Yes 2{puff} Inhale 2 [facility] formoterol 7-30 Puffs 2 ity of (SYMBICORT) 15:18: (two) [place] 160-4.5 32 times Medical mcg/actuati daily. Branch on inhaler tiZANidine 2020-0 Yes 4mg Take 4 mg Un susi 4 mg 7-30 by mouth ity of capsule 15:18: daily. [place] [address] Medical Branch TRAMADOL 2020-0 Yes 50mg Take 50 mg Uni vers HCL 7-30 by mouth 2 ity of (TRAMADOL 15:18: (two) [place] HYDROCHLORI 32 times Medical DE, BULK, daily. Branch MISC) ferrous 2020-0 Yes 325mg Take 325 Unive rs sulfate 325 7-30 mg by ity of mg (65 mg 15:18: mouth [place] iron) 32 daily. Medical tablet Branch ciclesonide 2020-0 Yes 2{puff} Inhale 2 [facility] (ALVESCO) 7-30 Puffs as ity of 160 15:18: needed for [place] mcg/actuati 32 Other Medical on inhaler (sob). Branch CLONAZEPAM 2020-0 Yes Take by Univ ers ORAL 7-30 mouth. ity of 15:18: [place] [address] Medical Branch hydroCHLORO 2020-0 Yes 12.5mg Take 12.5 [facility] thiazide 7-30 mg by ity of 12.5 mg 15:18: mouth [place] capsule 32 daily. Medical Branch metFORMIN 2020-0 Yes 1000mg Take 1,000 [facility] (GLUCOPHAGE 7-30 mg by ity of ) 500 mg 15:18: mouth 2 [place] tablet 32 (two) Medical times Branch daily. venlafaxine 2020-0 Yes 150mg Take 150 U nivers XR (EFFEXOR 7-30 mg by ity of XR) 150 mg 15:18: mouth 2 [place] 24 [place] (two) Medical capsule times Branch daily. topiramate 2020-0 Yes 50mg Take 50 mg U nivers (TOPIRAGEN) 7-30 by mouth 2 it y of 25 mg 15:18: (two) [place] tablet 32 times Medical daily. Branch gabapentin 2020-0 Yes 300mg Take 300 Un susi 300 mg 7-30 mg by ity of capsule 15:18: mouth 2 [place] 32 (two) Medical times Branch daily. ALPRAZolam 2020-0 Yes .5mg Take 0.5 Uni vers (XANAX) 0.5 7-30 mg by ity of mg tablet 15:18: mouth 3 [place] 32 (three) Medical times Branch daily as needed. allopurinol 2020-0 Yes 300mg Take 300 U nivers (ZYLOPRIM) 7-30 mg by ity of 300 mg 15:18: mouth [place] tablet 32 daily. Medical Branch losartan 2020-0 Yes 50mg Take 50 mg Uni vers (COZAAR) 50 7-30 by mouth ity of mg tablet 15:18: daily. [place] [address] Medical Branch atorvastati 2020-0 Yes 20mg Take 20 mg [facility] n (LIPITOR) 7-30 by mouth ity of 20 mg 15:18: at [place] tablet 32 bedtime. Medical Branch clopidogrel 2020-0 Yes 75mg Take 75 mg [facility] (PLAVIX) 75 7-30 by mouth ity of mg tablet 15:18: daily. [place] [address] Medical Branch budesonide- 2020-0 Yes 2{puff} Inhale 2 [facility] formoterol 7-30 Puffs 2 ity of (SYMBICORT) 15:18: (two) [place] 160-4.5 32 times Medical mcg/actuati daily. Branch on inhaler tiZANidine 2020-0 Yes 4mg Take 4 mg Un susi 4 mg 7-30 by mouth ity of capsule 15:18: daily. [place] [address] Medical Branch TRAMADOL 2020-0 Yes 50mg Take 50 mg Uni vers HCL 7-30 by mouth 2 ity of (TRAMADOL 15:18: (two) [place] HYDROCHLORI 32 times Medical DE, BULK, daily. Branch MISC) ferrous 2020-0 Yes 325mg Take 325 Unive rs sulfate 325 7-30 mg by ity of mg (65 mg 15:18: mouth [place] iron) 32 daily. Medical tablet Branch ciclesonide 2020-0 Yes 2{puff} Inhale 2 [facility] (ALVESCO) 7-30 Puffs as ity of 160 15:18: needed for [place] mcg/actuati 32 Other Medical on inhaler (sob). Branch CLONAZEPAM 2020-0 Yes Take by Univ ers ORAL 7-30 mouth. ity of 15:18: [place] [address] Medical Branch hydroCHLORO 2020-0 Yes 12.5mg Take 12.5 [facility] thiazide 7-30 mg by ity of 12.5 mg 15:18: mouth [place] capsule 32 daily. Medical Branch metFORMIN 2020-0 Yes 1000mg Take 1,000 [facility] (GLUCOPHAGE 7-30 mg by ity of ) 500 mg 15:18: mouth 2 [place] tablet 32 (two) Medical times Branch daily. venlafaxine 2020-0 Yes 150mg Take 150 U nivers XR (EFFEXOR 7-30 mg by ity of XR) 150 mg 15:18: mouth 2 [place] (two) Medical capsule times Branch daily. topiramate 2020-0 Yes 50mg Take 50 mg U nivers (TOPIRAGEN) 7-30 by mouth 2 it y of 25 mg 15:18: (two) [place] tablet 32 times Medical daily. Branch gabapentin 2020-0 Yes 300mg Take 300 Un susi 300 mg 7-30 mg by ity of capsule 15:18: mouth 2 [place] [address] (two) Medical times Branch daily. ALPRAZolam 2020-0 Yes .5mg Take 0.5 Uni vers (XANAX) 0.5 7-30 mg by ity of mg tablet 15:18: mouth 3 [place] [address] (three) Medical times Branch daily as needed. allopurinol 2020-0 Yes 300mg Take 300 U nivers (ZYLOPRIM) 7-30 mg by ity of 300 mg 15:18: mouth [place] tablet 32 daily. Medical Branch losartan 2020-0 Yes 50mg Take 50 mg Uni vers (COZAAR) 50 7-30 by mouth ity of mg tablet 15:18: daily. [place] [address] Medical Branch atorvastati 2019-0 Yes 20mg Take 20 mg [facility] n (LIPITOR) 7-30 by mouth ity of 20 mg 15:18: at [place] tablet 32 bedtime. Medical Branch clopidogrel 2020-0 Yes 75mg Take 75 mg [facility] (PLAVIX) 75 7-30 by mouth ity of mg tablet 15:18: daily. [place] [address] Medical Branch budesonide- 2019-0 Yes 2{puff} Inhale 2 [facility] formoterol 7-30 Puffs 2 ity of (SYMBICORT) 15:18: (two) [place] 160-4.5 32 times Medical mcg/actuati daily. Branch on inhaler tiZANidine 2019-0 Yes 4mg Take 4 mg Un susi 4 mg 7-30 by mouth ity of capsule 15:18: daily. [place] [address] Medical Branch TRAMADOL 2020-0 Yes 50mg Take 50 mg Uni vers HCL 7-30 by mouth 2 ity of (TRAMADOL 15:18: (two) [place] HYDROCHLORI 32 times Medical DE, BULK, daily. Branch MISC) ferrous 2020-0 Yes 325mg Take 325 Unive rs sulfate 325 7-30 mg by ity of mg (65 mg 15:18: mouth [place] iron) 32 daily. Medical tablet Branch ciclesonide 2020-0 Yes 2{puff} Inhale 2 [facility] (ALVESCO) 7-30 Puffs as ity of 160 15:18: needed for [place] mcg/actuati 32 Other Medical on inhaler (sob). Branch CLONAZEPAM 2020-0 Yes Take by Univ ers ORAL 7-30 mouth. ity of 15:18: [place] [address] Medical Branch hydroCHLORO 2020-0 Yes 12.5mg Take 12.5 [facility] thiazide 7-30 mg by ity of 12.5 mg 15:18: mouth [place] capsule 32 daily. Medical Branch metFORMIN 2020-0 Yes 1000mg Take 1,000 [facility] (GLUCOPHAGE 7-30 mg by ity of ) 500 mg 15:18: mouth 2 [place] tablet 32 (two) Medical times Branch daily. venlafaxine 2020-0 Yes 150mg Take 150 U nivers XR (EFFEXOR 7-30 mg by ity of XR) 150 mg 15:18: mouth 2 [place] (two) Medical capsule times Branch daily. topiramate 2020-0 Yes 50mg Take 50 mg U nivers (TOPIRAGEN) 7-30 by mouth 2 it y of 25 mg 15:18: (two) [place] tablet 32 times Medical daily. Branch gabapentin 2020-0 Yes 300mg Take 300 Un susi 300 mg 7-30 mg by ity of capsule 15:18: mouth 2 [place] 32 (two) Medical times Branch daily. ALPRAZolam 2020-0 Yes .5mg Take 0.5 Uni vers (XANAX) 0.5 7-30 mg by ity of mg tablet 15:18: mouth 3 [place] 32 (three) Medical times Branch daily as needed. allopurinol 2020-0 Yes 300mg Take 300 U nivers (ZYLOPRIM) 7-30 mg by ity of 300 mg 15:18: mouth [place] tablet 32 daily. Medical Branch losartan 2020-0 Yes 50mg Take 50 mg Uni vers (COZAAR) 50 7-30 by mouth ity of mg tablet 15:18: daily. [place] [address] Medical Branch atorvastati 2020-0 Yes 20mg Take 20 mg Univers n (LIPITOR) 7-30 by mouth ity of 20 mg 15:18: at [place] tablet 32 bedtime. Medical Branch clopidogrel 2020-0 Yes 75mg Take 75 mg Univers (PLAVIX) 75 7-30 by mouth ity of mg tablet 15:18: daily. [place] [address] Medical Branch budesonide- 2020-0 Yes 2{puff} Inhale 2 [facility] formoterol 7-30 Puffs 2 ity of (SYMBICORT) 15:18: (two) [place] 160-4.5 32 times Medical mcg/actuati daily. Branch on inhaler tiZANidine 2020-0 Yes 4mg Take 4 mg Un susi 4 mg 7-30 by mouth ity of capsule 15:18: daily. [place] [address] Medical Branch TRAMADOL 2020-0 Yes 50mg Take 50 mg Uni vers HCL 7-30 by mouth 2 ity of (TRAMADOL 15:18: (two) [place] HYDROCHLORI 32 times Medical DE, BULK, daily. Branch MISC) ferrous 2020-0 Yes 325mg Take 325 Unive rs sulfate 325 7-30 mg by ity of mg (65 mg 15:18: mouth [place] iron) 32 daily. Medical tablet Branch ciclesonide 2020-0 Yes 2{puff} Inhale 2 Univers (ALVESCO) 7-30 Puffs as ity of 160 15:18: needed for [place] mcg/actuati 32 Other Medical on inhaler (sob). Branch CLONAZEPAM 2020-0 Yes Take by Univ ers ORAL 7-30 mouth. ity of 15:18: [place] [address] Medical Branch hydroCHLORO 2020-0 Yes 12.5mg Take 12.5 [facility] thiazide 7-30 mg by ity of 12.5 mg 15:18: mouth [place] capsule 32 daily. Medical Branch metFORMIN 2020-0 Yes 1000mg Take 1,000 [facility] (GLUCOPHAGE 7-30 mg by ity of ) 500 mg 15:18: mouth 2 [place] tablet 32 (two) Medical times Branch daily. venlafaxine 2020-0 Yes 150mg Take 150 U nivers XR (EFFEXOR 7-30 mg by ity of XR) 150 mg 15:18: mouth 2 [place] 32 (two) Medical capsule times Branch daily. topiramate 2020-0 Yes 50mg Take 50 mg U nivers (TOPIRAGEN) 7-30 by mouth 2 it y of 25 mg 15:18: (two) [place] tablet 32 times Medical daily. Branch gabapentin 2020-0 Yes 300mg Take 300 [facility]i 300 mg 7-30 mg by ity of capsule 15:18: mouth 2 [place] 32 (two) Medical times Branch daily. ALPRAZolam 2020-0 Yes .5mg Take 0.5 Uni vers (XANAX) 0.5 7-30 mg by ity of mg tablet 15:18: mouth 3 [place] 32 (three) Medical times Branch daily as needed. allopurinol 2020-0 Yes 300mg Take 300 U nivers (ZYLOPRIM) 7-30 mg by ity of 300 mg 15:18: mouth [place] tablet 32 daily. Medical Branch losartan 2020-0 Yes 50mg Take 50 mg Uni vers (COZAAR) 50 7-30 by mouth ity of mg tablet 15:18: daily. [place] [address] Medical Branch atorvastati 2020-0 Yes 20mg Take 20 mg [facility] n (LIPITOR) 7-30 by mouth ity of 20 mg 15:18: at [place] tablet 32 bedtime. Medical Branch clopidogrel 2020-0 Yes 75mg Take 75 mg [facility] (PLAVIX) 75 7-30 by mouth ity of mg tablet 15:18: daily. [place] [address] Medical Branch budesonide- 2020-0 Yes 2{puff} Inhale 2 [facility] formoterol 7-30 Puffs 2 ity of (SYMBICORT) 15:18: (two) [place] 160-4.5 32 times Medical mcg/actuati daily. Branch on inhaler tiZANidine 2020-0 Yes 4mg Take 4 mg [facility] susi 4 mg 7-30 by mouth ity of capsule 15:18: daily. [place] [address] Medical Branch TRAMADOL 2020-0 Yes 50mg Take 50 mg Uni vers HCL 7-30 by mouth 2 ity of (TRAMADOL 15:18: (two) [place] HYDROCHLORI 32 times Medical DE, BULK, daily. Branch MISC) ferrous 2020-0 Yes 325mg Take 325 Unive rs sulfate 325 7-30 mg by ity of mg (65 mg 15:18: mouth [place] iron) 32 daily. Medical tablet Branch ciclesonide 2019-0 Yes 2{puff} Inhale 2 [facility] (ALVESCO) 7-30 Puffs as ity of 160 15:18: needed for [place] mcg/actuati 32 Other Medical on inhaler (sob). Branch CLONAZEPAM 2020-0 Yes Take by Univ ers ORAL 7-30 mouth. ity of 15:18: [place] [address] Medical Branch hydroCHLORO 2020-0 Yes 12.5mg Take 12.5 [facility] thiazide 7-30 mg by ity of 12.5 mg 15:18: mouth [place] capsule 32 daily. Medical Branch lactated 2020-0 Yes 1000mL at 75 Univer s ringers IV 7-30 mL/hr, ity of infusion 14:30: 1,000 mL, [place] 1,000 mL 00 IV Medical Infusion, Branch CONTINUOUS , Starting [place]aterine 03/15/20 at 0930, Until Discontinu ed, Routine, PACU ondansetron 2020-0 Yes 4mg 4 mg, Slow [facility] (ZOFRAN 7-30 IV Push, ity of (PF)) 14:24: PRN, 1 [place] injection 4 30 dose, Medical mg Starting Branch [place] 03/15/20 at 0924, Until Discontinu ed, Routine, Nausea and Vomiting (N/V), PACU water for 2020-0 Yes PRN, Univers irrigation 7-30 Starting ity o f irrigation 14:15: [place] solution 00 03/15/20 at Medic al 0915, Branch Until Discontinu ed, Routine, Intra-op simethicone 2020-0 Yes PRN, Univer s (GAS RELIEF 7-30 Starting ity of (SIMETHICON 14:15: [place]ine [place] E)) 40 00 03/15/20 at Medical mg/0.6 mL 0915, Branch drops Until Discontinu ed, Routine, Intra-op lactated 2020-0 2020- No 1000mL at 20 Unive rs ringers IV 7-30 07-30 mL/hr, ity of infusion 13:00: 13:09 1,000 mL, [place] 1,000 mL 00 :00 IV Medical Infusion, Branch ONCE, 1 dose, [place] 03/15/20 at 0800, Routine, Endo Pre-op metFORMIN 2020-0 Yes 1000mg Take 1,000 [facility] (GLUCOPHAGE 7-30 mg by ity of ) 500 mg 10:18: mouth 2 [place] tablet 32 (two) Medical times [place] daily. venlafaxine 2020-0 Yes 150mg Take 150 U nivers XR (EFFEXOR 7-30 mg by ity of XR) 150 mg 10:18: mouth 2 [place] 24 [place] 32 (two) Medical capsule times Branch daily. topiramate 2020-0 Yes 50mg Take 50 mg U nivers (TOPIRAGEN) 7-30 by mouth 2 it y of 25 mg 10:18: (two) [place] tablet 32 times Medical daily. Branch gabapentin 2020-0 Yes 300mg Take 300 Un susi 300 mg 7-30 mg by ity of capsule 10:18: mouth 2 [place] 32 (two) Medical times Branch daily. ALPRAZolam 2020-0 Yes .5mg Take 0.5 Uni vers (XANAX) 0.5 7-30 mg by ity of mg tablet 10:18: mouth 3 [place] [address] (three) Medical times Branch daily as needed. allopurinol 2020-0 Yes 300mg Take 300 U nivers (ZYLOPRIM) 7-30 mg by ity of 300 mg 10:18: mouth [place] tablet 32 daily. Medical Branch losartan 2020-0 Yes 50mg Take 50 mg Uni vers (COZAAR) 50 7-30 by mouth ity of mg tablet 10:18: daily. [place] [address] Medical Branch atorvastati 2020-0 Yes 20mg Take 20 mg [facility] n (LIPITOR) 7-30 by mouth ity of 20 mg 10:18: at [place] tablet 32 bedtime. Medical Branch clopidogrel 2019-0 Yes 75mg Take 75 mg [facility] (PLAVIX) 75 7-30 by mouth ity of mg tablet 10:18: daily. [place] [address] Medical Branch budesonide- 2019-0 Yes 2{puff} Inhale 2 [facility] formoterol 7-30 Puffs 2 ity of (SYMBICORT) 10:18: (two) [place] 160-4.5 32 times Medical mcg/actuati daily. Branch on inhaler tiZANidine 2019-0 Yes 4mg Take 4 mg Un susi 4 mg 7-30 by mouth ity of capsule 10:18: daily. [place] [address] Medical Branch TRAMADOL 2019-0 Yes 50mg Take 50 mg Uni vers HCL 7-30 by mouth 2 ity of (TRAMADOL 10:18: (two) [place] HYDROCHLORI 32 times Medical DE, BULK, daily. Branch MISC) ferrous 2020-0 Yes 325mg Take 325 Unive rs sulfate 325 7-30 mg by ity of mg (65 mg 10:18: mouth [place] iron) 32 daily. Medical tablet Branch ciclesonide 2019-0 Yes 2{puff} Inhale 2 [facility] (ALVESCO) 7-30 Puffs as ity of 160 10:18: needed for [place] mcg/actuati 32 Other Medical on inhaler (sob). Branch CLONAZEPAM 2020-0 Yes Take by Univ ers ORAL 7-30 mouth. ity of 10:18: [place] [address] Medical Branch hydroCHLORO 2020-0 Yes 12.5mg Take 12.5 [facility] thiazide 7-30 mg by ity of 12.5 mg 10:18: mouth [place] capsule 32 daily. Medical Branch metFORMIN 2020-0 Yes 1000mg Take 1,000 [facility] (GLUCOPHAGE 7-30 mg by ity of ) 500 mg 10:18: mouth 2 [place] tablet 32 (two) Medical times Branch daily. venlafaxine 2020-0 Yes 150mg Take 150 U nivers XR (EFFEXOR 7-30 mg by ity of XR) 150 mg 10:18: mouth 2 [place] 24 [place] 32 (two) Medical capsule times Branch daily. topiramate 2020-0 Yes 50mg Take 50 mg U nivers (TOPIRAGEN) 7-30 by mouth 2 it y of 25 mg 10:18: (two) [place] tablet 32 times Medical daily. Branch gabapentin 2020-0 Yes 300mg Take 300 Un susi 300 mg 7-30 mg by ity of capsule 10:18: mouth 2 [place] 32 (two) Medical times Branch daily. ALPRAZolam 2020-0 Yes .5mg Take 0.5 Uni vers (XANAX) 0.5 7-30 mg by ity of mg tablet 10:18: mouth 3 [place] 32 (three) Medical times Branch daily as needed. allopurinol 2020-0 Yes 300mg Take 300 U nivers (ZYLOPRIM) 7-30 mg by ity of 300 mg 10:18: mouth [place] tablet 32 daily. Medical Branch losartan 2020-0 Yes 50mg Take 50 mg Uni vers (COZAAR) 50 7-30 by mouth ity of mg tablet 10:18: daily. [address] Branch atorvastati 2020-0 Yes 20mg Take 20 mg [facility] n (LIPITOR) 7-30 by mouth ity of 20 mg 10:18: at [place] tablet 32 bedtime. Medical Branch clopidogrel 2020-0 Yes 75mg Take 75 mg [facility] (PLAVIX) 75 7-30 by mouth ity of mg tablet 10:18: daily. [place] [address] Medical Branch budesonide- 2020-0 Yes 2{puff} Inhale 2 [facility] formoterol 7-30 Puffs 2 ity of (SYMBICORT) 10:18: (two) [place] 160-4.5 32 times Medical mcg/actuati daily. Branch on inhaler tiZANidine 2020-0 Yes 4mg Take 4 mg Un susi 4 mg 7-30 by mouth ity of capsule 10:18: daily. [place] [address] Medical Branch TRAMADOL 2020-0 Yes 50mg Take 50 mg Uni vers HCL 7-30 by mouth 2 ity of (TRAMADOL 10:18: (two) [place] HYDROCHLORI 32 times Medical DE, BULK, daily. Branch MISC) ferrous 2020-0 Yes 325mg Take 325 Unive rs sulfate 325 7-30 mg by ity of mg (65 mg 10:18: mouth [place] iron) 32 daily. Medical tablet Branch ciclesonide 2020-0 Yes 2{puff} Inhale 2 [facility] (ALVESCO) 7-30 Puffs as ity of 160 10:18: needed for [place] mcg/actuati 32 Other Medical on inhaler (sob). Branch CLONAZEPAM 2020-0 Yes Take by Univ ers ORAL 7-30 mouth. ity of 10:18: [place] 32 Medical Branch hydroCHLORO 2020-0 Yes 12.5mg Take 12.5 [facility] thiazide 7-30 mg by ity of 12.5 mg 10:18: mouth [place] capsule 32 daily. Medical Branch metFORMIN 2020-0 Yes 1000mg Take 1,000 [facility] (GLUCOPHAGE 7-30 mg by ity of ) 500 mg 10:18: mouth 2 [place] tablet 32 (two) Medical times Branch daily. venlafaxine 2020-0 Yes 150mg Take 150 U nivers XR (EFFEXOR 7-30 mg by ity of XR) 150 mg 10:18: mouth 2 [place] 24 [place] 32 (two) Medical capsule times Branch daily. topiramate 2020-0 Yes 50mg Take 50 mg U nivers (TOPIRAGEN) 7-30 by mouth 2 it y of 25 mg 10:18: (two) [place] tablet 32 times Medical daily. Branch gabapentin 2020-0 Yes 300mg Take 300 Un susi 300 mg 7-30 mg by ity of capsule 10:18: mouth 2 [place] 32 (two) Medical times Branch daily. ALPRAZolam 2020-0 Yes .5mg Take 0.5 Uni vers (XANAX) 0.5 7-30 mg by ity of mg tablet 10:18: mouth 3 [place] 32 (three) Medical times Branch daily as needed. allopurinol 2020-0 Yes 300mg Take 300 U nivers (ZYLOPRIM) 7-30 mg by ity of 300 mg 10:18: mouth [place] tablet 32 daily. Medical Branch losartan 2020-0 Yes 50mg Take 50 mg Uni vers (COZAAR) 50 7-30 by mouth ity of mg tablet 10:18: daily. [place] [address] Medical Branch atorvastati 2020-0 Yes 20mg Take 20 mg Univers n (LIPITOR) 7-30 by mouth ity of 20 mg 10:18: at [place] tablet 32 bedtime. Medical Branch clopidogrel 2020-0 Yes 75mg Take 75 mg [facility] (PLAVIX) 75 7-30 by mouth ity of mg tablet 10:18: daily. [place] [address] Medical Branch budesonide- 2020-0 Yes 2{puff} Inhale 2 [facility] formoterol 7-30 Puffs 2 ity of (SYMBICORT) 10:18: (two) [place] 160-4.5 32 times Medical mcg/actuati daily. Branch on inhaler tiZANidine 2020-0 Yes 4mg Take 4 mg Un susi 4 mg 7-30 by mouth ity of capsule 10:18: daily. [place] [address] Medical Branch TRAMADOL 2020-0 Yes 50mg Take 50 mg Uni vers HCL 7-30 by mouth 2 ity of (TRAMADOL 10:18: (two) [place] HYDROCHLORI 32 times Medical DE, BULK, daily. Branch MISC) ferrous 2020-0 Yes 325mg Take 325 Unive rs sulfate 325 7-30 mg by ity of mg (65 mg 10:18: mouth [place] iron) 32 daily. Medical tablet Branch ciclesonide 2020-0 Yes 2{puff} Inhale 2 [facility] (ALVESCO) 7-30 Puffs as ity of 160 10:18: needed for [place] mcg/actuati 32 Other Medical on inhaler (sob). Branch CLONAZEPAM 2019-0 Yes Take by Univ ers ORAL 7-30 mouth. ity of 10:18: [place] [address] Medical Branch hydroCHLORO 2020-0 Yes 12.5mg Take 12.5 [facility] thiazide 7-30 mg by ity of 12.5 mg 10:18: mouth [place] capsule 32 daily. Medical Branch metFORMIN 2020-0 Yes 1000mg Take 1,000 [facility] (GLUCOPHAGE 7-30 mg by ity of ) 500 mg 10:18: mouth 2 [place] tablet 32 (two) Medical times Branch daily. venlafaxine 2020-0 Yes 150mg Take 150 U nivers XR (EFFEXOR 7-30 mg by ity of XR) 150 mg 10:18: mouth 2 [place] 24 [place] 32 (two) Medical capsule times Branch daily. topiramate 2020-0 Yes 50mg Take 50 mg U nivers (TOPIRAGEN) 7-30 by mouth 2 it y of 25 mg 10:18: (two) [place] tablet 32 times Medical daily. Branch gabapentin 2020-0 Yes 300mg Take 300 Un susi 300 mg 7-30 mg by ity of capsule 10:18: mouth 2 [place] 32 (two) Medical times Branch daily. ALPRAZolam 2020-0 Yes .5mg Take 0.5 Uni vers (XANAX) 0.5 7-30 mg by ity of mg tablet 10:18: mouth 3 [place] [address] (three) Medical times Branch daily as needed. allopurinol 2020-0 Yes 300mg Take 300 U nivers (ZYLOPRIM) 7-30 mg by ity of 300 mg 10:18: mouth [place] tablet 32 daily. Medical Branch losartan 2020-0 Yes 50mg Take 50 mg Uni vers (COZAAR) 50 7-30 by mouth ity of mg tablet 10:18: daily. [place] [address] Medical Branch atorvastati 2020-0 Yes 20mg Take 20 mg [facility] n (LIPITOR) 7-30 by mouth ity of 20 mg 10:18: at [place] tablet 32 bedtime. Medical Branch clopidogrel 2020-0 Yes 75mg Take 75 mg [facility] (PLAVIX) 75 7-30 by mouth ity of mg tablet 10:18: daily. [place] [address] Medical Branch budesonide- 2020-0 Yes 2{puff} Inhale 2 [facility] formoterol 7-30 Puffs 2 ity of (SYMBICORT) 10:18: (two) [place] 160-4.5 32 times Medical mcg/actuati daily. Branch on inhaler tiZANidine 2020-0 Yes 4mg Take 4 mg Un susi 4 mg 7-30 by mouth ity of capsule 10:18: daily. [place] [address] Medical Branch TRAMADOL 2020-0 Yes 50mg Take 50 mg Uni vers HCL 7-30 by mouth 2 ity of (TRAMADOL 10:18: (two) [place] HYDROCHLORI 32 times Medical DE, BULK, daily. Branch MISC) ferrous 2020-0 Yes 325mg Take 325 Unive rs sulfate 325 7-30 mg by ity of mg (65 mg 10:18: mouth [place] iron) 32 daily. Medical tablet Branch ciclesonide 2020-0 Yes 2{puff} Inhale 2 Univers (ALVESCO) 7-30 Puffs as ity of 160 10:18: needed for [facility]/actuati 32 Other Medical on inhaler (sob). Branch CLONAZEPAM 2020-0 Yes Take by Univ ers ORAL 7-30 mouth. ity of 10:18: [place] [address] Medical Branch hydroCHLORO 2020-0 Yes 12.5mg Take 12.5 [facility] thiazide 7-30 mg by ity of 12.5 mg 10:18: mouth [place] capsule 32 daily. Medical Branch metFORMIN 2020-0 Yes 1000mg Take 1,000 Univers (GLUCOPHAGE 7-30 mg by ity of ) 500 mg 10:18: mouth 2 [place] tablet 32 (two) Medical times Branch daily. venlafaxine 2020-0 Yes 150mg Take 150 U nivers XR (EFFEXOR 7-30 mg by ity of XR) 150 mg 10:18: mouth 2 [place] 24 [place] 32 (two) Medical capsule times Branch daily. topiramate 2020-0 Yes 50mg Take 50 mg U nivers (TOPIRAGEN) 7-30 by mouth 2 it y of 25 mg 10:18: (two) [place] tablet 32 times Medical daily. Branch gabapentin 2020-0 Yes 300mg Take 300 Un susi 300 mg 7-30 mg by ity of capsule 10:18: mouth 2 [place] 32 (two) Medical times Branch daily. ALPRAZolam 2020-0 Yes .5mg Take 0.5 Uni vers (XANAX) 0.5 7-30 mg by ity of mg tablet 10:18: mouth 3 [place] 32 (three) Medical times Branch daily as needed. allopurinol 2020-0 Yes 300mg Take 300 U nivers (ZYLOPRIM) 7-30 mg by ity of 300 mg 10:18: mouth [place] tablet 32 daily. Medical Branch losartan 2020-0 Yes 50mg Take 50 mg Uni vers (COZAAR) 50 7-30 by mouth ity of mg tablet 10:18: daily. [place] [address] Medical Branch atorvastati 2020-0 Yes 20mg Take 20 mg Univers n (LIPITOR) 7-30 by mouth ity of 20 mg 10:18: at [place] tablet 32 bedtime. Medical Branch clopidogrel 2020-0 Yes 75mg Take 75 mg Univers (PLAVIX) 75 7-30 by mouth ity of mg tablet 10:18: daily. [place] [address] Medical Branch budesonide- 2020-0 Yes 2{puff} Inhale 2 [facility] formoterol 7-30 Puffs 2 ity of (SYMBICORT) 10:18: (two) [place] 160-4.5 32 times Medical mcg/actuati daily. Branch on inhaler tiZANidine 2019-0 Yes 4mg Take 4 mg Un susi 4 mg 7-30 by mouth ity of capsule 10:18: daily. [place] [address] Medical Branch TRAMADOL 2020-0 Yes 50mg Take 50 mg Uni vers HCL 7-30 by mouth 2 ity of (TRAMADOL 10:18: (two) [place] HYDROCHLORI 32 times Medical DE, BULK, daily. Branch MISC) ferrous 2020-0 Yes 325mg Take 325 Unive rs sulfate 325 7-30 mg by ity of mg (65 mg 10:18: mouth [place] iron) 32 daily. Medical tablet Branch ciclesonide 2019-0 Yes 2{puff} Inhale 2 Univers (ALVESCO) 7-30 Puffs as ity of 160 10:18: needed for [place] mcg/actuati 32 Other Medical on inhaler (sob). Branch CLONAZEPAM 2019-0 Yes Take by Univ ers ORAL 7-30 mouth. ity of 10:18: [place] [address] Medical Branch hydroCHLORO 2020-0 Yes 12.5mg Take 12.5 [facility] thiazide 7-30 mg by ity of 12.5 mg 10:18: mouth [place] capsule 32 daily. Medical Branch hydroCHLORO 2020-0 Yes 12.5mg Take 12.5 [facility] thiazide 7-24 mg by ity of 12.5 mg 19:32: mouth [place] capsule 51 daily. Medical Branch hydroCHLORO 2020-0 Yes 12.5mg Take 12.5 [facility] thiazide 7-24 mg by ity of 12.5 mg 19:32: mouth [place] capsule 51 daily. Medical Branch hydroCHLORO 2020-0 Yes 12.5mg Take 12.5 [facility] thiazide 7-24 mg by ity of 12.5 mg 19:32: mouth [place] capsule 51 daily. Medical Branch hydroCHLORO 2020-0 Yes 12.5mg Take 12.5 [facility] thiazide 7-24 mg by ity of 12.5 mg 19:32: mouth [place] capsule 51 daily. Medical Branch hydroCHLORO 2020-0 Yes 12.5mg Take 12.5 [facility] thiazide 7-24 mg by ity of 12.5 mg 19:32: mouth [place] capsule 51 daily. Medical Branch budesonide- 2020-0 Yes 2{puff} Inhale 2 [facility] formoterol 7-24 Puffs 2 ity of (SYMBICORT) 19:31: (two) [place] 160-4.5 39 times Medical mcg/actuati daily. Branch on inhaler tiZANidine 2020-0 Yes 4mg Take 4 mg Un susi 4 mg 7-24 by mouth ity of capsule 19:31: daily. [place] [address] Medical Branch TRAMADOL 2020-0 Yes 50mg Take 50 mg Uni vers HCL 7-24 by mouth 2 ity of (TRAMADOL 19:31: (two) [place] HYDROCHLORI 39 times Medical DE, BULK, daily. [facility] [place] ferrous 2020-0 Yes 325mg Take 325 Unive rs sulfate 325 7-24 mg by ity of mg (65 mg 19:31: mouth [place] iron) 39 daily. Medical tablet Branch venlafaxine 2020-0 Yes 150mg Take 150 U nivers XR (EFFEXOR 7-24 mg by ity of XR) 150 mg 19:31: mouth 2 [place] 24 [place] 39 (two) Medical capsule times Branch daily. topiramate 2020-0 Yes 50mg Take 50 mg U nivers (TOPIRAGEN) 7-24 by mouth 2 it y of 25 mg 19:31: (two) [place] tablet 39 times Medical daily. Branch gabapentin 2020-0 Yes 300mg Take 300 Un susi 300 mg 7-24 mg by ity of capsule 19:31: mouth 2 [place] 39 (two) Medical times Branch daily. budesonide- 2020-0 Yes 2{puff} Inhale 2 [facility] formoterol 7-24 Puffs 2 ity of (SYMBICORT) 19:31: (two) [place] 160-4.5 39 times Medical mcg/actuati daily. Branch on inhaler tiZANidine 2020-0 Yes 4mg Take 4 mg Un susi 4 mg 7-24 by mouth ity of capsule 19:31: daily. [place] [address] Medical Branch TRAMADOL 2020-0 Yes 50mg Take 50 mg Uni vers HCL 7-24 by mouth 2 ity of (TRAMADOL 19:31: (two) [place] HYDROCHLORI 39 times Medical DE, BULK, daily. Branch MIS) ferrous 2020-0 Yes 325mg Take 325 Unive rs sulfate 325 7-24 mg by ity of mg (65 mg 19:31: mouth [place] iron) 39 daily. Medical tablet Branch venlafaxine 2020-0 Yes 150mg Take 150 U nivers XR (EFFEXOR 7-24 mg by ity of XR) 150 mg 19:31: mouth 2 [place] 24 [place] 39 (two) Medical capsule times Branch daily. topiramate 2020-0 Yes 50mg Take 50 mg U nivers (TOPIRAGEN) 7-24 by mouth 2 it y of 25 mg 19:31: (two) [place] tablet 39 times Medical daily. Branch gabapentin 2020-0 Yes 300mg Take 300 Un susi 300 mg 7-24 mg by ity of capsule 19:31: mouth 2 [place] 39 (two) Medical times Branch daily. budesonide- 2020-0 Yes 2{puff} Inhale 2 [facility] formoterol 7-24 Puffs 2 ity of (SYMBICORT) 19:31: (two) [place] 160-4.5 39 times Medical mcg/actuati daily. Branch on inhaler tiZANidine 2020-0 Yes 4mg Take 4 mg Un [place]i 4 mg 7-24 by mouth ity of capsule 19:31: daily. [place] 39 Medical Branch TRAMADOL 2020-0 Yes 50mg Take 50 mg Uni vers HCL 7-24 by mouth 2 ity of (TRAMADOL 19:31: (two) [place] HYDROCHLORI 39 times Medical DE, BULK, daily. Branch MISC) ferrous 2020-0 Yes 325mg Take 325 Unive rs sulfate 325 7-24 mg by ity of mg (65 mg 19:31: mouth [place] iron) 39 daily. Medical tablet Branch venlafaxine 2020-0 Yes 150mg Take 150 U nivers XR (EFFEXOR 7-24 mg by ity of XR) 150 mg 19:31: mouth 2 [place] 24 [place] 39 (two) Medical capsule times Branch daily. topiramate 2020-0 Yes 50mg Take 50 mg U nivers (TOPIRAGEN) 7-24 by mouth 2 it y of 25 mg 19:31: (two) [place] tablet 39 times Medical daily. Branch gabapentin 2020-0 Yes 300mg Take 300 Un susi 300 mg 7-24 mg by ity of capsule 19:31: mouth 2 [place] 39 (two) Medical times Branch daily. budesonide- 2020-0 Yes 2{puff} Inhale 2 [facility] formoterol 7-24 Puffs 2 ity of (SYMBICORT) 19:31: (two) [place] 160-4.5 39 times Medical mcg/actuati daily. Branch on inhaler tiZANidine 2020-0 Yes 4mg Take 4 mg [place] 4 mg 7-24 by mouth ity of capsule 19:31: daily. [place] [address] Medical Branch TRAMADOL 2020-0 Yes 50mg Take 50 mg Uni vers HCL 7-24 by mouth 2 ity of (TRAMADOL 19:31: (two) [place] HYDROCHLORI 39 times Medical DE, BULK, daily. Branch [facility] ferrous 2020-0 Yes 325mg Take 325 Unive rs sulfate 325 7-24 mg by ity of mg (65 mg 19:31: mouth [place] iron) 39 daily. Medical tablet Branch venlafaxine 2020-0 Yes 150mg Take 150 U nivers XR (EFFEXOR 7-24 mg by ity of XR) 150 mg 19:31: mouth 2 [place] 24 [place] 39 (two) Medical capsule times Branch daily. topiramate 2020-0 Yes 50mg Take 50 mg U nivers (TOPIRAGEN) 7-24 by mouth 2 it y of 25 mg 19:31: (two) [place] tablet 39 times Medical daily. Branch gabapentin 2020-0 Yes 300mg Take 300 Un susi 300 mg 7-24 mg by ity of capsule 19:31: mouth 2 [place] 39 (two) Medical times Branch daily. budesonide- 2020-0 Yes 2{puff} Inhale 2 [facility] formoterol 7-24 Puffs 2 ity of (SYMBICORT) 19:31: (two) [place] 160-4.5 39 times Medical mcg/actuati daily. Branch on inhaler tiZANidine 2020-0 Yes 4mg Take 4 mg Un susi 4 mg 7-24 by mouth ity of capsule 19:31: daily. [place] [address] Medical Branch TRAMADOL 2020-0 Yes 50mg Take 50 mg Uni vers HCL 7-24 by mouth 2 ity of (TRAMADOL 19:31: (two) [place] HYDROCHLORI 39 times Medical DE, BULK, daily. Branch [facility] [place] ferrous 2020-0 Yes 325mg Take 325 Unive rs sulfate 325 7-24 mg by ity of mg (65 mg 19:31: mouth [place] iron) 39 daily. Medical tablet Branch venlafaxine 2020-0 Yes 150mg Take 150 U nivers XR (EFFEXOR 7-24 mg by ity of XR) 150 mg 19:31: mouth 2 [place] 24 [place] 39 (two) Medical capsule times Branch daily. topiramate 2020-0 Yes 50mg Take 50 mg U nivers (TOPIRAGEN) 7-24 by mouth 2 it y of 25 mg 19:31: (two) [place] tablet 39 times Medical daily. Branch gabapentin 2020-0 Yes 300mg Take 300 Un susi 300 mg 7-24 mg by ity of capsule 19:31: mouth 2 [place] 39 (two) Medical times Branch daily. diphenhydrA 2020-0 2020- No 25mg Take 25 mg [facility] MINE 25 mg 7-24 07-24 by mouth ity of capsule 19:31: 00:00 every 6 [place] 39 :00 (six) Medical hours as Branch needed for Allergies. diphenhydrA 2020-0 2020- No 25mg Take 25 mg [facility] MINE 25 mg 7-24 07-24 by mouth ity of capsule 19:31: 00:00 every 6 [place] 39 :00 (six) Medical hours as Branch needed for Allergies. diphenhydrA 2020-0 2020- No 25mg Take 25 mg [facility] MINE 25 mg 7-24 07-24 by mouth ity of capsule 19:31: 00:00 every 6 [place] 39 :00 (six) Medical hours as Branch needed for Allergies. nitrofurant 2020-0 2020- No 100mg Take 100 Univers oin 100 mg 7-24 07-24 mg by ity of capsule 19:31: 00:00 mouth [place] 27 :00 daily. Medical Branch nitrofurant 2020-0 2020- No 100mg Take 100 Univers oin 100 mg 7-24 07-24 mg by ity of capsule 19:31: 00:00 mouth [place] 27 :00 daily. Medical Branch nitrofurant 2020-0 2020- No 100mg Take 100 Univers oin 100 mg 7-24 07-24 mg by ity of capsule 19:31: 00:00 mouth [place] 27 :00 daily. Medical Branch metFORMIN 2020-0 Yes 1000mg Take 1,000 [facility] (GLUCOPHAGE 7-24 mg by ity of ) 500 mg 19:30: mouth 2 [place] tablet 30 (two) Medical times Branch daily. losartan 2020-0 Yes 50mg Take 50 mg Uni vers (COZAAR) 50 7-24 by mouth ity of mg tablet 19:30: daily. [place] 30 Medical Branch clopidogrel 2020-0 Yes 75mg Take 75 mg Univers (PLAVIX) 75 7-24 by mouth ity of mg tablet 19:30: daily. [address] metFORMIN 2020-0 Yes 1000mg Take 1,000 [facility] (GLUCOPHAGE 7-24 mg by ity of ) 500 mg 19:30: mouth 2 [place] tablet 30 (two) Medical times [place] daily. losartan 2020-0 Yes 50mg Take 50 mg Uni vers (COZAAR) 50 7-24 by mouth ity of mg tablet 19:30: daily. [address] clopidogrel 2020-0 Yes 75mg Take 75 mg [facility] (PLAVIX) 75 7-24 by mouth ity of mg tablet 19:30: daily. [address] metFORMIN 2020-0 Yes 1000mg Take 1,000 [facility] (GLUCOPHAGE 7-24 mg by ity of ) 500 mg 19:30: mouth 2 [place] tablet 30 (two) Medical times [place] daily. losartan 2020-0 Yes 50mg Take 50 mg Uni vers (COZAAR) 50 7-24 by mouth ity of mg tablet 19:30: daily. [address] clopidogrel 2020-0 Yes 75mg Take 75 mg [facility] (PLAVIX) 75 7-24 by mouth ity of mg tablet 19:30: daily. [address] metFORMIN 2020-0 Yes 1000mg Take 1,000 [facility] (GLUCOPHAGE 7-24 mg by ity of ) 500 mg 19:30: mouth 2 [place] tablet 30 (two) Medical times [place] daily. losartan 2020-0 Yes 50mg Take 50 mg Uni vers (COZAAR) 50 7-24 by mouth ity of mg tablet 19:30: daily. [address] clopidogrel 2020-0 Yes 75mg Take 75 mg [facility] (PLAVIX) 75 7-24 by mouth ity of mg tablet 19:30: daily. [address] metFORMIN 2020-0 Yes 1000mg Take 1,000 [facility] (GLUCOPHAGE 7-24 mg by ity of ) 500 mg 19:30: mouth 2 [place] tablet 30 (two) Medical times [place] daily. losartan 2020-0 Yes 50mg Take 50 mg Uni vers (COZAAR) 50 7-24 by mouth ity of mg tablet 19:30: daily. [address] clopidogrel 2020-0 Yes 75mg Take 75 mg [facility] (PLAVIX) 75 7-24 by mouth ity of mg tablet 19:30: daily. [place] [address] Medical Branch allopurinol 2020-0 Yes 300mg Take 300 U nivers (ZYLOPRIM) 7-24 mg by ity of 300 mg 19:28: mouth [place] tablet 53 daily. Medical Branch atorvastati 2020-0 Yes 20mg Take 20 mg [facility] n (LIPITOR) 7-24 by mouth ity of 20 mg 19:28: at [place] tablet 53 bedtime. Medical Branch CLONAZEPAM 2020-0 Yes Take by Univ ers ORAL 7-24 mouth. ity of 19:28: [place] [address] Medical Branch allopurinol 2020-0 Yes 300mg Take 300 U nivers (ZYLOPRIM) 7-24 mg by ity of 300 mg 19:28: mouth [place] tablet 53 daily. Medical Branch atorvastati 2020-0 Yes 20mg Take 20 mg [facility] n (LIPITOR) 7-24 by mouth ity of 20 mg 19:28: at [place] tablet 53 bedtime. Medical Branch CLONAZEPAM 2020-0 Yes Take by [facility] ers ORAL 7-24 mouth. ity of 19:28: [place] [address] Medical Branch allopurinol 2020-0 Yes 300mg Take 300 U nivers (ZYLOPRIM) 7-24 mg by ity of 300 mg 19:28: mouth [place] tablet 53 daily. Medical Branch atorvastati 2020-0 Yes 20mg Take 20 mg [facility] n (LIPITOR) 7-24 by mouth ity of 20 mg 19:28: at [place] tablet 53 bedtime. Medical Branch CLONAZEPAM 2020-0 Yes Take by Univ ers ORAL 7-24 mouth. ity of 19:28: [place] [address] Medical Branch allopurinol 2020-0 Yes 300mg Take 300 U nivers (ZYLOPRIM) 7-24 mg by ity of 300 mg 19:28: mouth [place] tablet 53 daily. Medical Branch atorvastati 2020-0 Yes 20mg Take 20 mg [facility] n (LIPITOR) 7-24 by mouth ity of 20 mg 19:28: at [place] tablet 53 bedtime. Medical Branch CLONAZEPAM 2020-0 Yes Take by Univ ers ORAL 7-24 mouth. ity of 19:28: [place] [address] Medical Branch allopurinol 2020-0 Yes 300mg Take 300 U nivers (ZYLOPRIM) 7-24 mg by ity of 300 mg 19:28: mouth [place] tablet 53 daily. Medical Branch atorvastati 2020-0 Yes 20mg Take 20 mg [facility] n (LIPITOR) 7-24 by mouth ity of 20 mg 19:28: at [place] tablet 53 bedtime. Medical Branch CLONAZEPAM 2020-0 Yes Take by Univ ers ORAL 7-24 mouth. ity of 19:28: [place] 53 Medical Branch JANUVIA 100 2019-0 Yes TAKE 1 Univ ers mg tablet 7-18 TABLET BY ity o f 00:00: MOUTH ONCE [place] 00 DAILY FOR Medical 30 DAYS Branch JANUVIA 100 2019-0 Yes TAKE 1 Univ ers mg tablet 7-18 TABLET BY ity o f 00:00: MOUTH ONCE [place] 00 DAILY FOR Medical 30 DAYS Branch JANUVIA 100 2019-0 Yes TAKE 1 Univ ers mg tablet 7-18 TABLET BY ity o f 00:00: MOUTH ONCE [place] 00 DAILY FOR Medical 30 DAYS Branch JANUVIA 100 2019-0 Yes TAKE 1 Univ ers mg tablet 7-18 TABLET BY ity o f 00:00: MOUTH ONCE [place] 00 DAILY FOR Medical 30 DAYS Branch JANUVIA 100 2019-0 Yes TAKE 1 Univ ers mg tablet 7-18 TABLET BY ity o f 00:00: MOUTH ONCE [place] 00 DAILY FOR Medical 30 DAYS Branch JANUVIA 100 2019-0 Yes TAKE 1 Univ ers mg tablet 7-18 TABLET BY ity o f 00:00: MOUTH ONCE [place] 00 DAILY FOR Medical 30 DAYS Branch JANUVIA 100 2019-0 Yes TAKE 1 Univ ers mg tablet 7-18 TABLET BY ity o f 00:00: MOUTH ONCE [place] 00 DAILY FOR Medical 30 DAYS Branch JANUVIA 100 2019-0 Yes TAKE 1 Univ ers mg tablet 7-18 TABLET BY ity o f 00:00: MOUTH ONCE [place] 00 DAILY FOR Medical 30 DAYS Branch JANUVIA 100 2020-0 Yes TAKE 1 Univ ers mg tablet 7-18 TABLET BY ity o f 00:00: MOUTH ONCE [place] 00 DAILY FOR Medical 30 DAYS Branch JANUVIA 100 2020-0 Yes TAKE 1 Univ ers mg tablet 7-18 TABLET BY ity o f 00:00: MOUTH ONCE [place] 00 DAILY FOR Medical 30 DAYS Branch JANUVIA 100 2019-0 Yes TAKE 1 Univ ers mg tablet 7-18 TABLET BY ity o f 00:00: MOUTH ONCE [place] 00 DAILY FOR Medical 30 DAYS Branch JANUVIA 100 2020-0 Yes TAKE 1 Univ ers mg tablet 7-18 TABLET BY ity o f 00:00: MOUTH ONCE [place] 00 DAILY FOR Medical 30 DAYS Branch JANUVIA 100 2020-0 Yes TAKE 1 Univ ers mg tablet 7-18 TABLET BY ity o f 00:00: MOUTH ONCE [place] 00 DAILY FOR Medical 30 DAYS Branch CARLOS ALBERTO 100 2020-0 Yes TAKE 1 Univ ers mg tablet 7-18 TABLET BY ity o f 00:00: MOUTH ONCE [place] 00 DAILY FOR Medical 30 DAYS Branch CARLOS ALBERTO 100 2020-0 Yes TAKE 1 Univ ers mg tablet 7-18 TABLET BY ity o f 00:00: MOUTH ONCE [place] 00 DAILY FOR Medical 30 DAYS Branch CARLOS ALBERTO 100 2020-0 Yes TAKE 1 Univ ers mg tablet 7-18 TABLET BY ity o f 00:00: MOUTH ONCE [place] 00 DAILY FOR Medical 30 DAYS Branch CARLOS ALBERTO 100 2020-0 Yes TAKE 1 Univ ers mg tablet 7-18 TABLET BY ity o f 00:00: MOUTH ONCE [place] 00 DAILY FOR Medical 30 DAYS Branch CARLOS ALBERTO 100 2019-0 Yes TAKE 1 Univ ers mg tablet 7-18 TABLET BY ity o f 00:00: MOUTH ONCE [place] 00 DAILY FOR Medical 30 DAYS Branch CARLOS ALBERTO 100 2019-0 Yes TAKE 1 Univ ers mg tablet 7-18 TABLET BY ity o f 00:00: MOUTH ONCE [place] 00 DAILY FOR Medical 30 DAYS Branch CARLOS ALBERTO 100 2020-0 Yes TAKE 1 Univ ers mg tablet 7-18 TABLET BY ity o f 00:00: MOUTH ONCE [place] 00 DAILY FOR Medical 30 DAYS Branch CARLOS ALBERTO 100 2019-0 Yes TAKE 1 Univ ers mg tablet 7-18 TABLET BY ity o f 00:00: MOUTH ONCE [place] 00 DAILY FOR Medical 30 DAYS Branch clopidogrel 2020-0 Yes = 1 tab, Me moria 75 MG Oral 4-16 PO, Daily, l Tablet 18:31: # 90 tab, Dipak n [Plavix] 00 3 Refill(s), [facility], Pharmacy: [facility] clopidogrel 2020-0 Yes = 1 tab, Me moria 75 MG Oral 4-16 PO, Daily, l Tablet 18:31: # 90 tab, Dipak n [Plavix] 00 3 Refill(s), [facility], Pharmacy: [facility] clopidogrel 2020-0 Yes = 1 tab, Me moria 75 MG Oral 4-16 PO, Daily, l Tablet 18:31: # 90 tab, Dipak n [Plavix] 00 3 Refill(s), [facility], Pharmacy: [facility] topiramate 2020-0 Yes = 1 tab, Mem oria 200 mg oral 3-12 PO, l tablet 14:53: Bedtime, # Natalia nn 00 30 tab, 1 Refill(s), Pharmacy: [facility] 80 topiramate 2020-0 Yes = 1 tab, Mem oria 200 mg oral 3-12 PO, l tablet 14:53: Bedtime, # Natalia nn 00 30 tab, 1 Refill(s), Pharmacy: [facility] topiramate 2020-0 Yes = 1 tab, Mem oria 200 mg oral 3-12 PO, l tablet 14:53: Bedtime, # Natalia nn 00 30 tab, 1 Refill(s), Pharmacy: [facility] gabapentin 2019-0 Yes 300 mg = 1 M emoria 300 MG Oral 1-08 cap, PO, l Capsule 22:27: TID, # 270 Herm jatin 52 cap, 2 Refill(s), Pharmacy: [facility] gabapentin 2020-0 Yes 300 mg = 1 M emoria 300 MG Oral 1-08 cap, PO, l Capsule 22:27: TID, # 270 Herm jatin 52 cap, 2 Refill(s), Pharmacy: [facility] gabapentin 2020-0 Yes 300 mg = 1 M emoria 300 MG Oral 1-08 cap, PO, l Capsule 22:27: TID, # 270 Herm jatin 52 cap, 2 Refill(s), Pharmacy: [facility] topiramate 2020-0 No = 1 tab, Mem oria 200 mg oral 1-08 PO, l tablet 22:26: Bedtime, X Natalia nn 48 90 day, # 90 tab, 3 Refill(s), Pharmacy: [facility] topiramate 2020-0 No = 1 tab, Mem oria 200 mg oral 1-08 PO, l tablet 22:26: Bedtime, X Natalia nn 48 90 day, # 90 tab, 3 Refill(s), Pharmacy: [facility] topiramate 2020-0 No = 1 tab, Mem oria 200 mg oral 1-08 PO, l tablet 22:26: Bedtime, X Natalia nn 48 90 day, # 90 tab, 3 Refill(s), Pharmacy: [facility] clopidogrel 2020-0 No = 1 tab, Me moria 75 MG Oral 1-02 PO, Daily, l Tablet 18:53: # 90 tab, Dipak n [Plavix] 45 3 Refill(s), [facility], Pharmacy: [facility] clopidogrel No = 1 tab, Me moria 75 MG Oral 1-02 PO, Daily, l Tablet 18:53: # 90 tab, Dipak n [Plavix] 45 3 Refill(s), [facility], Pharmacy: [facility] clopidogrel No = 1 tab, Me moria 75 MG Oral 1-02 PO, Daily, l Tablet 18:53: # 90 tab, Dipak n [Plavix] 45 3 Refill(s), [facility], Pharmacy: [facility] gabapentin 2018-08 Yes 300 mg = 1 M emoria 300 MG Oral 0-25 cap, PO, l Capsule 20:41: TID, # 270 Herm jatin 18 cap, 2 Refill(s), Pharmacy: [facility] gabapentin 2018-08 Yes 300 mg = 1 M emoria 300 MG Oral 0-25 cap, PO, l Capsule 20:41: TID, # 270 Herm jatin 18 cap, 2 Refill(s), Pharmacy: [facility] gabapentin 2018-08 Yes 300 mg = 1 M emoria 300 MG Oral 0-25 cap, PO, l Capsule 20:41: TID, # 270 Herm jatin 18 cap, 2 Refill(s), Pharmacy: [facility] topiramate Yes = 1 tab, Mem oria 200 mg oral 9-24 PO, l tablet 12:46: Bedtime, # Natalia nn 38 90 tab, Refill(s) 3, Pharmacy: [facility] topiramate Yes = 1 tab, Mem oria 200 mg oral 9-24 PO, l tablet 12:46: Bedtime, # Natalia nn 38 90 tab, Refill(s) 3, Pharmacy: [facility] topiramate Yes = 1 tab, Mem oria 200 mg oral 9-24 PO, l tablet 12:46: Bedtime, # Natalia nn 38 90 tab, Refill(s) 3, Pharmacy: [facility] topiramate No = 1 tab, Mem oria 200 mg oral 7-25 PO, l tablet 23:23: Bedtime, # Natalia nn 54 90 tab, Refill(s) 3, Pharmacy: [facility] topiramate No = 1 tab, Mem oria 200 mg oral 7-25 PO, l tablet 23:23: Bedtime, # Natalia nn 54 90 tab, Refill(s) 3, Pharmacy: [facility] topiramate No = 1 tab, Mem oria 200 mg oral 7-25 PO, l tablet 23:23: Bedtime, # Natalia nn 54 90 tab, Refill(s) 3, Pharmacy: [facility] topiramate Yes 200 mg = 1 M emoria 200 mg oral 5-14 tab, PO, l tablet 19:55: Bedtime, # Natalia nn 39 30 tab, 3 Refill(s), Pharmacy: [facility] topiramate Yes 200 mg = 1 M emoria 200 mg oral 5-14 tab, PO, l tablet 19:55: Bedtime, # Natalia nn 39 30 tab, 3 Refill(s), Pharmacy: [facility] topiramate Yes 200 mg = 1 M emoria 200 mg oral 5-14 tab, PO, l tablet 19:55: Bedtime, # Natalia nn 39 30 tab, 3 Refill(s), Pharmacy: [facility] clopidogrel Yes = 1 tab, Me moria 75 MG Oral 5-14 PO, Daily, l Tablet 19:49: # 90 tab, Dipak n [Plavix] 00 3 Refill(s), [facility] clopidogrel Yes = 1 tab, Me moria 75 MG Oral 5-14 PO, Daily, l Tablet 19:49: # 90 tab, Dipak n [Plavix] 00 3 Refill(s), [facility] clopidogrel Yes = 1 tab, Me moria 75 MG Oral 5-14 PO, Daily, l Tablet 19:49: # 90 tab, Dipak n [Plavix] 00 3 Refill(s), [facility] gabapentin Yes 300 mg = 1 M emoria 300 MG Oral 5-14 cap, PO, l Capsule 19:47: TID, # 90 Natalia nn 00 cap, 3 Refill(s), Pharmacy: [facility] gabapentin Yes 300 mg = 1 M emoria 300 MG Oral 5-14 cap, PO, l Capsule 19:47: TID, # 90 Natalia nn 00 cap, 3 Refill(s), Pharmacy: [place] [address] gabapentin Yes 300 mg = 1 M emoria 300 MG Oral 5-14 cap, PO, l Capsule 19:47: TID, # 90 Natalia nn 00 cap, 3 Refill(s), Pharmacy: [place] [address] topiramate No 200 mg = 1 M emoria 200 mg oral 1-31 tab, PO, l tablet 23:30: Bedtime, # Natalia nn 00 30 tab, 3 Refill(s), Pharmacy: [place] [address] topiramate No 200 mg = 1 M emoria 200 mg oral 1-31 tab, PO, l tablet 23:30: Bedtime, # Natalia nn 00 30 tab, 3 Refill(s), Pharmacy: [place] [address] topiramate No 200 mg = 1 M emoria 200 mg oral 1-31 tab, PO, l tablet 23:30: Bedtime, # Natalia nn 00 30 tab, 3 Refill(s), Pharmacy: [place] [address] 2017-08 No 200 mg = 1 Memori a topiramate 2-12 cap, PO, l 200 MG 19:19: Daily, X Meng Extended 23 30 day, # Release 30 cap, 4 Capsule Refill(s), [Trokendi] Pharmacy: [facility] HR 2017-08 No 200 mg = 1 Memori a topiramate 2-12 cap, PO, l 200 MG 19:19: Daily, X Meng Extended 23 30 day, # Release 30 cap, 4 Capsule Refill(s), [Trokendi] Pharmacy: [facility] HR 2017-08 No 200 mg = 1 Memori a topiramate 2-12 cap, PO, l 200 MG 19:19: Daily, X Meng Extended 23 30 day, # Release 30 cap, 4 Capsule Refill(s), [Trokendi] Pharmacy: [facility] 808 CLONAZEPAM 2018-0 Yes Take by [facility] ers ORAL 7-18 mouth. ity of 21:45: [place] 44 Medical Branch CLONAZEPAM 2018-0 Yes Take by [facility] ORAL 7-18 mouth. ity of 21:45: [place] 44 Medical Branch ALPRAZolam 2018-0 Yes .5mg Take 0.5 Uni vers (XANAX) 0.5 7-18 mg by ity of mg tablet 21:44: mouth 3 [place] 37 (three) Medical times Branch daily as needed. topiramate 2018-0 Yes 50mg Take 50 mg U nivers (TOPIRAGEN) 7-18 by mouth 2 it y of 25 mg 21:44: (two) [place] tablet 37 times Medical daily. Branch ALPRAZolam 2018-0 Yes .5mg Take 0.5 Uni vers (XANAX) 0.5 7-18 mg by ity of mg tablet 21:44: mouth 3 [place] 37 (three) Medical times Branch daily as needed. ALPRAZolam 2018-0 Yes .5mg Take 0.5 Uni vers (XANAX) 0.5 7-18 mg by ity of mg tablet 21:44: mouth 3 [place] 37 (three) Medical times Branch daily as needed. ALPRAZolam 2018-0 Yes .5mg Take 0.5 Uni vers (XANAX) 0.5 7-18 mg by ity of mg tablet 21:44: mouth 3 [place] 37 (three) Medical times Branch daily as needed. nitrofurant 2018-0 Yes 100mg Take 100 U nivers oin 100 mg 7-18 mg by ity of capsule 21:44: mouth [place] 37 daily. Medical Branch topiramate 2018-0 Yes 50mg Take 50 mg U nivers (TOPIRAGEN) 7-18 by mouth 2 it y of 25 mg 21:44: (two) [place] tablet 37 times Medical daily. Branch ALPRAZolam 2018-0 Yes .5mg Take 0.5 Uni vers (XANAX) 0.5 7-18 mg by ity of mg tablet 21:44: mouth 3 [place] 37 (three) Medical times Branch daily as needed. nitrofurant 2018-0 Yes 100mg Take 100 U nivers oin 100 mg 7-18 mg by ity of capsule 21:44: mouth [place] 37 daily. Medical Branch ALPRAZolam 2018-0 Yes .5mg Take 0.5 Uni vers (XANAX) 0.5 7-18 mg by ity of mg tablet 21:44: mouth 3 [place] 37 (three) Medical times Branch daily as needed. ALPRAZolam 2018-0 Yes .5mg Take 0.5 Uni vers (XANAX) 0.5 7-18 mg by ity of mg tablet 21:44: mouth 3 [place] 37 (three) Medical times Branch daily as needed. metFORMIN 2018-0 Yes 1000mg Take 1,000 [facility] (GLUCOPHAGE 7-18 mg by ity of ) 500 mg 21:28: mouth 2 [place] tablet 53 (two) Medical times Branch daily. venlafaxine 2018-0 Yes 150mg Take 150 U nivers XR (EFFEXOR 7-18 mg by ity of XR) 150 mg 21:28: mouth 2 [place] 53 (two) Medical capsule times Branch daily. ciclesonide 20180 Yes 2{puff} Inhale 2 Univers (ALVESCO) 7-18 Puffs as ity of 160 21:28: needed for [place] mcg/actuati 53 Other Medical on inhaler (sob). Branch gabapentin 2018-0 Yes 600mg Take 600 Un susi (NEURONTIN) 7-18 mg by ity of 600 mg 21:28: mouth 2 [place] tablet 53 (two) Medical times Branch daily. ciclesonide 2018-0 Yes 2{puff} Inhale 2 Univers (ALVESCO) 7-18 Puffs as ity of 160 21:28: needed for [place] mcg/actuati 53 Other Medical on inhaler (sob). Branch allopurinol 2018-0 Yes 300mg Take 300 U nivers (ZYLOPRIM) 7-18 mg by ity of 300 mg 21:28: mouth [place] tablet 53 daily. Medical Branch ciclesonide 2018-0 Yes 2{puff} Inhale 2 [facility] (ALVESCO) 7-18 Puffs as ity of 160 21:28: needed for [place] mcg/actuati 53 Other Medical on inhaler (sob). Branch atorvastati 2018-0 Yes 20mg Take 20 mg Univers n (LIPITOR) 7-18 by mouth ity of 20 mg 21:28: at [place] tablet 53 bedtime. Medical Branch clopidogrel 2018-0 Yes 75mg Take 75 mg Univers (PLAVIX) 75 7-18 by mouth ity of mg tablet 21:28: daily. [place] 53 Medical Branch budesonide- 2018-0 Yes 2{puff} Inhale 2 Univers formoterol 7-18 Puffs 2 ity of (SYMBICORT) 21:28: (two) [place] 160-4.5 53 times Medical mcg/actuati daily. Branch on inhaler tiZANidine 2018-0 Yes 4mg Take 4 mg Un susi 4 mg 7-18 by mouth ity of capsule 21:28: daily. [place] [address] Medical Branch TRAMADOL 2018-0 Yes 50mg Take 50 mg Uni vers HCL 7-18 by mouth 2 ity of (TRAMADOL 21:28: (two) [place] HYDROCHLORI 53 times Medical DE, BULK, daily. Branch MIS) ferrous 2018-0 Yes 325mg Take 325 Unive rs sulfate 325 7-18 mg by ity of mg (65 mg 21:28: mouth [place] iron) 53 daily. Medical tablet Branch diphenhydrA 2017-0 Yes 25mg Take 25 mg Univers MINE 25 mg 7-18 by mouth ity o f capsule 21:28: every 6 [place] 53 (six) Medical hours as Branch needed for Allergies. ciclesonide 2018-0 Yes 2{puff} Inhale 2 Univers (ALVESCO) 7-18 Puffs as ity of 160 21:28: needed for [place] mcg/actuati 53 Other Medical on inhaler (sob). Branch metFORMIN 0 Yes 1000mg Take 1,000 [facility] (GLUCOPHAGE 7-18 mg by ity of ) 500 mg 21:28: mouth 2 [place] tablet 53 (two) Medical times Branch daily. venlafaxine 2018-0 Yes 150mg Take 150 U nivers XR (EFFEXOR 7-18 mg by ity of XR) 150 mg 21:28: mouth 2 [place] (two) Medical capsule times Branch daily. gabapentin 2018-0 Yes 600mg Take 600 Un susi (NEURONTIN) 7-18 mg by ity of 600 mg 21:28: mouth 2 [place] tablet 53 (two) Medical times Branch daily. allopurinol 2018-0 Yes 300mg Take 300 U nivers (ZYLOPRIM) 7-18 mg by ity of 300 mg 21:28: mouth [place] tablet 53 daily. Medical Branch atorvastati 2018-0 Yes 20mg Take 20 mg Univers n (LIPITOR) 7-18 by mouth ity of 20 mg 21:28: at [place] tablet 53 bedtime. Medical Branch clopidogrel 2018-0 Yes 75mg Take 75 mg Univers (PLAVIX) 75 7-18 by mouth ity of mg tablet 21:28: daily. [place] [address] Medical Branch budesonide- 2017-0 Yes 2{puff} Inhale 2 Univers formoterol 7-18 Puffs 2 ity of (SYMBICORT) 21:28: (two) [place] 160-4.5 53 times Medical mcg/actuati daily. Branch on inhaler tiZANidine 2018-0 Yes 4mg Take 4 mg Un susi 4 mg 7-18 by mouth ity of capsule 21:28: daily. [place] [address] Medical Branch TRAMADOL 2017-0 Yes 50mg Take 50 mg Uni vers HCL 7-18 by mouth 2 ity of (TRAMADOL 21:28: (two) [place] HYDROCHLORI 53 times Medical DE, BULK, daily. Branch MISC) ferrous 0 Yes 325mg Take 325 Unive rs sulfate 325 7-18 mg by ity of mg (65 mg 21:28: mouth [place] iron) 53 daily. Medical tablet Branch diphenhydrA 0 Yes 25mg Take 25 mg Univers MINE 25 mg 7-18 by mouth ity o f capsule 21:28: every 6 [place] [address] (six) Medical hours as Branch needed for Allergies. ciclesonide 0 Yes 2{puff} Inhale 2 Univers (ALVESCO) 7-18 Puffs as ity of 160 21:28: needed for [place] mcg/actuati 53 Other Medical on inhaler (sob). Branch ciclesonide Yes 2{puff} Inhale 2 Univers (ALVESCO) 7-18 Puffs as ity of 160 21:28: needed for [place] mcg/actuati 53 Other Medical on inhaler (sob). Branch ciclesonide 0 Yes 2{puff} Inhale 2 Univers (ALVESCO) 7-18 Puffs as ity of 160 21:28: needed for [place] mcg/actuati 53 Other Medical on inhaler (sob). Branch losartan 0 Yes 50mg Take 50 mg Uni vers (COZAAR) 50 3-28 by mouth ity of mg tablet 18:06: daily. [place] [address] Medical Branch losartan 2017-0 Yes 50mg Take 50 mg Uni vers (COZAAR) 50 3-28 by mouth ity of mg tablet 18:06: daily. [address] benztropine 2018-0 Yes 2 mg = 1 Me moria 2 mg oral 3-08 tab, PO, l tablet 20:14: BID, # 60 Dipak n 00 tab, 0 Refill(s) Symbicort 2018-0 Yes 2 puff, Memor ia 160/4.5 3-08 INHALATION l inhalation 20:14: , BID, 0 Her mora aerosol 00 Refill(s) with adapter clonazePAM 2018-0 Yes 0.5 mg = 1 M emoria 0.5 mg oral 3-08 tab, PO, l tablet 20:14: Bedtime, 0 Natalia nn 00 Refill(s) metFORMIN 2018-0 Yes 1,000 mg = Me moria 500 mg oral 3-08 2 tab, PO, l tablet 20:14: BID-Meals, Natalia nn 00 # 180 tab, 0 Refill(s) benztropine 2018-0 Yes 2 mg = 1 Me moria 2 mg oral 3-08 tab, PO, l tablet 20:14: BID, # 60 Dipak n 00 tab, 0 Refill(s) Symbicort 2018-0 Yes 2 puff, Memor ia 160/4.5 3-08 INHALATION l inhalation 20:14: , BID, 0 Her mora aerosol 00 Refill(s) with adapter clonazePAM 2018-0 Yes 0.5 mg = 1 M emoria 0.5 mg oral 3-08 tab, PO, l tablet 20:14: Bedtime, 0 Natalia nn 00 Refill(s) metFORMIN 2018-0 Yes 1,000 mg = Me moria 500 mg oral 3-08 2 tab, PO, l tablet 20:14: BID-Meals, Natalia nn 00 # 180 tab, 0 Refill(s) benztropine 2018-0 Yes 2 mg = 1 Me moria 2 mg oral 3-08 tab, PO, l tablet 20:14: BID, # 60 Dipak n 00 tab, 0 Refill(s) Symbicort 2018-0 Yes 2 puff, Memor ia 160/4.5 3-08 INHALATION l inhalation 20:14: , BID, 0 Her mora aerosol 00 Refill(s) with adapter clonazePAM 2018-0 Yes 0.5 mg = 1 M emoria 0.5 mg oral 3-08 tab, PO, l tablet 20:14: Bedtime, 0 Natalia nn 00 Refill(s) metFORMIN Yes 1,000 mg = Me moria 500 mg oral 3-08 2 tab, PO, l tablet 20:14: BID-Meals, Natalia nn 00 # 180 tab, 0 Refill(s) allopurinol Yes 300 mg = 1 Memoria 300 mg oral 2-09 tab, PO, l tablet 17:06: Daily, 0 Meng 00 Refill(s) atorvastati Yes 80 mg = 1 M emoria n 80 mg 2-09 tab, PO, l oral tablet 17:06: Daily, 0 He rmann 00 Refill(s) losartan Yes 100 mg = 1 Mem oria 100 mg oral 2-09 tab, PO, l tablet 17:06: Daily, 0 Meng 00 Refill(s) allopurinol Yes 300 mg = 1 Memoria 300 mg oral 2-09 tab, PO, l tablet 17:06: Daily, 0 Meng 00 Refill(s) atorvastati Yes 80 mg = 1 M emoria n 80 mg 2-09 tab, PO, l oral tablet 17:06: Daily, 0 He rmann 00 Refill(s) losartan Yes 100 mg = 1 Mem oria 100 mg oral 2-09 tab, PO, l tablet 17:06: Daily, 0 White 00 Refill(s) allopurinol Yes 300 mg = 1 Memoria 300 mg oral 2-09 tab, PO, l tablet 17:06: Daily, 0 Meng 00 Refill(s) atorvastati Yes 80 mg = 1 M emoria n 80 mg 2-09 tab, PO, l oral tablet 17:06: Daily, 0 He rmann 00 Refill(s) losartan Yes 100 mg = 1 Mem oria 100 mg oral 2-09 tab, PO, l tablet 17:06: Daily, 0 Meng 00 Refill(s) allopurinol Yes 300mg QD Take [address] [facility] (ZYLOPRIM) 6-29 [facility] by [facility] MG 14:14: mouth Medical tablet 14 daily. Center ALPRAZolam 2017 Yes .5mg QD Take 0.[address] [facility] (XANAX) 0.5 6-29 mg by [facility] tablet 14:14: mouth Medical 14 daily. Center gabapentin 2017-0 Yes 600mg Q.5D Take [address] [facility] (NEURONTIN) 6-29 mg by [facility] 600 MG 14:14: mouth 2 Medical tablet 14 (two) Center times daily. losartan 2017-0 Yes 50mg QD Take [address] [facility] (COZAAR) 50 6-29 by mouth [facility] MG tablet 14:14: daily. Medica l 14 Center MECOBAL/LEV 2017-0 Yes 1{capsu Q.5D Take [address] OMEFOLAT 6-29 le} capsule by [facility] CA/B6 PHOS 14:14: mouth 2 Medi [facility] (METANX 14 (two) Center ORAL) times daily. metFORMIN 2017-0 Yes 1000mg Take 1,[address] [facility] (GLUCOPHAGE 6-29 mg by [facility] ) 500 MG 14:14: mouth 2 Medica l tablet 14 (two) Center times daily with breakfast and dinner. clopidogrel 2017 Yes 75mg QD Take [address] [facility] (PLAVIX) 75 6-29 by mouth [facility] mg tablet 14:14: daily. Medica l 14 Center budesonide- 20170 Yes 2{puff} Q.5D Inhale [address] [facility] formoterol 6-29 puffs by [facility] (SYMBICORT) 14:14: mouth via M edical 160-4.5 14 inhaler 2 Center mcg/actuati (two) on inhaler times daily. tiZANidine 20170 Yes 4mg QD Take [address] [facility] [address] [facility] (ZANAFLEX) 6-29 by mouth [facility] 4 MG tablet 14:14: daily. Medi beth 14 Center traMADol 20170 Yes 50mg Q.5D Take [address] [facility] (ULTRAM) 50 6-29 by mouth 2 [facility] k[facility] mg tablet 14:14: (two) Medical 14 times Center daily. topiramate 2017-0 Yes 1{tbl} QD Take [address] [facility] (TROKENDI 6-29 tablet by [facility] XR) 100 mg 14:14: mouth Medica l Cp24 14 daily. Center allopurinol 20170 Yes 300mg QD Take [address] (ZYLOPRIM) 6-29 mg by [facility] 300 MG 14:14: mouth Medical tablet 14 daily. Center ALPRAZolam 20170 Yes .5mg QD Take 0.[address] [facility] (XANAX) 0.5 6-29 mg by [facility] MG tablet 14:14: mouth Medical 14 daily. Center gabapentin 2017-0 Yes 600mg Q.5D Take [address] (NEURONTIN) 6-29 mg [facility] 600 MG 14:14: mouth 2 Medical tablet 14 (two) Center times daily. losartan 20170 Yes 50mg QD Take [address] [facility] (COZAAR) 50 6-29 by mouth Luke s MG tablet 14:14: daily. Medica l 14 Center MECOBAL/LEV 2017- Yes 1{capsu Q.5D Take [address] OMEFOLAT 6-29 le} capsule by [facility] CA/B6 PHOS 14:14: mouth 2 Medi beth (METANX 14 (two) Center ORAL) times daily. metFORMIN 2017 Yes 1000mg Take 1,[address] [facility] (GLUCOPHAGE 6-29 mg by [facility] ) 500 MG 14:14: mouth 2 Medica l tablet 14 (two) Center times daily with breakfast and dinner. clopidogrel 2017 Yes 75mg QD Take [address] [facility] (PLAVIX) 75 6-29 by mouth Luke s mg tablet 14:14: daily. Medica l 14 [place] budesonide- 0 Yes 2{puff} Q.5D Inhale [address] [facility] formoterol 6-29 puffs by [facility] (SYMBICORT) 14:14: mouth via M edical 160-4.5 14 inhaler 2 Center mcg/actuati (two) on inhaler times daily. tiZANidine 20170 Yes 4mg QD Take [address] [facility] [address] [facility] (ZANAFLEX) 6-29 by mouth [facility] 4 MG tablet 14:14: daily. Medi beth 14 Center traMADol 20170 Yes 50mg Q.5D Take [address] [facility] (ULTRAM) 50 6-29 by mouth 2 Kandice kes mg tablet 14:14: (two) Medical 14 times Center daily. topiramate 2017-0 Yes 1{tbl} QD Take [address] [facility] (TROKENDI 6-29 tablet by [facility] XR) 100 mg 14:14: mouth Medica l Cp24 14 daily. Center venlafaxine 20170 Yes 1{tbl} QD Take [address] [facility] 150 mg TR24 6-29 tablet by Hema es 00:00: mouth Medical 00 daily. [place] venlafaxine 2017- Yes 1{tbl} QD Take [address] [facility] [address] [facility] 150 mg TR24 6-29 tablet by Hema es 00:00: mouth Medical 00 daily. [place] allopurinol allopurinol No allopurino [place] 300 mg 300 mg l 300 mg Family tablet TAKE tablet TAKE tablet Practic 1 TABLET BY 1 TABLET BY TAKE 1 e MOUTH ONCE MOUTH ONCE TABLET BY DAILY DAILY MOUTH ONCE DAILY atorvastati atorvastati No atorvastat [place] n 80 mg n 80 mg in 80 mg Famil y tablet TAKE tablet TAKE tablet Practic 1 TABLET BY 1 TABLET BY TAKE 1 e MOUTH ONCE MOUTH ONCE TABLET BY DAILY DAILY MOUTH ONCE DAILY BinaxNOW BinaxNOW No BinaxNOW [facility] COVID-19 Ag COVID-19 Ag COVID-19 Family Self Test Self Test Ag Self Pr actic kit Use as kit Use as Test kit e Directed on Directed on Use as the Package the Package Directed on the Package Viji Hallman No Viji [facility] Ellipta 200 Ellipta 200 Ellipta Family mcg-25 mcg-25 200 mcg-25 Pract ic mcg/dose mcg/dose mcg/dose e powder for powder for powder for inhalation inhalation inhalation INHALE 1 INHALE 1 INHALE 1 PUFF BY PUFF BY PUFF BY MOUTH ONCE MOUTH ONCE MOUTH ONCE DAILY FOR DAILY FOR DAILY FOR 30 DAYS 30 DAYS 30 DAYS clobetasol clobetasol No clobetasol [facility] 0.05 % 0.05 % 0.05 % [facility] topical topical topical Practi c cream APPLY cream APPLY cream e TOPICALLY TOPICALLY APPLY TO THE TO THE TOPICALLY AFFECTED AFFECTED TO THE AREA TWICE AREA TWICE AFFECTED DAILY DAILY AREA TWICE NEEDED FOR NEEDED FOR DAILY ITCHING OR ITCHING OR NEEDED FOR RASH RASH ITCHING OR RASH clonazepam clonazepam No clonazepam [facility] 0.5 mg 0.5 mg 0.5 mg Family tablet TAKE tablet TAKE tablet Practic 1 TABLET BY 1 TABLET BY TAKE 1 e MOUTH TWICE MOUTH TWICE TABLET BY DAILY DAILY MOUTH NEEDED FOR NEEDED FOR TWICE ANXIETY ANXIETY DAILY NEEDED FOR ANXIETY eq stool eq stool No eq stool [facility] softnr softnr softnr Family 100mg cap 100mg cap 100mg cap Practic TAKE 1 TAKE 1 TAKE 1 e CAPSULE BY CAPSULE BY CAPSULE BY MOUTH TWICE MOUTH TWICE MOUTH DAILY DAILY TWICE DAILY gabapentin gabapentin No gabapentin [place] 800 mg 800 mg 800 mg Family tablet TAKE tablet TAKE tablet Practic 1 TABLET BY 1 TABLET BY TAKE 1 e MOUTH TWICE MOUTH TWICE TABLET BY DAILY DAILY MOUTH TWICE DAILY Lagevrio Lagevrio No Lagevrio [facility] 200 mg 200 mg 200 mg Family capsule capsule capsule Practi c (EUA) TAKE (EUA) TAKE (EUA) TAKE e 4 CAPSULES 4 CAPSULES 4 CAPSULES BY MOUTH BY MOUTH BY MOUTH TWICE DAILY TWICE DAILY TWICE DAILY losartan 50 losartan 50 No losartan [place] mg tablet mg tablet 50 mg Fami ly TAKE 1 TAKE 1 tablet Practic TABLET BY TABLET BY TAKE 1 e MOUTH ONCE MOUTH ONCE TABLET BY DAILY DAILY MOUTH ONCE DAILY metformin metformin No 2 Q1D metformin [place] ER 500 mg ER 500 mg ER 500 mg Family tablet,exte tablet,exte tablet,ext Practic nded nded ended e release 24 release 24 release 24 hr Take 2 hr Take 2 hr Take 2 tablets tablets tablets every day every day every day by oral by oral by oral route for route for route for 90 days. 90 days. 90 days. naproxen naproxen No naproxen [facility] 500 mg 500 mg 500 mg Family tablet TAKE tablet TAKE tablet Practic 1 TABLET BY 1 TABLET BY TAKE 1 e MOUTH TWICE MOUTH TWICE TABLET BY DAILY WITH DAILY WITH MOUTH MEALS MEALS TWICE DAILY WITH MEALS OneTouch OneTouch No OneTouch [place] [facility] Delica Plus Delica Plus [facility] Family Lancet 33 Lancet 33 Plus Pract ic gauge Take gauge Take Lancet 33 e 2 each 2 each gauge Take every day every day 2 each by miscell. by miscell. every day route as route as by directed directed miscell. for for 90 route as days. days. directed for 90 days. OneTouch OneTouch No 1strip( Q1D OneTouch [facility] Verio test Verio test s) Verio test Family strips Take strips Take strips Practic 1 strip 1 strip Take 1 e every day every day strip by miscell. by miscell. every day route as route as by directed directed miscell. for for 90 route as days. days. directed for 90 days. pantoprazol pantoprazol No pantoprazo [place] e 40 mg e 40 mg le 40 mg Famil y tablet,bryan tablet,bryan tablet,del Practic yed release yed release ayed e TAKE 1 TAKE 1 release TABLET BY TABLET BY TAKE 1 MOUTH ONCE MOUTH ONCE TABLET BY DAILY FOR DAILY FOR MOUTH ONCE 90 DAYS 90 DAYS DAILY FOR 90 DAYS phenazopyri phenazopyri No phenazopyr [facility] dine 200 mg dine 200 mg idine 200 Family tablet TAKE tablet TAKE mg tablet Practic 1 TABLET BY 1 TABLET BY TAKE 1 e MOUTH THREE MOUTH THREE TABLET BY TIMES DAILY TIMES DAILY MOUTH THREE TIMES DAILY prednisolon prednisolon No prednisolo [place] e acetate 1 e acetate 1 ne acetate Family % eye % eye 1 % eye Practic drops,suspe drops,suspe drops,susp e nsion nsion ension pregabalin pregabalin No 1capsul BID pregabalin [facility] 100 mg 100 mg e(s) 100 mg Family capsule capsule capsule Practi c Take 1 Take 1 Take 1 e capsule capsule capsule twice a day twice a day twice a by oral by oral day by route for route for oral route 30 days. 30 days. for 30 days. ropinirole ropinirole No ropinirole [facility] 0.5 mg 0.5 mg 0.5 mg Family tablet TAKE tablet TAKE tablet Practic 1 TABLET BY 1 TABLET BY TAKE 1 e MOUTH AT MOUTH AT TABLET BY BEDTIME BEDTIME MOUTH AT BEDTIME tizanidine tizanidine No tizanidine [facility] 4 mg tablet 4 mg tablet 4 mg F amily TAKE 1 TAKE 1 tablet Practic TABLET BY TABLET BY TAKE 1 e MOUTH TWICE MOUTH TWICE TABLET BY DAILY FOR DAILY FOR MOUTH 28 DAYS 28 DAYS TWICE DAILY FOR 28 DAYS topiramate topiramate No topiramate [facility] 200 mg 200 mg 200 mg Family tablet TAKE tablet TAKE tablet Practic 1 TABLET BY 1 TABLET BY TAKE 1 e MOUTH AT MOUTH AT TABLET BY BEDTIME FOR BEDTIME FOR MOUTH AT 90 DAYS 90 DAYS BEDTIME FOR 90 DAYS tramadol 50 tramadol 50 No tramadol [place] mg tablet mg tablet 50 mg Fami ly TAKE 1 TAKE 1 tablet Practic TABLET BY TABLET BY TAKE 1 e MOUTH THREE MOUTH THREE TABLET BY TIMES DAILY TIMES DAILY MOUTH THREE TIMES DAILY triamcinolo triamcinolo No triamcinol [facility] ne ne one Family acetonide acetonide acetonide Practic 0.1 % 0.1 % 0.1 % e topical topical topical cream APPLY cream APPLY cream TWICE DAILY TWICE DAILY APPLY TO ECZEMA TO ECZEMA TWICE UP TO 2 UP TO 2 DAILY TO WEEKS/MONTH WEEKS/MONTH ECZEMA UP NEEDED. NEEDED. TO 2 WEEKS/HELENA H NEEDED. Trulicity Trulicity No Trulicity [place] 1.5 mg/0.5 1.5 mg/0.5 1.5 mg/0.5 Family mL mL mL Practic subcutaneou subcutaneou subcutaneo e s pen s pen us pen injector injector injector INJECT 1 INJECT 1 INJECT 1 SYRINGE SYRINGE SYRINGE SUBCUTANEOU SUBCUTANEOU SUBCUTANEO SLY ONCE A SLY ONCE A USLY ONCE WEEK WEEK A WEEK DIRECTED DIRECTED DIRECTED Trulicity 3 Trulicity 3 No 3mg Q1W Trulicity [place] mg/0.5 mL mg/0.5 mL 3 mg/0.5 F amily subcutaneou subcutaneou mL P ractic s pen s pen subcutaneo e injector injector us pen Inject 3 mg Inject 3 mg injector every week every week Inject 3 by by mg every subcutaneou subcutaneou week by s route for s route for subcutaneo 30 days. 30 days. us route for 30 days. zolpidem 10 zolpidem 10 No zolpidem [place] mg tablet mg tablet 10 mg Fami ly tablet Practic e allopurinol allopurinol No allopurino [facility] 300 mg 300 mg l 300 mg Family tablet TAKE tablet TAKE tablet Practic 1 TABLET BY 1 TABLET BY TAKE 1 e MOUTH ONCE MOUTH ONCE TABLET BY DAILY DAILY MOUTH ONCE DAILY atorvastati atorvastati No atorvastat [facility] n 80 mg n 80 mg in 80 mg Famil y tablet Take tablet Take tablet Practic 1 tablet 1 tablet Take 1 e every day every day tablet by oral by oral every day route. route. by oral route. clonazepam clonazepam No clonazepam [facility] 0.5 mg 0.5 mg 0.5 mg Family tablet TAKE tablet TAKE tablet Practic 1 TABLET BY 1 TABLET BY TAKE 1 e MOUTH TWICE MOUTH TWICE TABLET BY DAILY DAILY MOUTH TWICE DAILY gabapentin gabapentin No gabapentin [place] 800 mg 800 mg 800 mg Family tablet TAKE tablet TAKE tablet Practic 1 TABLET BY 1 TABLET BY TAKE 1 e MOUTH TWICE MOUTH TWICE TABLET BY DAILY DAILY MOUTH TWICE DAILY losartan losartan No losartan [facility] windy 100 mg 100 mg 100 mg Family tablet TAKE tablet TAKE tablet Practic 1 TABLET BY 1 TABLET BY TAKE 1 e MOUTH ONCE MOUTH ONCE TABLET BY DAILY DAILY MOUTH ONCE DAILY metformin metformin No 2 BID metformin [place] 500 mg 500 mg 500 mg Family tablet Take tablet Take tablet Practic 2 tablets 2 tablets Take 2 e twice a day twice a day tablets by oral by oral twice a route with route with day by meals for meals for oral route 90 days. 90 days. with meals for 90 days. OneTouch OneTouch No OneTouch [place] [facility] Delica Plus Delica Plus [facility] Family Lancet 33 Lancet 33 Plus Pract ic gauge Take gauge Take Lancet 33 e 2 each 2 each gauge Take every day every day 2 each by miscell. by miscell. every day route as route as by directed directed miscell. for for 90 route as days. days. directed for 90 days. OneTouch OneTouch No 2strip( Q1D OneTouch [place] Verio test Verio test s) Verio test Family strips Take strips Take strips Practic 2 strips 2 strips Take 2 e every day every day strips by miscell. by miscell. every day route as route as by directed directed miscell. for for 90 route as days. days. directed for 90 days. Plavix 75 Plavix 75 No Plavix 75 [facility] mg tablet mg tablet mg tablet Family TAKE 1 TAKE 1 TAKE 1 Practic TABLET BY TABLET BY TABLET BY e MOUTH ONCE MOUTH ONCE MOUTH ONCE DAILY DAILY DAILY prednisolon prednisolon No prednisolo [place] e acetate 1 e acetate 1 ne acetate Family % eye % eye 1 % eye Practic drops,suspe drops,suspe drops,susp e nsion nsion ension Protonix 40 Protonix 40 No 1 Q1D Protonix [place] mg mg 40 mg Family tablet,bryan tablet,bryan tablet,del Practic yed release yed release ayed e Take 1 Take 1 release tablet tablet Take 1 every day every day tablet by oral by oral every day route for route for by oral 90 days. 90 days. route for 90 days. tizanidine tizanidine No tizanidine [place] 4 mg tablet 4 mg tablet 4 mg F amily TAKE 1 TAKE 1 tablet Practic TABLET BY TABLET BY TAKE 1 e MOUTH TWICE MOUTH TWICE TABLET BY DAILY FOR DAILY FOR MOUTH 28 DAYS 28 DAYS TWICE DAILY FOR 28 DAYS topiramate topiramate No topiramate [place] 200 mg 200 mg 200 mg Family tablet TAKE tablet TAKE tablet Practic 1 TABLET BY 1 TABLET BY TAKE 1 e MOUTH AT MOUTH AT TABLET BY BEDTIME BEDTIME MOUTH AT BEDTIME tramadol 50 tramadol 50 No tramadol [place] mg tablet mg tablet 50 mg Fami ly TAKE 2 TAKE 2 tablet Practic TABLETS BY TABLETS BY TAKE 2 e MOUTH TWICE MOUTH TWICE TABLETS BY DAILY DAILY MOUTH NEEDED FOR NEEDED FOR TWICE 28 DAYS 28 DAYS DAILY NEEDED FOR 28 DAYS triamterene triamterene No william [facility] 37.5 37.5 e 37.5 Family mg-hydrochl mg-hydrochl [...] days. for 90 days. Trulicity Trulicity No Trulicity [place] 1.5 mg/0.5 1.5 mg/0.5 1.5 mg/0.5 Family mL mL mL Practic subcutaneou subcutaneou subcutaneo e s pen s pen us pen injector injector injector INJECT 1 INJECT 1 INJECT 1 SUBCUTANEOU SUBCUTANEOU SUBCUTANEO SLY ONCE A SLY ONCE A USLY ONCE WEEK WEEK A WEEK DIRECTED DIRECTED DIRECTED Trulicity 3 Trulicity 3 No 3mg Q1W Trulicity [place] mg/0.5 mL mg/0.5 mL 3 mg/0.5 F amily subcutaneou subcutaneou mL P ractic s pen s pen subcutaneo e injector injector us pen Inject 3 mg Inject 3 mg injector every week every week Inject 3 by by mg every subcutaneou subcutaneou week by s route for s route for subcutaneo 30 days. 30 days. us route for 30 days. venlafaxine venlafaxine No venlafaxin [facility] ER 150 mg ER 150 mg e ER 150 F amily capsule,ext capsule,ext mg P ractic ended ended capsule,ex e release 24 release 24 tended hr TAKE 1 hr TAKE 1 release 24 CAPSULE BY CAPSULE BY hr TAKE 1 MOUTH ONCE MOUTH ONCE CAPSULE BY DAILY DAILY MOUTH ONCE DAILY zolpidem 10 zolpidem 10 No zolpidem [place] mg tablet mg tablet 10 mg Fami ly tablet Practic e Immunizations Ordered Immunization Filled Immunization Date Status Commen ts Source Name Name [id number] 2021-06-10 Completed [facility] julio cesar [id number] 00:00:00 Enrrique steiner [id number] 2021-06-10 Completed [facility] rial [id number] 00:00:00 Herm jatin [id number] 2021-06-10 Completed [facility] rial [id number] 00:00:00 Herm jatin Non-US Vaccine Non-US Vaccine 2021-05-17 Completed [facility] COVID-19, Product COVID-19, Product 00:00:00 Practice Unknown Unknown Non-US Vaccine Non-US Vaccine 2021-05-17 Completed [facility] COVID-19, Product COVID-19, Product 00:00:00 Practice Unknown Unknown influenza, influenza, 2021-04-17 Completed [facility] injectable, injectable, 00:00:00 Practice quadrivalent quadrivalent influenza, influenza, 2021-04-17 Completed [facility] injectable, injectable, 00:00:00 Practice quadrivalent quadrivalent COVID-19, mRNA, COVID-19, mRNA, 2020-09-17 Completed [facility] LNP-S, PF, 30 LNP-S, PF, 30 00:00:00 Practice mcg/0.3 mL dose mcg/0.3 mL dose (Pfizer-BioNTech) (Pfizer-BioNTech) COVID-19, mRNA, COVID-19, mRNA, 2020-09-17 Completed [facility] LNP-S, PF, 30 LNP-S, PF, 30 00:00:00 Practice mcg/0.3 mL dose mcg/0.3 mL dose (Pfizer-BioNTech) (Pfizer-BioNTech) influenza, influenza, 2020-03-17 Completed [facility] injectable, injectable, 00:00:00 Practice quadrivalent quadrivalent influenza, influenza, 2020-03-17 Completed [facility] injectable, injectable, 00:00:00 Practice quadrivalent quadrivalent Vital Signs Vital Name Observation Time Observation Value Comments Source Systolic blood 2022-12-08 18:43:00 129 mm[Hg] Univer sity of pressure [facility] Diastolic blood 2022-12-08 18:43:00 62 mm[Hg] Unive rsity of pressure [facility] Heart rate 2022-12-08 18:43:00 61 /min [facility] Body temperature 2022-12-08 18:43:00 37.22 Christelle [facility] Respiratory rate 2022-12-08 18:43:00 18 /min [facility] Oxygen saturation in 2022-12-08 18:43:00 100 /min [facility] blood by [facility] Pulse oximetry Branch BP Diastolic 2022-10-08 00:00:00 63 mm[Hg] [facility] Practice Height 2022-10-08 00:00:00 65 [in_i] [facility] BMI (Body Mass 2022-10-08 00:00:00 28.3 kg/m2 [facility] Family Index) Practice BP Systolic 2022-10-08 00:00:00 159 mm[Hg] [facility] Practice Body Weight 2022-10-08 00:00:00 170 [lb_av] [facility] Systolic blood 2022-02-07 22:09:00 103 mm[Hg] [facility] Diastolic blood 2022-02-07 22:09:00 82 mm[Hg] [facility] Heart rate 2022-02-07 22:09:00 89 /min [facility] Body temperature 2022-02-07 22:09:00 36.44 Christelle [facility] Respiratory rate 2022-02-07 22:09:00 16 /min [facility] Body height 2022-02-07 22:09:00 165.1 cm [facility] Body weight 2022-02-07 22:09:00 68.04 kg [facility] BMI 2022-02-07 22:09:00 24.96 kg/m2 [facility] Oxygen saturation in 2022-02-07 22:09:00 100 /min [facility] Arterial blood by [facility] b[facility] Pulse oximetry Branch Systolic blood 2022-01-11 16:48:35 123 mm[Hg] [facility] Diastolic blood 2022-01-11 16:48:35 56 mm[Hg] [facility] Heart rate 2022-01-11 16:48:35 65 /min [facility] Respiratory rate 2022-01-11 16:48:35 16 /min [facility] Oxygen saturation in 2022-01-11 16:48:35 99 /min [facility] blood by [facility] beth Pulse oximetry Branch Body temperature 2022-01-11 15:33:00 36.94 Christelle [facility] [place] [facility] [place] Body height 2022-01-11 15:33:00 165.1 cm [facility] [place] Body weight 2022-01-11 15:33:00 68.493 kg [facility] of [facility] BMI 2022-01-11 15:33:00 25.13 kg/m2 Univers[facility] of [facility] Systolic blood 2021-09-26 23:00:00 147 mm[Hg] Univer sity of pressure [facility] Diastolic blood 2021-09-26 23:00:00 64 mm[Hg] Unive rsity of pressure [facility] Heart rate 2021-09-26 23:00:00 54 /min [facility] Respiratory rate 2021-09-26 23:00:00 17 /min [facility] saturation in 2021-09-26 23:00:00 100 /min [facility] blood by [facility] beth Pulse oximetry Branch Body temperature 2021-09-26 20:17:24 36.78 Christelle [facility] ersity of [facility] Body height 2021-09-26 20:17:24 167.6 cm [facility] Body weight 2021-09-26 19:55:00 83.915 kg [facility] BMI 2021-09-26 19:55:00 29.86 kg/m2 [facility] BP Diastolic 2021-06-26 00:00:00 75 mm[Hg] [facility] Height 2021-06-26 00:00:00 65 [in_i] [facility] BMI (Body Mass 2021-06-26 00:00:00 30.7 kg/m2 [facility] e Family Index) Practice BP Systolic 2021-06-26 00:00:00 112 mm[Hg] [facility] Body Weight 2021-06-26 00:00:00 184.4 [lb_av] [facility] Height 2020-11-01 00:00:00 65 [in_i] [facility] BMI (Body Mass 2020-11-01 00:00:00 28.3 kg/m2 [facility] Index) [facility] Body Weight 2020-11-01 00:00:00 170 [lb_av] [facility] Systolic blood 2020-06-28 21:05:00 139 mm[Hg] [facility] Diastolic blood 2020-06-28 21:05:00 75 mm[Hg] [facility] Heart rate 2020-06-28 21:05:00 77 /min [facility] Respiratory rate 2020-06-28 21:05:00 19 /min [facility] Body height 2020-06-28 21:05:00 165.1 cm [facility] Body weight 2020-06-28 21:05:00 83.915 kg [facility] BMI 2020-06-28 21:05:00 30.79 kg/m2 [facility] Oxygen saturation in 2020-06-28 21:05:00 100 /min [facility] Arterial blood by [place] Pulse oximetry Branch Systolic blood 2020-06-28 21:05:00 139 mm[Hg] [facility] Diastolic blood 2020-06-28 21:05:00 75 mm[Hg] [facility] Heart rate 2020-06-28 21:05:00 77 /min [facility] Respiratory rate 2020-06-28 21:05:00 19 /min [facility] Body height 2020-06-28 21:05:00 165.1 cm [facility] Body weight 2020-06-28 21:05:00 83.915 kg [facility] BMI 2020-06-28 21:05:00 30.79 kg/m2 [facility] Oxygen saturation in 2020-06-28 21:05:00 100 /min [facility] Arterial blood by [place] Pulse oximetry Branch Height 2020-06-11 00:00:00 65 [in_i] [facility] BMI (Body Mass 2020-06-11 00:00:00 30.1 kg/m2 [facility] Index) [facility] Body Weight 2020-06-11 00:00:00 181 [lb_av] [facility] Systolic blood 2020-05-10 16:20:00 138 mm[Hg] [facility] Diastolic blood 2020-05-10 16:20:00 77 mm[Hg] [facility] Heart rate 2020-05-10 16:18:00 69 /min [facility] Respiratory rate 2020-05-10 16:18:00 19 /min [facility] Body height 2020-05-10 16:18:00 165.1 cm [facility] Body weight 2020-05-10 16:18:00 84.913 kg [facility] BMI 2020-05-10 16:18:00 31.15 kg/m2 [facility] Oxygen saturation in 2020-05-10 16:18:00 99 /min [facility] Pulse oximetry Branch Systolic blood 2020-03-15 14:57:00 156 mm[Hg] [facility] Diastolic blood 2020-03-15 14:57:00 69 mm[Hg] [facility]ive [facility]ity [facility] Heart rate 2020-03-15 14:57:00 59 /min [facility] Respiratory rate 2020-03-15 14:57:00 12 /min [facility] Oxygen saturation in 2020-03-15 14:57:00 100 /min [facility] by [facility] Pulse oximetry Branch Body temperature 2020-03-15 14:25:00 36.39 Christelle [facility] Body height 2020-03-02 16:19:00 165.1 cm [facility] Body weight 2020-03-02 16:19:00 78 kg [facility] BMI 2020-03-02 16:19:00 28.62 kg/m2 [facility] Systolic blood 2020-03-09 19:32:00 128 mm[Hg] [facility] Diastolic blood 2020-03-09 19:32:00 75 mm[Hg] Unive rsity [facility] Heart rate 2020-03-09 19:32:00 65 /min [facility] Respiratory rate 2020-03-09 19:32:00 18 /min [facility] Body height 2020-03-09 19:32:00 165.1 cm [facility] Body weight 2020-03-09 19:32:00 82.691 kg [facility] BMI 2020-03-09 19:32:00 30.34 kg/m2 [facility] Oxygen saturation in 2020-03-09 19:32:00 99 /min [facility] Arterial blood by [facility] Pulse oximetry Branch Systolic (mm Hg) 2022-11-27 14:34:00 Elmer rial Meng Diastolic (mm Hg) 2022-11-27 14:34:00 [facility] Heart Rate 2022-11-27 14:34:00 [facility] Height 2022-11-27 14:34:00 5 [ft_i] [facility] Weight 2022-11-27 14:34:00 [facility] BMI Calculated 2022-11-27 14:34:00 [facility] Systolic (mm Hg) 2022-04-18 19:32:00 Elmer rial White Diastolic (mm Hg) 2022-04-18 19:32:00 Mem o[facility] Heart Rate 2022-04-18 19:32:00 [facility] Respitory Rate 2022-04-18 19:32:00 [facility] Height 2022-04-18 19:32:00 160.02 cm [facility] Weight 2022-04-18 19:32:00 [facility] BMI Calculated 2022-04-18 19:32:00 [facility] Respitory Rate 2022-01-01 16:58:00 [facility] Height 2022-01-01 16:58:00 160.02 cm [facility] Weight 2022-01-01 16:58:00 [facility] BMI Calculated 2022-01-01 16:58:00 [facility] Systolic (mm Hg) 2022-01-01 16:58:00 Elmer rial White Diastolic (mm Hg) 2022-01-01 16:58:00 Mem o[facility] M[facility] Heart Rate 2022-01-01 16:58:00 [facility] Systolic (mm Hg) 2021-07-30 20:07:00 Elmer rial White Diastolic (mm Hg) 2021-07-30 20:07:00 Mem [facility] Heart Rate 2021-07-30 20:07:00 [facility] Respitory Rate 2021-07-30 20:07:00 Memori al Meng Height 2021-07-30 20:07:00 157.48 cm [facility] Weight 2021-07-30 20:07:00 [facility] BMI Calculated 2021-07-30 20:07:00 [facility] Systolic (mm Hg) 2021-01-25 19:19:00 Elmer rial Meng Diastolic (mm Hg) 2021-01-25 19:19:00 [facility] o[facility] Heart Rate 2021-01-25 19:19:00 [facility] Respitory Rate 2021-01-25 19:19:00 Memori al Meng Height 2021-01-25 19:19:00 162.56 cm [facility] Weight 2021-01-25 19:19:00 [facility] BMI Calculated 2021-01-25 19:19:00 Memori al Meng Systolic (mm Hg) 2019-07-28 19:55:00 Elmer rial White Diastolic (mm Hg) 2019-07-28 19:55:00 Mem o[facility] White Heart Rate 2019-07-28 19:55:00 [facility] Respitory Rate 2019-07-28 19:55:00 Memori al Meng Height 2019-07-28 19:55:00 165.1 cm [facility] Weight 2019-07-28 19:55:00 [facility] BMI Calculated 2019-07-28 19:55:00 Memori al Meng Systolic (mm Hg) 2019-06-10 20:22:00 Elmer rial White Diastolic (mm Hg) 2019-06-10 20:22:00 Mem orial Meng Heart Rate 2019-06-10 20:22:00 [facility] Respitory Rate 2019-06-10 20:22:00 [facility] Height 2019-06-10 20:22:00 162.56 cm [facility] Weight 2019-06-10 20:22:00 [facility] BMI Calculated 2019-06-10 20:22:00 [facility] Systolic (mm Hg) 2019-05-11 19:25:00 Elmer rial Meng Diastolic (mm Hg) 2019-05-11 19:25:00 Mem orial Meng Heart Rate 2019-05-11 19:25:00 [facility] Respitory Rate 2019-05-11 19:25:00 [facility] Height 2019-05-11 19:25:00 157.48 cm [facility] Weight 2019-05-11 19:25:00 [facility] BMI Calculated 2019-05-11 19:25:00 Memori al Meng BMI Calculated 2019-02-08 18:53:00 [facility] Height 2019-02-08 18:53:00 157.48 cm [facility] Weight 2019-02-08 18:53:00 [facility] Respitory Rate 2019-02-08 18:53:00 Memori al Meng Heart Rate 2019-02-08 18:53:00 [facility] Systolic (mm Hg) 2019-02-08 18:53:00 Elmer rial Meng Diastolic (mm Hg) 2019-02-08 18:53:00 Mem orial Meng BMI Calculated 2018-12-28 19:26:00 [facility] Weight 2018-12-28 19:26:00 [facility] Height 2018-12-28 19:26:00 157.48 cm [facility] Respitory Rate 2018-12-28 19:26:00 [facility] Systolic (mm Hg) 2018-12-28 19:26:00 Elmer rial White Diastolic (mm Hg) 2018-12-28 19:26:00 Mem orial Meng Heart Rate 2018-12-28 19:26:00 [facility] Procedures Procedure Date / Time Performing Clinician Source Performed CONSENT/REFUSAL FOR 2022-12-08 18:34:55 Doctor Unassigned, [facility] Austine [facility] DIAGNOSIS AND TREATMENT [facility] CONSENT/REFUSAL FOR 2022-02-07 22:04:17 Doctor Unassigned, [facility] DIAGNOSIS AND TREATMENT [facility] XR ANKLE 3+ VW RIGHT 2022-01-11 16:08:15 Sander López [facility] CONSENT/REFUSAL FOR 2022-01-11 15:29:30 Doctor Unassigned, [facility] DIAGNOSIS AND TREATMENT [facility] TROPONIN I 2021-09-26 22:18:00 Singer [facility] COMP. METABOLIC PANEL 2021-09-26 22:18:00 Singer Tom [facility] ([id number]) [facility] [place] CBC WITH DIFF 2021-09-26 22:18:00 Singer [facility] URINALYSIS 2021-09-26 22:18:00 Singer [facility] XR LUMBAR SPINE 3 VW 2021-09-26 22:04:14 Singer Tom [facility] CT CERVICAL SPINE WO 2021-09-26 21:25:[address] [facility] CONTRAST [facility] Branch CT HEAD WO CONTRAST 2021-09-26 21:25:48 Singer Tom [facility] XR CHEST 1 VW 2021-09-26 21:02:15 Singer [facility] XR HUMERUS 2 VW RIGHT 2021-09-26 21:02:15 Singer [facility] CONSENT/REFUSAL FOR 2021-09-26 19:51:38 Doctor Vaishali [facility] DIAGNOSIS AND TREATMENT [place] [facility] [place] NOTICE OF PRIVACY 2021-09-26 19:51:22 Doctor Vaishali, [facility] PRACTICES [place] [facility] [place] DME/SUPPLY JUSTIFICATION 2020-06-28 06:01:00 Doctor Vaishali [facility] Name [facility] [place] DME/SUPPLY JUSTIFICATION 2020-05-16 05:01:00 Doctor Tom [facility] Name [facility] [place] EGD (ENDO) 2020-03-15 13:00:29 Francois [facility] POCT GLUCOSE(AGE >30DAYS) 2020-03-15 12:50:00 Chivo Galindo [facility] AUTHORIZATION TO RELEASE 2020-03-09 05:01:00 Doctor Tom [facility] PHI TO [facility] Name Medical Branch EXTERNAL PROVIDER - ADC 2020-03-05 05:01:00 Doctor Vaishali [facility] REFERRAL [place] [facility] [place] DSU PRE-OP 2020-02-29 05:01:00 Doctor Vaishali [facility] Name Medical Branch BI SELF-REFERRED SCREENING 2019-10-27 18:52:00 Requisition, Gerardo r [facility] MAMMOGRAM BILATERAL Medical Bran ch ASSIGNMENT OF BENEFITS 2019-10-27 18:16:31 Doctor Unassigned, Un [facility] [facility] Repair of Musculotendinous 2018-07-17 00:00:00 [facility] Shoulder [facility] Bilateral Extraction of 2017-12-15 00:00:00 [facility] Cataracts [facility] Colonoscopy 2016-08-17 00:00:00 [facility] Fami ly Practice Hernia Repair [facility] Practice Plan of Care Planned Activity Planned Date Details Comments Source Diagnostic Test 2022-10-08 glucose, fingerstick, Sommer Helm Pending 00:00:00 blood [code = Practice glucose, fingerstick, blood] Diagnostic Test 2022-10-08 hemoglobin A1C, Andrea martin Pending 00:00:00 fingerstick [code = Practice hemoglobin A1C, fingerstick] Future Appointment 2023-04-08 Talha Ash, [id number] [facility] 10:15:[address]; Practice [address], [place] [address] Future Appointment 2023-04-06 Talah Aleman, [address] [facility] 00:00:[address]; Practice [address], [place] [address] Encounters Start End Encounter Admission Attending Care Care Encounter Source Date/Time Date/Time Type Type Clinicians Facility Department ID 2021-06-14 [facility] [id number] Univers 06:59:22 СЕРГЕЙ Galindo mechelle [facility] 2023-02-26 2023-02-26 [facility] [id number] Memoria 10:00:00 10:00:00 20 l Meng 2023-02-26 2023-02-26 [facility] [id number] Memoria 10:00:00 10:00:00 20 l Meng 2022-12-08 2022-12-08 Emergency X JACOB [facility] ERT [id number] Univers 13:46:00 15:19:00 KALIE gorman [facility] 2022-12-08 2022-12-08 Emergency [facility] [id number] Univers 13:46:00 15:19:00 Kalie DHALIWAL 350.1.13.10 [facility] 4.2.7.2.686 [facility] [id number] [facility] 084 Branch 2022-11-27 2022-11-28 Outpatient MHIE MNA [id number] Memoria 14:30:00 04:59:59 Neurology 19 l Nathalia Osunaann 2022-11-27 2022-11-28 Outpatient MHIE MNA [id number] Memoria 14:30:00 04:59:59 Neurology 19 l Nathalia Osunaann 2022-11-27 2022-11-27 Outpatient Karley MISCHER MISCHER [id number] 09:30:00 23:59:59 Sam Love Parker 2022-11-27 2022-11-27 Outpatient MHIE MHIE [id number] Memoria 09:30:00 09:30:00 19 l Meng 2022-10-08 2022-10-08 Outpatient Daniel_T VFP VFP [id number] 3-20 [facility] 00:00:00 00:00:00 [id number] Family Practic e 2022-10-08 2022-10-08 Outpatient Daniel_T VFP VFP [id number] [facility] 00:00:00 00:00:00 [id number] Family Practic e 2022-10-08 2022-10-08 Outpatient Daniel_T VFP VFP [id number] [facility] 00:00:00 00:00:00 [id number] Family Practic e 2022-10-08 2022-10-08 Talha VFP [place] - [id number] V illage 00:00:00 00:00:00 [facility] AlemanPaola - Catracho jones MD: [id number] [place] - e Shadow [facility], [address], [place] [address] , Ph. 2022-08-19 2022-08-19 Ambulatory MHIE MNA [id number] Memoria 20:15:00 20:15:00 Pre-Reg Neurology 18 l Nathalia Meng 2022-08-19 2022-08-19 Ambulatory MHIE MNA [id number] Memoria 20:15:00 20:15:00 Pre-Reg Neurology 18 l Nathalia Fan 2022-08-19 2022-08-19 Outpatient MHIE IE [id number] Memoria 14:15:00 14:15:00 18 l Meng 2022-08-19 2022-08-19 Outpatient ILIA CrandallMISCHER MISCHER [id number] 14:15:00 14:15:00 Sam 18 Keith 2022-05-06 2022-05-06 Outpatient R TAYLOR [facility] RAD [id number] Univers 14:20:00 14:20:00 LORENA [facility] 2022-04-18 2022-04-19 Outpatient nullFlavo MNA [id number] Memoria 19:30:00 04:59:59 r Neurology 17 l Nathalia Fan 2022-04-18 2022-04-19 Outpatient nullFlavo MNA [id number] Memoria 19:30:00 04:59:59 r Neurology 17 l Nathalia Fan 2022-04-18 2022-04-18 Outpatient Karley MISCHER MISCHER [id number] 14:30:00 23:59:59 Sam 17 Keith 2022-04-18 2022-04-18 Outpatient MHIE IE [id number] Memoria 14:30:00 14:30:00 17 l Meng 2022-03-14 2022-03-14 [facility] [id number] Devoted 00:00:00 00:00:00 [id number] Medica l Group 2022-02-28 2022-02-28 Outpatient [facility] [id number] Devoted 06:06:00 06:06:00 [id number] Medica l Group 2022-02-07 2022-02-07 Emergency X Sander LÓPEZ [facility] ERT [id number] Univers 17:15:00 18:10:00 [facility] 2022-02-07 2022-02-07 Emergency Sander López [facility] 1.2.840.114 [id number] Univers 17:15:00 18:10:00 Susie DHALIWAL 350.1.13.10 i Ralf 4.2.7.2.686 [facility] [id number] [facility] 084 Branch 2022-01-11 2022-01-11 Emergency X Sander LÓPEZ [facility] ERT [id number] Univers 10:34:00 12:01:00 ity of [facility] 2022-01-11 2022-01-11 Emergency Sander López [facility] 1.2.840.114 [id number] Univers 10:34:00 12:01:00 Susie DHALIWAL 350.1.13.10 i ty of [place] 4.2.7.2.686 [facility] [id number] [facility] 084 Branch 2022-01-01 2022-01-02 Outpatient nullFlavo MNA [id number] Memoria 16:45:00 04:59:59 r Neurology 16 l Fisherdrea Osunaann 2022-01-01 2022-01-02 Outpatient nullFlavo MNA [id number] Memoria 16:45:00 04:59:59 r Neurology 16 l Nathalia Fan 2022-01-01 2022-01-01 Outpatient NATALIE Crandall MISCHER [id number] 11:45:00 23:59:59 Sam 16 Keith 2022-01-01 2022-01-01 Outpatient MHIE ILIAIE [id number] Memoria 11:45:00 11:45:00 16 sue Meng 2021-10-29 2021-10-29 Ambulatory nullFlavo MNA [id number] Memoria 19:45:00 19:45:00 Pre-Reg r Neurology 15 l Fisher Meng 2021-10-29 2021-10-29 Ambulatory nullFlavo MNA [id number] Memoria 19:45:00 19:45:00 Pre-Reg r Neurology 15 l Fisher Meng 2021-10-29 2021-10-29 Outpatient MHIE LIIAIE [id number] Memoria 14:45:00 14:45:00 15 sue Meng 2021-10-29 2021-10-29 Outpatient NATALIE Crandall MISCHIFEOMA [id number] 14:45:00 14:45:00 Sam 15 Keith 2021-10-16 2021-10-16 Outpatient DMG [facility] [id number] Devoted 09:00:00 09:00:00 Medica l Group 2021-09-26 2021-09-26 Emergency X , [facility] ERT [id number] Univers 13:59:00 17:32:00 TOM gorman of [facility] 2021-09-26 2021-09-26 Emergency , [facility] [id number] Univers 13:59:00 17:32:00 Tom DHALIWAL 350.1.13.10 i ty of [place] 4.2.7.2.686 [place] [facility] [id number] [facility] 084 Branch 2021-09-26 2021-09-26 Orders Doctor TRACEY 1.2.840.114 [id number] Univers 00:00:00 00:00:00 Only Unassigned, TRE 350.1.13.10 ity of [place] [facility] 4.2.7.2.686 Khris [id number] [facility] 009 Branch 2021-08-07 2021-08-07 Outpatient Daniel_T VFP VFP [id number] [address] [place] [address] 00:00:00 00:00:00 [id number] Family Practic e 2021-08-07 2021-08-07 Outpatient Daniel_T VFP VFP [id number] [address] [place] [address] 00:00:00 00:00:00 [id number] Family Practic e 2021-07-30 2021-07-31 Outpatient nullFlavo MNA [id number] Memoria 20:00:00 05:59:59 r Neurology 14 l Nathalia Fan 2021-07-30 2021-07-31 Outpatient nullFlavo MNA [id number] Memoria 20:00:00 05:59:59 r Neurology 14 l Nathalia Fan 2021-07-30 2021-07-30 Outpatient NATALIE Crandall [id number] 14:00:00 23:59:59 Sam 14 Keith 2021-07-30 2021-07-30 Outpatient MHIE MIMI [id number] Memoria 14:00:00 14:00:00 14 l Meng 2021-07-04 2021-07-04 Outpatient Daniel_T VFP VFP [id number] [address] [place] [address] 06:48:00 06:48:00 [id number] Family Practic e 2021-06-26 2021-06-26 Outpatient Daniel_T VFP VFP [id number] [address] [place] [address] 05:56:00 05:56:00 [id number] Family Practic e 2021-06-26 2021-06-26 Talha VFP [place] - [id number] V illage 00:00:00 00:00:00 [facility] AshPaola - Pracnancy jones MD: [id number] VM_KATIANA_Sharan e [address], [place] [address] , Ph. 2021-01-25 2021 Outpatient nullFlavo MNA [id number] [facility]00 04:59:59 r Neurology 13 l Nathalia Fan 2021-01-25 2021 Outpatient nullFlavo MNA [id number] [facility] 19:00:00 04:59:59 r Neurology 13 l Nathalia Fan 2021-01-25 2021-01-25 Outpatient ILIA CrandallMISCHER MHMISCHER [id number] 14:00:00 23:59:59 Sam 13 Keith 2021-01-25 2021-01-25 Outpatient MHIE MHIE [id number] [facility] 14:00:00 14:00:00 13 l Meng 2020-11-03 2020-11-03 Outpatient Daniel_T VFP VFP [id number] [address] [place] [address] 09:28:00 09:28:00 [id number] Family Practic e 2020-11-03 2020-11-03 Outpatient Daniel_T VFP VFP [id number] [address] [place] [address] 09:28:00 09:28:00 [id number] Family Practic e 2020-11-03 2020-11-03 Outpatient Daniel_T VFP VFP [id number] [address] [place] [address] 09:28:00 09:28:00 [id number] Family Practic e 2020-11-03 2020-11-03 Outpatient Daniel_T VFP VFP [id number] [address] [place] [address] 09:28:00 09:28:00 [id number] Family Practic e 2020-11-03 2020-11-03 Outpatient Daniel_T VFP VFP [id number] [address] [place] [address] 09:28:00 09:28:00 [id number] Family Practic e 2020-11-01 2020-11-01 Outpatient Daniel_T VFP VFP [id number] [address] [place] [address] 03:36:00 03:36:00 [id number] Family Practic e 2020-11-01 2020-11-01 Talha VFP [place] - [id number] V illage 00:00:00 00:00:00 Dilon [facility] Ash, Medical - Pracnancy jones MD: [id number] VM_HOU_Shad e [address], [address], [place] [address] , Ph. 2020-10-30 2020-10-30 Outpatient Daniel_T VFP VFP [id number] [address] [place] [address] 12:03:00 12:03:00 [id number] Family Practic e 2020-06-28 2020-06-28 [facility] 1.2.840.114 [id number] 14:42:07 15:23:34 [facility] Dhaliwal 350.1.13.10 [place] 4.2.7.2.[address] Professio [phone] [address] 2020-06-28 2020-06-28 [facility] 1.2.840.114 [id number] [facility] 14:42:07 15:23:34 [facility] 350.1.13.10 i ty of [place] [phone] [place] dical [address] 2020-06-28 2020-06-28 Outpatient R ANNEMARIE DOWELL [facility] [id number] [facility] 14:40:00 14:40:00 ANNEMARIE DOWELL i ty of [facility] 2020-06-28 2020-06-28 Orders Doctor TRACEY 1.2.840.114 [id number] 00:00:00 00:00:00 Only Unassigned, TRE 350.1.13.10 [place] [facility] 4.2.7.2.686 [id number] [facility] 2020-06-28 2020-06-28 Orders Doctor TRACEY 1.2.840.114 [id number] Univers 00:00:00 00:00:00 Only Unassigned, TRE 350.1.13.10 ity of [place] [facility] 4.2.7.2.686 Khris as [id number] [facility] 009 [place] 2020-06-23 2020-06-23 Outpatient Daniel_T VFP VFP [id number] 3-20 [facility] 03:38:00 03:38:00 Family Practic e 2020-06-11 2020-06-11 Outpatient Daniel_T VFP VFP [id number] [facility] 05:59:00 05:59:00 [id number] Family Practic e 2020-06-11 2020-06-11 Outpatient Daniel_T VFP VFP [id number] [facility] 05:59:00 05:59:00 [id number] Family Practic e 2020-06-11 2020-06-11 Talha VFP [place] - [id number] V illage 00:00:00 00:00:00 [facility] Aleman Medical - Practi robert JONES: [id number] VM_HOU_Dani e Shadow [facility] [address] [address] , Ph. 2020-06-04 2020-06-04 Outpatient Daniel_T VFP VFP [id number] [address] [place] [address] 09:31:00 09:31:00 [id number] Family Practic e 2020-05-27 2020-05-27 Telephone June [facility] 1..[id number] Univers 00:00:00 00:00:00 [facility] 350.1.13.10 i ty of Surgical 4.2.7.2.686 Khris as Specialti [phone] Me dical es [address] [facility] 2020-05-24 2020-05-24 Laboratory Lab, Adc Fam Pob I [facility] 1.2. 840.114 [id number] Univers 16:16:53 16:39:40 Only JuneHanny A Health 350.1.13.10 ity of [place] 4.2.7.2.686 Khris as Professio [phone] Me dical nal 044 Branch Office [facility] 2020-05-24 2020-05-24 Outpatient R [facility] [id number] Univers 16:00:00 16:00:00 ity of [facility] 2020-05-24 2020-05-24 Outpatient R [facility] [id number] Univers 15:00:00 15:00:00 ity of [facility] 2020-05-24 2020-05-24 Outpatient R [facility] [id number] Univers 13:00:00 13:00:00 ity of [facility] 2020-05-16 2020-05-16 Orders Doctor WEBB 1.2.840.114 [id number] Univers 00:00:00 00:00:00 Only Unassigned, TRE 350.1.13.10 ity of [place] [facility] 4.2.7.2.686 Khris as [phone] [address] 2020-05-10 2020-05-10 Office Dionisio [facility] 1.2.840.114 [id number] Univers 11:09:35 11:41:44 Visit Annemarie Dhaliwal 350.1.13.10 i ty of [place] [phone] [place] dical [place]al [address] [place] [address] 2020-05-10 2020-05-10 Outpatient R ANNEMARIE DOWELL [facility] [id number] Univers 11:00:00 11:00:00 ANNEMARIE DOWELL i ty of [facility] 2020-05-01 2020-05-01 Telephone Dionisio [facility] [id number] [id number] Univers 00:00:00 00:00:00 Annemarie Dhaliwal 350.1.13.10 i ty of [place] [phone] Me dical nal [address] [place] [address] 2020-03-15 2020-03-15 [facility] 1.2.840.114 [id number] Univers 07:46:51 10:18:00 Encounter Сергей galindo 350.1.13.10 ity of [place].2.[place] [phone] [address] 2020-03-13 2020-03-13 Telephone TRACEY Herrera [id number] [id number] Univers 00:00:00 00:00:00 Dolores Yesenia TOLEDO 350.1.13.10 ity of [facility] 4.2.7.2.686 Khris as [id number] [facility] 019 [place] 2020-03-12 2020-03-12 Outpatient R MAGNOLIAGLORIA [facility] [id number] Univers 09:30:00 09:30:00 СЕРГЕЙ Galindo o f [facility] 2020-03-12 2020-03-12 Laboratory Only, Adc Test [facility] 1.2.840. 114 [id number] Univers 08:58:53 09:11:20 Only Сергей Menendez 350.1.1 3.10 ity of [place].7.2.[place] [id number] [facility] 353 [place] 2020-03-09 2020-03-09 Office Dionisio [facility] 1.2.840.114 [id number] Univers 14:13:02 15:07:01 Visit Annemarie Dhaliwal 350.1.13.10 i ty of [place].2.[place] [phone] Tx dical nal 085 [facility] 2020-03-09 2020-03-09 Outpatient R ANNEMARIE DOWELL [facility] [id number] Univers 14:00:00 14:00:00 ANNEMARIE DOWELL i ty of [facility] 2020-03-09 2020-03-09 Orders Doctor WEBB 1.2.840.114 [id number] Univers 00:00:00 00:00:00 Only UnassTRE brunson 350.1.13.10 ity of [place] [facility] 4.2.7.2.686 Khris as [id number] [facility] 009 Branch 2019-12-14 2019-12-16 Outside nullFlavo MNA [id number] Memoria 19:56:01 04:59:59 Medical r Neurology [address] [facility] 2019-12-14 2019-12-16 Outside nullFlavo MNA [id number] Memoria 19:56:01 04:59:59 Medical r Neurology [address] [facility] 2019-12-14 2019-12-15 Outpatient MHMISCHER MHMISCHER [id number] 14:56:01 23:59:59 04 2019-12-01 2019-12-02 Outpatient nullFlavo MNA [id number] Memoria 18:15:00 04:59:59 r Neurology 12 sue Osunaann 2019-12-01 2019-12-02 Outpatient nullFlavo MNA [id number] Memoria 18:15:00 04:59:59 r Neurology 12 l Fisher Meng 2019-12-01 2019-12-01 Outpatient Karley MISCHER MISCHER [id number] 13:15:00 23:59:59 Sam 12 Keith 2019-12-01 2019-12-01 Outpatient MHIE MHIE [id number] Memoria 13:15:00 13:15:00 12 sue White 2019-10-27 2019-10-27 Outpatient R RADIOLOGY [facility] [id number] Univers 13:17:45 23:59:00 ity of [facility] 2019-10-27 2019-10-27 Hospital Radiology [facility] 1.2.840.114 [id number] Univers 13:15:00 23:59:00 Encounter [place] 350.1.13.10 ity of [place] 4.2.7.2.686 [facility] [id number] [facility] 800 Branch 2019-10-27 2019-10-27 Orders Doctor TRACEY 1.2.840.114 [id number] Univers 00:00:00 00:00:00 Only Unassigned, TRE 350.1.13.10 [facility] 4.2.7.2.686 [facility] [id number] [facility] 009 Branch 2019-09-22 2019-09-22 Ambulatory nullFlavo MNA [id number] Memoria 17:00:00 17:00:00 Pre-Reg r Neurology 11 l Fisher Meng 2019-09-22 2019-09-22 Ambulatory nullFlavo MNA [id number] Memoria 17:00:00 17:00:00 Pre-Reg r Neurology 11 l Fisher Meng 2019-09-22 2019-09-22 Outpatient MHIE MHIE [id number] Memoria 11:00:00 11:00:00 11 l Meng 2019-09-22 2019-09-22 Outpatient Karley MHMISCHER MISCHER [id number] 11:00:00 11:00:00 Sam Sun Parker 2019-07-28 2019-07-29 Outpatient nullFlavo MNA [id number] Memoria 19:45:00 05:59:59 r Neurology 08 sue Sloan White 2019-07-28 2019-07-29 Outpatient nullFlavo MNA [id number] Memoria 19:45:00 05:59:59 r Neurology 08 sue Sloan White 2019-07-28 2019-07-28 Outpatient Karley MHMISCHER MISCHER [id number] 13:45:00 23:59:59 Sam Shannan Parker 2019-07-28 2019-07-28 Outpatient MHIE MHIE [id number] Memoria 13:45:00 13:45:00 Shannan rogers White 2019-06-10 2019-06-11 Outpatient nullFlavo MNA [id number] Memoria 20:15:00 04:59:59 r Neurology 10 sue Sloan White 2019-06-10 2019-06-11 Outpatient nullFlavo MNA [id number] Memoria 20:15:00 04:59:59 r Neurology 10 sue Sloan White 2019-06-10 2019-06-10 [facility] [id number] 15:15:00 23:59:59 Sam Parker 2019-06-10 2019-06-10 Outpatient MHIE MHIE [id number] Memoria 15:15:00 15:15:00 10 sue White 2019-05-11 2019-05-12 Outpatient nullFlavo MNA [id number] Memoria 19:15:00 04:59:59 r Neurology 09 sue Sloan White 2019-05-11 2019-05-12 Outpatient nullFlavo MNA [id number] Memoria 19:15:00 04:59:59 r Neurology 09 sue Sloan White 2019-05-11 2019-05-11 Outpatient Karley MHMISCHER MHMISCHER [id number] 14:15:00 23:59:59 Sam Andrzej Keith 2019-05-11 2019-05-11 Outpatient MHIE MHIE [id number] Memoria 14:15:00 14:15:00 09 sue Fan 2019-02-08 2019-02-09 Outpatient nullFlavo MNA [id number] Memoria 18:30:00 04:59:59 r Neurology 07 l Nathalia Fan 2019-02-08 2019-02-09 Outpatient nullFlavo MNA [id number] Memoria 18:30:00 04:59:59 r Neurology 07 l Nathalia Osunaann 2019-02-08 2019-02-08 Outpatient ILIA CrandallUTSCHER MISCHER [id number] 13:30:00 23:59:59 Sam Luz Elena Parker 2019-02-08 2019-02-08 Outpatient MHIE MHIE [id number] Memoria 13:30:00 13:30:00 07 sue Fan 2018-12-28 2018-12-29 Outpatient nullFlavo MNA [id number] Memoria 18:30:00 04:59:59 r Neurology 06 l Nathalia Osunaann 2018-12-28 2018-12-29 Outpatient nullFlavo MNA [id number] Memoria 18:30:00 04:59:59 r Neurology 06 l Nathalia Osunaann 2018-12-28 2018-12-28 [id number] 13:30:00 23:59:59 Sam Jair Parker 2018-12-28 2018-12-28 Ambulatory nullFlavo MNA [id number] Memoria 18:30:00 18:30:00 Pre-Reg r Neurology 05 l Nathalia Meng 2018-12-28 2018-12-28 Ambulatory nullFlavo MNA [id number] Memoria 18:30:00 18:30:00 Pre-Reg r Neurology 05 l Nathalia Meng 2018-12-28 2018-12-28 Outpatient MHIE MHIE [id number] Memoria 13:30:00 13:30:00 Jair rogers Meng 2018-12-28 2018-12-28 Outpatient MHIE MHIE [id number] [facility] 13:30:00 13:30:00 Humble rogers Meng 2018-12-28 2018-12-28 [id number] 13:30:00 13:30:00 Samsania Parker 2018-11-16 2018-11-16 Outpatient MHIE MHIE [id number] Memoria 14:30:00 14:30:00 04 sue Fan 2018-11-16 2018-11-16 Outpatient MHIE MHIE [id number] Memoria 14:30:00 14:30:00 04 sue Fan 2018-10-01 2018-10-01 Outpatient MHIE MHIE [id number] Memoria 10:45:00 10:45:00 03 sue Fan 2018-10-01 2018-10-01 Outpatient MHIE MHIE [id number] Memoria 10:45:00 10:45:00 03 sue Fan 2018-09-16 2018-09-18 Phone nullFlavo MNA [id number] Memoria 21:05:00 05:59:59 Message r Neurology 02 sue Fan 2018-09-16 2018-09-18 Phone nullFlavo MNA [id number] Memoria 21:05:00 05:59:59 Message r Neurology 02 sue Fan 2018-09-16 2018-09-17 Outpatient MHMISCHER MHMISCHER [id number] 15:05:00 23:59:59 2018-08-04 2018-08-06 Phone nullFlavo MNA [id number] Memoria 15:57:00 05:59:59 Message r Neurology 01 sue Fan 2018-08-04 2018-08-06 Phone nullFlavo MNA [id number] 55 Memoria 15:57:00 05:59:59 Message r Neurology 01 sue Fan 2018-08-04 2018-08-05 Outpatient MHMISCHER MHMISCHER [id number] 09:57:00 23:59:59 2018-07-28 2018-07-30 Phone nullFlavo MNA [id number] Memoria 19:02:00 05:59:59 Message r Neurology 00 sue Fan 2018-07-28 2018-07-30 Phone nullFlavo MNA [id number] 55 Memoria 19:02:00 05:59:59 Message r Neurology 00 sue Fan 2018-07-28 2018-07-29 Outpatient MHMISCHER MHMISCHER [id number] 13:02:00 23:59:59 00 2018-03-26 2018-03-26 Outpatient MIMI LE [id number] Memoria 10:45:00 10:45:00 01 sue Fan 2018-03-26 2018-03-26 Outpatient MIMI LE [id number] Memoria 10:45:00 10:45:00 01 sue Fan 2017-11-11 2017-11-11 Outpatient MIMI LE [id number] [facility]oria 11:00:00 11:00:00 02 sue Fan 2017-11-11 2017-11-11 Outpatient MIMI LE [id number] Memoria 11:00:00 11:00:00 02 sue Fan 2017-09-25 2017-09-25 Outpatient MIMI LE [id number] Memoria 10:30:00 10:30:00 00 sue Fan 2017-09-25 2017-09-25 Outpatient MIMI LE [id number] Memoria 10:30:00 10:30:00 00 sue Fan Results Test Description Test Time Test Comments Results Result Comments Source Hemoglobin A1c measurement device panel 2022-10-08 15:15:57 Test Item Value Reference Range Interpretation Comme nts Hemoglobin A1c/Hemoglobin.total in Blood (test code = 4548-4) 6.5 % 5.7-6.4 [facility] [id number] 15:12:00 Test Item Value Reference Range Interpretation Comments Blood Glucose: mg/dl (test code = Blood 95 Glucose: mg/dl) [facility] [id number] 22:51:39 Test Item Value Reference Interpretation Comments Range TROPONIN I (test 0.004 ng/mL See_Comment [Automated code = 6355868751) message] The system which generated this result transmitted reference range : <=0.034. The reference range was not used to interpret this result as normal/abnormal . DONI (test code = Reference (Normal) DONI) Range (defined by the 99th percentile reference limit): <= 0.034 ng/mL Note: Cardiac troponin begins to rise 3-4 hours after the onset of ischemia. Repeat in 4-6 hours if the sample was drawn within 3-4 hours of the onset of the symptom and found normal. Diagnosis of myocardial injury is made with acute changes in cTn concentrations with at least one serial sample above the 99th percentile upper reference limit (URL), taken together with the patient's clinical presentation. Biotin has been reported to cause a negative bias, interpret results relative to patient's use of biotin. Lab Interpretation Normal (test code = 98036-2) [facility]. METABOLIC PANEL (33123)2021-09-26 22:40:21 Test Item Value Reference Range Interpretation Comments NA (test code = 138 mmol/L 135-145 1601067297) K (test code = 4.2 mmol/L 3.5-5.0 7356182328) CL (test code = 115 mmol/L 98-108 H 5222077355) CO2 TOTAL (test code = 18 mmol/L 23-31 L 8564402719) AGAP (test code = 2-16 7561825122) BUN (test code = 22 mg/dL 7-23 5427759256) GLUCOSE (test code = 121 mg/dL 70-110 H 3230191977) CREATININE (test code = 1.02 mg/dL 0.50-1.04 4329357882) TOTAL BILI (test code = 0.4 mg/dL 0.1-1.6 8780403289) CALCIUM (test code = 8.4 mg/dL 8.6-10.6 L 2787760016) T PROTEIN (test code = 6.4 g/dL 6.3-8.2 2391924301) ALBUMIN (test code = 3.8 g/dL 3.5-5.0 7459335825) ALK PHOS (test code = 101 U/L 34-122 3209185624) ALTv (test code = 12 U/L 5-35 1742-6) AST(SGOT) (test code = 24 U/L 13-40 9157530864) eGFR (test code = mL/min/1.73m2 4184929548) DONI (test code = DONI) Association of Glomerular Filtration Rate (GFR) and Staging of Kidney Disease* + --+ --+ ------+| GFR (mL/min/1.73 m2) ?| With Kidney Damage ?| ?Without Kidney Damage+ --------+ --------+ +| ?>90 ?| ?Stage one ?| ? Normal ?+ ---+ ---+ -------+| ?60-89 ?| ?Stage two ?| ? Decreased GFR ? + --+ --+ ------+| ?30-59 ?| ?Stage three ?| ? Stage three ? + --+ --+ ------+| ?15-29 ?| ?Stage four ? | ? Stage four ?+ ---+ ---+ -------+| ?<15 (or dialysis) ? ?| ?Stage five ? | ? Stage five ?+ ---+ ---+ -------+ *Each stage assumes the associated GFR level has been in effect for at least three months. ?Stages 1 to 5, with or without kidney disease, indicate chronic kidney disease. Notes: Determination of stages one and two (with eGFR >59mL/min/1.73 m2) requires estimation of kidney damage for at least three months as defined by structural or functional abnormalities of the kidney, manifested by either:Pathological abnormalities or Markers of kidney damage (including abnormalities in the composition of the blood or urine or abnormalities in imaging tests). Lab Interpretation Abnormal (test code = 38668-5) [facility] WITH [id number] 22:30:36 Test Item Value Reference Range Interpretation Comments WBC (test code = See_Comment [Automated 5090-2) message] The sy stem which generated this result transmitted reference range : 4.30 - 11.10 10*3/?L. The reference range was not used to interpret this result as normal/abnormal . RBC (test code = See_Comment L [Automated 349-8) message] The sy stem which generated this result transmitted reference range : 3.93 - 5.25 10*6/?L. The reference range was not used to interpret this result as normal/abnormal . HGB (test code = 10.0 g/dL 11.6-15.0 L 718-7) HCT (test code = 31.7 % 35.7-45.2 L 4544-3) MCV (test code = 99.1 fL 80.6-95.5 H 787-2) MCH (test code = 31.3 pg 25.9-32.8 785-6) MCHC (test code = 31.5 g/dL 31.6-35.1 L 786-4) RDW-SD (test code = 55.7 fL 39.0-49.9 H 37990-4) RDW-CV (test code = 15.5 % 12.0-15.5 788-0) PLT (test code = See_Comment [Automated 777-3) message] The sy stem which generated this result transmitted reference range : 166 - 358 10*3/ ?L. The reference r jaimie was not used to interpret this result as normal/abnormal . MPV (test code = 12.1 fL 9.5-12.9 21462-7) NRBC/100 WBC (test See_Comment [Automat ed code = 5190371371) message] The system which generated this result transmitted reference range : 0.0 - 10.0 /100 WBCs. The refer ence range was not u sed to interpret th is result as normal/abnormal . NRBC x10^3 (test code <0.01 See_Comment [Auto mated = 7212487627) message] The s ystem which generated this result transmitted reference range : 10*3/?L. The reference range was not used to interpret this result as normal/abnormal . GRAN MAT (NEUT) % 80.1 % (test code = 770-8) IMM GRAN % (test code 0.30 % = 7314426823) LYMPH % (test code = 12.7 % 736-9) MONO % (test code = 4.1 % 5905-5) EOS % (test code = 2.2 % 713-8) BASO % (test code = 0.6 % 706-2) GRAN MAT x10^3(ANC) 5.81 10*3/uL 1.88-7.09 (test code = 6228097776) IMM GRAN x10^3 (test <0.03 0.00-0.06 code = 4553246462) LYMPH x10^3 (test code 0.92 10*3/uL 1.32-3.29 L = 731-0) MONO x10^3 (test code 0.30 10*3/uL 0.33-0.92 L = 742-7) EOS x10^3 (test code = 0.16 10*3/uL 0.03-0.39 711-2) BASO x10^3 (test code 0.04 10*3/uL 0.01-0.07 = 704-7) Lab Interpretation Abnormal (test code = 91322-3) [facility] 2021-06-26 15:32:10 Test Item Value Reference Range Interpretation Comments Hemoglobin A1C Fingerstick: (test code 6.1 = Hemoglobin A1C Fingerstick:) [facility] in Capillary [id number] 15:28:47 Test Item Value Reference Range Interpretation Comments Blood Glucose: mg/dl (test code = Blood 118 Glucose: mg/dl) [facility]PO[facility] [id number] 12:53:00 Test Item Value Reference Range Interpretation Comments POCT Glu (age>30days) (test code = 92 mg/dL 70-110 3342) Lab Interpretation (test code = Normal 30842-1) [facility]REFERR[facility]CREEN[facility] MAMMO[facility] BILATERAL 2019-10-27 19:51:48Examination:BI SELF-REFERRED SCREENING MAMMOGRAM BILATERAL History:Patient is 69 year old and is seen for: ?Routine . Computer-aided detection (CAD) utilized. Comparisons: 06/25/2015 DIGITAL MAMMOGRAM,SCREENING (No Change) Findings:The breasts are almost entirely fatty. BilateralThere are vascular calcifications seen in both breasts. Impression:No signs of malignancy. Recommendation:Annual mammographic follow-up - Bilateral BI-RADS Category: Both 1 - NegativeUnHouston [facility] HospitalURINE [id number] 15:54:00 Test Item Value Reference Range Interpretation Comments CULTURE (BEAKER) (test >100,000 col/mL skin code = 1095) clay POCT-GLUCOSE [id number] 07:48:00 Test Item Value Reference Range Interpretation Comments POC-GLUCOSE METER 149 mg/dL 70-110 H TESTED AT [facility] 6720 (BEAKER) (test code = [facility] 1538) [address] BASIC METABOLIC [id number] 04:52:00 Test Item Value Reference Range Interpretation [...] PATIEN TS. CBC W/PLT COUNT & AUTO [id number] 04:52:00 Test Item Value Reference Range Interpretation [...] ABSOLUTE COUNT 0.72 K/ L 0.00-0.50 H (BEAKER) (test code = 416) BASOPHILS ABSOLUTE COUNT (BEAKER) 0.08 K/ L 0.00-0.20 (test code = 417) 0.00POCT-GLUCOSE [id number] 21:56:00 Test Item Value Reference Range Interpretation Comments POC-GLUCOSE METER 114 mg/dL 70-110 H TESTED AT [place] [address] ([facility]) (test code = [facility] 1538) [address] POCT-GLUCOSE [id number] 18:04:00 Test Item Value Reference Range Interpretation Comments POC-GLUCOSE METER 82 mg/dL 70-110 TESTED AT [place] [address] ([facility]) (test code = [facility] [address] 1538) TSH/FREE T4 IF [id number] 15:29:00 Test Item Value Reference Range Interpretation Comments THYROID STIMULATING HORMONE 2.71 uIU/mL 0.35-4.94 ([facility]) (test code = 772) POCT-GLUCOSE [id number] 12:39:00 Test Item Value Reference Range Interpretation Comments POC-GLUCOSE METER 112 mg/dL 70-110 H TESTED AT [place] [address] ([facility]) (test code = [facility] 1538) [address] [id number] 12:03:00 Test Item Value Reference Range Interpretation Comments RPR SCREEN ([facility]) (test code = Nonreactive Nonreactive 420) HEMOGLOBIN [id number] 08:06:00 Test Item Value Reference Range Interpretation Comments HEMOGLOBIN A1C ([facility]) (test code = 6.8 % 4.3-6.1 H 368) POCT-GLUCOSE [id number] 07:58:00 Test Item Value Reference Range Interpretation Comments POC-GLUCOSE METER 98 mg/dL 70-110 TESTED AT [facility] 6720 (BEAKER) (test code = [place] [address] 1538) CBC W/PLT COUNT & AUTO [id number] 04:28:00 Test Item Value Reference Range Interpretation Comments WHITE BLOOD CELL COUNT (BEAKER) 8.1 K/ L 4.0-10.0 (test code = 775) RED BLOOD CELL COUNT (BEAKER) 3.63 M/ L 4.00-5.00 L (test code [...] 0.00-0.20 (test code = 417) 0.00BASIC METABOLIC [id number] 04:15:00 Test Item Value Reference Range Interpretation [...] DATA TO CALCULA TE ESTIMATED GFR. FastingLIPID [id number] 04:11:00 Test Item Value Reference Range Interpretation Comments TRIGLYCERIDES (BEAKER) (test code = 113 mg/dL 540) CHOLESTEROL (BEAKER) (test code = 207 mg/dL 631) HDL CHOLESTEROL (BEAKER) (test code 61 mg/dL = 976) LDL CHOLESTEROL CALCULATED (BEAKER) 123 mg/dL (test code = 633) Triglyceride Reference Range: Low Risk <150 Borderline 150-199 High Risk 200- 499 Very High Risk >=500Cholesterol Reference Range: Low Risk <200 Borderline 200-239 High Risk >240HDL Cholesterol Reference Range: Low Risk >=60 High Risk <40LDL Cholesterol Reference Range: Optimal <100 Near Optimal 100-129 Borderline 130-159 High 160-189 Very High >=190 Fasting URINALYSIS W/ [id number] 00:43:00 Test Item Value Reference Range Interpretation [...] 516) SOURCE(BEAKER) (test code = Urine, Voided 1451) POCT-GLUCOSE [id number] 21:06:00 Test Item Value Reference Range Interpretation Comments POC-GLUCOSE METER 217 mg/dL 70-110 H TESTED AT [facility] (test code = [place] 1538) [address] SEDIMENTATION [id number] 20:24:00 Test Item Value Reference Range Interpretation Comments SEDIMENTATION RATE, ERYTHROCYTE 16 mm/HR 0-40 (BEAKER) (test code = 766) VITAMIN [id number] 19:36:00 Test Item Value Reference Range Interpretation Comments VITAMIN B12 (BEAKER) (test code = > pg/mL 213-816 H 774) POCT-GLUCOSE [id number] 19:08:00 Test Item Value Reference Range Interpretation Comments POC-GLUCOSE METER 105 mg/dL 70-110 TESTED AT [place] [id number] [facility] (test code = [place] 1538) [address] BASIC METABOLIC [id number] 19:03:00 Test Item Value Reference Range Interpretation [...] TO CALCULA TE ESTIMATED GFR. HEPATIC FUNCTION [id number] 19:01:00 Test Item Value Reference Range Interpretation [...] 347) hemolyzed CBC W/PLT COUNT & AUTO [id number] 18:54:00 Test Item Value Reference Range Interpretation [...]
[2022-12-15] MEDS ORDERED: FENTANYL CITR 100 MCG/2 ML ONE ×2 (16:44→19:58)
[2022-12-15] MEDS ORDERED: DIAZEPAM 10 MG/2 ML INJ SYRINGE ONE (16:45)
[2022-12-15] MEDS ORDERED: dexAMETHasone 10 MG/ML VIAL ONE (16:45)
--- NOTE | 2022-12-15 18:32 | RAD REPORT ---
EXAM DESCRIPTION: MRI - Lumbar Spine Wo Con - 12/15/2022 4:47 pm CLINICAL HISTORY: radicular pain COMPARISON: MRISPINE LUMBAR W WO CON dated 03/25/2013; MRI LUMBAR SPINE W O CON dated 12/22/2012 TECHNIQUE: Multiplanar multisequence MRI of the lumbar spine performed, without intravenous gadolini um contrast. FINDINGS: Transitional anatomy with partial sacralization of L5 again noted. Sequelae of posterior d ecompression opposite L2 and L4-5. Preserved lumbar lordosis without spondylolisthesis. Vertebral carl dy heights are well maintained. No suspicious marrow signal. No paraspinal masses or edema. Conus terminates at the appropriate level. Cauda equina roots are unremarkable, with no clumping or t hickening. T12-L1: No significant findings. L1-L2: No significant findings. L2-L3: Progressive posterior broad-based disc bulge. Bilateral facet arthropathy with trace effusions . Overall mild canal stenosis. Stable mild bilateral neural foraminal narrowing. L3-L4 level: Circumferential mild disc bulge. Bilateral facet arthropathy with ligamentum flavum killian ling and trace facet effusions. Findings are progressive since the prior exam contributing to mild ce ntral canal stenosis. Left moderate and right mild neural foraminal narrowing, stable. L4-L5 level: Circumferential disc bulge with superimposed left more than right subarticular disc prot rusions. Trace bilateral facet effusions with new small extrinsic synovial cysts. No residual central canal stenosis. Left moderate to severe neural foraminal narrowing worsened since the prior exam. St able right moderate neural foraminal narrowing L5-S1 level: Diminutive disc space, without significant disc herniation or canal stenosis. Bilateral facet arthropathy. Mild bilateral neural foraminal narrowing, stable. IMPRESSION: Progressive degenerative lumbar spine changes as above, contributing to mild central can al stenosis at L2-3 and L3-4, and worsening left moderate to severe neural foraminal narrowing. Other stable degenerative and postoperative changes as above, including other stable multilevel neura l foraminal narrowing as detailed above.
--- NOTE | 2022-12-15 19:30 | RAD REPORT ---
EXAM DESCRIPTION: RAD - Hip Right 2 View - 12/15/2022 7:13 pm CLINICAL HISTORY: hip pain COMPARISON: No comparisons TECHNIQUE: Right hip, AP and frog-leg views. FINDINGS: There is no fracture or dislocation. No acute or destructive bony process seen. Mild dege nerative changes. Vascular calcifications. IMPRESSION: No acute findings of the right hip. Mild degenerative changes.
--- NOTE | 2022-12-15 20:07 | RAD REPORT ---
EXAM DESCRIPTION: US - Extremity Venous Uni Ltd - 12/15/2022 7:26 pm CLINICAL HISTORY: Pain COMPARISON: None. TECHNIQUE: Real-time sonographic evaluation of the right lower extremity deep venous system was perf ormed. FINDINGS: Normal compressibility, flow augmentation, phasic flow and spontaneous flow is identified in the right lower extremity deep venous system. No intraluminal filling defects seen. IMPRESSION: No evidence of DVT in the right lower extremity.
--- NOTE | 2022-12-15 20:26 | EDPHYS ---
Physician Documentation [facility] Name: Bridgette Browne Age: 72 yrs Sex: Female : 1950 Arrival Date: 12/15/2022 Time: 15:48 Bed 7 Private MD: ED Physician Sebas Jovel HPI: 12/15 15:56 This 72 yrs old Female presents to ER via EMS with complaints of Leg Pain. jmm 15:56 The patient presents with pain. The complaints affect the right upper thigh and right jmm quadriceps. Onset: The symptoms/episode began/occurred this morning. This is a 72 year old female with a history of chronic pain, gout, tia, that presents to the ED with complaints of right leg pain which began upon awakening. Denies injury. . Historical: - Allergies: 15:54 Aspirin; ld1 15:54 Hydrocodone-Ibuprofen; ld1 15:54 Tylenol-Codeine; ld1 - PMHx: 15:54 Chronic pain; Gout; High Cholesterol; Transient cerebral ischemia; Hypertension; ld1 Diabetes - NIDDM; Anxiety; - PSHx: 15:54 Gastric Bypass; cervical and lumbar spine; rotator cuff; ld1 - Immunization history:: Adult Immunizations up to date, Client reports receiving the 2nd dose of the Covid vaccine. - Social history:: Smoking status: Patient denies any tobacco usage or history of. Patient/guardian denies using alcohol. ROS: 23:42 Constitutional: Negative for fever, chills, and weight loss, Cardiovascular: Negative jmm for chest pain, palpitations, and edema, Respiratory: Negative for shortness of breath, cough, wheezing, and pleuritic chest pain. 23:42 MS/extremity: Positive for pain. 23:42 All other systems are negative. Exam: 23:42 Constitutional: This is a well developed, well nourished patient who is awake, alert, jmm and in no acute distress. Head/Face: atraumatic. Eyes: EOMI, no conjunctival erythema appreciated ENT: Moist Mucus Membranes Neck: Trachea midline, Supple Chest/axilla: Normal chest wall appearance and motion. Cardiovascular: Regular rate and rhythm. No edema appreciated Respiratory: Normal respirations, no respiratory distress appreciated Abdomen/GI: Non distended Back: Normal ROM Skin: General appearance color normal 23:42 Musculoskeletal/extremity: pain elicited on flexion of the right hip, compartments are soft, NVI. 23:42 Skin: Appearance: Color: normal in color. 23:42 Neuro: Orientation: is normal, Mentation: is normal, Memory: is normal. 23:42 Psych: Behavior/mood is pleasant, cooperative. Vital Signs: 15:54 Pulse 71; Resp 18; Temp 98.1(O); Pulse Ox 98% on R/A; Weight 79.38 kg; Height 5 ft. 2 ld1 in. ; Pain 8/10; 15:54 BP 124 / 61; ld1 17:40 BP 140 / 61; Pulse 64; Resp 18; Pulse Ox 100% on R/A; ld1 18:14 BP 143 / 57; Pulse 71; Resp 18; Pulse Ox 100% on R/A; ld1 19:55 Pulse 61; Resp 18; Pulse Ox 99% on R/A; nj1 22:13 BP 140 / 63; Pulse 74; Resp 18; Pulse Ox 100% ; mb9 15:54 Body Mass Index 32.01 (79.38 kg, 157.48 cm) ld1 15:54 Pain Scale: Adult ld1 MDM: 15:56 Patient medically screened. tyra 23:45 Differential diagnosis: sciatica, spinal abscess, cord compression, cauda equina, jmm fracture, dvt. Data reviewed: vital signs, nurses notes. I considered the following discharge prescriptions or medication management in the emergency department Medications were administered in the Emergency Department. See MAR. Care significantly affected by the following chronic conditions: chronic pain, dm. Counseling: I had a detailed discussion with the patient and/or guardian regarding: the historical points, exam findings, and any diagnostic results supporting the discharge/admit diagnosis, radiology results, the need for outpatient follow up, to return to the emergency department if symptoms worsen or persist or if there are any questions or concerns that arise at home. 12/15 16:10 Order name: MRI Lumbar Spine wo Con; Complete Time: 18:34 [facility] 12/15 18:58 Order name: Hip Right 2 View XRAY; Complete Time: 19:51 [facility] 12/15 18:58 Order name: US Extremity Venous Unilateral Ltd; Complete Time: 20:10 [facility] 12/15 16:10 Order name: Saline Lock; Complete Time: 17:24 [facility] Administered Medications: 17:15 Drug: Decadron - Dexamethasone IVP 10 mg Route: IVP; Site: right antecubital; nj1 17:45 Follow up: Response: No adverse reaction nj1 17:16 Drug: fentaNYL (PF) IVP 50 mcg Route: IVP; Site: right antecubital; nj1 17:45 Follow up: Response: No adverse reaction nj1 17:20 Drug: Diazepam IVP 5 mg Route: IVP; Site: right antecubital; nj1 17:45 Follow up: Response: No adverse reaction nj1 19:55 Drug: fentaNYL (PF) IVP 50 mcg Route: IVP; Site: right antecubital; nj1 22:02 Drug: fentaNYL Transdermal Patch (25 mcg/hr) 1 patches Route: Transdermal; Site: mb9 affected area; Disposition Summary: 12/15/22 20:25 Discharge Ordered Location: Home [facility] Condition: Stable jm Diagnosis - Pain in right leg jm Followup: jmm - With: Que Manjarrez DO - When: 2 - 3 days - Reason: Recheck today's complaints, Continuance of care, Re-evaluation by your physician Discharge Instructions: - Discharge Summary Sheet [facility] - Musculoskeletal Pain [facility] Forms: - Medication Reconciliation Form [facility] - Thank You Letter [facility] - Antibiotic Education [facility] - Prescription Opioid Use [facility] Prescriptions: - orphenadrine citrate 100 mg Oral Tablet Sustained Release - take 1 tablet by ORAL route 2 times per day As needed; 20 tablet; Refills: 0, [facility] Product Selection Permitted Signatures: Dispatcher [employer] EDMS Sebas Jovel MD MD cha Mickail, Joel, PA PA [facility] Hui Laird RN RN ld1 Eileen Rao RN RN mb9 Amanda Haq RN RN nj1 Corrections: (The following items were deleted from the chart) 23:43 15:56 This is a 72 year old female with a history of chronic pain, gout, tia, that [facility] presents to the ED with complaints of right leg pain which began upon awakening . [facility]
--- NOTE | 2022-12-15 20:26 | ER ---
Nurse's Notes [facility] Name: Bridgette Browne Age: 72 yrs Sex: Female : 1950 Arrival Date: 12/15/2022 Time: 15:48 Bed 7 Private MD: Diagnosis: Pain in right leg Presentation: 12/15 15:54 Chief complaint: EMS states: toned out to pt home for pain to right leg - radiates down ld1 right leg. Denies injury. Coronavirus screen: At this time, the client does not indicate any symptoms associated with coronavirus-19. Ebola Screen: No symptoms or risks identified at this time. Initial Sepsis Screen: Does the patient meet any 2 criteria? No. Patient's initial sepsis screen is negative. Does the patient have a suspected source of infection? No. Patient's initial sepsis screen is negative. Risk Assessment: Do you want to hurt yourself or someone else? Patient reports no desire to harm self or others. Onset of symptoms was December 15, 2022. 15:54 Method Of Arrival: EMS: [facility] ld1 15:54 Acuity: ISMAEL 4 ld1 15:57 Care prior to arrival: Medication(s) given: 30mg ketoralac IM [facility]. ld1 Triage Assessment: 15:54 General: Appears in no apparent distress. uncomfortable, Behavior is cooperative, ld1 anxious. Pain: Complains of pain in right lower back and right leg Pain does not radiate. Pain currently is 8 out of 10 on a pain scale. Quality of pain is described as sharp, shooting, throbbing. EENT: No signs and/or symptoms were reported regarding the EENT system. Neuro: Level of Consciousness is awake, alert, obeys commands, Oriented to person, place, time, situation. Cardiovascular: Capillary refill < 3 seconds Patient's skin is warm and dry. Respiratory: Airway is patent Respiratory effort is even, unlabored. GI: Abdomen is round non-distended. : No signs and/or symptoms were reported regarding the genitourinary system. Derm: No signs and/or symptoms reported regarding the dermatologic system. Musculoskeletal: No signs and/or symptoms reported regarding the musculoskeletal system. Historical: - Allergies: 15:54 Aspirin; ld1 15:54 Hydrocodone-Ibuprofen; ld1 15:54 Tylenol-Codeine; ld1 - PMHx: 15:54 Chronic pain; Gout; High Cholesterol; Transient cerebral ischemia; Hypertension; ld1 Diabetes - NIDDM; Anxiety; - PSHx: 15:54 Gastric Bypass; cervical and lumbar spine; rotator cuff; ld1 - Immunization history:: Adult Immunizations up to date, Client reports receiving the 2nd dose of the Covid vaccine. - Social history:: Smoking status: Patient denies any tobacco usage or history of. Patient/guardian denies using alcohol. Screenin:57 [facility] ED Fall Risk Assessment (Adult) History of falling in the last 3 months, ld1 including since admission No falls in past 3 months (0 pts). Abuse screen: Denies threats or abuse. Denies injuries from another. Nutritional screening: No deficits noted. Tuberculosis screening: No symptoms or risk factors identified. Assessment: 15:57 Reassessment: See triage assessment. ld1 17:40 Reassessment: Patient appears in no apparent distress at this time. No changes from ld1 previously documented assessment. Patient and/or family updated on plan of care and expected duration. Pain level reassessed. 18:14 Reassessment: Patient appears in no apparent distress at this time. No changes from ld1 previously documented assessment. Patient and/or family updated on plan of care and expected duration. Pain level reassessed. Patient is alert, oriented x 3, equal unlabored respirations, skin warm/dry/pink. 19:55 Reassessment: Patient appears in no apparent distress at this time. Patient and/or nj1 family updated on plan of care and expected duration. Pain level reassessed. Patient is alert, oriented x 3, equal unlabored respirations, skin warm/dry/pink. Pain: Complains of pain in right leg Pain currently is 10 out of 10 on a pain scale. 22:13 Reassessment: Patient and/or family updated on plan of care and expected duration. Pain mb9 level reassessed. Patient is alert, oriented x 3, equal unlabored respirations, skin warm/dry/pink. Patient states feeling better. Patient states symptoms have improved. Vital Signs: 15:54 Pulse 71; Resp 18; Temp 98.1(O); Pulse Ox 98% on R/A; Weight 79.38 kg; Height 5 ft. 2 ld1 in. ; Pain 8/10; 15:54 BP 124 / 61; ld1 17:40 BP 140 / 61; Pulse 64; Resp 18; Pulse Ox 100% on R/A; ld1 18:14 BP 143 / 57; Pulse 71; Resp 18; Pulse Ox 100% on R/A; ld1 19:55 Pulse 61; Resp 18; Pulse Ox 99% on R/A; nj1 22:13 BP 140 / 63; Pulse 74; Resp 18; Pulse Ox 100% ; mb9 15:54 Body Mass Index 32.01 (79.38 kg, 157.48 cm) ld1 15:54 Pain Scale: Adult ld1 ED Course: 15:53 Patient arrived in ED. nj1 15:53 Amanda Haq, DEMETRIO is Primary Nurse. nj1 15:53 Carrillo Higgins PA is PHCP. [facility] 15:53 Arnie Sheffield MD is Attending Physician. [facility] 15:54 Arm band placed on right wrist. ld1 15:55 Attending Physician role handed off by Arnie Sheffield MD [facility] 15:55 Sebas Jovel MD is Attending Physician. [facility] 15:56 Triage completed. ld1 15:57 Patient has correct armband on for positive identification. Placed in gown. Bed in low ld1 position. Call light in reach. Side rails up X2. quality assurance monitor final on. Pulse ox on. NIBP on. Door closed. Noise minimized. Warm blanket given. 15:57 No provider procedures requiring assistance completed. ld1 16:23 Patient moved to MRI. cm9 16:46 MRI Lumbar Spine wo Con In Process Unspecified. EDMS 17:15 Inserted saline lock: 20 gauge in right antecubital area, using aseptic technique. nj1 19:12 Hip Right 2 View XRAY In Process Unspecified. EDMS 19:28 US Extremity Venous Unilateral Ltd In Process Unspecified. EDMS 20:25 Que Manjarrez DO is Referral Physician. jmm 22:15 IV discontinued, intact, bleeding controlled, No redness/swelling at site. Pressure mb9 dressing applied. Administered Medications: 17:15 Drug: Decadron - Dexamethasone IVP 10 mg Route: IVP; Site: right antecubital; nj1 17:45 Follow up: Response: No adverse reaction nj1 17:16 Drug: fentaNYL (PF) IVP 50 mcg Route: IVP; Site: right antecubital; nj1 17:45 Follow up: Response: No adverse reaction nj1 17:20 Drug: Diazepam IVP 5 mg Route: IVP; Site: right antecubital; nj1 17:45 Follow up: Response: No adverse reaction nj1 19:55 Drug: fentaNYL (PF) IVP 50 mcg Route: IVP; Site: right antecubital; nj1 22:02 Drug: fentaNYL Transdermal Patch (25 mcg/hr) 1 patches Route: Transdermal; Site: mb9 affected area; Medication: 15:57 VIS not applicable for this client. ld1 Outcome: 20:25 Discharge ordered by . cristiano 22:15 Discharged to home ambulatory. [email or web address] 22:15 Condition: stable 22:15 Discharge instructions given to patient, Instructed on discharge instructions, follow up and referral plans. Demonstrated understanding of instructions, follow-up care, medications, Prescriptions given X 1. 22:15 Patient left the ED. mb9 Signatures: Dispatcher [employer] EDMS Sebas Jovel MD MD cha Mickail, Joel, PA PA jmm Sims, Lauren, DEMETRIO RN ld1 Eileen Rao RN RN mb9 Amanda Haq RN RN nj1 Marjan Holcomb RN RN cm9
[2022-12-15] MEDS ORDERED: FENTANYL 25 MCG/PATCH TD ONE (21:44)
[2022-12-15 22:54] VITALS: TEMP 98.1
[2022-12-15 22:58] VITALS: BP 140/63; O2SAT 100
== END 2022-12-15 22:15 | disposition home or self-care (01) ==
LOC: ER 15:48
DX: M79.604 Pain in right leg (principal); E11.9 Type 2 diabetes mellitus without complications; I10 Essential (primary) hypertension; Z88.5 Allergy status to narcotic agent; Z88.6 Allergy status to analgesic agent
CPT/HCPCS: 73502; 93971; 72148; 96375; 96374; 99285; J3360; J3010 ×2; J1100

== ENCOUNTER 2023-01-29 11:03 | Emergency (ER) | payer OTHER ==
--- OUTSIDE RECORDS SUMMARY | 2023-01-29 11:14 | XMS REPORT | Continuity of Care Document ---
:1950 Author Organization [facility] t Address [address] [place] [address] Care Team Providers Name Role Phone Francois Mei MD Primary Care Physician СЕРГЕЙ MENENDEZ Attending Clinician Unavailable KALIE JAMES Attending Clinician Unavailable Kalie James MD Attending Clinician Sam Crandall Attending Clinician Chandana Attending Clinician Unavailable LORENA VAZQUEZ Attending Clinician Unavailable Sander LÓPEZ Attending Clinician Unavailable Sander Mooney Attending Clinician TOM TOURE Attending Clinician Unavailable Tom Toure DO Attending Clinician Doctor Unassigned, [place] Attending Clinician Unavailable Annemarie Dowell DO Attending [...] Number Effective Date Expiration Date S aayush [facility] [id number] 2019 MEDICARE GOLD 00:00:00 [employer] MEDICARE OUT [id number] 2021 OF NETWORK 00:00:00 [employer] (MEDICARE [id number] 2021 REPLACEMENT PPO) 00:00:00 [facility] 2022 MEDICARE ADVANTAGE 00:00:00 PLAN [facility] [employer] [id number] 2021 (MEDICARE 00:00:00 REPLACEMENT HMO) [facility] [id number] (MEDICARE REPLACEMENT/ADVANTA GE - PPO) [facility] [id number] Problems Condition Condition Condition Status Onset Resolution Last Treating Co mments Source Name Details Category Date Date Treatment Clinician Date History of History of Problem Active 2020-08 [facility] cerebrovas Cerebrovas 1-16 Fa sushila bergeron 00:00: Practic accident Accident 00 e Chronic Chronic Problem Active 2020-08 [facility] kidney Kidney 1-13 Family disease Disease 00:00: Practic stage 3 Stage 3 00 e Type 2 Type 2 Problem Active 2020-08 [facility] diabetes Diabetes 1-10 Family mellitus Mellitus 00:00: Practi c 00 e Bilateral Bilateral Problem Active 2020-08 [facility] cataracts Cataracts 1-10 Fami ly 00:00: Practic 00 e Gastroesop Gastroesop Problem Active 2020-08 [place] [facility] hageal hageal 1-10 Family reflux Reflux 00:00: Practic disease Disease 00 e without without esophagiti Esophagiti s s Foot Foot Problem Active 2020-08 [facility] callus Callus 1-10 Family 00:00: Practic 00 [...] 00 e Kidney Kidney Problem Active 2018-08 [facility] disease Disease 1-03 Family 00:00: Practic e Finding of Finding of Problem Active 2018-08 [place] urine Urine 1-03 Family substance Substance 00:00: Prac tic level Level 00 e Anemia Anemia Problem Active 2018-08 [place] 1-03 Family 00:00: Practic 00 e Anxiety Anxiety Problem Active 2018-08 [facility] disorder Disorder 0-12 Family 00:00: Practic 00 [...] 00 e 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 2-12 Family depressive Depressive [...] mellitus Mellitus Obese Obese Problem Active 2016-08 [facility] class I Class I 2-12 Family 00:00: Practic 00 e Bleeding Bleeding Problem Active 2022-11-30 Memoria from nose from nose 02-18 11:50:58 l (finding) (finding) 00:00: Herm jatin Active 00 02/18/2017 Problem 11/30/2022 [facility] Hypertensi Hypertensi Disease Active C HI [...] Active 00:00: Meng 05/14/2016 00 Problem 11/30/2022 [facility] Essential Essential Problem Active 2022-11-30 Memoria hypertensi hypertensi 2-17 11:50:58 l on on 00:00: Meng (disorder) (disorder) 00 Active 10/03/2015 Problem 11/30/2022 [facility] Hyperlipid Hyperlipi Problem Active 2022-11-30 Memoria emia demia 2-17 11:50:58 l (disorder) (disorder) 00:00: Jamie velez Active 00 10/03/2015 Problem 11/30/2022 [facility] No known No known Disease Unive rs active active ity of problems problems [facility] Amnesia Amnesia Problem Active 2022-11-30 Me moria (finding) (finding) 11:50:58 l Active [place] Problem 11/30/2022 [facility] Headache Headache Problem Active 2022-11-30 Memoria (finding) (finding) 11:50:58 l Active Meng Problem 11/30/2022 [facility] Migraine Migraine Problem Active 2022-11-30 Memoria with aura with aura 11:50:58 l (disorder) (disorder) He rmann Active Problem 11/30/2022 [facility] Neck pain Neck pain Problem Active 2022-11-30 Memoria (finding) (finding) 11:50:58 l Active Meng Problem 11/30/2022 [facility] Tinnitus Tinnitus Problem Active 2022-11-30 Memoria (finding) (finding) 11:50:58 l Active Meng Problem 11/30/2022 [facility] Tremor Tremor Problem Active 2022-11-30 Mem oria (finding) (finding) 11:50:58 l Active Meng Problem 11/30/2022 [facility] Walking Walking Problem Active 2022-11-30 Me moria difficulty difficulty 11:50:58 l due to due to [place] lower leg lower leg (finding) (finding) Active Problem 11/30/2022 [facility] [place] Peripheral Periphera Problem Active 2022-11-30 Memoria nerve l nerve 11:50:58 l disease disease [place] (disorder) (disorder) Active Problem 11/30/2022 [facility] [place] Polyp of Polyp of Problem Active 2022-11-30 Memoria colon colon 11:50:58 l (disorder) (disorder) [place] Active Problem 11/30/2022 [facility] [place] Abnormal Abnormal Problem Active Michelle ge involuntar [...] 00:00: like an Medical Only) reaction 00 ice" [place] [facility] Hydrocod Propensi Active [facility] one-Acet ty to 02-10 [facility] aminophe adverse 00:00: like an Medica l n reaction [facility] Acetamin Propensi Active Other (See [facility] ophen-Co ty to Comments) 02-10 "[facility] deine adverse 00:00[facility] Active Other - See [...] reaction 00 Medical s to Branch drug Clopidog Allergy Active [place] rel to Family substanc Practic e e acetamin acetamin Active Memori a ophen ophen l Meng aspirin aspirin Active Memoria l Meng codeine codeine Active Memoria sulfate sulfate sue LAUGHLIN Allergy Active [place] (HYDROCO to Family DONE-CORA substanc Practi c TAMIN) e e CLOPIDOG Allergy Active [place] REL to Family BISULFAT substanc Practi c E e e HYDROCOD Allergy Active [place] ONE-ACET to Family AMINOPHE substanc Practi c N e e Social History Social Habit Start Date Stop Date Quantity Comments Source Exposure to 2022-11-28 2022-12-08 Not sure [facility] SARS-CoV-2 00:00:00 13:43:00 [facility] (event) [place] Alcohol intake 2022-12-08 2022-12-08 0 /d [facility] 00:00:00 00:00:00 [facility] Tobacco use and 2015-07-04 2015-07-04 Smokeless tobacco Un iversity of exposure 00:00:00 00:00:00 non-user [facility] Sex Assigned At [address] [facility] kes 00:00:00 00:00:00 [facility] Smoking Status Start Date Stop Date Source Tobacco smoking status [facility] Medications Ordered Filled Start Stop Current Ordering Indication Dosage Frequency Signature Comments Components Source Medication Medication Date Date Medication? Clinician (SIG) Name Name Cymbalta 30 Yes 30 mg = 1 M emoria mg oral 4-13 cap, PO, l delayed 15:26: Daily, # Dipak n release 00 30 cap, 3 capsule Refill(s), Pharmacy: [id number], 160.02, cm, 11/27/22 9:59:00 CDT, Height, 75.227, kg, 11/27/22 9:59:00 CDT, Weight Cymbalta 30 Yes 30 mg = 1 M emoria mg oral 4-13 cap, PO, l delayed 15:26: Daily, # Dipak n release 00 30 cap, 3 capsule Refill(s), [facility]acy: [id number], 160.02, cm, 11/27/22 9:59:00 CDT, Height, 75.227, kg, 11/27/22 9:59:00 CDT, Weight Cymbalta 30 Yes 30 mg = 1 M emoria mg oral 4-13 cap, PO, l delayed 15:26: Daily, # Dipak n release 00 30 cap, 3 capsule Refill(s), Pharmacy: [id number], 160.02, cm, 11/27/22 9:59:00 CDT, Height, 75.227, kg, 11/27/22 9:59:00 CDT, Weight Cymbalta 30 3-0 Yes 30 mg = 1 M emoria mg oral 4-13 cap, PO, l delayed 15:26: Daily, # Dipak n release 00 30 cap, 3 capsule Refill(s), Pharmacy: [facility] #[id number], 160.02, cm, 11/27/22 9:59:00 CDT, Height, [...] Natalia nn 00 cap, 1 Refill(s) triamcinolo 2022-0 Yes APPLY Memor ia ne topical 4-13 TWICE l 0.1% cream 15:05: DAILY TO Her mora 00 ECZEMA UP TO 2 WEEKS/HELENA H NEEDED. triamcinolo 2022-0 Yes APPLY Memor ia ne topical 4-13 TWICE l 0.1% cream 15:05: DAILY TO Her mora 00 ECZEMA UP TO 2 WEEKS/HELENA H NEEDED. triamcinolo 3-0 Yes APPLY Memor ia ne topical 4-13 TWICE l 0.1% cream 15:05: DAILY TO Her mora 00 ECZEMA UP TO 2 WEEKS/HELENA H NEEDED. triamcinolo 2022-0 Yes APPLY Justin farias ne topical 4-13 TWICE l 0.1% cream 15:05: DAILY TO Her mora 00 ECZEMA UP TO 2 WEEKS/HELENA H NEEDED. topiramate 2022-0 Yes 100 mg = 1 M emoria 100 mg oral 4-06 tab, PO, l tablet 18:26: Bedtime, # Natalia nn 00 90 tab, 2 Refill(s), Pharmacy: [id number], 160.02, cm, 04/18/22 14:38:00 CDT, Height, 73.295, kg, 04/18/22 14:38:00 CDT, Weight topiramate 2022-0 Yes 100 mg = 1 M emoria 100 mg oral 4-06 tab, PO, l tablet 18:26: Bedtime, # Natalia nn 00 90 tab, 2 Refill(s), Pharmacy: [id number], 160.02, cm, 04/18/22 14:38:00 CDT, Height, 73.295, kg, 04/18/22 14:38:00 CDT, Weight topiramate 2022-0 Yes 100 mg = 1 M emoria 100 mg oral 4-06 tab, PO, l tablet 18:26: Bedtime, # Natalia nn 00 90 tab, 2 Refill(s), Pharmacy: [id number], 160.02, cm, 04/18/22 14:38:00 CDT, Height, 73.295, kg, 04/18/22 14:38:00 CDT, Weight topiramate 2022-0 Yes 100 mg = 1 M emoria 100 mg oral 4-06 tab, PO, l tablet 18:26: Bedtime, # Natalia nn 00 90 tab, 2 Refill(s), Pharmacy: [facility] #[id number], 160.02, cm, 04/18/22 14:38:00 CDT, Height, 73.295, kg, 04/18/22 14:38:00 CDT, Weight triamterene triamterene 2022-0 No triamteren [place] 37.5 37.5 2-22 e 37.5 Family mg-hydrochl mg-hydrochl 00:00: mg-hydroch Practic orothiazide orothiazide 00 lorothiazi e 25 mg 25 mg de 25 mg tablet tablet tablet Plavix 75 Yes 75 mg = 1 Mem oria mg oral 04-18 tab, PO, l tablet 19:49: Daily, 0 Meng 00 Refill(s) Plavix 75 Yes 75 mg = 1 Mem oria mg oral 04-18 tab, PO, l tablet 19:49: Daily, 0 Meng 00 Refill(s) Plavix 75 Yes 75 mg = 1 Mem oria mg oral 04-18 tab, PO, l tablet 19:49: Daily, 0 [place] 00 Refill(s) Plavix 75 Yes 75 mg = 1 Mem oria mg oral 04-18 tab, PO, l tablet 19:49: Daily, 0 Meng 00 Refill(s) naproxen No 500mg 500 mg, Univ ers (NAPROSYN) 02-07 Oral, ity of tablet 500 23:30: 22:34 ONCE, 1 Khris as mg 00 :00 dose, On Medical Fri Branch 02/07/22 at 1830, Routine clindamycin No 300mg 300 mg, U nivers (CLEOCIN 02-07 Oral, ity of HCL) 23:30: 22:34 ONCE, 1 [place] capsule 300 00 :00 dose, On Medi beth mg Fri Branch 02/07/22 at 1830, PANDA
Re ason for Anti-Infec tive: Documented Infection< br>Documen jung Infection Site: HEENT
D uration of Therapy: 10 days<br&gt ;Restricte d use approved by: ED PROVIDER naproxen Yes [id number] 500mg Take 1 Un susi (NAPROSYN) 02-07 tablet by ity of 500 mg 00:00: mouth 2 [place] tablet 00 (two) Medical times Branch daily with meals. triamcinolo Yes [id number] Apply to [facility] 02-07 area(s) 2 ity of acetonide 00:00: (two) [place] 0.1 % cream 00 times Medical daily. Branch naproxen Yes [id number] 500mg Take 1 Un susi (NAPROSYN) 02-07 tablet by ity of 500 mg 00:00: mouth 2 [place] tablet 00 (two) Medical times Branch daily with meals. triamcinolo Yes [id number] Apply to [facility] 02-07 area(s) 2 ity of acetonide 00:00: (two) [place] 0.1 % cream 00 times Medical daily. Branch clindamycin 2021- No [id number] 300mg Take 1 Univers 300 mg 02-07 capsule by ity of capsule 00:00: 04:59 mouth 4 [place] 00 :00 (four) Medical times Branch daily for 10 days. naproxen 2021- No 500mg 500 mg, Univ ers (NAPROSYN) 01-11- Oral, ity of tablet 500 17:30: 16:48 ONCE, 1 Khris as mg 00 :00 dose, On Medical Sat Branch 01/11/22 at 1230, Routine naproxen Yes [id number] 500mg Take 1 U nivers (NAPROSYN) - tablet by ity of 500 mg 00:00: mouth 2 [place] tablet 00 (two) Medical times Branch daily with meals. naproxen Yes [id number] 500mg Take 1 U nivers (NAPROSYN) 5-28 tablet by ity of 500 mg 00:00: mouth 2 [place] tablet 00 (two) Medical times Branch daily with meals. naproxen Yes [id number] 500mg Take 1 U nivers (NAPROSYN) - tablet by ity of 500 mg 00:00: mouth 2 [place] tablet 00 (two) Medical times Branch daily with meals. topiramate Yes 100 mg = 1 M emoria 100 mg oral 5-18 tab, PO, l tablet 17:16: Bedtime, # Natalia nn 00 90 tab, 2 Refill(s), Pharmacy: [facility], 160.02, cm, 01/01/22 12:05:00 CDT, Height, 71.818, kg, 01/01/22 12:05:00 CDT, Weight topiramate Yes 100 mg = 1 M emoria 100 mg oral 5-18 tab, PO, l tablet 17:16: Bedtime, # Natalia nn 00 90 tab, 2 Refill(s), Pharmacy: [facility], 160.02, cm, 01/01/22 12:05:00 CDT, Height, 71.818, kg, 01/01/22 12:05:00 CDT, Weight topiramate 0 Yes 100 mg = 1 M emoria 100 mg oral 5-18 tab, PO, l tablet 17:16: Bedtime, # Natalia nn 00 90 tab, 2 Refill(s), Pharmacy: [facility], 160.02, cm, 01/01/22 12:05:00 CDT, Height, 71.818, kg, 01/01/22 12:05:00 CDT, Weight topiramate 0 Yes 100 mg = 1 M emoria 100 mg oral 5-18 tab, PO, l tablet 17:16: Bedtime, # Natalia nn 00 90 tab, 2 Refill(s), Pharmacy: [facility], 160.02, cm, 01/01/22 12:05:00 CDT, Height, 71.818, kg, 01/01/22 12:05:00 CDT, Weight traMADoL 0 2021- No 100mg 100 mg, Univ ers (ULTRAM) 2-10 02-10 Oral, ity of tablet 100 23:30: 22:35 ONCE, 1 Khris as mg 00 :00 dose, On [facility] 09/26/21 at 1730, Routine topiramate 2020-08 Yes = 1 tab, Mem oria 200 mg oral 2-14 PO, l tablet 20:49: Bedtime, # Natalia nn 00 90 tab, 2 Refill(s), Pharmacy: [facility], 157.48, cm, 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, Height, 80.455, kg, 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, Weight topiramate 2020-08 Yes = 1 tab, Mem oria 200 mg oral 2-14 PO, l tablet 20:49: Bedtime, # Natalia nn 00 90 tab, 2 Refill(s), Pharmacy: [facility], 157.48, cm, 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, Height, 80.455, kg, 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, Weight topiramate 2020-08 Yes = 1 tab, Mem oria 200 mg oral 2-14 PO, l tablet 20:49: Bedtime, # Natalia nn 00 90 tab, 2 Refill(s), Pharmacy: [facility], 157.48, cm, 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, Height, 80.455, kg, 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, Weight topiramate 2020-08 Yes = 1 tab, Mem oria 200 mg oral 2-14 PO, l tablet 20:49: Bedtime, # Natalia nn 00 90 tab, 2 Refill(s), Pharmacy: [facility], 157.48, cm, 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, Height, 80.455, kg, 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, Weight gabapentin 2020-08 Yes 300 mg = 1 M emoria 300 MG Oral 2-14 cap, PO, l Capsule 20:48: TID, # 270 Herm jatin 00 cap, 2 Refill(s), Pharmacy: [facility], 157.48, cm, 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, Height, 80.455, kg, 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, Weight gabapentin 2020-08 Yes 300 mg = 1 M emoria 300 mg oral 2-14 cap, PO, l capsule 20:48: TID, # 270 Herm jatin 00 cap, 2 Refill(s), Pharmacy: [facility], 157.48, cm, 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, Height, 80.455, kg, 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, Weight gabapentin 2020-08 Yes 300 mg = 1 M emoria 300 MG Oral 2-14 cap, PO, l Capsule 20:48: TID, # 270 Herm jatin 00 cap, 2 Refill(s), Pharmacy: [facility], 157.48, cm, 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, Height, 80.455, kg, 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, Weight gabapentin 2020-08 Yes 300 mg = 1 M emoria 300 mg oral 2-14 cap, PO, l capsule 20:48: TID, # 270 Herm jatin 00 cap, 2 Refill(s), Pharmacy: [facility], 157.48, cm, 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, Height, 80.455, kg, 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, Weight gabapentin 2020-08 Yes 300 mg = 1 M emoria 300 MG Oral 2-14 cap, PO, l Capsule 20:48: TID, # 270 Herm jatin 00 cap, 2 Refill(s), Pharmacy: [facility], 157.48, cm, 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, Height, 80.455, kg, 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, Weight gabapentin 2020-08 Yes 300 mg = 1 M emoria 300 mg oral 2-14 cap, PO, l capsule 20:48: TID, # 270 Herm jatin 00 cap, 2 Refill(s), Pharmacy: [facility], 157.48, cm, 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, Height, 80.455, kg, 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, Weight gabapentin 2020-08 Yes 300 mg = 1 M emoria 300 MG Oral 2-14 cap, PO, l Capsule 20:48: TID, # 270 Herm jatin 00 cap, 2 Refill(s), Pharmacy: [facility], 157.48, cm, 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, Height, 80.455, kg, 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, Weight gabapentin 2020-08 Yes 300 mg = 1 M emoria 300 mg oral 2-14 cap, PO, l capsule 20:48: TID, # 270 Herm jatin 00 cap, 2 Refill(s), Pharmacy: [facility], 157.48, cm, 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, Height, 80.455, kg, 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, Weight clopidogrel 2021-0 Yes 75 mg = 1 M emoria 75 MG Oral 6-11 tab, PO, l Tablet 20:12: Daily, X Meng [Plavix] 90 day, # 90 tab, 2 Refill(s), [facility], Pharmacy: [facility], 162.56, cm, 01/25/21 14:43:00 CDT, Height, 83.239, kg, 01/25/21 14:43:00 CDT, Weight topiramate 2020-0 Yes = 1 tab, Mem oria 200 mg oral 6-11 PO, l tablet 20:12: Bedtime, # Natalia nn 00 90 tab, 2 Refill(s), Pharmacy: [facility], 162.56, cm, 01/25/21 14:43:00 CDT, Height, 83.239, kg, 01/25/21 14:43:00 CDT, Weight clopidogrel 2021-0 Yes 75 mg = 1 M emoria 75 MG Oral 6-11 tab, PO, l Tablet 20:12: Daily, X Meng [Plavix] day, # 90 tab, 2 Refill(s), [facility], Pharmacy: [facility], 162.56, cm, 01/25/21 14:43:00 CDT, Height, 83.239, kg, 01/25/21 14:43:00 CDT, Weight topiramate 2020-0 Yes = 1 tab, Mem oria 200 mg oral 6-11 PO, l tablet 20:12: Bedtime, # Natalia nn 00 90 tab, 2 Refill(s), Pharmacy: [facility], 162.56, cm, 01/25/21 14:43:00 CDT, Height, 83.239, kg, 01/25/21 14:43:00 CDT, Weight clopidogrel 2021-0 Yes 75 mg = 1 M emoria 75 MG Oral 6-11 tab, PO, l Tablet 20:12: Daily, X [place] [Plavix] 90 day, # 90 tab, 2 Refill(s), [facility], Pharmacy: [facility], 162.56, cm, 01/25/21 14:43:00 CDT, Height, 83.239, kg, 01/25/21 14:43:00 CDT, Weight topiramate 1-0 Yes = 1 tab, Mem oria 200 mg oral 6-11 PO, l tablet 20:12: Bedtime, # Natalia nn 00 90 tab, 2 Refill(s), Pharmacy: [facility], 162.56, cm, 01/25/21 14:43:00 CDT, Height, 83.239, kg, 01/25/21 14:43:00 CDT, Weight clopidogrel Yes 75 mg = 1 M emoria 75 MG Oral 6-11 tab, PO, l Tablet 20:12: Daily, X [place] [Plavix] 00 90 day, # 90 tab, 2 Refill(s), [facility], Pharmacy: [facility], 162.56, cm, 01/25/21 14:43:00 CDT, Height, 83.239, kg, 01/25/21 14:43:00 CDT, Weight topiramate Yes = 1 tab, Mem oria 200 mg oral 6-11 PO, l tablet 20:12: Bedtime, # Natalia nn 00 90 tab, 2 Refill(s), Pharmacy: [facility], 162.56, cm, 01/25/21 14:43:00 [...] 1.5MG l mg/0.5 mL 19:58: UNDER THE [facility] mora subcutaneou 00 SKIN EVERY s solution WEEK DIRECTED FOR 30 DAYS tramadol 50 Yes TAKE 2 Elmer emilie mg oral 6-11 TABLETS BY l tablet 19:58: MOUTH Meng 00 TWICE DAILY NEEDED FOR 28 DAYS tizanidine Yes TAKE 1 Memor ia 4 mg oral 6-11 TABLET BY l tablet 19:58: MOUTH [place] 00 TWICE DAILY FOR 28 DAYS pantoprazol Yes TAKE 1 Elmer emilie e 40 mg 6-11 TABLET BY l oral 19:58: MOUTH ONCE [place] enteric 00 DAILY coated tablet 0.5 ML Yes INJECT Memoria dulaglutide 6-11 1.5MG l 3 MG/ML 19:58: UNDER THE Natalia nn Prefilled 00 SKIN EVERY Syringe WEEK [Trulicity] DIRECTED FOR 30 DAYS tramadol Yes TAKE 2 Memoria hydrochlori 6-11 TABLETS BY l de 50 MG 19:58: MOUTH [place] Oral Tablet 00 TWICE DAILY NEEDED FOR [...] 6-11 TABLET BY l tablet 19:58: MOUTH [place] 00 TWICE DAILY FOR 28 DAYS pantoprazol Yes TAKE 1 Elmer emilie e 40 mg 6-11 TABLET BY l oral 19:58: MOUTH ONCE [place] enteric 00 DAILY coated tablet 0.5 ML Yes INJECT Memoria dulaglutide 6-11 1.5MG l 3 MG/ML 19:58: UNDER THE Natalia nn Prefilled 00 SKIN EVERY Syringe WEEK [Trulicity] DIRECTED FOR 30 DAYS tramadol Yes TAKE 2 Memoria hydrochlori 6-11 TABLETS BY l de 50 MG 19:58: MOUTH [place] Oral Tablet 00 TWICE DAILY NEEDED FOR 28 DAYS Trulicity Yes INJECT Memori a Pen 1.5 6-11 1.5MG l mg/0.5 mL 19:58: UNDER THE Her mora subcutaneou 00 SKIN EVERY s solution WEEK DIRECTED FOR 30 DAYS tramadol 50 Yes TAKE 2 Elmer emilie mg oral 6-11 TABLETS BY l tablet 19:58: MOUTH [place] 00 TWICE DAILY NEEDED FOR 28 DAYS tizanidine Yes TAKE 1 Memor ia 4 mg oral 6-11 TABLET BY l tablet 19:58: MOUTH Meng 00 TWICE DAILY FOR 28 DAYS pantoprazol Yes TAKE 1 Elmer emilie e 40 mg 6-11 TABLET BY l oral 19:58: MOUTH ONCE [place] enteric 00 DAILY coated tablet 0.5 ML [...] 1.5MG l mg/0.5 mL 19:58: UNDER THE [facility] mora subcutaneou 00 SKIN EVERY s solution WEEK DIRECTED FOR 30 DAYS tramadol 50 Yes TAKE 2 Elmer emilie mg oral 6-11 TABLETS BY l tablet 19:58: MOUTH Meng 00 TWICE DAILY NEEDED FOR 28 DAYS tizanidine Yes TAKE 1 Memor ia 4 mg oral 6-11 TABLET BY l tablet 19:58: MOUTH [place] 00 TWICE DAILY FOR 28 DAYS pantoprazol Yes TAKE 1 Elmer emilie e 40 mg 6-11 TABLET BY l oral 19:58: MOUTH ONCE [place] enteric 00 DAILY coated tablet metFORMIN 2019-0 Yes 1000mg Take 1,000 Univers (GLUCOPHAGE 7-30 [...] ity of mg tablet 15:18: mouth 3 [place] 32 (three) Medical times Branch daily as needed. allopurinol 2020-0 Yes 300mg Take 300 U nivers (ZYLOPRIM) 7-30 mg by ity of 300 mg 15:18: mouth [place] tablet 32 daily. Medical Branch losartan 2020-0 Yes 50mg Take 50 mg Uni vers (COZAAR) 50 7-30 by mouth ity of mg tablet 15:18: daily. [place] [address] Medical Branch atorvastati 2020-0 Yes 20mg Take 20 mg Univers n (LIPITOR) 7-30 by mouth ity of 20 mg 15:18: at [place] tablet 32 bedtime. Medical Branch clopidogrel 2019-0 Yes 75mg Take 75 mg Univers (PLAVIX) 75 7-30 by mouth ity of mg tablet 15:18: daily. [place] [address] Medical Branch budesonide- 2019-0 Yes 2{puff} Inhale 2 Univers formoterol 7-30 Puffs 2 ity of (SYMBICORT) 15:18: (two) [place] 160-4.5 32 times Medical mcg/actuati daily. Branch on inhaler tiZANidine 2019-0 Yes 4mg Take 4 mg Un susi 4 mg 7-30 by mouth ity of capsule 15:18: daily. [place] [address] Medical Branch TRAMADOL 2019-0 Yes 50mg Take 50 mg Uni vers HCL 7-30 by mouth 2 ity of (TRAMADOL 15:18: (two) [place] HYDROCHLORI 32 times Medical DE, BULK, daily. Branch MISC) ferrous 2019-0 Yes 325mg Take 325 Unive rs sulfate [...] ers ORAL 7-30 mouth. ity of 15:18: [place] [address] Medical Branch metFORMIN 2020-0 Yes 1000mg Take [...] by ity of capsule 15:18: mouth 2 [place] 32 (two) Medical times Branch daily. ALPRAZolam 2020-0 Yes .5mg Take 0.5 Uni vers (XANAX) 0.5 7-30 mg by ity of mg tablet 15:18: mouth 3 [place] [address] (three) Medical times Branch daily as needed. allopurinol 2020-0 Yes 300mg Take 300 U nivers (ZYLOPRIM) 7-30 mg by ity of 300 mg 15:18: mouth [place] tablet 32 daily. Medical Branch losartan 2020-0 Yes 50mg Take 50 mg Uni vers (COZAAR) 50 7-30 by mouth ity of mg tablet 15:18: daily. [place] [address] Medical Branch atorvastati 2020-0 Yes 20mg Take 20 mg Univers n (LIPITOR) 7-30 by mouth ity of 20 mg 15:18: at [place] tablet 32 bedtime. Medical Branch clopidogrel 2020-0 Yes 75mg Take 75 mg Univers (PLAVIX) 75 7-30 by mouth ity of mg tablet 15:18: daily. [place] [address] Medical Branch budesonide- 2020-0 Yes 2{puff} Inhale 2 Univers formoterol 7-30 Puffs 2 ity of (SYMBICORT) 15:18: (two) [place] 160-4.5 32 times Medical mcg/actuati daily. Branch on inhaler tiZANidine 2020-0 Yes 4mg Take 4 mg Un susi 4 mg 7-30 by mouth ity of capsule 15:18: daily. [place] [address] Medical Branch TRAMADOL 2020-0 Yes 50mg Take [...] ers ORAL 7-30 mouth. ity of 15:18: [place] [address] Medical Branch hydroCHLORO 2020-0 Yes 12.5mg Take [...] mouth ity of mg tablet 15:18: daily. [place] [address] [facility] Branch atorvastati 2020-0 Yes 20mg Take 20 mg [facility] n (LIPITOR) 7-30 by mouth ity of 20 mg 15:18: at [place] tablet 32 bedtime. Medical Branch clopidogrel 2020-0 Yes 75mg Take 75 mg [facility] (PLAVIX) 75 7-30 by mouth ity of mg tablet 15:18: daily. [place] [address] Medical Branch budesonide- 2020-0 Yes 2{puff} Inhale 2 [facility] formoterol 7-30 Puffs 2 ity of (SYMBICORT) 15:18: (two) [place] 160-4.5 32 times Medical mcg/actuati daily. Branch on inhaler tiZANidine 2020-0 Yes 4mg Take 4 mg Un susi 4 mg 7-30 by mouth ity of capsule 15:18: daily. [place] [address] Medical Branch TRAMADOL 2020-0 Yes 50mg Take [...] ers ORAL 7-30 mouth. ity of 15:18: [place] [address] Medical Branch hydroCHLORO 2020-0 Yes 12.5mg Take [...] by ity of capsule 15:18: mouth 2 [place] [address] (two) Medical times Branch daily. ALPRAZolam 2020-0 Yes .5mg Take 0.5 Uni vers (XANAX) 0.5 7-30 mg by ity of mg tablet 15:18: mouth 3 [place] [address] (three) Medical times Branch daily as needed. allopurinol 2020-0 Yes 300mg Take 300 U nivers (ZYLOPRIM) 7-30 mg by ity of 300 mg 15:18: mouth [place] tablet 32 daily. Medical Branch losartan 2020-0 Yes 50mg Take 50 mg Uni vers (COZAAR) 50 7-30 by mouth ity of mg tablet 15:18: daily. [place] [address] [facility] Branch atorvastati 2020-0 Yes 20mg Take 20 mg [facility] n (LIPITOR) 7-30 by mouth ity of 20 mg 15:18: at [place] tablet 32 bedtime. Medical Branch clopidogrel 2020-0 Yes 75mg Take 75 mg [facility] (PLAVIX) 75 7-30 by mouth ity of mg tablet 15:18: daily. [place] [address] Medical Branch budesonide- 2020-0 Yes 2{puff} Inhale 2 [facility] formoterol 7-30 Puffs 2 ity of (SYMBICORT) 15:18: (two) [place] 160-4.5 32 times Medical mcg/actuati daily. Branch on inhaler tiZANidine 2020-0 Yes 4mg Take 4 mg Un susi 4 mg 7-30 by mouth ity of capsule 15:18: daily. [place] [address] [facility] Branch TRAMADOL 2020-0 Yes 50mg Take [...] ers ORAL 7-30 mouth. ity of 15:18: [place] [address] Medical Branch hydroCHLORO 2020-0 Yes 12.5mg Take [...] mouth ity of mg tablet 15:18: daily. [address] Branch atorvastati 2020-0 Yes 20mg Take 20 mg [facility] n (LIPITOR) 7-30 by mouth ity of 20 mg 15:18: at [place] tablet 32 bedtime. Medical Branch clopidogrel 2020-0 Yes 75mg Take 75 mg [facility] (PLAVIX) 75 7-30 by mouth ity of mg tablet 15:18: daily. [place] [address] Medical Branch budesonide- 2020-0 Yes 2{puff} Inhale 2 [facility] formoterol 7-30 Puffs 2 ity of (SYMBICORT) 15:18: (two) [place] 160-4.5 32 times Medical mcg/actuati daily. Branch on inhaler tiZANidine 2020-0 Yes 4mg Take 4 mg Un susi 4 mg 7-30 by mouth ity of capsule 15:18: daily. [place] [address] [facility] Branch TRAMADOL 2020-0 Yes 50mg Take [...] ers ORAL 7-30 mouth. ity of 15:18: [place] [address] Medical Branch hydroCHLORO 2020-0 Yes 12.5mg Take [...] mouth ity of mg tablet 15:18: daily. [place] [address] [facility] Branch atorvastati 2020-0 Yes 20mg Take 20 mg [facility] n (LIPITOR) 7-30 by mouth ity of 20 mg 15:18: at [place] tablet 32 bedtime. Medical Branch clopidogrel 2020-0 Yes 75mg Take 75 mg [facility] (PLAVIX) 75 7-30 by mouth ity of mg tablet 15:18: daily. [place] [address] Medical Branch budesonide- 2020-0 Yes 2{puff} Inhale 2 [facility] formoterol 7-30 Puffs 2 ity of (SYMBICORT) 15:18: (two) [place] 160-4.5 32 times Medical mcg/actuati daily. Branch on inhaler tiZANidine 2020-0 Yes 4mg Take 4 mg Un susi 4 mg 7-30 by mouth ity of capsule 15:18: daily. [place] [address] Medical Branch TRAMADOL 2020-0 Yes 50mg Take [...] ers ORAL 7-30 mouth. ity of 15:18: [place] [address] Medical Branch hydroCHLORO 2020-0 Yes 12.5mg Take [...] ity of mg tablet 15:18: mouth 3 [place] 32 (three) Medical times Branch daily as needed. allopurinol 2020-0 Yes 300mg Take 300 U nivers (ZYLOPRIM) 7-30 mg by ity of 300 mg 15:18: mouth [place] tablet 32 daily. Medical Branch losartan 2020-0 Yes 50mg Take 50 mg Uni vers (COZAAR) 50 7-30 by mouth ity of mg tablet 15:18: daily. [place] [address] [facility] Branch atorvastati 2020-0 Yes 20mg Take 20 mg [facility] n (LIPITOR) 7-30 by mouth ity of 20 mg 15:18: at [place] tablet 32 bedtime. Medical Branch clopidogrel 2020-0 Yes 75mg Take 75 mg [facility] (PLAVIX) 75 7-30 by mouth ity of mg tablet 15:18: daily. [place] [address] [facility] Branch budesonide- 2020-0 Yes 2{puff} Inhale 2 [facility] formoterol 7-30 Puffs 2 ity of (SYMBICORT) 15:18: (two) [place] 160-4.5 32 times Medical mcg/actuati daily. Branch on inhaler tiZANidine 2020-0 Yes 4mg Take 4 mg Un susi 4 mg 7-30 by mouth ity of capsule 15:18: daily. [place] [address] [facility] Branch TRAMADOL 2020-0 Yes 50mg Take [...] ers ORAL 7-30 mouth. ity of 15:18: [place] [address] Medical Branch hydroCHLORO 2020-0 Yes 12.5mg Take [...] mouth ity of mg tablet 15:18: daily. [place] [address] [facility] Branch atorvastati 2020-0 Yes 20mg Take 20 mg [facility] n (LIPITOR) 7-30 by mouth ity of 20 mg 15:18: at [place] tablet 32 bedtime. Medical Branch clopidogrel 2020-0 Yes 75mg Take 75 mg [facility] (PLAVIX) 75 7-30 by mouth ity of mg tablet 15:18: daily. [place] [address] [facility] Branch budesonide- 2020-0 Yes 2{puff} Inhale 2 [facility] formoterol 7-30 Puffs 2 ity of (SYMBICORT) 15:18: (two) [place] 160-4.5 32 times Medical mcg/actuati daily. Branch on inhaler tiZANidine 2020-0 Yes 4mg Take 4 mg Un susi 4 mg 7-30 by mouth ity of capsule 15:18: daily. [place] [address] [facility] Branch TRAMADOL 2020-0 Yes 50mg Take [...] ers ORAL 7-30 mouth. ity of 15:18: [place] [address] Medical Branch hydroCHLORO 2020-0 Yes 12.5mg Take [...] by ity of capsule 15:18: mouth 2 [place] [address] (two) Medical times Branch daily. ALPRAZolam 2020-0 Yes .5mg Take 0.5 Uni vers (XANAX) 0.5 7-30 mg by ity of mg tablet 15:18: mouth 3 [place] [address] (three) Medical times Branch daily as needed. allopurinol 2020-0 Yes 300mg Take 300 U nivers (ZYLOPRIM) 7-30 mg by ity of 300 mg 15:18: mouth [place] tablet 32 daily. Medical Branch losartan 2020-0 Yes 50mg Take 50 mg Uni vers (COZAAR) 50 7-30 by mouth ity of mg tablet 15:18: daily. [place] [address] [facility] Branch atorvastati 2020-0 Yes 20mg Take 20 mg [facility] n (LIPITOR) 7-30 by mouth ity of 20 mg 15:18: at [place] tablet 32 bedtime. Medical Branch clopidogrel 2020-0 Yes 75mg Take 75 mg [facility] (PLAVIX) 75 7-30 by mouth ity of mg tablet 15:18: daily. [place] [address] Medical Branch budesonide- 2020-0 Yes 2{puff} Inhale 2 [facility] formoterol 7-30 Puffs 2 ity of (SYMBICORT) 15:18: (two) [place] 160-4.5 32 times Medical mcg/actuati daily. Branch on inhaler tiZANidine 2020-0 Yes 4mg Take 4 mg Un susi 4 mg 7-30 by mouth ity of capsule 15:18: daily. [place] [address] [facility] Branch TRAMADOL 2020-0 Yes 50mg Take [...] ers ORAL 7-30 mouth. ity of 15:18: [place] [address] Medical Branch hydroCHLORO 2020-0 Yes 12.5mg Take [...] mouth ity of mg tablet 15:18: daily. [place] [address] [facility] Branch atorvastati 2020-0 Yes 20mg Take 20 mg [facility] n (LIPITOR) 7-30 by mouth ity of 20 mg 15:18: at [place] tablet 32 bedtime. Medical Branch clopidogrel 2020-0 Yes 75mg Take 75 mg [facility] (PLAVIX) 75 7-30 by mouth ity of mg tablet 15:18: daily. [place] [address] Medical Branch budesonide- 2020-0 Yes 2{puff} Inhale 2 [facility] formoterol 7-30 Puffs 2 ity of (SYMBICORT) 15:18: (two) [place] 160-4.5 32 times Medical mcg/actuati daily. Branch on inhaler tiZANidine 2020-0 Yes 4mg Take 4 mg Un susi 4 mg 7-30 by mouth ity of capsule 15:18: daily. [place] [address] [facility] Branch TRAMADOL 2020-0 Yes 50mg Take [...] ers ORAL 7-30 mouth. ity of 15:18: [place] [address] Medical Branch hydroCHLORO 2020-0 Yes 12.5mg Take [...] mouth ity of mg tablet 15:18: daily. [place] [address] [facility] Branch atorvastati 2020-0 Yes 20mg Take 20 mg [facility] n (LIPITOR) 7-30 by mouth ity of 20 mg 15:18: at [place] tablet 32 bedtime. Medical Branch clopidogrel 2020-0 Yes 75mg Take 75 mg [facility] (PLAVIX) 75 7-30 by mouth ity of mg tablet 15:18: daily. [place] [address] Medical Branch budesonide- 2020-0 Yes 2{puff} Inhale 2 [facility] formoterol 7-30 Puffs 2 ity of (SYMBICORT) 15:18: (two) [place] 160-4.5 32 times Medical mcg/actuati daily. Branch on inhaler tiZANidine 2020-0 Yes 4mg Take 4 mg Un susi 4 mg 7-30 by mouth ity of capsule 15:18: daily. [place] [address] [facility] Branch TRAMADOL 2020-0 Yes 50mg Take [...] ers ORAL 7-30 mouth. ity of 15:18: [place] [address] Medical Branch hydroCHLORO 2020-0 Yes 12.5mg Take [...] by ity of capsule 15:18: mouth 2 [place] 32 (two) Medical times Branch daily. ALPRAZolam 2020-0 Yes .5mg Take 0.5 Uni vers (XANAX) 0.5 7-30 mg by ity of mg tablet 15:18: mouth 3 [place] [address] (three) Medical times Branch daily as needed. allopurinol 2020-0 Yes 300mg Take 300 U nivers (ZYLOPRIM) 7-30 mg by ity of 300 mg 15:18: mouth [place] tablet 32 daily. Medical Branch losartan 2020-0 Yes 50mg Take 50 mg Uni vers (COZAAR) 50 7-30 by mouth ity of mg tablet 15:18: daily. [address] Branch atorvastati 2020-0 Yes 20mg Take 20 mg [facility] n (LIPITOR) 7-30 by mouth ity of 20 mg 15:18: at [place] tablet 32 bedtime. Medical Branch clopidogrel 2020-0 Yes 75mg Take 75 mg [facility] (PLAVIX) 75 7-30 by mouth ity of mg tablet 15:18: daily. [address] Branch budesonide- 2020-0 Yes 2{puff} Inhale 2 [facility] formoterol 7-30 Puffs 2 ity of (SYMBICORT) 15:18: (two) [place] 160-4.5 32 times Medical mcg/actuati daily. Branch on inhaler tiZANidine 2020-0 Yes 4mg Take 4 mg Un susi 4 mg 7-30 by mouth ity of capsule 15:18: daily. [address] Branch TRAMADOL 2020-0 Yes 50mg Take 50 [...] ers ORAL 7-30 mouth. ity of 15:18: [place] 32 Medical Branch hydroCHLORO 2020-0 Yes [...] 0930, Until Discontinu ed, Routine, PACU ondansetron 2019-0 Yes 4mg 4 mg, Slow Univers (ZOFRAN 7-30 IV Push, ity of (PF)) 14:24: PRN, 1 [place] injection 4 30 dose, Medical mg Starting Branch Katerine 03/15/20 at 0924, Until Discontinu ed, Routine, Nausea and Vomiting (N/V), PACU water for 2019-0 Yes PRN, Univers irrigation 7-30 Starting ity [...] Katerine 03/15/20 at 0800, Routine, Endo Pre-op venlafaxine 2019-0 Yes 150mg Take 150 U nivers XR [...] ity of mg tablet 10:18: mouth 3 [place] 32 (three) Medical times Branch daily as needed. allopurinol 2020-0 Yes 300mg Take 300 U nivers (ZYLOPRIM) 7-30 mg by ity of 300 mg 10:18: mouth [place] tablet 32 daily. Medical Branch losartan 2020-0 Yes 50mg Take 50 mg Uni vers (COZAAR) 50 7-30 by mouth ity of mg tablet 10:18: daily. [address] Branch atorvastati 2020-0 Yes 20mg Take 20 mg [facility] n (LIPITOR) 7-30 by mouth ity of 20 mg 10:18: at [place] tablet 32 bedtime. Medical Branch clopidogrel 2020-0 Yes 75mg Take 75 mg [facility] (PLAVIX) 75 7-30 by mouth ity of mg tablet 10:18: daily. [place] [address] Medical Branch budesonide- 2020-0 Yes 2{puff} Inhale 2 [facility] formoterol 7-30 Puffs 2 ity of (SYMBICORT) 10:18: (two) [place] 160-4.5 32 times Medical mcg/actuati daily. Branch on inhaler tiZANidine 2020-0 Yes 4mg Take 4 mg Un susi 4 mg 7-30 by mouth ity of capsule 10:18: daily. [place] [address] Medical Branch TRAMADOL 2020-0 Yes 50mg Take [...] ers ORAL 7-30 mouth. ity of 10:18: [place] [address] Medical Branch hydroCHLORO 2020-0 Yes 12.5mg Take [...] mouth ity of mg tablet 10:18: daily. [place] [address] Medical Branch atorvastati 2020-0 Yes 20mg Take 20 mg [facility] n (LIPITOR) 7-30 by mouth ity of 20 mg 10:18: at [place] tablet 32 bedtime. Medical Branch clopidogrel 2020-0 Yes 75mg Take 75 mg [facility] (PLAVIX) 75 7-30 by mouth ity of mg tablet 10:18: daily. [place] [address] Medical Branch budesonide- 2020-0 Yes 2{puff} Inhale 2 [facility] formoterol 7-30 Puffs 2 ity of (SYMBICORT) 10:18: (two) [place] 160-4.5 32 times Medical mcg/actuati daily. Branch on inhaler tiZANidine 2020-0 Yes 4mg Take 4 mg Un susi 4 mg 7-30 by mouth ity of capsule 10:18: daily. [place] [address] Medical Branch TRAMADOL 2020-0 Yes 50mg Take [...] ers ORAL 7-30 mouth. ity of 10:18: [place] [address] Medical Branch hydroCHLORO 2020-0 Yes 12.5mg Take [...] by ity of capsule 10:18: mouth 2 [place] [address] (two) Medical times Branch daily. ALPRAZolam 2020-0 Yes .5mg Take 0.5 Uni vers (XANAX) 0.5 7-30 mg by ity of mg tablet 10:18: mouth 3 [place] [address] (three) Medical times Branch daily as needed. allopurinol 2020-0 Yes 300mg Take 300 U nivers (ZYLOPRIM) 7-30 mg by ity of 300 mg 10:18: mouth [place] tablet 32 daily. Medical Branch losartan 2020-0 Yes 50mg Take 50 mg Uni vers (COZAAR) 50 7-30 by mouth ity of mg tablet 10:18: daily. [place] [address] Medical Branch atorvastati 2019-0 Yes 20mg Take 20 mg [facility] n (LIPITOR) 7-30 by mouth ity of 20 mg 10:18: at [place] tablet 32 bedtime. Medical Branch clopidogrel 2019-0 Yes 75mg Take 75 mg [facility] (PLAVIX) 75 7-30 by mouth ity of mg tablet 10:18: daily. [place] [address] Medical Branch budesonide- 2019-0 Yes 2{puff} Inhale 2 [facility] formoterol 7-30 Puffs 2 ity of (SYMBICORT) 10:18: (two) [place] 160-4.5 32 times Medical mcg/actuati daily. Branch on inhaler tiZANidine 2019-0 Yes 4mg Take 4 mg Un susi 4 mg 7-30 by mouth ity of capsule 10:18: daily. [place] [address] Medical Branch TRAMADOL 2019-0 Yes 50mg Take [...] ers ORAL 7-30 mouth. ity of 10:18: [place] [address] Medical Branch hydroCHLORO 2020-0 Yes 12.5mg Take [...] mouth ity of mg tablet 10:18: daily. [place] [address] Medical Branch atorvastati 2020-0 Yes 20mg Take 20 mg [facility] n (LIPITOR) 7-30 by mouth ity of 20 mg 10:18: at [place] tablet 32 bedtime. Medical Branch clopidogrel 2020-0 Yes 75mg Take 75 mg [facility] (PLAVIX) 75 7-30 by mouth ity of mg tablet 10:18: daily. [place] [address] Medical Branch budesonide- 2020-0 Yes 2{puff} Inhale 2 [facility] formoterol 7-30 Puffs 2 ity of (SYMBICORT) 10:18: (two) [place] 160-4.5 32 times Medical mcg/actuati daily. Branch on inhaler tiZANidine 2020-0 Yes 4mg Take 4 mg Un susi 4 mg 7-30 by mouth ity of capsule 10:18: daily. [place] [address] Medical Branch TRAMADOL 2020-0 Yes 50mg Take [...] as ity of 160 10:18: needed for [place] mcg/actuati 32 Other Medical on inhaler (sob). Branch CLONAZEPAM 2020-0 Yes Take by Univ ers ORAL 7-30 mouth. ity of 10:18: [place] [address] Medical Branch hydroCHLORO 2020-0 Yes 12.5mg Take [...] mouth ity of mg tablet 10:18: daily. [place] [address] Medical Branch atorvastati 2020-0 Yes 20mg Take 20 mg [facility] n (LIPITOR) 7-30 by mouth ity of 20 mg 10:18: at [place] tablet 32 bedtime. Medical Branch clopidogrel 2020-0 Yes 75mg Take 75 mg Univers (PLAVIX) 75 7-30 by mouth ity of mg tablet 10:18: daily. [place] [address] Medical Branch budesonide- 2020-0 Yes 2{puff} Inhale 2 [facility] formoterol 7-30 Puffs 2 ity of (SYMBICORT) 10:18: (two) [place] 160-4.5 32 times Medical mcg/actuati daily. Branch on inhaler tiZANidine 2020-0 Yes 4mg Take 4 mg Un susi 4 mg 7-30 by mouth ity of capsule 10:18: daily. [place] [address] Medical Branch TRAMADOL 2020-0 Yes 50mg Take [...] ers ORAL 7-30 mouth. ity of 10:18: [place] [address] Medical Branch hydroCHLORO 2020-0 Yes 12.5mg Take 12.5 Univers thiazide 7-30 mg by ity of 12.5 mg 10:18: mouth [place] capsule 32 daily. Medical Branch metFORMIN 2020-0 Yes 1000mg Take 1,000 Univers (GLUCOPHAGE 7-30 mg by ity of ) 500 mg 10:18: mouth 2 [place] tablet 32 (two) Medical times Branch daily. hydroCHLORO 2020-0 Yes 12.5mg Take 12.5 Univers [...] mouth [place] capsule 51 daily. Medical Branch venlafaxine 2020-0 Yes 150mg Take 150 [...] by mouth ity of capsule 19:31: daily. [place] 39 Medical Branch TRAMADOL 2020-0 Yes 50mg [...] by mouth ity of capsule 19:31: daily. [place] 39 Medical Branch TRAMADOL 2020-0 Yes 50mg [...] Puffs 2 ity of (SYMBICORT) 19:31: (two) [place] 160-4.5 39 times Medical mcg/actuati daily. Branch on inhaler tiZANidine 2020-0 Yes 4mg Take 4 mg Un susi 4 mg 7-24 by mouth ity of capsule 19:31: daily. [place] [address] Medical Branch TRAMADOL 2020-0 Yes 50mg Take 50 mg Uni vers HCL 7-24 by mouth 2 ity of (TRAMADOL 19:31: (two) [place] HYDROCHLORI 39 times Medical DE, BULK, daily. Branch [facility]) ferrous 2020-0 Yes 325mg Take 325 Unive [...] Puffs 2 ity of (SYMBICORT) 19:31: (two) [place] 160-4.5 39 times Medical mcg/actuati daily. Branch on inhaler tiZANidine 2020-0 Yes 4mg Take 4 mg Un susi 4 mg 7-24 by mouth ity of capsule 19:31: daily. [place] [address] Medical Branch TRAMADOL 2020-0 Yes 50mg Take 50 mg Uni vers HCL 7-24 by mouth 2 ity of (TRAMADOL 19:31: (two) [place] HYDROCHLORI 39 times Medical DE, BULK, daily. Branch [facility]) ferrous 2020-0 Yes 325mg Take 325 Unive [...] by mouth ity of capsule 19:31: daily. [place] 39 Medical Branch TRAMADOL 2020-0 Yes 50mg Take 50 mg Uni vers HCL 7-24 by mouth 2 ity of (TRAMADOL 19:31: (two) [place] HYDROCHLORI 39 times Medical DE, BULK, daily. Branch MISC) ferrous 2020-0 Yes 325mg Take 325 Unive rs sulfate 325 7-24 mg by ity of mg (65 mg 19:31: mouth [place] iron) 39 daily. Medical tablet Branch diphenhydrA 2020-0 2020- No 25mg Take 25 mg Univers MINE 25 mg 7-24 07-24 by mouth ity of capsule 19:31: 00:00 every 6 [place] 39 :00 (six) Medical hours as Branch [...] 19:31: 00:00 mouth [place] 27 :00 daily. [facility] Branch nitrofurant 2020-0 2020- No 100mg Take 100 Univers oin 100 mg 7-24 07-24 mg by ity of capsule 19:31: 00:00 mouth [place] 27 :00 daily. [facility] Branch nitrofurant 2020-0 2020- No 100mg Take 100 Univers oin 100 mg 7-24 07-24 mg by ity of capsule 19:31: 00:00 mouth [place] 27 :00 daily. [facility] Branch metFORMIN 2020-0 Yes 1000mg Take 1,000 Univers (GLUCOPHAGE 7-24 mg by ity of ) 500 mg 19:30: mouth 2 [place] tablet 30 (two) Medical times [place] daily. losartan 2020-0 Yes 50mg Take 50 mg Uni vers (COZAAR) 50 7-24 by mouth ity of mg tablet 19:30: daily. [address] clopidogrel 2020-0 Yes 75mg Take 75 mg Univers (PLAVIX) 75 7-24 by mouth ity of mg tablet 19:30: daily. [address] metFORMIN 2020-0 Yes 1000mg Take 1,000 Univers (GLUCOPHAGE 7-24 mg by ity of ) 500 mg 19:30: mouth 2 [place] tablet 30 (two) Medical times [place] daily. losartan 2020-0 Yes 50mg Take 50 mg Uni vers (COZAAR) 50 7-24 by mouth ity of mg tablet 19:30: daily. [address] clopidogrel 2020-0 Yes 75mg Take 75 mg Univers (PLAVIX) 75 7-24 by mouth ity of mg tablet 19:30: daily. [address] metFORMIN 2020-0 Yes 1000mg Take 1,000 Univers (GLUCOPHAGE 7-24 mg by ity of ) 500 mg 19:30: mouth 2 [place] tablet 30 (two) Medical times [place] daily. losartan 2020-0 Yes 50mg Take 50 mg Uni vers (COZAAR) 50 7-24 by mouth ity of mg tablet 19:30: daily. [address] clopidogrel 2020-0 Yes 75mg Take 75 mg Univers (PLAVIX) 75 7-24 by mouth ity of mg tablet 19:30: daily. [address] metFORMIN 2020-0 Yes 1000mg Take 1,000 Univers (GLUCOPHAGE 7-24 mg by ity of ) 500 mg 19:30: mouth 2 [place] tablet 30 (two) Medical times [place] daily. losartan 2020-0 Yes 50mg Take 50 mg Uni vers (COZAAR) 50 7-24 by mouth ity of mg tablet 19:30: daily. [place] [address] Medical Branch clopidogrel 2020-0 Yes 75mg Take 75 mg Univers (PLAVIX) 75 7-24 by mouth ity of mg tablet 19:30: daily. [place] [address] Medical Branch metFORMIN 2020-0 Yes 1000mg Take 1,000 Univers (GLUCOPHAGE 7-24 mg by ity of ) 500 mg 19:30: mouth 2 [place] tablet 30 (two) Medical times Branch daily. losartan 2020-0 Yes 50mg Take 50 mg Uni vers (COZAAR) 50 7-24 by mouth ity of mg tablet 19:30: daily. [address] Branch clopidogrel 2020-0 Yes 75mg Take 75 mg Univers (PLAVIX) 75 7-24 by mouth ity of mg tablet 19:30: daily. [place] [address] Medical Branch allopurinol 2020-0 Yes 300mg Take [...] ers ORAL 7-24 mouth. ity of 19:28: [place] [address] Medical Branch allopurinol 2020-0 Yes 300mg Take [...] ers ORAL 7-24 mouth. ity of 19:28: [place] [address] Medical Branch allopurinol 2020-0 Yes 300mg Take [...] ity of 19:28: [place] 53 Medical Branch allopurinol 2020-0 Yes 300mg Take [...] ity of 19:28: [place] 53 Medical Branch allopurinol 2020-0 Yes 300mg Take [...] 19:28: [place] 53 Medical Branch JANUVIA 100 2020-0 Yes TAKE 1 [...] tab, Dipak n [Plavix] 00 3 Refill(s), [facility], Pharmacy: [facility] clopidogrel 2020-0 Yes = 1 tab, Me moria 75 MG Oral 4-16 PO, Daily, l Tablet 18:31: # 90 tab, Dipak n [Plavix] 00 3 Refill(s), [facility], Pharmacy: [facility] clopidogrel 2020-0 Yes = 1 tab, Me moria 75 MG Oral 4-16 PO, Daily, l Tablet 18:31: # 90 tab, Dipak n [Plavix] 00 3 Refill(s), [facility], Pharmacy: [facility] clopidogrel 2020-0 Yes = 1 tab, Me moria 75 MG Oral 4-16 PO, Daily, l Tablet 18:31: # 90 tab, Dipak n [Plavix] 00 3 Refill(s), [facility], Pharmacy: [facility] topiramate 2020-0 Yes = 1 tab, Mem oria 200 mg oral 3-12 PO, l tablet 14:53: Bedtime, # Natalia nn 00 30 tab, 1 Refill(s), Pharmacy: [facility] topiramate 2020-0 Yes = 1 tab, Mem oria 200 mg oral 3-12 PO, l tablet 14:53: Bedtime, # Natalia nn 00 30 tab, 1 Refill(s), Pharmacy: [facility] topiramate 2020-0 Yes = 1 tab, Mem oria 200 mg oral 3-12 PO, l tablet 14:53: Bedtime, # Natalia nn 00 30 tab, 1 Refill(s), Pharmacy: [facility] topiramate 2020-0 Yes = 1 tab, Mem oria 200 mg oral 3-12 PO, l tablet 14:53: Bedtime, # Natalia nn 00 30 tab, 1 Refill(s), Pharmacy: [facility] gabapentin 2020-0 Yes 300 mg = 1 [...] Refill(s), [place], Pharmacy: [facility] clopidogrel 2020-0 No [...] tab, Dipak n [Plavix] 45 3 Refill(s), [facility], Pharmacy: [facility] gabapentin 2018-08 Yes 300 mg = 1 M emoria 300 MG Oral 0-25 cap, PO, l Capsule 20:41: TID, # 270 Herm jatin 18 cap, 2 Refill(s), Pharmacy: [facility] gabapentin 2018-08 Yes 300 mg = 1 M emoria 300 MG Oral 0-25 cap, PO, l Capsule 20:41: TID, # 270 Herm jatin 18 cap, 2 Refill(s), Pharmacy: [facility] gabapentin 2018-08 Yes 300 mg = 1 M emoria 300 MG Oral 0-25 cap, PO, l Capsule 20:41: TID, # 270 Herm jatin 18 cap, 2 Refill(s), Pharmacy: [facility] gabapentin 2018-08 Yes 300 mg = 1 M emoria 300 MG Oral 0-25 cap, PO, l Capsule 20:41: TID, # 270 Herm jatin 18 cap, 2 Refill(s), Pharmacy: [facility] topiramate Yes = 1 tab, Mem oria 200 mg oral 9-24 PO, l tablet 12:46: Bedtime, # Natalia nn 38 90 tab, Refill(s) 3, Pharmacy: [facility] topiramate Yes = 1 tab, Mem oria 200 mg oral 9-24 PO, l tablet 12:46: Bedtime, # Natalia nn 38 90 tab, Refill(s) 3, Pharmacy: [facility] topiramate Yes = 1 tab, Mem oria 200 mg oral 9-24 PO, l tablet 12:46: Bedtime, # Natalia nn 38 90 tab, Refill(s) 3, Pharmacy: [facility] topiramate Yes = 1 tab, Mem oria 200 mg oral 9-24 PO, l tablet 12:46: Bedtime, # Natalia nn 38 90 tab, Refill(s) 3, Pharmacy: [facility] topiramate No = 1 tab, Mem oria 200 mg oral 7-25 PO, l tablet 23:23: Bedtime, # Natalia nn 54 90 tab, Refill(s) 3, Pharmacy: [facility] topiramate No = 1 tab, Mem oria 200 mg oral 7-25 PO, l tablet 23:23: Bedtime, # Natalia nn 54 90 tab, Refill(s) 3, Pharmacy: [facility] topiramate No = 1 tab, Mem oria 200 mg oral 7-25 PO, l tablet 23:23: Bedtime, # Natalia nn 54 90 tab, Refill(s) 3, Pharmacy: [facility] topiramate No = 1 tab, Mem oria 200 mg oral 7-25 PO, l tablet 23:23: Bedtime, # Natalia nn 54 90 tab, Refill(s) 3, Pharmacy: [facility] topiramate Yes 200 mg = 1 M emoria 200 mg oral 5-14 tab, PO, l tablet 19:55: Bedtime, # Natalia nn 39 30 tab, 3 Refill(s), Pharmacy: [facility] topiramate Yes 200 mg = 1 M emoria 200 mg oral 5-14 tab, PO, l tablet 19:55: Bedtime, # Natalia nn 39 30 tab, 3 Refill(s), Pharmacy: [facility] Delivery topiramate Yes 200 mg = 1 M emoria 200 mg oral 5-14 tab, PO, l tablet 19:55: Bedtime, # Natalia nn 39 30 tab, 3 Refill(s), Pharmacy: [facility] Mail Delivery topiramate Yes 200 mg = 1 M emoria 200 mg oral 5-14 tab, PO, l tablet 19:55: Bedtime, # Natalia nn 39 30 tab, 3 Refill(s), Pharmacy: [facility] Mail Delivery clopidogrel 2019-0 Yes = 1 tab, Me moria 75 MG Oral 5-14 PO, Daily, l Tablet 19:49: # 90 tab, Dipak n [Plavix] 00 3 Refill(s), JAISON clopidogrel 2018-0 Yes = 1 tab, Me moria 75 MG Oral 5-14 PO, Daily, l Tablet 19:49: # 90 tab, Dipak n [Plavix] 00 3 Refill(s), JAISON clopidogrel 2018-0 Yes = 1 tab, Me moria 75 MG Oral 5-14 PO, Daily, l Tablet 19:49: # 90 tab, Dipak n [Plavix] 00 3 Refill(s), JAISON clopidogrel 2018-0 Yes = 1 tab, Me moria 75 MG Oral 5-14 PO, Daily, l Tablet 19:49: # 90 tab, Dipak n [Plavix] 00 3 Refill(s), JAISON gabapentin Yes 300 mg = 1 M emoria 300 MG Oral 5-14 cap, PO, l Capsule 19:47: TID, # 90 Natalia nn 00 cap, 3 Refill(s), Pharmacy: [facility] gabapentin 0 Yes 300 mg = 1 M emoria 300 MG Oral 5-14 cap, PO, l Capsule 19:47: TID, # 90 Natalia nn 00 cap, 3 Refill(s), Pharmacy: [facility] gabapentin 2018-0 Yes 300 mg = 1 M emoria 300 MG Oral 5-14 cap, PO, l Capsule 19:47: TID, # 90 Natalia nn 00 cap, 3 Refill(s), Pharmacy: [facility] gabapentin 2018-0 Yes 300 mg = 1 M emoria 300 MG Oral 5-14 cap, PO, l Capsule 19:47: TID, # 90 Natalia nn 00 cap, 3 Refill(s), Pharmacy: [facility] topiramate 2018-0 No 200 mg = 1 M emoria 200 mg oral 1-31 tab, PO, l tablet 23:30: Bedtime, # Natalia nn 00 30 tab, 3 Refill(s), Pharmacy: [facility] topiramate 2018-0 No 200 mg = 1 M emoria 200 mg oral 1-31 tab, PO, l tablet 23:30: Bedtime, # Natalia nn 00 30 tab, 3 Refill(s), Pharmacy: [facility] 80 topiramate No 200 mg = 1 M emoria 200 mg oral 1-31 tab, PO, l tablet 23:30: Bedtime, # Natalia nn 00 30 tab, 3 Refill(s), Pharmacy: [facility] 80 topiramate No 200 mg = 1 M emoria 200 mg oral 1-31 tab, PO, l tablet 23:30: Bedtime, # Natalia nn 00 30 tab, 3 Refill(s), Pharmacy: [place] [id number] HR 2017-08 No 200 mg = 1 Memori a topiramate 2-12 cap, PO, l 200 MG 19:19: Daily, X Meng Extended 30 day, # Release 30 cap, 4 Capsule Refill(s), [Trokendi] Pharmacy: [place] [address] HR 2017-08 No 200 mg = 1 Memori a topiramate 2-12 cap, PO, l 200 MG 19:19: Daily, X [place] Extended 30 day, # Release 30 cap, 4 Capsule Refill(s), [Trokendi] Pharmacy: [place] [address] HR 2017-08 No 200 mg = 1 Memori a topiramate 2-12 cap, PO, l 200 MG 19:19: Daily, X [place] Extended 23 30 day, # Release 30 cap, 4 Capsule Refill(s), [Trokendi] Pharmacy: [place] [address] HR 2017-08 No 200 mg = 1 Memori a topiramate 2-12 cap, PO, l 200 MG 19:19: Daily, X [place] Extended 23 30 day, # Release 30 cap, 4 Capsule Refill(s), [Trokendi] Pharmacy: [facility] CLONAZEPAM 2017-0 Yes Take by [facility] ORAL 7-18 mouth. ity of 21:45: [address] CLONAZEPAM 2017-0 Yes Take by [facility] ORAL 7-18 mouth. ity of 21:45: [address] ALPRAZolam Yes .5mg Take 0.5 Uni vers (XANAX) [...] 53 (two) Medical times Branch daily. venlafaxine 2018 Yes 150mg Take 150 U nivers XR (EFFEXOR 7-18 mg by ity of XR) 150 mg 21:28: mouth 2 [place] (two) Medical capsule times Branch daily. ciclesonide 2018 Yes 2{puff} Inhale 2 Univers (ALVESCO) 7-18 Puffs as ity of 160 21:28: needed for [place] mcg/actuati 53 Other Medical on inhaler (sob). Branch gabapentin 20180 Yes 600mg Take 600 Un susi (NEURONTIN) 7-18 mg by ity of 600 mg 21:28: mouth 2 [place] tablet 53 (two) Medical times Branch daily. ciclesonide Yes 2{puff} Inhale 2 Univers (ALVESCO) 7-18 Puffs as ity of 160 21:28: needed for [place] mcg/actuati 53 Other Medical on inhaler (sob). Branch allopurinol Yes 300mg Take 300 U nivers (ZYLOPRIM) 7-18 mg by ity of 300 mg 21:28: mouth [place] tablet 53 daily. Medical Branch ciclesonide 0 Yes 2{puff} Inhale 2 Univers (ALVESCO) 7-18 Puffs as ity of 160 21:28: needed for [place] mcg/actuati 53 Other Medical on inhaler (sob). Branch atorvastati Yes 20mg Take 20 mg Univers n (LIPITOR) 7-18 by mouth ity of 20 mg 21:28: at [place] tablet 53 bedtime. Medical Branch clopidogrel 20180 Yes 75mg Take 75 mg Univers (PLAVIX) 75 7-18 by mouth ity of mg tablet 21:28: daily. [place] [address] Medical Branch budesonide- 0 Yes 2{puff} Inhale 2 Univers formoterol 7-18 Puffs 2 ity of (SYMBICORT) 21:28: (two) [place] 160-4.5 53 times Medical mcg/actuati daily. Branch on inhaler tiZANidine 20180 Yes 4mg Take 4 mg Un susi 4 mg 7-18 by mouth ity of capsule 21:28: daily. [place] [address] Medical Branch TRAMADOL 2018-0 Yes 50mg Take 50 mg Uni vers HCL 7-18 by mouth 2 ity of (TRAMADOL 21:28: (two) [place] HYDROCHLORI 53 times Medical DE, BULK, daily. Branch MISC) ferrous 2018-0 Yes 325mg Take 325 Unive rs sulfate 325 7-18 mg by ity of mg (65 mg 21:28: mouth [place] iron) 53 daily. Medical tablet Branch diphenhydrA 2018-0 Yes 25mg Take 25 mg Univers MINE 25 mg 7-18 by mouth ity o f capsule 21:28: every 6 [place] 53 (six) Medical hours as Branch needed [...] mouth ity of mg tablet 21:28: daily. [place] [address] Medical Branch budesonide- 2018-0 Yes 2{puff} Inhale 2 Univers formoterol 7-18 Puffs 2 ity of (SYMBICORT) 21:28: (two) [place] 160-4.5 53 times Medical mcg/actuati daily. Branch on inhaler tiZANidine 2018-0 Yes 4mg Take 4 mg Un susi 4 mg 7-18 by mouth ity of capsule 21:28: daily. [place] [address] Medical Branch TRAMADOL 2017-0 Yes 50mg Take 50 mg Uni vers HCL 7-18 by mouth 2 ity of (TRAMADOL 21:28: (two) [place] HYDROCHLORI 53 times Medical DE, BULK, daily. Branch MISC) ferrous 2017-0 Yes 325mg Take 325 Unive rs sulfate 325 7-18 mg by ity of mg (65 mg 21:28: mouth [place] iron) 53 daily. Medical tablet Branch diphenhydrA 2018-0 Yes 25mg Take 25 mg Univers MINE 25 mg 7-18 by mouth ity o f capsule 21:28: every 6 [place] [address] (six) Medical hours as Branch needed for Allergies. ciclesonide Yes 2{puff} Inhale 2 Univers (ALVESCO) [...] mouth ity of mg tablet 18:06: daily. [address] losartan 2017-0 Yes 50mg Take 50 mg Uni vers (COZAAR) 50 3-28 by mouth ity of mg tablet 18:06: daily. [address] benztropine 2017-0 Yes 2 mg = 1 Me moria [...] mora aerosol 00 Refill(s) with adapter clonazePAM Yes 0.5 mg = 1 M emoria 0.5 mg oral 3-08 tab, PO, l tablet 20:14: Bedtime, 0 Natalia nn 00 Refill(s) metFORMIN Yes 1,000 mg = Me moria 500 mg oral 3-08 2 tab, PO, l tablet 20:14: BID-Meals, Natalia nn 00 # 180 tab, 0 Refill(s) losartan Yes 100 mg = 1 Mem oria 100 mg oral 2-09 tab, PO, l tablet 17:06: Daily, 0 Meng 00 Refill(s) allopurinol Yes 300 mg = 1 Memoria 300 mg oral 2-09 tab, PO, l tablet 17:06: Daily, 0 [place] 00 Refill(s) atorvastati Yes 80 mg = 1 M emoria n 80 mg 2-09 tab, PO, l oral tablet 17:06: Daily, 0 [place] 00 Refill(s) allopurinol Yes 300 mg = [...] tab, PO, l tablet 17:06: Daily, 0 [place] 00 Refill(s) atorvastati Yes 80 mg = 1 M emoria n 80 mg 2-09 tab, PO, l oral tablet 17:06: Daily, 0 [place] 00 Refill(s) losartan Yes 100 mg = 1 Mem oria 100 mg oral 2-09 tab, PO, l tablet 17:06: Daily, 0 Meng 00 Refill(s) allopurinol 2018 Yes 300 mg = 1 Memoria 300 mg oral 2-09 tab, PO, l tablet 17:06: Daily, 0 [place] 00 Refill(s) atorvastati Yes 80 mg = [...] mouth Medical tablet 14 daily. Center ALPRAZolam Yes .5mg QD Take 0.[address] [facility] (XANAX) 0.5 6-29 mg by [facility] MG tablet 14:14: mouth Medical 14 daily. Center gabapentin Yes 600mg Q.5D Take [address] (NEURONTIN) 6-29 mg by [facility] 600 MG 14:14: mouth 2 Medical tablet 14 (two) Center times daily. losartan Yes 50mg QD Take [address] [facility] (COZAAR) 50 6-29 by mouth Luke s MG tablet 14:14: daily. Medica l 14 [place] MECOBAL/LEV Yes 1{capsu Q.5D Take [address] OMEFOLAT 6-29 le} capsule by [facility] CA/B6 PHOS 14:14: mouth 2 Medi beth (METANX 14 (two) Center ORAL) times daily. metFORMIN 2017 Yes 1000mg Take 1,[address] [facility] (GLUCOPHAGE 6-29 mg by [facility] ) 500 MG 14:14: mouth 2 Medica l tablet 14 (two) Center times daily with breakfast and dinner. clopidogrel 20170 Yes 75mg QD Take [address] [facility] (PLAVIX) 75 6-29 by mouth Luke s mg tablet 14:14: daily. Medica l 14 [place] budesonide- 2017 Yes 2{puff} Q.5D Inhale [address] [facility] formoterol 6-29 puffs by [facility] (SYMBICORT) 14:14: mouth via M edical 160-4.5 14 inhaler 2 Center mcg/actuati (two) on inhaler times daily. tiZANidine 2017-0 Yes 4mg QD Take [address] [facility] (ZANAFLEX) 6-29 by mouth [facility] 4 MG tablet 14:14: daily. Medi beth 14 Center traMADol 2017-0 Yes 50mg Q.5D Take [address] [facility] (ULTRAM) 50 6-29 by mouth 2 Kandice kes mg tablet 14:14: (two) Medical 14 times Center daily. topiramate 2017-0 Yes 1{tbl} QD Take [address] [facility] (TROKENDI 6-29 tablet by [facility] XR) 100 mg 14:14: mouth Medica l Cp24 14 daily. [place] allopurinol 20170 Yes 300mg QD Take [address] (ZYLOPRIM) 6-29 mg by [facility] 300 MG 14:14: mouth Medical tablet 14 daily. [place] ALPRAZolam 2017-0 Yes .5mg QD Take 0.[address] [facility] [...] MG tablet 14:14: daily. Medica l 14 [place] MECOBAL/LEV 2017-0 Yes 1{capsu Q.5D Take [address] OMEFOLAT 6-29 le} capsule by [facility] CA/B6 PHOS 14:14: mouth 2 Medi beth (METANX 14 (two) Center ORAL) times daily. metFORMIN 2017-0 Yes 1000mg Take 1,[address] [facility] [address] (GLUCOPHAGE 6-29 mg by [facility] ) 500 MG 14:14: mouth 2 Medica l tablet 14 (two) Center times daily with breakfast and dinner. clopidogrel 2017-0 Yes 75mg QD Take [address] [facility] (PLAVIX) 75 6-29 by mouth Luke s mg tablet 14:14: daily. Medica l 14 [place] budesonide- 2017-0 Yes 2{puff} Q.5D Inhale [address] [facility] [address] formoterol 6-29 puffs by [facility] (SYMBICORT) 14:14: mouth via M edical 160-4.5 14 inhaler 2 Center mcg/actuati (two) on inhaler times daily. tiZANidine 2017-0 Yes 4mg QD Take [address] (ZANAFLEX) 6-29 by mouth [facility] 4 MG tablet 14:14: daily. Medi beth 14 Center traMADol 2017-0 Yes 50mg Q.5D Take 50 mg [facility] [...] mouth Medical tablet 14 daily. Center ALPRAZolam 2017-0 Yes .5mg QD Take 0.[address] [facility] [...] times daily with breakfast and dinner. clopidogrel 2017-0 Yes 75mg QD Take [address] [facility] (PLAVIX) 75 6-29 by mouth Luke s mg tablet 14:14: daily. Medica l 14 Center budesonide- 2017-0 Yes 2{puff} Q.5D Inhale [address] [facility] [address] formoterol 6-29 puffs by [facility] (SYMBICORT) 14:14: mouth via M edical 160-4.5 14 inhaler 2 Center mcg/actuati (two) on inhaler times daily. tiZANidine 2017-0 Yes 4mg QD Take 4 mg CH [...] mouth Medical tablet 14 daily. Center ALPRAZolam 2017-0 Yes .5mg QD Take 0.[address] [facility] [...] times daily with breakfast and dinner. clopidogrel 2017-0 Yes 75mg QD Take [address] [facility] (PLAVIX) 75 6-29 by mouth Luke s mg tablet 14:14: daily. Medica l 14 [place] budesonide- Yes 2{puff} Q.5D Inhale [address] [facility] [address] formoterol 6-29 puffs by [facility] (SYMBICORT) 14:14: mouth via M edical 160-4.5 14 inhaler 2 [place] mcg/actuati (two) on inhaler times daily. tiZANidine Yes 4mg QD Take [address] (ZANAFLEX) 6-29 by mouth [facility] 4 MG tablet 14:14: daily. Medi beth 14 [place] traMADol Yes 50mg Q.5D Take [address] [facility] (ULTRAM) 50 6-29 by mouth 2 Kandice kes mg tablet 14:14: (two) Medical 14 times Center daily. topiramate Yes 1{tbl} QD Take [address] [facility] (TROKENDI 6-29 tablet by [facility] XR) 100 mg 14:14: mouth Medica l Cp24 14 daily. [place] venlafaxine Yes 1{tbl} QD Take [address] 150 mg TR24 6-29 tablet by Hema es 00:00: mouth Medical 00 daily. [place] venlafaxine Yes 1{tbl} QD Take [address] 150 mg TR24 6-29 tablet by Hema es 00:00: mouth Medical 00 daily. [place] venlafaxine Yes 1{tbl} QD Take [address] 150 mg TR24 6-29 tablet by Hema es 00:00: mouth Medical 00 daily. [place] venlafaxine Yes 1{tbl} QD Take [address] 150 mg TR24 6-29 tablet by Hema es 00:00: mouth Medical 00 daily. [place] allopurinol allopurinol No allopurino [place] 300 mg [...] the Package Directed on the Package Viji Mendez Ellipta 200 Ellipta 200 Ellipta Family mcg-25 mcg-25 200 mcg-25 Pract ic mcg/dose mcg/dose mcg/dose e powder for powder for powder for inhalation inhalation inhalation INHALE 1 INHALE 1 INHALE 1 PUFF BY PUFF BY PUFF BY MOUTH ONCE MOUTH ONCE MOUTH ONCE DAILY FOR DAILY FOR DAILY FOR 30 DAYS 30 DAYS 30 DAYS clobetasol clobetasol No clobetasol [facility] 0.05 % 0.05 % 0.05 % [facility] topical topical topical Practi c cream APPLY cream APPLY cream e TOPICALLY TOPICALLY APPLY TO THE TO THE TOPICALLY AFFECTED AFFECTED TO THE AREA TWICE AREA TWICE AFFECTED DAILY DAILY AREA TWICE NEEDED FOR NEEDED FOR DAILY ITCHING OR ITCHING OR NEEDED FOR RASH RASH ITCHING OR RASH clonazepam clonazepam No clonazepam [facility] 0.5 mg 0.5 mg 0.5 mg Family [...] MOUTH DAILY DAILY TWICE DAILY gabapentin gabapentin gabapentin [facility] 800 mg 800 mg 800 mg [...] days. OneTouch OneTouch No 1strip( Q1D OneTouch [place] Verio test Verio test [...] FOR 90 DAYS phenazopyri phenazopyri No phenazopyr [place] dine 200 mg dine 200 mg idine [...] ension pregabalin pregabalin No 1capsul BID pregabalin [place] 100 mg 100 mg e(s) 100 mg Family capsule capsule capsule Practi c Take 1 Take 1 Take 1 e capsule capsule capsule twice a day twice a day twice a by oral by oral day by route for route for oral route 30 days. 30 days. for 30 days. ropinirole ropinirole No ropinirole [facility] 0.5 mg 0.5 mg 0.5 mg Family tablet TAKE tablet TAKE tablet Practic 1 TABLET BY 1 TABLET BY TAKE 1 e MOUTH AT MOUTH AT TABLET BY BEDTIME BEDTIME MOUTH AT BEDTIME tizanidine tizanidine No tizanidine [facility] 4 mg tablet 4 mg tablet [...] THREE TIMES DAILY triamcinolo triamcinolo No triamcinol [place] ne ne one Family acetonide acetonide acetonide [...] tablet Practic e allopurinol allopurinol No allopurino [facility] 300 mg 300 mg l 300 mg Family tablet TAKE tablet TAKE tablet Practic 1 TABLET BY 1 TABLET BY TAKE 1 e MOUTH ONCE MOUTH ONCE TABLET BY DAILY DAILY MOUTH ONCE DAILY atorvastati atorvastati No atorvastat [facility] n 80 mg n 80 mg in 80 mg Famil y tablet Take tablet Take tablet Practic 1 tablet 1 tablet Take 1 e every day every day tablet by oral by oral every day route. route. by oral route. clonazepam clonazepam No clonazepam [facility] 0.5 mg 0.5 mg 0.5 mg Family tablet TAKE tablet TAKE tablet Practic 1 TABLET BY 1 TABLET BY TAKE 1 e MOUTH TWICE MOUTH TWICE TABLET BY DAILY DAILY MOUTH TWICE DAILY gabapentin gabapentin No gabapentin [facility] 800 mg 800 mg 800 mg Family tablet TAKE tablet TAKE tablet Practic 1 TABLET BY 1 TABLET BY TAKE 1 e MOUTH TWICE MOUTH TWICE TABLET BY DAILY DAILY MOUTH TWICE DAILY losartan losartan No losartan [facility] windy 100 mg 100 mg 100 mg Family tablet TAKE tablet TAKE tablet Practic 1 TABLET BY 1 TABLET BY TAKE 1 e MOUTH ONCE MOUTH ONCE TABLET BY DAILY DAILY MOUTH ONCE DAILY metformin metformin No 2 BID metformin [facility] 500 mg 500 mg 500 mg Family [...] days. OneTouch OneTouch No 2strip( Q1D OneTouch [facility] Verio test Verio test s) Verio test [...] for 90 days. tizanidine tizanidine No tizanidine [facility] 4 mg tablet 4 mg tablet 4 mg F amily TAKE 1 TAKE 1 tablet Practic TABLET BY TABLET BY TAKE 1 e MOUTH TWICE MOUTH TWICE TABLET BY DAILY FOR DAILY FOR MOUTH 28 DAYS 28 DAYS TWICE DAILY FOR 28 DAYS topiramate topiramate No topiramate [facility] 200 mg 200 mg 200 mg [...] NEEDED FOR 28 DAYS triamterene triamterene No triamteren [facility] 37.5 37.5 e 37.5 Family mg-hydrochl [...] for 90 days. Trulicity Trulicity No Trulicity [facility] 1.5 mg/0.5 1.5 mg/0.5 1.5 mg/0.5 [...] for 30 days. venlafaxine venlafaxine No venlafaxin [place] [facility] 150 mg ER 150 mg e [...] Ordered Immunization Filled Immunization Date Status Commen Source Name Name [id number] 2021-06-10 Completed [facility] [id number] 00:00:00 Herm jatin [id number] 2021-06-10 Completed [facility] [id number] 00:00:00 Herm jatin [id number] 2021-06-10 Completed [place] [id number] 00:00:00 Herm jatin [id number] 2021-06-10 Completed [place] [id number] 00:00:00 Herm jatin Non-US Vaccine Non-US Vaccine 2021-05-17 Completed [facility] COVID-19, Product COVID-19, Product 00:00:00 Practice Unknown Unknown Non-US Vaccine Non-US Vaccine 2021-05-17 Completed [facility] COVID-19, Product COVID-19, Product 00:00:00 Practice Unknown Unknown influenza, influenza, 2021-04-17 Completed [facility] injectable, injectable, 00:00:00 Practice quadrivalent quadrivalent influenza, influenza, 2021-04-17 Completed [facility] injectable, injectable, 00:00:00 Practice quadrivalent quadrivalent COVID-19, mRNA, COVID-19, mRNA, 2020-09-17 Completed [facility] LNP-S, PF, 30 LNP-S, PF, 30 00:00:00 Practice mcg/0.3 mL dose mcg/0.3 mL dose (Pfizer-BioNTech) (Pfizer-BioNTech) COVID-19, mRNA, COVID-19, mRNA, 2020-09-17 Completed [facility] LNP-S, PF, 30 LNP-S, PF, 30 00:00:00 Practice mcg/0.3 mL dose mcg/0.3 mL dose (Pfizer-BioNTech) (Pfizer-BioNTech) influenza, influenza, 2020-03-17 Completed [facility] injectable, injectable, 00:00:00 Practice quadrivalent quadrivalent influenza, influenza, 2020-03-17 Completed [facility] injectable, injectable, 00:00:00 Practice quadrivalent quadrivalent Vital Signs Vital Name Observation Time Observation Value Comments Source Systolic blood 2022-12-08 18:43:00 129 mm[Hg] Univer sity of pressure [facility] Diastolic blood 2022-12-08 18:43:00 62 mm[Hg] [facility] Heart rate 2022-12-08 18:43:00 61 /min [facility] Body temperature 2022-12-08 18:43:00 37.22 Christelle [facility] Respiratory rate 2022-12-08 18:43:00 18 /min [facility] Oxygen saturation in 2022-12-08 18:43:00 100 /min [facility] Arterial blood by [facility] Pulse oximetry Branch BP Diastolic 2022-10-08 00:00:00 63 mm[Hg] [facility] Height 2022-10-08 00:00:00 65 [in_i] [facility] BMI (Body Mass 2022-10-08 00:00:00 28.3 kg/m2 [facility]) [facility] BP Systolic 2022-10-08 00:00:00 159 mm[Hg] [facility] Practice Body Weight 2022-10-08 00:00:00 170 [lb_av] [facility] Practice Systolic blood 2022-02-07 22:09:00 103 mm[Hg] Univer sity of pressure [place] [facility] Diastolic blood 2022-02-07 22:09:00 82 mm[Hg] Unive rsity of pressure [place] [facility] Heart rate 2022-02-07 22:09:00 89 /min [facility] [place] [facility] Body temperature 2022-02-07 22:09:00 36.44 Christelle [facility] [place] [facility] Respiratory rate 2022-02-07 22:09:00 16 /min [facility] [place] [facility] Body height 2022-02-07 22:09:00 165.1 cm [facility] [place] [facility] Body weight 2022-02-07 22:09:00 68.04 kg [facility] [place] [facility] BMI 2022-02-07 22:09:00 24.96 kg/m2 [facility] [place] [facility] Oxygen saturation in 2022-02-07 22:09:00 100 /min [facility] of Arterial blood by [place] [facility] beth Pulse oximetry Branch Systolic blood 2022-01-11 16:48:35 123 mm[Hg] Univer sity of pressure [place] [facility] Diastolic blood 2022-01-11 16:48:35 56 mm[Hg] Unive rsity of pressure [place] [facility] Heart rate 2022-01-11 16:48:35 65 /min [facility] [place] [facility] Respiratory rate 2022-01-11 16:48:35 16 /min [facility] [place] [facility] Oxygen saturation in 2022-01-11 16:48:35 99 /min University of Arterial blood by [place] [employer] beth Pulse oximetry Branch Body temperature 2022-01-11 15:33:00 36.94 Christelle [facility] [place] [facility] Body height 2022-01-11 15:33:00 165.1 cm [facility] [place] [facility] Body weight 2022-01-11 15:33:00 68.493 kg [facility] [place] [facility] BMI 2022-01-11 15:33:00 25.13 kg/m2 [facility] [place] [facility] Systolic blood 2021-09-26 23:00:00 147 mm[Hg] Univer sity of pressure [facility] Diastolic blood 2021-09-26 23:00:00 64 mm[Hg] Unive rsity of pressure [facility] Heart rate 2021-09-26 23:00:00 54 /min Universi ty [facility] Respiratory rate 2021-09-26 23:00:00 17 /min [facility] in 2021-09-26 23:00:00 100 /min [facility] Arterial blood by [facility] Pulse oximetry Branch Body temperature 2021-09-26 20:17:24 36.78 [facility] Body height 2021-09-26 20:17:24 167.6 cm [facility] Body weight 2021-09-26 19:55:00 83.915 kg [facility] BMI 2021-09-26 19:55:00 29.86 kg/m2 [facility] BP Diastolic 2021-06-26 00:00:00 75 mm[Hg] [facility] Height 2021-06-26 00:00:00 65 [in_i] [facility] BMI (Body Mass 2021-06-26 00:00:00 30.7 kg/m2 [facility] BP Systolic 2021-06-26 00:00:00 112 mm[Hg] [facility] Body Weight 2021-06-26 00:00:00 184.4 [lb_av] [facility] Height 2020-11-01 00:00:00 65 [in_i] [facility] BMI (Body Mass 2020-11-01 00:00:00 28.3 kg/m2 [facility] Body Weight 2020-11-01 00:00:00 170 [lb_av] [facility] Systolic blood 2020-06-28 21:05:00 139 mm[Hg] Univer sity of [facility] Diastolic blood 2020-06-28 21:05:00 75 mm[Hg] Unive rsity of pressure [facility] Heart rate 2020-06-28 21:05:00 77 [facility] 2020-06-28 21:05:00 19 /min [facility] [place] [facility] Body height 2020-06-28 21:05:00 165.1 cm [facility] [place] [facility] Body weight 2020-06-28 21:05:00 83.915 kg [facility] [place] [facility] BMI 2020-06-28 21:05:00 30.79 kg/m2 [facility] [place] [facility] Oxygen saturation in 2020-06-28 21:05:00 100 /min [facility] of Arterial blood by [facility] beth Pulse oximetry Branch Systolic blood 2020-06-28 21:05:00 139 mm[Hg] Univer sity of pressure [place] [facility] Diastolic blood 2020-06-28 21:05:00 75 mm[Hg] Unive rsity of pressure [place] [facility] Heart rate 2020-06-28 21:05:00 77 /min [facility] [place] [facility] Respiratory rate 2020-06-28 21:05:00 19 /min [facility] [place] [facility] Body height 2020-06-28 21:05:00 165.1 cm [facility] [place] [facility] Body weight 2020-06-28 21:05:00 83.915 kg [facility] [place] [facility] BMI 2020-06-28 21:05:00 30.79 kg/m2 [facility] [place] [facility] Oxygen saturation in 2020-06-28 21:05:00 100 /min [facility] Arterial blood by [facility] Pulse oximetry Branch Height 2020-06-11 00:00:00 65 [in_i] [facility] BMI (Body Mass 2020-06-11 00:00:00 30.1 kg/m2 [facility] Body Weight 2020-06-11 00:00:00 181 [lb_av] [facility] Systolic blood 2020-05-10 16:20:00 138 mm[Hg] Univer sity of pressure [place] [facility] Diastolic blood 2020-05-10 16:20:00 77 mm[Hg] Unive rsity of pressure [place] [facility] Heart rate 2020-05-10 16:18:00 69 /min [facility] [place] [facility] Respiratory rate 2020-05-10 16:18:00 19 /min [facility] [place] [facility] Body height 2020-05-10 16:18:00 165.1 cm [facility] [place] [facility] Body weight 2020-05-10 16:18:00 84.913 kg [facility] [place] [facility] BMI 2020-05-10 16:18:00 31.15 kg/m2 [facility] [place] [facility] Oxygen saturation in 2020-05-10 16:18:00 99 /min [facility] Arterial blood by [facility] Pulse oximetry Branch Systolic blood 2020-03-15 14:57:00 156 mm[Hg] Univer sity of [facility] Diastolic blood 2020-03-15 14:57:00 69 mm[Hg] Unive rsity of pressure [facility] Heart rate 2020-03-15 14:57:00 59 /min [facility] Respiratory rate 2020-03-15 14:57:00 12 /min Univ ers[facility] Oxygen saturation in 2020-03-15 14:57:00 100 /min [facility] Arterial blood by [facility] Pulse oximetry Branch Body temperature 2020-03-15 14:25:00 36.39 Christelle Univ [facility] Body height 2020-03-02 16:19:00 165.1 cm [facility] [place] [facility] Body weight 2020-03-02 16:19:00 78 kg [facility] BMI 2020-03-02 16:19:00 28.62 kg/m2 [facility] Systolic blood 2020-03-09 19:32:00 128 mm[Hg] Univer sity of [facility] Diastolic blood 2020-03-09 19:32:00 75 mm[Hg] Unive rsity of pressure [facility] Heart rate 2020-03-09 19:32:00 65 /min [facility] Respiratory rate 2020-03-09 19:32:00 18 /min Univ [facility] Body height 2020-03-09 19:32:00 165.1 cm [facility] Body weight 2020-03-09 19:32:00 82.691 kg [facility] BMI 2020-03-09 19:32:00 30.34 kg/m2 [facility] Oxygen saturation in 2020-03-09 19:32:00 99 /min [facility] Arterial blood by [facility] Pulse oximetry Branch Systolic (mm Hg) 2022-11-27 14:34:00 [place]mer [place] Diastolic (mm Hg) 2022-11-27 14:34:00 Mem orial M[facility] Heart Rate 2022-11-27 14:34:00 [facility] Height 2022-11-27 14:34:00 5 [ft_i] [facility] [place] Weight 2022-11-27 14:34:00 [facility] BMI Calculated 2022-11-27 14:34:00 Memori al [place] Systolic (mm Hg) 2022-04-18 19:32:00 Elmer rial Meng Diastolic (mm Hg) 2022-04-18 19:32:00 Mem orial Meng Heart Rate 2022-04-18 19:32:00 [facility] Respitory Rate 2022-04-18 19:32:00 Mem[facility] al [place] Height 2022-04-18 19:32:00 160.02 cm [facility] [place] Weight 2022-04-18 19:32:00 [facility] BMI Calculated 2022-04-18 19:32:00 [facility] [place] Respitory Rate 2022-01-01 16:58:00 Memori al Meng Height 2022-01-01 16:58:00 160.02 cm [facility] Weight 2022-01-01 16:58:00 [facility] BMI Calculated 2022-01-01 16:58:00 [facility] [place] Systolic (mm Hg) 2022-01-01 16:58:00 Elmer rial Meng Diastolic (mm Hg) 2022-01-01 16:58:00 Mem orial Meng Heart Rate 2022-01-01 16:58:00 [facility] [place] Systolic (mm Hg) 2021-07-30 20:07:00 Elmer rial Meng Diastolic (mm Hg) 2021-07-30 20:07:00 Mem orial [place] Heart Rate 2021-07-30 20:07:00 [facility] [place] Respitory Rate 2021-07-30 20:07:00 Mem[facility] al [place] Height 2021-07-30 20:07:00 157.48 cm [facility] [place] Weight 2021-07-30 20:07:00 [facility] [place] BMI Calculated 2021-07-30 20:07:00 Memori al M[facility] Systolic (mm Hg) 2021-01-25 19:19:00 Elmer rial Meng Diastolic (mm Hg) 2021-01-25 19:19:00 Mem orial [facility] Heart Rate 2021-01-25 19:19:00 [facility] [place] Respitory Rate 2021-01-25 19:19:00 Memori al M[facility] Height 2021-01-25 19:19:00 162.56 cm [facility] Weight 2021-01-25 19:19:00 [facility] [place] BMI Calculated 2021-01-25 19:19:00 [facility] [place] Systolic (mm Hg) 2019-07-28 19:55:00 Elmer rial [place] Diastolic (mm Hg) 2019-07-28 19:55:00 Mem orial Meng Heart Rate 2019-07-28 19:55:00 [facility] Respitory Rate 2019-07-28 19:55:00 [facility] [place] Height 2019-07-28 19:55:00 165.1 cm [facility] Weight 2019-07-28 19:55:00 [facility] BMI Calculated 2019-07-28 19:55:00 Mem[facility] [place] Systolic (mm Hg) 2019-06-10 20:22:00 Elmer rial [place] Diastolic (mm Hg) 2019-06-10 20:22:00 Mem orial [place] Heart Rate 2019-06-10 20:22:00 [facility] [place] Respitory Rate 2019-06-10 20:22:00 Memori al [facility] Height 2019-06-10 20:22:00 162.56 cm [facility] Weight 2019-06-10 20:22:00 [facility] [place] BMI Calculated 2019-06-10 20:22:00 Memori al [place] Systolic (mm Hg) 2019-05-11 19:25:00 Emler rial Meng Diastolic (mm Hg) 2019-05-11 19:25:00 Mem orial [facility]eng Heart Rate 2019-05-11 19:25:00 [facility] Respitory Rate 2019-05-11 19:25:00 Memori al [facility] Height 2019-05-11 19:25:00 157.48 cm [facility] [place] Weight 2019-05-11 19:25:00 [facility] [place] BMI Calculated 2019-05-11 19:25:00 Mem[facility] [place] BMI Calculated 2019-02-08 18:53:00 Mem[facility] al [place] Height 2019-02-08 18:53:00 157.48 cm [facility] Weight 2019-02-08 18:53:00 [facility] [place] Respitory Rate 2019-02-08 18:53:00 Memori al Meng Heart Rate 2019-02-08 18:53:00 [facility] [place] Systolic (mm Hg) 2019-02-08 18:53:00 Elmer rial Meng Diastolic (mm Hg) 2019-02-08 18:53:00 Mem orial Meng BMI Calculated 2018-12-28 19:26:00 Mem[facility] al [place] Weight 2018-12-28 19:26:00 [facility] [place] Height 2018-12-28 19:26:00 157.48 cm [facility] Respitory Rate 2018-12-28 19:26:00 Memori al [facility] Systolic (mm Hg) 2018-12-28 19:26:00 Elmer rial [place] Diastolic (mm Hg) 2018-12-28 19:26:00 Mem orial [place] Heart Rate 2018-12-28 19:26:00 [facility] [place] Procedures Procedure Date / Time Performing Clinician Source Performed CONSENT/REFUSAL FOR 2022-12-08 18:34:55 [facility] DIAGNOSIS AND TREATMENT [place] [facility] CONSENT/REFUSAL FOR 2022-02-07 22:04:17 Doctor Unassigned, [facility] DIAGNOSIS AND TREATMENT [place] [facility] [place] XR ANKLE 3+ VW RIGHT 2022-01-11 16:08:15 Sander López [facility] CONSENT/REFUSAL FOR 2022-01-11 15:29:30 Doctor Unassigned, [facility] DIAGNOSIS AND TREATMENT [place] [facility] [place] TROPONIN I 2021-09-26 22:18:00 Singer [facility] COMP. METABOLIC PANEL 2021-09-26 22:18:00 Tom Toure [facility] ([id number]) [facility] CBC WITH DIFF 2021-09-26 22:18:00 Toure, [facility] URINALYSIS 2021-09-26 22:18:00 Singer [facility] XR LUMBAR SPINE 3 VW 2021-09-26 22:04:14 Singer [facility] CT CERVICAL SPINE WO 2021-09-26 21:25:48 Tom Toure [facility] CONTRAST Medical Branch CT HEAD WO CONTRAST 2021-09-26 21:25:48 Tom [facility]re [facility] [place] XR CHEST 1 VW 2021-09-26 21:02:15 Tom Toure [facility] XR HUMERUS 2 VW RIGHT 2021-09-26 21:02:15 [facility] CONSENT/REFUSAL FOR 2021-09-26 19:51:38 Doctor Vaishali [facility] DIAGNOSIS AND TREATMENT [place] [facility] NOTICE OF PRIVACY 2021-09-26 19:51:22 Doctor Vaishali [facility] PRACTICES [place] [facility] DME/SUPPLY JUSTIFICATION 2020-06-28 06:01:00 Doctor Vaishali [facility] Name Medical Branch DME/SUPPLY JUSTIFICATION 2020-05-16 05:01:00 Doctor Vaishali [facility] Name Medical [place] EGD (ENDO) 2020-03-15 13:00:29 Francois Mei [facility] POCT GLUCOSE(AGE >30DAYS) 2020-03-15 12:50:00 Chivo Galindo [facility] AUTHORIZATION TO RELEASE 2020-03-09 05:01:[address] [facility] PHI TO [facility] Name Medical [place] EXTERNAL PROVIDER - ADC 2020-03-05 05:01:00 Igor Manning [facility] REFERRAL [place] [facility] [place] DSU PRE-OP 2020-02-29 05:01:00 Doctor Tom [facility] Name Medical Branch BI SELF-REFERRED SCREENING 2019-10-27 18:52:00 Requisition, Gerardo patterson [facility] MAMMOGRAM BILATERAL Medical Bran ch ASSIGNMENT OF BENEFITS 2019-10-27 18:16:31 Doctor Yoan Tom [facility] Name Medical Branch Repair of Musculotendinous 2018-07-17 00:00:00 [facility] Family Cuff of Shoulder Practice Bilateral Extraction of 2017-12-15 00:00:00 Vill age Family Cataracts Practice Colonoscopy 2016-08-17 00:00:00 [facility] ly Practice Hernia Repair [facility] Plan of Care Planned Activity Planned Date Details Comments Source Diagnostic Test 2022-10-08 glucose, fingerstick, [facility] Pending 00:00:00 blood [code = Practice glucose, fingerstick, blood] Diagnostic Test 2022-10-08 hemoglobin A1C, Andrea martin Pending 00:00:00 fingerstick [code = Practice hemoglobin A1C, fingerstick] Future Appointment 2023-04-08 Talha Aleman, Yamilet Mendez Family 10:15:[address]; Practice [address], [place] [address] Future Appointment 2023-04-06 Yamilet Loza Family 00:00:[address]; Practice [address], [place] [address] Encounters Start End Encounter Admission Attending Care Care Encounter Source Date/Time Date/Time Type Type Clinicians Facility Department ID 2021-06-[address] [facility] [id number] Univers 06:59:22 СЕРГЕЙ Becker [facility] 2023-02-26 2023-02-26 Outpatient IE IE [id number] Memoria 10:00:00 10:00:00 20 sue Meng 2023-02-26 2023-02-26 Outpatient MHIE IE [id number] Memoria 10:00:00 10:00:00 20 sue Fan 2023-02-12 2023-02-12 Outpatient MHIE IE [id number] Memoria 13:15:00 13:15:00 22 sue Fan 2023-01-27 2023-01-27 Outpatient IE IE [id number] Memoria 15:00:00 15:00:00 21 sue Fan 2022-12-08 2022-12-08 Emergency X [facility] ERT [id number] Univers 13:46:00 15:19:[address] [facility] 2022-12-08 2022-12-08 Emergency [facility] [id number] Univers 13:46:00 15:19:00 [facility]2.7[facility] [id number] [address] 2022-11-272022-11-28 Outpatient MHIE MNA [id number] Memoria 14:30:00 04:59:59 Neurology 19 l Nathalia Osunaann 2022-11-27 2022-11-28 Outpatient MHIE MNA [id number] Memoria 14:30:00 04:59:59 Neurology 19 l Nathalia Fan 2022-11-27 2022-11-27 Outpatient [facility] [place] [facility] [id number] 09:30:00 23:59:59 Sam 19 Keith 2022-11-27 2022-11-27 Outpatient MHIE MHIE [id number] Memoria 09:30:00 09:30:00 19 sue Fan 2022-10-08 2022-10-08 Outpatient Daniel_T VFP VFP [id number] [address] [place] [address] 00:00:00 00:00:00 [id number] Family Practic e 2022-10-08 2022-10-08 Outpatient Daniel_T VFP VFP [id number] [address] [place] [address] 00:00:00 00:00:00 [id number] Family Practic e 2022-10-08 2022-10-08 Outpatient Daniel_T VFP VFP [id number] [address] [place] [address] 00:00:00 00:00:00 [id number] Family Practic e 2022-10-08 2022-10-08 Talha VFP [place] - [id number] V illage 00:00:00 00:00:00 [facility] Family Aleman, Medical - Practi robert MD: [id number] [place] - e Shadow VM_HOU_[facility], [address], [place] [address] , Ph. 2022-08-19 2022-08-19 Ambulatory MHIE MNA [id number] Memoria 20:15:00 20:15:00 Pre-Reg Neurology 18 l Nathalia Meng 2022-08-19 2022-08-19 Ambulatory MHIE MNA [id number] Memoria 20:15:00 20:15:00 Pre-Reg Neurology 18 l Waldo Meng 2022-08-19 2022-08-19 Outpatient MHIE MHIE [id number] Memoria 14:15:00 14:15:00 18 sue Fan 2022-08-19 2022-08-19 Outpatient Karley ILIAMISCHER MISCHER [id number] 14:15:00 14:15:00 Sam 18 Keith 2022-05-06 2022-05-06 Outpatient Yesenia MAYAVIRIDIANA [facility] RAD [id number] Univers 14:20:00 14:20:[address] [facility] 2022-04-18 2022-04-19 Outpatient nullFlavo MNA [id number] Memoria 19:30:00 04:59:59 r Neurology 17 l Nathalia Fan 2022-04-18 2022-04-19 Outpatient nullFlavo MNA [id number] Memoria 19:30:00 04:59:59 r Neurology 17 l Nathalia Fan 2022-04-18 2022-04-18 Outpatient Karley KERRISCHER MISCHER [id number] 14:30:00 23:59:59 Sam 17 Keith 2022-04-18 2022-04-18 Outpatient MHIE MIMI [id number] Memoria 14:30:00 14:30:00 17 l Meng 2022-03-14 2022-03-14 Outpatient DMG DM [id number] Devoted 00:00:00 00:00:00 [id number] Medica l Group 2022-02-28 2022-02-28 Outpatient DMG DM [id number] Devoted 06:06:00 06:06:00 [id number] Medica l Group 2022-02-07 2022-02-07 Emergency X Sander LÓPEZ [facility] ERT [id number] Univers 17:15:00 18:10:00 [facility] 2022-02-07 2022-02-07 Emergency Sander López [facility] 1.2.840.114 [id number] Univers 17:15:00 18:10:00 Susie DHALIWAL 350.1.13.10 i Ralf 4.2.7.2.686 [facility] [id number] [address] 2022-01-11 2022-01-11 Emergency X Sander LÓPEZ [facility] ERT [id number] Univers 10:34:00 12:01:00 ity of [facility] 2022-01-11 2022-01-11 Emergency Sander López [facility] 1.2.840.114 [id number] [facility] 10:34:00 12:01:00 Susie DHALIWAL 350.1.13.10 i ty [place] 4.2.7.2.686 [facility] [id number] [address] 2022-01-01 2022-01-02 Outpatient nullFlavo MNA [id number] Memoria 16:45:00 04:59:59 r Neurology 16 l Nathalia Osunaann 2022-01-01 2022-01-02 Outpatient nullFlavo MNA [id number] Memoria 16:45:00 04:59:59 r Neurology 16 l Nathalia Osunaann 2022-01-01 2022-01-01 Outpatient NATALIE CrandallSCHER [id number] 11:45:00 23:59:59 Sam 16 Keith 2022-01-01 2022-01-01 Outpatient MHIE MHIE [id number] Memoria 11:45:00 11:45:00 16 l Meng 2021-10-29 2021-10-29 Ambulatory nullFlavo MNA [id number] Memoria 19:45:00 19:45:00 Pre-Reg r Neurology 15 l Nathalia Osunaann 2021-10-29 2021-10-29 Ambulatory nullFlavo MNA [id number] Memoria 19:45:00 19:45:00 Pre-Reg r Neurology 15 l Waldodrea Osunaann 2021-10-29 2021-10-29 Outpatient MHIE MHIE [id number] Memoria 14:45:00 14:45:00 15 l Meng 2021-10-29 2021-10-29 Outpatient NATALIE Crandall MHMISCHER [id number] 14:45:00 14:45:00 Sam 15 Keith 2021-10-16 2021-10-16 Outpatient DMG DMG [id number] Devoted 09:00:00 09:00:00 Medica l Group 2021-09-26 2021-09-26 Emergency X , [facility] ERT [id number] Univers 13:59:00 17:32:00 TOM ity of [facility] 2021-09-26 2021-09-26 [place] [id number] Univers 13:59:00 17:32:00 Tom DHALIWAL 350.1.13.10 i ty of [place] [id number] [facility] 084 Branch 2021-09-26 2021-09-26 Orders Doctor TRACEY 1.2.840.114 [id number] Univers 00:00:00 00:00:00 Only Unassigned, TRE 350.1.13.10 ity of [facility] 4.2.7.2.686 [facility] [id number] [facility] 009 Branch 2021-08-07 2021-08-07 Outpatient Daniel_T VFP VFP [id number] [address] [place] [address] 00:00:00 00:00:00 [id number] Family Practic e 2021-08-07 2021-08-07 Outpatient Daniel_T VFP VFP [id number] [address] [place] [address] 00:00:00 00:00:00 [id number] Family Practic e 2021-07-30 2021-07-31 Outpatient nullFlavo MNA [id number] Memoria 20:00:00 05:59:59 r Neurology 14 l Nathalia Fan 2021-07-30 2021-07-31 Outpatient nullFlavo MNA [id number] Memoria 20:00:00 05:59:59 r Neurology 14 l Nathalia Fan 2021-07-30 2021-07-30 Outpatient NATALIE Crandall [id number] 14:00:00 23:59:59 Sam 14 Keith 2021-07-30 2021-07-30 Outpatient ILIAIE MIMI [id number] Memoria 14:00:00 14:00:00 14 l Meng 2021-07-04 2021-07-04 Outpatient Daniel_T VFP VFP [id number] [address] [place] [address] 06:48:00 06:48:00 [id number] Family Practic e 2021-06-26 2021-06-26 Outpatient Daniel_T VFP VFP [id number] [address] [place] [address] 05:56:00 05:56:00 [id number] Family Practic e 2021-06-26 2021-06-26 Talha VFP [place] - [id number] V illage 00:00:00 00:00:00 Diomedes [facility] Family AlemanPaola MD: [id number] VM_HOU_Sharan e Shadow ow [address], [address], [place] [address] , Ph. 2021-01-25 2021 Outpatient nullFlavo MNA [id number] [facility] 19:00:00 04:59:59 r Neurology 13 l Nathalia Fan 2021-01-25 2021 Outpatient nullFlavo MNA [id number] [facility] 19:00:00 04:59:59 r Neurology 13 l Nathalia Fan 2021-01-25 2021-01-25 [id number] 14:00:00 23:59:59 Sam 13 Keith 2021-01-25 2021-01-25 Outpatient MHIE MIMI [id number] [facility] 14:00:00 14:00:00 13 l Meng 2020-11-03 2020-11-03 Outpatient Daniel_T VFP VFP [id number] [address] [place] [address] 09:28:00 09:28:00 [id number] Family Practic e 2020-11-03 2020-11-03 Outpatient Daniel_T VFP VFP [id number] [address] [place] [address] 09:28:00 09:28:00 [id number] Family Practic e 2020-11-03 2020-11-03 Outpatient Daniel_T VFP VFP [id number] [address] [place] [address] 09:28:00 09:28:00 [id number] Family Practic e 2020-11-03 2020-11-03 Outpatient Daniel_T VFP VFP [id number] [address] [place] [address] 09:28:00 09:28:00 [id number] Family Practic e 2020-11-03 2020-11-03 Outpatient Daniel_T VFP VFP [id number] [address] [place] [address] 09:28:00 09:28:00 [id number] Family Practic e 2020-11-01 2020-11-01 Outpatient Daniel_T VFP VFP [id number] 3-20 [facility] 03:36:00 03:36:00 [id number] Family Practic e 2020-11-01 2020-11-01 Talha VFP [place] - [id number] V illage 00:00:00 00:00:00 Diomedes [facility] Family Aleman, Medical - Pracnancy jones MD: [id number] VM_HOU_Shad e Shadow ow [address], [address], [place] [address] , Ph. 2020-10-30 2020-10-[address] [facility] [id number] [id number] [facility] 12:03:00 12:03:00 [id number] Family Lidia e 2020-06-28 2020-06-28 Office Dionisio [facility] 1.2.840.114 [id number] Univers 14:42:07 15:23:34 Visit Annemarie Dhaliwal 350.1.13.10 i ty [facility] [place].2.7.2.[place] [id number] Mt dical [address] 2020-06-28 2020-06-28 [facility] 1.2.840.114 [id number] 14:42:07 15:23:34 Visit Annemarie Dhaliwal 350.1.13.10 [place] 4.2.7.2.686 Professio [id number] [address] 2020-06-28 2020-06-28 Outpatient R ANNEMARIE DOWELL [facility] [id number] Univers 14:40:00 14:40:00 ANNEMARIE DOWELL i ty of [facility] 2020-06-28 2020-06-28 Orders Doctor TRACEY 1.2.840.114 [id number] Univers 00:00:00 00:00:00 Only Unassigned, TRE 350.1.13.10 ity of [place] [facility] 4.2.7.2.686 Khris as [id number] [address] 2020-06-28 2020-06-28 Orders Doctor TRACEY 1.2.840.114 [id number] 00:00:00 00:00:00 Only Unassigned, TRE 350.1.13.10 [place] [facility] 4.2.7.2.686 [id number] 2020-06-23 2020-06-23 Outpatient Daniel_T VFP VFP [id number] 20 [facility] 03:38:00 03:38:00 Family Practic e 2020-06-11 2020-06-11 Outpatient Daniel_T VFP VFP [id number] [address] 05:59:00 05:59:00 [id number] Family Practic e 2020-06-11 2020-06-11 Outpatient Daniel_T VFP VFP [id number] [address] [place] [address] 05:59:00 05:59:00 [id number] Family Practic e 2020-06-11 2020-06-11 Talha VFP [place] - [id number] V illage 00:00:00 00:00:00 [facility] Family AlemanPaola - Practi robert JONES: [id number] VM_HOU_Sandeep e Shadow [facility], [facility] [address], [place] [address] , Ph. 2020-06-04 2020-06-04 Outpatient Daniel_T VFP VFP [id number] [address] 09:31:00 09:31:00 [id number] Family Practic e 2020-05-27 2020-05-27 Telephone June [facility] [id number] Univers 00:00:00 00:00:00 [facility] 350.1.13.10 i ty of Surgical 4.2.7.2.686 Khris as Specialti [id number] Mt zackal es [facility] 2020-05-24 2020-05-24 Laboratory Lab, Adc Fam Pob I [facility] 1.2. 840.114 [id number] Univers 16:16:53 16:39:40 Only [facility] 350.1.13.10 ity [facility] 4.2.7.2.686 Khris as Professio [id number] Mt dical nal 044 Branch Office [address] [facility] 2020-05-24 2020-05-24 Outpatient R [facility] [id number] Univers 16:00:00 16:00:00 ity of [facility] 2020-05-24 2020-05-24 Outpatient R [facility] [id number] Univers 15:00:00 15:00:00 ity of [facility] 2020-05-24 2020-05-24 Outpatient R [facility] [id number] Univers 13:00:00 13:00:00 ity of [facility] 2020-05-16 2020-05-16 Orders Doctor TRACEY 1.2.840.114 [id number] Univers 00:00:00 00:00:00 Only Unassigned, TRE 350.1.13.10 ity of [place] [facility] 4.2.7.2.686 Khris as [id number] [facility] 00[address] [place] 2020-05-10 2020-05-10 Office Dowell [facility] 1.2.840.114 [id number] Univers 11:09:35 11:41:44 Visit Annemarie Dhaliwal 350.1.13.10 i ty of [place] [id number] [place] [id number] [facility] 2020-05-10 2020-05-10 Outpatient R ANNEMARIE DOWELL [facility] [id number] Univers 11:00:00 11:00:00 ANNEMARIE DOWELL i ty of [facility] 2020-05-01 2020-05-01 Telephone Dionisio [facility] [id number] Univers 00:00:00 00:00:00 Annemarie Dhaliwal 350.1.13.10 i ty of [place] [id number] [address] 2020-03-15 2020-03-15 [facility] 1.2.840.114 [id number] Univers 07:46:51 10:18:00 Encounter Сергей becker 350.1.13.10 ity of [place].2.[place] [id number] [facility] 071 [place] 2020-03-13 2020-03-13 Telephone TRACEY Herrera 1.2.967.004 [id number] Univers 00:00:00 00:00:00 Dolores TOLEDO 350.1.13.10 ity of [facility] 4.2.7.2.686 Khris as [id number] [facility] 019 [place] 2020-03-12 2020-03-12 Outpatient R JAYLAN [facility] [id number] Univers 09:30:00 09:30:00 Josie SCOTTYesenia alvarengamechelle o f [facility] 2020-03-12 2020-03-12 Laboratory Only, Adc Test [facility] 1.2.840. 114 [id number] Univers 08:58:53 09:11:20 Only Сергей Menendez 350.1.1 3.10 ity of [place].2.[place] [id number] [facility] 353 [place] 2020-03-09 2020-03-09 Office Dionisio [facility] 1.2.840.114 [id number] Univers 14:13:02 15:07:01 Visit Annemarie Dhaliwal 350.1.13.10 i ty of [place].2.[place] [id number] Mt dical nal 085 [facility] 2020-03-09 2020-03-09 Outpatient R ANNEMARIE DOWELL [facility] [id number] Univers 14:00:00 14:00:00 ANNEMARIE DOWELL i ty of [facility] 2020-03-09 2020-03-09 Orders Doctor TRACEY 1.2.840.114 [id number] Univers 00:00:00 00:00:00 Only Unassigned, TRE 350.1.13.10 ity of [place] [facility] 4.2.7.2.686 Khris as [id number] [facility] 00[address] [place] 2019-12-14 2019-12-16 Outside nullFlavo MNA [id number] Memoria 19:56:01 04:59:59 Medical r Neurology 04 l Records [place] 2019-12-14 2019-12-16 Outside nullFlavo MNA [id number] Memoria 19:56:01 04:59:59 Medical r Neurology 04 l Records [place] 2019-12-14 2019-12-15 Outpatient MHMISCHER MHMISCHER [id number] 14:56:01 23:59:59 04 2019-12-01 2019-12-02 Outpatient nullFlavo MNA [id number] Memoria 18:15:00 04:59:59 r Neurology 12 l Nathalia Osunaann 2019-12-01 2019-12-02 Outpatient nullFlavo MNA [id number] Memoria 18:15:00 04:59:59 r Neurology 12 l Nathalia Osunaann 2019-12-01 2019-12-01 Outpatient ILIA CrandallMISCHER MHMISCHER [id number] 13:15:00 23:59:59 Sam 12 [place] 2019-12-01 2019-12-01 Outpatient MHIE MIMI [id number] Memoria 13:15:00 13:15:00 12 [place] 2019-10-27 2019-10-27 Outpatient R RADIOLOGY [facility] [id number] Univers 13:17:45 23:59:00 ity of [facility] 2019-10-27 2019-10-27 Hospital Radiology [facility] [id number] Univers 13:15:00 23:59:00 Encounter [place] [id number] ity of [place] [id number] [facility] [phone] [facility] [address] [place] 2019-10-27 2019-10-27 Orders Doctor TRACEY [id number] Univers 00:00:00 00:00:00 Only Unassigned, TRE [id number] ity of [facility] [id number] [facility] [id number] [facility] [address] [place] 2019-09-22 2019-09-22 Ambulatory nullFlavo MNA [id number] Memoria 17:00:00 17:00:00 Pre-Reg r Neurology 11 l [place] 2019-09-22 2019-09-22 Ambulatory nullFlavo MNA [id number] Memoria 17:00:00 17:00:00 Pre-Reg r Neurology 11 l N[place] 2019-09-22 2019-09-22 Outpatient MHIE MHIE [id number] Memoria 11:00:00 11:00:00 11 sue [place] 2019-09-22 2019-09-22 Outpatient KERRI CrandallSCHER MISCHER [id number] 11:00:00 11:00:00 Sam Sun Keith 2019-07-28 2019-07-29 Outpatient nullFlavo MNA [id number] Memoria 19:45:00 05:59:59 r Neurology 08 sue Fan 2019-07-28 2019-07-29 Outpatient nullFlavo MNA [id number] Memoria 19:45:00 05:59:59 r Neurology 08 sue Fan 2019-07-28 2019-07-28 [facility] [id number] 13:45:00 23:59:59 Sam Shannan Parker 2019-07-28 2019-07-28 Outpatient MHIE MHIE [id number] Memoria 13:45:00 13:45:00 08 sue [place] 2019-06-10 2019-06-11 Outpatient nullFlavo MNA [id number] Memoria 20:15:00 04:59:59 r Neurology 10 sue Sloan [place] 2019-06-10 2019-06-11 Outpatient nullFlavo MNA [id number] Memoria 20:15:00 04:59:59 r Neurology 10 sue Sloan [place] 2019-06-10 2019-06-10 [facility] [id number] 15:15:00 23:59:59 Samsania Parker 2019-06-10 2019-06-10 Outpatient MHIE MHIE [id number] Memoria 15:15:00 15:15:00 10 sue [place] 2019-05-11 2019-05-12 Outpatient nullFlavo MNA [id number] Memoria 19:15:00 04:59:59 r Neurology 09 sue Sloan [place] 2019-05-11 2019-05-12 Outpatient nullFlavo MNA [id number] Memoria 19:15:00 04:59:59 r Neurology 09 sue Sloan [place] 2019-05-11 2019-05-11 [facility] [id number] 14:15:00 23:59:59 Sam Andrzej Keith 2019-05-11 2019-05-11 Outpatient MHIE MHIE [id number] Memoria 14:15:00 14:15:00 09 sue [place] 2019-02-08 2019-02-09 Outpatient nullFlavo MNA [id number] Memoria 18:30:00 04:59:59 r Neurology 07 sue Fan 2019-02-08 2019-02-09 Outpatient nullFlavo MNA [id number] Memoria 18:30:00 04:59:59 r Neurology 07 sue Fan 2019-02-08 2019-02-08 Outpatient KERRI CarndallSCHER MHMISCHER [id number] 13:30:00 23:59:59 Sam Luz Elena Parker 2019-02-08 2019-02-08 Outpatient MHIE MHIE [id number] Memoria 13:30:00 13:30:00 07 sue Fan 2018-12-28 2018-12-29 Outpatient nullFlavo MNA [id number] Memoria 18:30:00 04:59:59 r Neurology 06 sue Osunaann 2018-12-28 2018-12-29 Outpatient nullFlavo MNA [id number] Memoria 18:30:00 04:59:59 r Neurology 06 sue Waldo Meng 2018-12-28 2018-12-28 [facility] [id number] 13:30:00 23:59:59 Sam Jair Parker 2018-12-28 2018-12-28 Ambulatory nullFlavo MNA [id number] Memoria 18:30:00 18:30:00 Pre-Reg r Neurology 05 sue Sloan Meng 2018-12-28 2018-12-28 Ambulatory nullFlavo MNA [id number] Memoria 18:30:00 18:30:00 Pre-Reg r Neurology 05 sue Waldo Meng 2018-12-28 2018-12-28 Outpatient MHIE MHIE [id number] Memoria 13:30:00 13:30:00 06 sue Meng 2018-12-28 2018-12-28 Outpatient MHIE MHIE [id number] Memoria 13:30:00 13:30:00 05 sue Meng 2018-12-28 2018-12-28 Outpatient KERRI CrandallSCHIFEOMA MISCHER [id number] 13:30:00 13:30:00 Sam Humble Keith 2018-11-16 2018-11-16 Outpatient MHIE MHIE [id number] Memoria 14:30:00 14:30:00 Pedro rogers Meng 2018-11-16 2018-11-16 Outpatient MHIE MHIE [id number] Memoria 14:30:00 14:30:00 04 sue Fan 2018-10-01 2018-10-01 Outpatient MHIE MHIE [id number] Memoria 10:45:00 10:45:00 03 sue Fan 2018-10-01 2018-10-01 Outpatient MHIE MHIE [id number] Memoria 10:45:00 10:45:00 03 sue Fan 2018-09-16 2018-09-18 Phone nullFlavo MNA [id number] Memoria 21:05:00 05:59:59 Message r Neurology 02 sue Fan 2018-09-16 2018-09-18 Phone nullFlavo MNA [id number] Memoria 21:05:00 05:59:59 Message r Neurology 02 sue Fan 2018-09-16 2018-09-17 Outpatient MHMISCHER MHMISCHER [id number] 15:05:00 23:59:59 2018-08-04 2018-08-06 Phone nullFlavo MNA [id number] Memoria 15:57:00 05:59:59 Message r Neurology 01 sue Fan 2018-08-04 2018-08-06 Phone nullFlavo MNA [id number] Memoria 15:57:00 05:59:59 Message r Neurology 01 sue Fan 2018-08-04 2018-08-05 Outpatient MHMISCHER MHMISCHER [id number] 09:57:00 23:59:59 2018-07-28 2018-07-30 Phone nullFlavo MNA [id number] Memoria 19:02:00 05:59:59 Message r Neurology 00 sue Fan 2018-07-28 2018-07-30 Phone nullFlavo MNA [id number] Memoria 19:02:00 05:59:59 Message r Neurology 00 sue Fan 2018-07-28 2018-07-29 Outpatient MHMISCHER MHMISCHER [id number] 13:02:00 23:59:59 2018-03-26 2018-03-26 Outpatient MHIE MHIE [id number] Memoria 10:45:00 10:45:00 sue Fan 2018-03-26 2018-03-26 Outpatient MHIE MHIE [id number] Memoria 10:45:00 10:45:00 01 sue Fan 2017-11-11 2017-11-11 Outpatient MIMI LE [id number] Memoria 11:00:00 11:00:00 02 sue Fan 2017-11-11 2017-11-11 Outpatient MIMI LE [id number] Memoria 11:00:00 11:00:00 02 sue Fan 2017-09-25 2017-09-25 Outpatient MIMI LE [id number] Memoria 10:30:00 10:30:00 00 sue Fan 2017-09-25 2017-09-25 Outpatient MIMI LE [id number] Memoria 10:30:00 10:30:00 00 sue Fan Results Test Description Test Time Test Comments Results Result Comments Source Hemoglobin A1c measurement device panel 2022-10-08 15:15:57 Test Item Value Reference Range Interpretation Comme nts Hemoglobin A1c/Hemoglobin.total in Blood (test code = 4548-4) 6.5 % 5.7-6.4 [facility] Cap[facility] [id number] 15:12:00 Test Item Value Reference Range Interpretation Comments Blood Glucose: mg/dl (test code = Blood 95 Glucose: mg/dl) [facility] [id number] 22:51:39 Test Item Value Reference Interpretation Comments Range TROPONIN I (test 0.004 ng/mL See_Comment [Automated code = 3900222393) message] The system which generated this result [...] biotin. Lab Interpretation Normal (test code = 32661-5) [facility] PAN[facility] (19872)2021-09-26 22:40:21 Test Item Value Reference Range Interpretation Comments NA (test code = 138 mmol/L 135-145 2091382896) K (test code = 4.2 mmol/L 3.5-5.0 1177108702) CL (test code = 115 mmol/L 98-108 H 4518262226) CO2 TOTAL (test code = 18 mmol/L 23-31 L 3768780445) AGAP (test code = 2-16 8016832857) BUN (test code = 22 mg/dL 7-23 1014870810) GLUCOSE (test code = 121 mg/dL 70-110 H 2833458520) CREATININE (test code = 1.02 mg/dL 0.50-1.04 6207101517) TOTAL BILI (test code = 0.4 mg/dL 0.1-1.7 4155918385) CALCIUM (test code = 8.4 mg/dL 8.6-10.6 L 3915079834) T PROTEIN (test code = 6.4 g/dL 6.3-8.2 5472245872) ALBUMIN (test code = 3.8 g/dL 3.5-5.0 1448647019) ALK PHOS (test code = 101 U/L 34-122 3098828697) ALTv (test code = 12 U/L 5-35 1742-6) AST(SGOT) (test code = 24 U/L 13-40 5200053983) eGFR (test code = mL/min/1.73m2 5797489810) DONI (test code = DONI) Association of [...] tests). Lab Interpretation Abnormal (test code = 67166-2) [facility] WITH [id number] 22:30:36 Test Item Value Reference Range Interpretation Comments WBC (test code = See_Comment [Automated 2651-2) message] The sy stem which generated this result transmitted reference range : 4.30 - 11.10 10*3/?L. The reference range was not used to interpret this result as normal/abnormal . RBC (test code = See_Comment L [Automated 159-8) message] The sy stem which generated this [...] (test code = 55.7 fL 39.0-49.9 H 49132-4) RDW-CV (test code = 15.5 % 12.0-15.5 788-0) PLT (test code = See_Comment [Automated 897-3) message] The sy stem which generated this result transmitted reference range : 166 - 358 10*3/ ?L. The reference r jaimie was not used to interpret this result as normal/abnormal . MPV (test code = 12.1 fL 9.5-12.9 73686-5) NRBC/100 WBC (test See_Comment [Automat ed code = 6048241420) message] The system which generated this result transmitted reference range : 0.0 - 10.0 /100 WBCs. The refer ence range was not u sed to interpret th is result as normal/abnormal . NRBC x10^3 (test code <0.01 See_Comment [Auto mated = 7624559398) message] The s ystem which generated this result transmitted reference range : 10*3/?L. The reference range was not used to interpret this result as normal/abnormal . GRAN MAT (NEUT) % 80.1 % (test code = 770-8) IMM GRAN % (test code 0.30 % = 5406534644) LYMPH % (test code = 12.7 % 736-9) MONO % (test code = 4.1 % 5905-5) EOS % (test code = 2.2 % 713-8) BASO % (test code = 0.6 % 706-2) GRAN MAT x10^3(ANC) 5.81 10*3/uL 1.88-7.09 (test code = 7294372323) IMM GRAN x10^3 (test <0.03 0.00-0.06 code = 6799490935) LYMPH x10^3 (test code 0.92 10*3/uL 1.32-3.29 L = 731-0) MONO x10^3 (test code 0.30 10*3/uL 0.33-0.92 L = 742-7) EOS x10^3 (test code = 0.16 10*3/uL 0.03-0.39 711-2) BASO x10^3 (test code 0.04 10*3/uL 0.01-0.07 = 704-7) Lab Interpretation Abnormal (test code = 14572-7) [facility] A[facility] device panel 2021-06-26 15:32:10 Test Item Value Reference Range Interpretation Comments Hemoglobin A1C Fingerstick: (test code 6.1 = Hemoglobin A1C Fingerstick:) [facility]/volume] in Capillary [id number] 15:28:47 Test Item Value Reference Range Interpretation Comments Blood Glucose: mg/dl (test code = Blood 118 Glucose: mg/dl) [facility] [id number] 12:53:00 Test Item Value Reference Range Interpretation Comments POCT Glu (age>30days) (test code = 92 mg/dL 70-110 3342) Lab Interpretation (test code = Normal 03737-9) [facility] SELF-REFERRED SCREENING MAMMOGRAM BILATERAL 2019-10-27 19:51:48Examination:BI SELF-REFERRED SCREENING MAMMOGRAM BILATERAL History:Patient is 69 year old and is seen for: ?Routine . Computer-aided detection (CAD) utilized. Comparisons: 06/25/2015 DIGITAL MAMMOGRAM,SCREENING (No Change) Findings:The breasts are almost entirely fatty. BilateralThere are vascular calcifications seen in both breasts. Impression:No signs of malignancy. Recommendation:Annual mammographic follow-up - Bilateral BI-RADS Category: Both 1 - [facility]UnEn[facility] CenterURINE [id number] 15:54:00 Test Item Value Reference Range Interpretation Comments CULTURE (BEAKER) (test >100,000 col/mL skin code = 1095) clay POCT-GLUCOSE [id number] 07:48:00 Test Item Value Reference Range Interpretation Comments POC-GLUCOSE METER 149 mg/dL 70-110 H TESTED AT [facility] 6720 (BEAKER) (test code = [facility] 1538) [address] BASIC METABOLIC [id number] 04:52:00 Test Item Value Reference Range Interpretation [...] 697) EGFR (BEAKER) (test 59 mL/min/1.73 ESTIMA JUNG GFR IS code = 1092) sq m NOT ACCURATE CREATININE CLEARANCE IN PREDICTING GLOMERULAR FILTRATION RATE . ESTIMATED GFR I S NOT APPLICABLE FOR DIALYSIS PATIEN TS. CBC W/PLT COUNT & AUTO [id number] 04:52:00 Test Item Value Reference Range Interpretation [...] NEUTROPHILS ABSOLUTE COUNT 4.56 K/ L 1.80-8.00 ([facility]) (test code = 670) LYMPHOCYTES ABSOLUTE COUNT 4.05 K/ L 1.48-4.50 ([facility]) (test code = 414) MONOCYTES ABSOLUTE COUNT (AKER) 0.48 K/ L 0.00-1.30 (test code = 415) EOSINOPHILS ABSOLUTE COUNT 0.72 K/ L 0.00-0.50 H ([facility]) (test code = 416) BASOPHILS ABSOLUTE COUNT ([facility]) 0.08 K/ L 0.00-0.20 (test code = 417) 0.00POCT-GLUCOSE [id number] 21:56:00 Test Item Value Reference Range Interpretation Comments POC-GLUCOSE METER 114 mg/dL 70-110 H TESTED AT [place] [address] ([facility]) (test code = [facility] 1538) [address] POCT-GLUCOSE [id number] 18:04:00 Test Item Value Reference Range Interpretation Comments POC-GLUCOSE METER 82 mg/dL 70-110 TESTED AT [place] [address] ([facility]) (test code = [facility] [address] 1538) TSH/FREE T4 IF [id number] 15:29:00 Test Item Value Reference Range Interpretation Comments THYROID STIMULATING HORMONE 2.71 uIU/mL 0.35-4.94 ([facility]) (test code = 772) POCT-GLUCOSE [id number] 12:39:00 Test Item Value Reference Range Interpretation Comments POC-GLUCOSE METER 112 mg/dL 70-110 H TESTED AT [place] [address] ([facility]) (test code = [facility] 1538) [address] [id number] 12:03:00 Test Item Value Reference Range Interpretation Comments RPR SCREEN ([facility]) (test code = Nonreactive Nonreactive 420) HEMOGLOBIN [id number] 08:06:00 Test Item Value Reference Range Interpretation Comments HEMOGLOBIN A1C ([facility]) (test code = 6.8 % 4.3-6.1 H 368) POCT-GLUCOSE [id number] 07:58:00 Test Item Value Reference Range Interpretation Comments POC-GLUCOSE METER 98 mg/dL 70-110 TESTED AT [place] [address] ([facility]) (test code = [facility] [address] 3118) CBC W/PLT COUNT & AUTO [id number] 04:28:00 Test Item Value Reference Range Interpretation [...] 0.00-0.20 (test code = 417) 0.00BASIC METABOLIC [id number] 04:15:00 Test Item Value Reference Range Interpretation [...] DATA TO CALCULA TE ESTIMATED GFR. FastingLIPID [id number] 04:11:00 Test Item Value Reference Range Interpretation [...] 160-189 Very High >=190 Fasting URINALYSIS W/ [id number] 00:43:00 Test Item Value Reference Range Interpretation [...] 516) SOURCE(BEAKER) (test code = Urine, Voided 9908) POCT-GLUCOSE [id number] 21:06:00 Test Item Value Reference Range Interpretation Comments POC-GLUCOSE METER 217 mg/dL 70-110 H TESTED AT [place] [address] (BEAKER) (test code = [facility] 1538) [address] SEDIMENTATION [id number] 20:24:00 Test Item Value Reference Range Interpretation Comments SEDIMENTATION RATE, ERYTHROCYTE 16 mm/HR 0-40 (BEAKER) (test code = 766) VITAMIN [id number] 19:36:00 Test Item Value Reference Range Interpretation Comments VITAMIN B12 (BEAKER) (test code = > pg/mL 213-816 H 774) POCT-GLUCOSE [id number] 19:08:00 Test Item Value Reference Range Interpretation Comments POC-GLUCOSE METER 105 mg/dL 70-110 [facility] AT [place] [address] [facility] (test code = [facility] 1538) [address] BASIC METABOLIC [id number] 19:03:00 Test Item Value Reference Range Interpretation [...] TO CALCULA TE ESTIMATED GFR. HEPATIC FUNCTION [id number] 19:01:00 Test Item Value Reference Range Interpretation [...] 347) hemolyzed CBC W/PLT COUNT & AUTO [id number] 18:54:00 Test Item Value Reference Range Interpretation [...]
--- NOTE | 2023-01-29 12:16 | RAD REPORT ---
EXAM DESCRIPTION: CT - Head Brain Wo Cont - 01/29/2023 11:51 am CLINICAL HISTORY: HEADACHE COMPARISON: Ct Stroke Brain Wo Cont dated 02/10/2017 TECHNIQUE: Noncontrast head CT images ad were obtained without IV contrast. Multiplanar reformats we re generated and reviewed. All CT scans are performed using dose optimization technique as appropriate and may include automated exposure control or mA/KV adjustment according to patient size. FINDINGS: No intracranial hemorrhage, mass, or edema. Midline structures are unremarkable. Normal ventricular caliber for age. Chase-white matter differentiation is preserved, without evidence of acute infarct. No abnormal extra- axial fluid collections. Near complete opacification of the left mastoid air cells and middle ear cleft. Visualized portions o f the paranasal sinuses are clear. No acute bony findings. IMPRESSION: No evidence of an acute intracranial process. Near complete opacification of the left mastoid air cells and middle ear cleft, could reflect an effu dee dee. Superimposed infection is difficult to exclude.
--- NOTE | 2023-01-29 12:28 | RAD REPORT ---
EXAM DESCRIPTION: CT - C Spine Wo Con - 01/29/2023 11:50 am CLINICAL HISTORY: Progressive pain COMPARISON: None. TECHNIQUE: Axial thin CT noncontrast images of the cervical spine were obtained with sagittal and co steven reconstruction images generated and reviewed. All CT scans are performed using dose optimization technique as appropriate and may include automated exposure control or mA/KV adjustment according to patient size. FINDINGS: Cervical body height and alignment are normal. Stable anterior plating at C6-7 with interb yvan spacer. Ossification along the left ligamentum new rdz at C4 level. No disk space narrowing. No f racture or acute bony abnormality. No paraspinal mass or hematoma. Sclerosis along the right mandibular nerve canal, could relate to chronic sequelae of odontogenic inf ection. IMPRESSION: No evidence of acute traumatic fracture or subluxation. Stable findings as above.
--- NOTE | 2023-01-29 12:30 | RAD REPORT ---
EXAM DESCRIPTION: RAD - C Spine W Obliques - 01/29/2023 12:00 pm CLINICAL HISTORY: 2 or 3 view dx, cervical spondylosis COMPARISON: C Spine Ap/Lat dated 11/24/2018; SPINE CERVICAL AP LAT dated 02/06/2015 TECHNIQUE: 5 views of the cervical spine were obtained. Oblique views were also obtained. FINDINGS: Cervical vertebral bodies are normal in height and alignment. Anterior plating hardware at C6-7, stable. No fracture or other suspicious bony finding. Oblique views show no bony foraminal enc roachment. Mild facet degenerative changes. No disc space narrowing. There is no prevertebral soft tissue thickening or other significant soft tissue finding. IMPRESSION: No acute osseus abnormality. Stable mild degenerative changes without evidence of signif icant bony foraminal narrowing on oblique view.
[2023-01-29 12:36] LABS: Absolute Lymphocytes (CBC) 1.1 K/uL (0.7-4.9); Hematocrit 30.9 % (36.0-45.0); Lymphocytes % 15.3 % (15.3-44.8); MCV 97.5 fL (80-100); MPV 8.5 fL (7.6-11.3); RBC Red Blood Cell Count 3.17 M/uL (3.86-4.86)
[2023-01-29] MEDS ORDERED: DIPHENHYDRAMINE 50 MG/ML VIAL ONE (12:42)
[2023-01-29] MEDS ORDERED: KETOROLAC 30 MG/ML INJ ONE (12:42)
[2023-01-29] MEDS ORDERED: METOCLOPRAMIDE 10 MG/2mL INJ ONE (12:42)
[2023-01-29] MEDS ORDERED: NA CHLORIDE 0.9% 1,000 ML ONE (12:43)
[2023-01-29] MEDS ORDERED: NA CHLORIDE 0.9% 100 ML ONE (12:43)
[2023-01-29 12:54] LABS: Albumin 3.3 g/dL (3.4-5.0); Bilirubin Total 0.5 mg/dL (0.2-1.0); Potassium 4.1 mEq/L (3.5-5.1); Protein, Total 7.2 g/dL (6.4-8.2)
--- NOTE | 2023-01-29 13:01 | ER ---
Nurse's Notes [facility] Name: Bridgette Browne Age: 73 yrs Sex: Female : 1950 Arrival Date: 01/29/2023 Time: 11:03 Bed 11 Private MD: John Pruitt Diagnosis: Cervical strain, chronic pain. Presentation: 01/29 11:19 Chief complaint: Patient states: Pt reports neck and right shoulder pain. Pt presenting cm10 with neck brace in place because it helps with pain. Coronavirus screen: Vaccine status: Patient reports receiving the 2nd dose of the covid vaccine. Client denies travel out of the [place] in the last 14 days. At this time, the client does not indicate any symptoms associated with coronavirus-19. Ebola Screen: No symptoms or risks identified at this time. Initial Sepsis Screen: Does the patient meet any 2 criteria? No. Patient's initial sepsis screen is negative. Does the patient have a suspected source of infection? No. Patient's initial sepsis screen is negative. Risk Assessment: Do you want to hurt yourself or someone else? Patient reports no desire to harm self or others. Onset of symptoms is unknown. 11:19 Method Of Arrival: Wheelchair cm10 11:19 Acuity: ISMAEL 4 cm10 Historical: - Allergies: 11:21 Aspirin; cm10 11:21 Hydrocodone-Ibuprofen; cm10 11:21 Tylenol-Codeine; cm10 - PMHx: 11:21 Anxiety; Chronic pain; Diabetes - NIDDM; Gout; High Cholesterol; Hypertension; cm10 Transient cerebral ischemia; - PSHx: 11:21 cervical and lumbar spine; Gastric Bypass; rotator cuff; cm10 - Immunization history:: Adult Immunizations unknown. - Social history:: Smoking status: Patient denies any tobacco usage or history of. Screenin:04 [facility] ED Fall Risk Assessment (Adult) History of falling in the last 3 months, os including since admission No falls in past 3 months (0 pts) Confusion or Disorientation No (0 pts) Intoxicated or Sedated No (0 pts) Impaired Gait No (0 pts) Mobility Assist Device Used Yes (1 pt) Altered Elimination No (0 pt) Score/Fall Risk Level 0 - 2 = Low Risk Oriented to surroundings, Maintained a safe environment. Abuse screen: Denies threats or abuse. Nutritional screening: No deficits noted. Tuberculosis screening: No symptoms or risk factors identified. Assessment: 11:47 General: Appears uncomfortable, Behavior is calm, cooperative, appropriate for age, os Smells of Reports Patient c/o right neck pain radiating to upper shoulder for the past 4 days. Denies fever, feeling ill, fatigue, chills. Pain: Complains of pain in Right neck pain radiating to right upper shoulder Pain began 2-3 days ago. Is continuous. Neuro: No deficits noted. Cardiovascular: No deficits noted. Denies chest pain, Rhythm is sinus rhythm Chest pain is denied. Respiratory: No deficits noted. Denies cough, shortness of breath. Musculoskeletal: Tenderness present in right neck radiating to right shoulder. Vital Signs: 11:19 BP 118 / 64; Pulse 61; Resp 16; Temp 98.2(TE); Pulse Ox 100% on R/A; Weight 72.12 kg; cm10 Height 5 ft. 5 in. ; Pain 10/10; 12:55 BP 146 / 80; Pulse 64; Resp 17; Pulse Ox 99% on R/A; os 11:19 Body Mass Index 26.46 (72.12 kg, 165.1 cm) cm10 11:19 Pain Scale: Adult cm10 ED Course: 11:07 Patient arrived in ED. mr 11:07 Henry Noble MD is Attending Physician. bs3 11:07 John Pruitt DO is Private Physician. mr 11:21 Triage completed. cm10 11:22 Arm band placed on Patient placed in an exam room, on a stretcher. cm10 11:39 Elly Leiva, DEMETRIO is Primary Nurse. os 11:52 CT C Spine In Process Unspecified. EDMS 11:52 CT Head Brain wo Cont In Process Unspecified. EDMS 12:01 XRAY C Spine W Obliques In Process Unspecified. EDMS 12:05 Patient has correct armband on for positive identification. Bed in low position. Call os light in reach. Side rails up X 1. Side rails up X2. Adult w/ patient. 12:05 No provider procedures requiring assistance completed. Inserted saline lock: 20 gauge os antecubital area, using aseptic technique. 12:32 CRP Sent. os 12:32 Comprehensive Metabolic Panel Sent. os 12:32 CBC with Diff Sent. os 12:43 CRP Sent. os 12:43 Comprehensive Metabolic Panel Sent. os 13:44 intact, bleeding controlled, No redness/swelling at site. Pressure dressing applied. os Administered Medications: 12:44 Drug: diphenhydrAMINE IVP 12.5 mg Route: IVP; Site: right forearm; os 13:04 Follow up: Response: No adverse reaction; Marked relief of symptoms; Pain is decreased os 12:44 Drug: NS 0.9% IV 500 ml Route: IV; Rate: bolus; Site: right forearm; os 13:04 Follow up: Response: No adverse reaction; Marked relief of symptoms; Pain is decreased os 12:45 Drug: Ketorolac IM 30 mg Route: IM; Site: right deltoid; os 13:05 Follow up: Response: No adverse reaction; Marked relief of symptoms; Pain is decreased os 12:45 Drug: metoCLOPramide IVP 10 mg Route: IVP; Site: right femoral; os 13:05 Follow up: Response: No adverse reaction; Marked relief of symptoms; Pain is decreased os Medication: 12:05 VIS not applicable for this client. os Outcome: 13:00 Discharge ordered by MD. ambrose3 13:43 Discharged to home via wheelchair. os 13:43 Condition: improved 13:43 Discharge instructions given to patient, family, Instructed on discharge instructions, follow up and referral plans. safety practices. 13:44 Patient left the ED. os Signatures: Dispatcher [employer] Eileen Andersen Brandon, MD MD bs3 Elly Leiva RN RN os Nazia Artis RN RN cm10
--- NOTE | 2023-01-29 13:01 | EDPHYS ---
Physician Documentation [facility] Name: Bridgette Browne Age: 73 yrs Sex: Female : 1950 Arrival Date: 01/29/2023 Time: 11:03 Bed 11 Private MD: John Pruitt ED Physician Henry Noble HPI: 01/29 11:17 This 73 yrs old Female presents to ER via Unassigned with complaints of Neck bs3 pain. 11:17 73-year-old female history of chronic pain, being seen by Dr. Adkins for neck pain bs3 recommended outpatient MRI head and neck presents with persistent pain. 11:49 Patient notes right-sided neck pain without associated numbness tingling or weakness bs3 pain worse with movement better with rest she has been using a c-collar soft collar without improvement she tried multiple medications including her Zanaflex without relief no fevers chills night sweats weight loss no chest pain she does note she has had a headache her doctor recommended further work-up which is being scheduled but they had difficulty scheduling and therefore came in today. Historical: - Allergies: 11:21 Aspirin; cm10 11:21 Hydrocodone-Ibuprofen; cm10 11:21 Tylenol-Codeine; cm10 - PMHx: 11:21 Anxiety; Chronic pain; Diabetes - NIDDM; Gout; High Cholesterol; Hypertension; cm10 Transient cerebral ischemia; - PSHx: 11:21 cervical and lumbar spine; Gastric Bypass; rotator cuff; cm10 - Immunization history:: Adult Immunizations unknown. - Social history:: Smoking status: Patient denies any tobacco usage or history of. ROS: 11:49 Constitutional: Negative for fever, chills bs3 11:49 All other systems are negative. Exam: 11:49 Constitutional: This is a well developed, well nourished patient who is awake, alert, bs3 and in no acute distress. Head/Face: Normocephalic, atraumatic. Eyes: Pupils equal round and reactive to light, extra-ocular motions intact. Lids and lashes normal. ENT: mmm, no posterior phyarngeal erythema Neck: She has neck stiffness she has paraspinal pain to palpation on the right with pain over her trapezius muscle on the right Chest/axilla: Normal chest wall appearance and motion. Nontender with no deformity. No lesions are appreciated. Cardiovascular: Regular rate and rhythm with a normal S1 and S2. symmetric pulses in upper extremities Respiratory: Lungs have equal breath sounds bilaterally, clear to auscultation, no respiratory distress Abdomen/GI: Soft, non-tender, no rebound or guarding MS/ Extremity: Pulses equal, no cyanosis. Neurovascular intact. Full, normal range of motion. Neuro: Awake and alert, GCS 15, oriented to person, place, time, and situation. Cranial nerves II-XII grossly intact. Motor strength 5/5 in all extremities. Sensory grossly intact. Psych: Awake, alert, with orientation to person, place and time. Behavior, mood, and affect are within normal limits. Vital Signs: 11:19 BP 118 / 64; Pulse 61; Resp 16; Temp 98.2(TE); Pulse Ox 100% on R/A; Weight 72.12 kg; cm10 Height 5 ft. 5 in. ; Pain 10/10; 12:55 BP 146 / 80; Pulse 64; Resp 17; Pulse Ox 99% on R/A; os 11:19 Body Mass Index 26.46 (72.12 kg, 165.1 cm) cm10 11:19 Pain Scale: Adult cm10 MDM: 11:07 Patient medically screened. 3 11:49 Data reviewed: vital signs, nurses notes. ED course: History is consistent with chronic bs3 pain with worsening right-sided neck pain she has no numbness tingling or weakness of her extremities she has pain with range of motion of her neck we will treat pain will do CT and I called MRI and help them follow-up for outpatient scheduling, per her neuology, had orders for cmp, cbc, esr, cannot order esr here, will order crp. . 12:38 ED course: CT negative for acute pathology pending labs anticipate discharge patient to [facility] get MRI today upon discharge. 13:00 ED course: CRP is markedly elevated unclear etiology she is afebrile here without signs [facility] of a deep space infection or osteomyelitis advised follow-up with her neurologist for further work-up possible rheumatology referral. 01/29 11:44 Order name: CBC with Diff; Complete Time: 12:59 3 01/29 11:44 Order name: Comprehensive Metabolic Panel; Complete Time: 12:59 3 01/29 11:44 Order name: CRP; Complete Time: 12:59 bs3 01/29 11:16 Order name: CT C Spine; Complete Time: 12:34 bs3 01/29 11:19 Order name: CT Head Brain wo Cont; Complete Time: 12:34 bs3 01/29 11:44 Order name: XRAY C Spine W Obliques; Complete Time: 12:34 bs3 01/29 11:23 Order name: IV Start; Complete Time: 12:32 cm10 Administered Medications: 12:44 Drug: diphenhydrAMINE IVP 12.5 mg Route: IVP; Site: right forearm; os 13:04 Follow up: Response: No adverse reaction; Marked relief of symptoms; Pain is decreased os 12:44 Drug: NS 0.9% IV 500 ml Route: IV; Rate: bolus; Site: right forearm; os 13:04 Follow up: Response: No adverse reaction; Marked relief of symptoms; Pain is decreased os 12:45 Drug: Ketorolac IM 30 mg Route: IM; Site: right deltoid; os 13:05 Follow up: Response: No adverse reaction; Marked relief of symptoms; Pain is decreased os 12:45 Drug: metoCLOPramide IVP 10 mg Route: IVP; Site: right femoral; os 13:05 Follow up: Response: No adverse reaction; Marked relief of symptoms; Pain is decreased os Disposition Summary: 01/29/23 13:00 Discharge Ordered Location: Home bs3 Problem: an acute exacerbation bs3 Symptoms: have improved bs3 Condition: Fair bs3 Diagnosis - Cervical strain, chronic pain. bs3 Followup: bs3 - With: Private Physician - When: 2 - 3 days - Reason: Re-evaluation by your physician Discharge Instructions: - Discharge Summary Sheet bs3 - Muscle Strain, [id number] bs3 - Neck Contusion, [id number] bs3 Forms: - Medication Reconciliation Form bs3 - Thank You Letter bs3 - Antibiotic Education bs3 - Prescription Opioid Use bs3 Signatures: Dispatcher [employer] Henry Graham MD MD bs3 Elly Leiva RN RN os Nazia Artis RN RN cm10
[2023-01-29 14:12] VITALS: TEMP 98.2
[2023-01-29 14:22] VITALS: BP 146/80; O2SAT 99
== END 2023-01-29 13:44 | disposition home or self-care (01) ==
LOC: ER 11:03
DX: S16.1XXA Strain of muscle, fascia and tendon at neck level, initial encounter (principal); G89.29 Other chronic pain; I10 Essential (primary) hypertension; E11.9 Type 2 diabetes mellitus without complications; Z88.5 Allergy status to narcotic agent; Z88.6 Allergy status to analgesic agent
CPT/HCPCS: 85025; 36415; 80053; 86140; 70450; 72125; 72050; 96372; 99284; J2765; J1200; J7030

== ENCOUNTER 2023-12-05 03:23 | Emergency (ER) | payer OTHER ==
[2023-12-05] MEDS ORDERED: methocarbamoL 500 MG TAB ONE (03:37)
[2023-12-05] MEDS ORDERED: ACETAMINOPHEN 500 MG TAB ONE (03:37)
[2023-12-05] MEDS ORDERED: LIDOCAINE 4% PATCH ONE (03:38)
--- NOTE | 2023-12-05 05:45 | ER ---
Nurse's Notes [facility] Name: Bridgette Browne Age: 73 yrs Sex: Female : 1950 Arrival Date: 12/05/2023 Time: 03:23 Bed 7 Private MD: Diagnosis: Low back pain;Humeral Neck Fracture Presentation: 12/04 03:26 Chief complaint: EMS states: patient fell on a dog pad and landed on left shoulder. No tm6 LOC. Patient was not able to lift self off the floor, was on the floor when EMS arrived. Now complaining of left shoulder pain and lower back pain. Prior to arrival, EMS gave 15mg toradol for 10/10 pain. Patient now stating pain is 6/10. Care prior to arrival: Medication(s) given: 15mg Toradol IVP. Mechanism of Injury: Fall from standing position. Trauma event details: Injury occurred in the [facility], Injury occurred: at home. Injury occurred: December 05, 2023. Activity prior to arrival: None. 03:26 Acuity: ISMAEL 3 tm6 03:26 Method Of Arrival: EMS: [facility] tm6 03:30 Coronavirus screen: Vaccine status:. ha1 03:30 Ebola Screen: No symptoms or risks identified at this time. Initial Sepsis Screen: Does ha1 the patient meet any 2 criteria? No. Patient's initial sepsis screen is negative. Does the patient have a suspected source of infection? No. Patient's initial sepsis screen is negative. Risk Assessment: Do you want to hurt yourself or someone else? Patient reports no desire to harm self or others. Onset of symptoms was December 05, 2023. Triage Assessment: 03:40 General: Appears in no apparent distress. uncomfortable, Behavior is calm, cooperative. tm6 Pain: Complains of pain in left shoulder, lower back Pain currently is 6 out of 10 on a pain scale. at worst was 10 out of 10 on a pain scale. Quality of pain is described as aching. EENT: No signs and/or symptoms were reported regarding the EENT system. Neuro: No deficits noted. Level of Consciousness is awake, alert, obeys commands, Oriented to person, place, time, situation. Cardiovascular: No deficits noted. Capillary refill < 3 seconds Patient's skin is warm and dry. Respiratory: No deficits noted. Airway is patent Respiratory effort is even, unlabored, Respiratory pattern is regular, symmetrical. GI: No signs and/or symptoms were reported involving the gastrointestinal system. Abdomen is round non-distended. : No signs and/or symptoms were reported regarding the genitourinary system. Derm: No signs and/or symptoms reported regarding the dermatologic system. Musculoskeletal: Reports pain in left shoulder, lower back. Injury Description:. Historical: - Allergies: 03:25 Aspirin; ha1 03:25 Hydrocodone-Ibuprofen; ha1 03:25 Tylenol-Codeine; ha1 - PMHx: 03:25 Anxiety; Chronic pain; Diabetes - NIDDM; Gout; High Cholesterol; Hypertension; ha1 Transient cerebral ischemia; - PSHx: 03:25 cervical and lumbar spine; Gastric Bypass; rotator cuff; ha1 - Immunization history: Last tetanus immunization: < 5 years ago. - Infectious Disease History:: Denies. - Social history:: Smoking status: Patient denies any tobacco usage or history of. Screenin:26 Abuse screen: Denies threats or abuse. Denies injuries from another. Nutritional tm6 screening: No deficits noted. Tuberculosis screening: No symptoms or risk factors identified. Fall risk At risk due to injury, prior history of falls. 06:29 [facility] ED Fall Risk Assessment (Adult) History of falling in the last 3 months, tm6 including since admission Yes- single mechanical fall (1 pt) Confusion or Disorientation No (0 pts) Intoxicated or Sedated No (0 pts) Impaired Gait No (0 pts) Mobility Assist Device Used No (0 pt) Altered Elimination No (0 pt) Score/Fall Risk Level 0 - 2 = Low Risk Oriented to surroundings, Maintained a safe environment. Primary Survey: 03:26 NO uncontrolled hemorrhage observed. A: The client is awake and alert. The airway is tm6 patent. The client is alert. Airway: patent, No supplemental oxygen in use on arrival. Oral cavity: clear, Trachea midline. Breathing/Chest: Spontaneous respiratory effort, equal unlabored respirations, breath sounds clear bilaterally, regular pattern, symmetrical chest rise and fall. Respiratory effort: unlabored, Breath sounds: clear, Respiratory pattern: regular, Chest inspection: symmetrical rise and fall of the chest. Circulation: No external hemorrhage present. Regular and strong central pulse, skin warm/dry/normal color. Hemorrhage: No external hemorrhage noted. Pulses: Skin color: pink, Skin temperature: warm, dry. Disability Pupils are equal, round, reactive to light and accommodation. Client is alert. Exposure/Environment: All clothing and personal items were removed. There is no evidence of uncontrolled external bleeding. Obvious injury(ies) are noted at this time: left shoulder and lower back pain A warming method has been applied: A warm blanket has been provided to the patient. Reassessment Alertness and Airway: Awake and alert. The airway is patent. Breathing: Spontaneous respiratory effort, equal unlabored respirations, breath sounds clear bilaterally, regular pattern with symmetrical chest rise and fall. Circulation: No external hemorrhage noted. Regular and strong central pulse, skin warm/dry/normal color. Disability: Alert. Secondary Survey: :26 HEENT: No deficits noted. Head No injury/deformity Face No injury/deformity Eyes: No tm6 injury or deformity noted. Ears: clear Nose: clear Throat: No injury or deformity noted. Gastrointestinal: No deficits noted. : No deficits noted. Musculoskeletal: Reports pain in left shoulder, lower back. Assessment: 03:26 General: Appears in no apparent distress. Behavior is calm, cooperative. Pain: tm6 Complains of pain in left shoulder, lower back Pain does not radiate. Pain currently is 6 out of 10 on a pain scale. at worst was 10 out of 10 on a pain scale. Quality of pain is described as aching. Neuro: No deficits noted. Level of Consciousness is awake, alert, obeys commands, Oriented to person, place, time, situation. EENT: No signs and/or symptoms were reported regarding the EENT system. Cardiovascular: No deficits noted. Capillary refill < 3 seconds Patient's skin is warm and dry. Respiratory: Airway is patent Respiratory effort is even, unlabored, Respiratory pattern is regular, symmetrical. GI: No signs and/or symptoms were reported involving the gastrointestinal system. Abdomen is round non-distended. : No signs and/or symptoms were reported regarding the genitourinary system. Derm: No signs and/or symptoms reported regarding the dermatologic system. Musculoskeletal: Tenderness present in left shoulder, lower back Reports pain in left shoulder, lower back. Nursing diagnosis:. 04:18 Reassessment: Patient and/or family updated on plan of care and expected duration. Pain ha1 level reassessed. Patient is alert, oriented x 3, equal unlabored respirations, skin warm/dry/pink. Patient states symptoms have improved. 04:27 Reassessment: patient's cell # [phone]. ha1 04:50 Reassessment: eyes closed. Respiratory: Airway is patent Respiratory effort is even, ha1 unlabored, Respiratory pattern is regular, symmetrical. 05:35 Reassessment: No changes from previously documented assessment. Patient and/or family tm6 updated on plan of care and expected duration. Pain level reassessed. Patient is alert, oriented x 3, equal unlabored respirations, skin warm/dry/pink. 06:28 Reassessment: No changes from previously documented assessment. tm6 Vital Signs: 03:26 BP 180 / 66; Pulse 60; Resp 19; Temp 97.3(TE); Pulse Ox 100% on R/A; Weight 70.31 kg tm6 (R); Height 5 ft. 4 in. ; Pain 6/10; 04:18 BP 141 / 59; Pulse 64; Resp 17 S; Pulse Ox 99% on R/A; ha1 05:35 BP 138 / 56; Pulse 58; Pulse Ox 100% on R/A; tm6 06:27 BP 138 / 56; Pulse 62; Resp 19; Temp 97.3(TE); Pulse Ox 100% on R/A; Pain 4/10; tm6 03:26 Body Mass Index 26.61 (70.31 kg, 162.56 cm) tm6 03:26 Pain Scale: Adult tm6 06:27 Pain Scale: Adult tm6 [place] Com[place] Score: 03:26 Eye Response: spontaneous(4). Motor Response: obeys commands(6). Verbal Response: tm6 oriented(5). Total: 15. Trauma Score (Adult): 03:26 Eye Response: spontaneous(1); Verbal Response: oriented(1); Motor Response: obeys tm6 commands(2); Systolic BP: > 89 mm Hg(4); Respiratory Rate: 10 to 29 per min(4); [place] Score: 15; Trauma Score: 12 ED Course: 03:25 Patient arrived in ED. jj6 03:26 Mayank Stapleton, RN is Primary Nurse. tm6 03:26 Patient has correct armband on for positive identification. Placed in gown. Bed in low tm6 position. Call light in reach. Side rails up X2. O2 via room air. Client placed on continuous cardiac and pulse oximetry monitoring. NIBP monitoring applied. Pulse ox on. NIBP on. 03:26 O2 via room air. tm6 03:26 Thermoregulation: warm blanket given to patient. ha1 03:26 No provider procedures requiring assistance completed. Maintain EMS IV. Dressing ha1 intact. Good blood return noted. Site clean \T\ dry. Gauge \T\ site: 20 gauge RForearm . 03:27 Amrit Hardin MD is Attending Physician. ec2 03:30 Triage completed. tm6 03:40 Arm band placed on right wrist. tm6 04:04 Shoulder Left (2 View) XRAY In Process Unspecified. EDMS 04:04 Humerus Left XRAY In Process Unspecified. EDMS 04:04 Elbow Left 3 View XRAY In Process Unspecified. EDMS 04:04 CT Lumbar Spine Wo Con In Process Unspecified. EDMS 05:44 Fracisco Waters MD is Referral Physician. ec2 06:09 IV discontinued, intact, bleeding controlled, No redness/swelling at site. Pressure ha1 dressing applied. 06:20 Amrit Hardin MD is Attending Physician. ec2 06:27 Shoulder immobilizer applied on right shoulder. tm6 06:28 Provided Education on: keep sling on until you are able to see the orthopedic MD Dr. mackenzie Waters. Warm blanket given. Administered Medications: 03:50 Drug: Lidoderm Topical Patch 5 % (700 mg/patch) 1 patches Topical once; leave on for 12 ha1 hours; cover most painful area; may cut into smaller pieces Route: Topical; Site: affected area; 06:05 Follow up: Response: No adverse reaction; Marked relief of symptoms ha1 03:50 Drug: Methocarbamol PO 500 mg PO once Route: PO; ha1 06:05 Follow up: Response: No adverse reaction; Marked relief of symptoms ha1 04:17 Not Given (Patient Refused): [id number] mg PO once ha1 06:27 Drug: Ketorolac IM 15 mg IM once Route: IM; Site: right deltoid; tm6 Medication: 04:26 VIS not applicable for this client. ha1 Intake: 03:26 PO: 0ml; Total: 0ml. tm6 Output: 03:26 Urine: 0ml; Total: 0ml. tm6 Outcome: 05:44 Discharge ordered by . ec2 06:28 Discharged to home via wheelchair, tm6 06:28 Condition: stable 06:28 Discharge instructions given to patient, Instructed on discharge instructions, follow up and referral plans. medication usage, Demonstrated understanding of instructions, follow-up care, medications, Prescriptions given X 1, 06:29 Patient left the ED. tm6 Signatures: Dispatcher [employer] EDAmaris Ann jj6 Evette Tello RN RN ha1 Amrit Hardin MD MD 2 Mayank Stapleton RN RN tm6 Corrections: (The following items were deleted from the chart) 06:03 04:27 Reassessment: patient's cell # [phone] ha1 ha1
--- NOTE | 2023-12-05 05:45 | EDPHYS ---
Physician Documentation [facility] Name: Bridgette Browne Age: 73 yrs Sex: Female : 1950 Arrival Date: 12/05/2023 Time: 03:23 Bed 7 Private MD: ED Physician Amrit Hardin HPI: 12/04 03:28 This 73 yrs old Female presents to ER via Unassigned with complaints of Fall ec2 Injury, Shoulder Injury. 03:28 Patient arrives today for evaluation of LUE injury. Pt reports that she had a GLF just ec2 prior to arrival. States that she tripped over a dog pad. No loc, no head strike, no neck injury. Pt complaining of LUE pain as she landed on her L elbow. Reports hx of L shoulder repair. Denies blood thinners. Also complaints of lower back pain. . Historical: - Allergies: 03:25 Aspirin; ha1 03:25 Hydrocodone-Ibuprofen; ha1 03:25 Tylenol-Codeine; ha1 - PMHx: 03:25 Anxiety; Chronic pain; Diabetes - NIDDM; Gout; High Cholesterol; Hypertension; ha1 Transient cerebral ischemia; - PSHx: 03:25 cervical and lumbar spine; Gastric Bypass; rotator cuff; ha1 - Immunization history: Last tetanus immunization: < 5 years ago. - Infectious Disease History:: Denies. - Social history:: Smoking status: Patient denies any tobacco usage or history of. ROS: 03:28 Constitutional: as per hpi ec2 Exam: 03:28 Constitutional: GEN: No acute distress HEENT: -Head: no deformities -Eyes: EOMI CV: ec2 regular rate LUNGS: no respiratory distress ABD: non-tender SKIN: no wounds appreciated MSK: No C/T/L spine deformities, minimal L spine ttp. RUE w/o bony deformity LUE w/ ttp to the L shoulder, L humerus and L elbow. No deformity, intact distal NV status. RLE w/o bony deformity LLE w/o bony deformity NEURO: moves all extremities equally, GCS 15 (E4, V5, M6) Vital Signs: 03:26 BP 180 / 66; Pulse 60; Resp 19; Temp 97.3(TE); Pulse Ox 100% on R/A; Weight 70.31 kg tm6 (R); Height 5 ft. 4 in. ; Pain 6/10; 04:18 BP 141 / 59; Pulse 64; Resp 17 S; Pulse Ox 99% on R/A; ha1 05:35 BP 138 / 56; Pulse 58; Pulse Ox 100% on R/A; tm6 06:27 BP 138 / 56; Pulse 62; Resp 19; Temp 97.3(TE); Pulse Ox 100% on R/A; Pain 4/10; tm6 03:26 Body Mass Index 26.61 (70.31 kg, 162.56 cm) tm6 03:26 Pain Scale: Adult tm6 06:27 Pain Scale: Adult tm6 [place] Coma Score: 03:26 Eye Response: spontaneous(4). Motor Response: obeys commands(6). Verbal Response: tm6 oriented(5). Total: 15. Trauma Score (Adult): 03:26 Eye Response: spontaneous(1); Verbal Response: oriented(1); Motor Response: obeys tm6 commands(2); Systolic BP: > 89 mm Hg(4); Respiratory Rate: 10 to 29 per min(4); [place] Score: 15; Trauma Score: 12 MDM: 03:27 Patient medically screened. ec2 03:28 Data reviewed: vital signs. ED course: Patient arrives today for evaluation of left ec2 upper extremity pain as well as lower back pain. Examination remarkable for MSK findings as above. Will obtain radiographs of the left lower extremity, CT of the L-spine. Will give the patient medication for pain. Evaluate for bony contusion, considering bony fracture. Doubt dislocation.. 05:39 ED course: Shoulder x-ray independently reviewed and interpreted by me, shows humeral ec2 neck fracture. Will place patient in sling.. 05:39 ED course: CT L-spine negative.. ec2 05:44 ED course: On reassessment patient is well-appearing in no acute distress. Will ec2 discharge home, have patient follow-up outpatient with orthopedic surgery. Return precautions given.. 05:55 ED course: Radiology with reports of questionable cortical irregularity on the radial ec2 head of the left elbow. Patient with no pinpoint tenderness at this area, suspect this is positional. . 12/04 03:28 Order name: Shoulder Left (2 View) XRAY ec2 12/04 03:28 Order name: Humerus Left XRAY ec2 12/04 03:28 Order name: Elbow Left 3 View XRAY ec2 12/04 03:28 Order name: CT Lumbar Spine Wo Con ec2 12/04 05:24 Order name: Sling; Complete Time: 06:27 ec2 Administered Medications: 03:50 Drug: Lidoderm Topical Patch 5 % (700 mg/patch) 1 patches Topical once; leave on for 12 ha1 hours; cover most painful area; may cut into smaller pieces Route: Topical; Site: affected area; 06:05 Follow up: Response: No adverse reaction; Marked relief of symptoms ha1 03:50 Drug: Methocarbamol PO 500 mg PO once Route: PO; ha1 06:05 Follow up: Response: No adverse reaction; Marked relief of symptoms ha1 04:17 Not Given (Patient Refused): [id number] mg PO once ha1 06:27 Drug: Ketorolac IM 15 mg IM once Route: IM; Site: right deltoid; tm6 Disposition Summary: 12/05/23 05:44 Discharge Ordered Notes: Location: Home ec2 Condition: Stable ec2 Diagnosis - Low back pain ec2 - Humeral Neck Fracture ec2 Followup: ec2 - With: Private Physician - When: - Reason: Re-evaluation by your physician Followup: ec2 - With: Fracisco Waters MD - When: - Reason: Recheck today's complaints Discharge Instructions: - Discharge Summary Sheet ec2 - Acute Back Pain, Adult ec2 - Shoulder Pain, [id number] ec2 Forms: - Medication Reconciliation Form ec2 - Thank You Letter ec2 - Antibiotic Education ec2 - Prescription Opioid Use ec2 - Patient Portal Instructions ec2 - Leadership Thank You Letter ec2 Prescriptions: - methocarbamol 500 mg Oral tablet - take 1 tablet ORAL route 4 times per day; 10 tablet; Refills: 0, Product ec2 Selection Permitted Signatures: Dispatcher [employer] Evette Bueno RN RN ha1 Amrit Hardin MD MD 2 Mayank Stapleton RN RN tm6 Corrections: (The following items were deleted from the chart) 03:28 03:28 Spine Lumbar Wo Con+[id number].[id number] ordered. EDMS EDMS
[2023-12-05] MEDS ORDERED: KETOROLAC 30 MG/ML INJ ONE (06:18)
[2023-12-05 06:55] VITALS: BP 138/56; TEMP 97.3; O2SAT 100
--- NOTE | 2023-12-05 20:34 | RAD REPORT ---
EXAM DESCRIPTION: CT - Spine Lumbar Wo Con - 12/05/2023 6:[address] lumbar spine without intravenous contrast. CLINICAL HISTORY: 73 years Female fall. TECHNIQUE: Multiple high-resolution thin axial CT images were performed through the lumbar spine fol lowed by sagittal and coronal reconstructed images. The CT study is performed according to ALARA (as low as reasonably achievable) or ALARA/IMAGE GENTLY, with automatic adjustment of mA and/or kV accord ing to patient size. Performed on: 12/05/2023 at 3: 56 AM COMPARISON: CT abdomen and pelvis performed on 12/08/2022 FINDINGS: The lumbar vertebrae are normal in height. There is normal alignment of the vertebrae. T he disc spaces are well preserved in height. Bone mineralization is decreased There is normal alignment of the facet joints on the parasagittal images. There are mild degenerative changes of the lumbar spine. There is no evidence of acute fracture or subluxation. There is mild L2-L3 and L3-L4 canal stenosis secondary to disc osteophyte complexes and mild degenerative joint disease. There is left L3-L4 an d L4-L5 neural foraminal stenosis secondary to degenerative disc disease and degenerative joint disea se. The paravertebral and paraspinal soft tissues are unremarkable. IMPRESSION: 1. No evidence of acute osseous injury involving the lumbar spine. 2. Mild degenerative changes of the lumbar spine as described above. 3. Decreased bone mineralization. Electronically signed by: Salima Whiting DO 12/05/2023 05:31 AM CDT Due to temporary technical issues with the PACS/Fluency reporting system, reports are being signed by the in house radiologists without review as a courtesy to insure prompt reporting. The interpreting radiologist is fully responsible for the content of the report.
--- NOTE | 2023-12-05 22:12 | RAD REPORT ---
EXAM DESCRIPTION: RAD - Elbow Left 3 View - 12/05/2023 4:02 am CLINICAL HISTORY: 73 years Female injury TECHNIQUE: Three x-ray views of the left elbow were performed on 12/05/2023 at 3:42 AM. COMPARISON: None FINDINGS: There is questionable cortical irregularity of the radial head on the AP projection concer giovanny for a subtle fracture. This is not confirmed on the additional views. A true lateral view of the left elbow was not obtained. The remainder of the osseous structures are intact . There is no eviden ce of dislocation. No lytic or sclerotic bone lesions are seen. There are no significant arthritic or degenerative changes. Bone mineralization is grossly within normal limits.. No focal soft tissue abnormalities are identified. A joint effusion is not appreciated on this study. However, a true lateral view of the left elbow was not obtained. IMPRESSION: Questionable cortical irregularity of the radial head on the AP projection concerning fo r a subtle fracture. This is not confirmed on the additional views. A true lateral view of the left e lbow was not obtained. Electronically signed by: Salima Whiting DO 12/05/2023 05:37 AM CDT Due to temporary technical issues with the PACS/Fluency reporting system, reports are being signed by the in house radiologists without review as a courtesy to insure prompt reporting. The interpreting radiologist is fully responsible for the content of the report.
--- NOTE | 2023-12-05 22:14 | RAD REPORT ---
EXAM DESCRIPTION: RAD - Humerus Left - 12/05/2023 4:02 am CLINICAL HISTORY: 73 years Female empiric TECHNIQUE: Two x-ray views of the left humerus were performed on 12/05/2023 at 3:44 AM. COMPARISON: None FINDINGS: There is an impacted left humeral neck fracture. The shoulder joint and elbow joint are gr ossly intact. No lytic or sclerotic bone lesions are seen. No significant arthritic or degenerative c hanges are appreciated. Bone mineralization is decreased. There is mild soft tissue swelling surrounding the left shoulder. IMPRESSION: 1. Impacted left humeral neck fracture with surrounding soft tissue swelling. 2. Diffuse bone demineralization. Electronically signed by: Salima Whiting DO 12/05/2023 05:23 AM CDT Due to temporary technical issues with the PACS/Fluency reporting system, reports are being signed by the in house radiologists without review as a courtesy to insure prompt reporting. The interpreting radiologist is fully responsible for the content of the report.
--- NOTE | 2023-12-05 22:15 | RAD REPORT ---
EXAM DESCRIPTION: RAD - Shoulder Left 2 View - 12/05/2023 4:02 am CLINICAL HISTORY: 73 years Female fall TECHNIQUE: Two x-ray views of the left shoulder were performed on 12/05/2023 at 3:42 AM. COMPARISON: None FINDINGS: There is an impacted left humeral neck fracture. There is no significant displacement of t he fracture fragments. The glenohumeral joint and acromioclavicular joint are intact. No additional a cute fractures are identified. No lytic or sclerotic bone lesions are seen. There are no significant arthritic or degenerative changes. Bone mineralization is decreased. There is mild soft tissue swelling surrounding the left shoulder. IMPRESSION: 1. Nondisplaced, impacted left humeral neck fracture. 2. Diffuse bone demineralization. Electronically signed by: Salima Whiting DO 12/05/2023 05:33 AM CDT Due to temporary technical issues with the PACS/Fluency reporting system, reports are being signed by the in house radiologists without review as a courtesy to insure prompt reporting. The interpreting radiologist is fully responsible for the content of the report.
== END 2023-12-05 06:29 | disposition home or self-care (01) ==
LOC: ER 03:23
DX: S42.212A Unspecified displaced fracture of surgical neck of left humerus, initial encounter for closed fracture (principal); M54.50 Low back pain, unspecified; Z88.5 Allergy status to narcotic agent; Z88.6 Allergy status to analgesic agent
CPT/HCPCS: 72131; 73080; 73060; 73030; 96372; 99285; J2001